=== PATIENT | male | born 1975 | race Caucasian/White ===

== ENCOUNTER → 2017-03-31 | Outpatient (CLI) | payer MEDICAID ==
[~2017-03-31] MED LIST: /WARF5TA PO; ACET-654 PO; ACET325S2 PO; BISAC5TA PO; COLA50CA3 PO; COUM6TAB PO; DOCU10ELUD PO; DRIS1CAP PO; LIPI10TA PO; LOVE1INJ SC; MOM30SS PO; TYLE325T5 PO; [UNRECOGNIZED DRUG - CODE] PO; senokot PO
--- NOTE | 2017-03-31 14:29 | REP ---
Chest x-ray: Two views. History: Shortness of breath. Comparison study: December 28, 2012. Findings: The patient is status post placement of intracardiac closure device. This projects to the right of midline over the heart. It is unchanged. There is some right apical pleuroparenchymal fibrosis. The lungs are otherwise well inflated and clear. The pleural angles are sharp. Heart is not enlarged. There is a mild levoconvex curvature in the lower thoracic spine. Pulmonary vasculature is not increased. No significant bony abnormality. Impression: No active disease. Signed by Baron Fernandez MD 03/31/2017 02:56 P
== END ==
LOC: M SMT 11:45
PROVIDERS: ATTEND Nurse Practitioner Adult Health
DX: R06.02 Shortness of breath (principal)

== ENCOUNTER → 2017-12-28 | Outpatient (CLI) | payer MEDICARE, MEDICAID | LOC: M SLEEP 19:24 | DX: G47.30 Sleep apnea, unspecified (principal) | CPT/HCPCS: 95810 ==

== ENCOUNTER → 2018-01-12 | Outpatient (CLI) | payer MEDICARE, MEDICAID | LOC: M SLEEP 19:56 | DX: G47.33 Obstructive sleep apnea (adult) (pediatric) (principal) | CPT/HCPCS: 95811 ==

== ENCOUNTER → 2020-04-05 | Outpatient (CLI) | payer MEDICARE, MEDICAID ==
[~2020-04-05] MED LIST changes: -/WARF5TA PO; +COUM1TAB17 PO; -DOCU10ELUD PO; +DOCU5LIQ PO
--- NOTE | 2020-04-07 13:18 | SLEEPCENT ---
DATE: 04/05/2020 ORDERED BY: Mira Girard NP Nocturnal polysomnography was performed for the titration of pressure therapy in this patient with obstructive sleep apnea syndrome with apnea-hypopnea index of 10.2, who is intolerant of pressure therapy at home. For testing a ResMed AirFit F20 full face mask of medium size was applied, 8 cm of water pressure were applied to the circuit, and the lights were extinguished. Seven hours and 58 minutes of data were reviewed. There were only 36 minutes of sleep identified. Sleep latency was prolonged at 29.5 minutes. The patient did not achieve REM sleep. Sleep architecture is unable to be assessed. The overall sleep efficiency is 8.7%. The patients electrocardiogram showed a sinus rhythm with an average heart rate of 64 beats per minute, rate range 50 to 100. EEG showed fairly normal waveforms for wake and sleep stages. There were no focal events identified. During the brief interval when the patient did sleep, there were no respiratory events on a CPAP pressure of +8. There was some minor limb activity with a limb movement arousal index of 3.3. IMPRESSION: Equivocal nocturnal polysomnography. RECOMMENDATION: Testing may need to be repeated. The patient had difficulty sleeping in the sleep lab environment. Perhaps now as he is accustomed to the environment, testing may be more productive. TIAGO
== END ==
LOC: M SLEEP 20:00
PROVIDERS: ATTEND Nurse Practitioner Adult Health
DX: G47.33 Obstructive sleep apnea (adult) (pediatric) (principal)

== ENCOUNTER 2020-07-01 14:10 | Inpatient (IN) | payer MEDICARE, MEDICAID ==
[~2020-07-01] VITALS: Ht 160 cm; Wt 50.0 kg
--- NOTE | 2020-07-01 14:57 | ECGEPIP ---
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
--- OUTSIDE RECORDS SUMMARY | 2020-07-01 15:31 | CCD | Continuity of Care Document ---
Author Author [facility] Address [address] [place] [address] Phone Support Name [place] [address] Allergies, Adverse Reactions, Alerts No known allergies. Medications Medication Status Dose Units Route Directions Qty Days Start Date End Date Instructions pneumococcal 23-toyin ps vaccine 25 mcg/0. 5 mL injection syringe Discontinued 0.5 ML IM once in the evening 0.5 December 24, 2019 11:56am December 23, 2 020 5:13pm diphth,pertus(acell),tetanus 2.5 Lf unit -8 mcg-5 Lf/0.5mL IM syringe Discontinued 0.5 ML IM 1 Time/Once 0.5 December 24, 2019 11:56am December 23, 2 020 5:13pm Afluria Qd 2019-(3yr up)(PF) (flu vac [id number] 36mos up(PF)) Discontinued 0.5 ML IM 1 Time/Once 0.5 April 22, 2020 1:00pm April 22, 2020 1:36pm Aspirin Active 81 MG PO Once Per Day January 29, 2014 3:01pm Baclofen Active 20 MG PO Four Times a Day September 11, 2015 9:58am Flu Vacc [id number](4yr,Up)(Pf) (Fluvirin [id number] Syringe) 45 MCG/0.5 ML syringe Discontinued 0.5 ML IM ONE TIME 1 September 11, 2015 10:20am September 11, 2015 10:22am Cetirizine Discontinued 10 MG PO Once Per Day September 11, 2015 11:27am February 02, 2016 10:42am Omeprazole Discontinued 40 MG PO Once Per Day September 11, 2015 11:27am February 02, 2016 10:42am Fluticasone Propionate Discontinued 1 SPRAYS EN 2 Times Per Da y 1 September 11, 2015 11:2 7am February 02, 2016 10:42am Cetirizine Discontinued 10 MG PO Once Per Day February 02, 2016 10:42am December 28, 2016 8:08am Omeprazole Discontinued 40 MG PO Once Per Day February 02, 2016 10:42am August 29, 2017 10:58am Dr. Stef tran Fluticasone Propionate Discontinued 1 SPRAYS EN 2 Times Per Da y 1 February 02, 2016 10 :42am September 15, 2016 7:43am Flu Vaccine [id number](5yrup)Pf (Afluria Syringe) 45 MCG/0.5 ML syringe Discontinued 45 MCG IM ONE TIME August 10, 2016 11:24am August 10, 017 11:26am Escitalopram Oxalate (Lexapro) 10 MG tablet Discontinued 10 MG PO O nce Per Day August 10, 2016 1:02pm September 15, 2016 7:43am Fluticasone Propionate Discontinued 1 SPRAYS EN 2 Times Per Da y September 15, 2016 7:4 3am October 03, 2018 5:43am takes twice a d ay as needed Fluticasone Propionate Active 1 SPRAYS EN 2 Times Per Da y September 15, 2016 7:4 3am takes twice a day as needed Escitalopram Oxalate (Lexapro) 10 MG tablet Discontinued 10 MG PO O nce Per Day September 15, 2016 7:43am December 28, 2016 7:39am Escitalopram Oxalate (Lexapro) 10 MG tablet Discontinued 10 MG PO O nce Per Day December 28, 2016 7:39am October 03, 2018 5:53am Escitalopram Oxalate (Lexapro) 10 MG tablet Discontinued 10 MG PO O nce Per Day December 28, 2016 7:39am December 18, 2018 2:11pm Cetirizine Discontinued 10 MG PO Once Per Day December 28, 2016 8:08am October 03, 2018 5:53am Cetirizine Active 10 MG PO Once Per Day December 28, 2016 8:08am Epinastine Discontinued 1 DROPS OP 2 Times Per Day December 28, 2016 8:08am October 03, 2018 5:53am Epinastine Active 1 DROPS OP 2 Times Per Day December 28, 2016 8:08am Fluticasone Propion-Salmeterol (Advair 2 50-50 Diskus) 1 EACH blister with device Active 1 PUFFS IH 2 Times Per Day 60 May 12, 2017 12:43pm Albuterol Sulfate (Proair Hfa) 8.5 GM HFA aerosol inha ler Active 1 - 2 PUFFS IH Four Times a day PRN 1 May 12, 2017 12:43pm maximum: 8 inhalations daily Omeprazole Discontinued 40 MG PO Once Per Day August 29, 2017 10:58am October 03, 2018 6:33am Omeprazole Active 40 MG PO Once Per Day August 29, 2017 10:58am Problems Active Problems Medical Problem Onset Date Status Obstructive sleep apnea January 09, 2018 Active Moderate persistent asthma without complication August 11, 2017 Active Mixed hyperlipidemia A ctive GERD without esophagitis September 11, 2015 Active Allergic rhinitis Acti ve Tinnitus Active Inactive/Resolved Problems Medical Problem Onset Date Status neck masses Resolved throat masses Resolved History of heart surgery Resolved History of sinus surgery Resolved History of appendectomy Resolved History of cystoscopy Resolved History of pneumothorax Resolved History of CVA (cerebrovascular accident) Resolved Procedures No procedure information available. Relevant Diagnostic Tests and/or Laboratory Data No known relevant diagnostic tests and/or laboratory data. Health Concerns Health Concerns may be documented in an alternate section. Advance Directives Advance Directive Response Recorded Date/Time Advanced Directive No Au josue 2013 11:47am Advance Directives on File or in chart? No December 24, 2019 3:26pm Does Patient have a DNR? No December 24, 2019 3:26pm Healthcare Proxy No December 24, 2019 3:26pm Living Will No December 3:26pm Chief Complaint and Reason for Visit Chief Complaint Annual Physical Hyperlipidemia Reason for Visit Mixed hyperlipidemi a Tinnitus Obstructive sleep apnea Allergic rhinitis GERD without esophagitis Mixed hyperlipidemia Encounters Encounter Location(s) Ar rival/Admit Date Discharge/Depart Date Provider(s) Departed Physician/Provider Office Visit [facility] December 24, 2019 11:56am December 24, 2019 1:03pm Shanika Jenkins Physician/Provider Office Visit [facility] April 22, 2020 1:00pm April 22, 2020 2:15pm Shanika abbott Recent Diagnosis Onset Date Mixed hyperlipidemia Tinnitus Obstructive sleep apnea January 09, 2018 Allergic rhinitis GERD without esophagitis September 11, 2015 Mixed hyperlipidemia Assessments Diagnosis Onset Date Res olution Status Mixed hyperlipidemia chronic Tinnitus chronic Obstructive sleep apnea January 09, 2018 acute Allergic rhinitis chronic GERD without esophagitis September 11, 2015 chronic Mixed hyperlipidemia chronic Functional Status No Functional Status information available Goals Goals may be documented in an alternate section. 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 Home Phone: HOME Payer Policy Id Coverage Id Subscriber's Name Subscriber Id Effective Date Expiration Date MEDICARE [place] [id number] ULIZ S TRIPP [id number] [place] [id number] LUIZ S RYAN [id number] MEDICAID [id number] LUIZ S RYAN [id number] Jun MEDICAID [id number] LUIZ S RYAN [id number] MEDICARE [id number] LUIZ S RYAN [id number] Self Pay Self N/A Plan of Treatment Recently had retitration study but only slept 39min - has a f/u with pulmonology to discuss results next month. Continue using cpap. Stable on omeprazole 40mg daily. Stable - takes cetirizine, uses fluticasone and epinastine eye drops prn. Encouraged regular physical exercise and increased fruit/veg intake. Referral for eye exam. Plans to set up dental exam. Tdap and pneumovax 23 today. Additional labs ordered d/t fatigue. PHQ 9 score 7 - Luiz denies feeling depressed, attributes to fatigue. Discussed labs and framingham risk score. Encouraged to work on cutting down on saturated fats/increasing fruit/veg intake and regular physical exercise. Discussed statin use d/t hx CVA. Advised to also check with neurology to see if statin recommended. Hga1c ordered. Encouraged to cut down on sweets/breads/pastas/potatoes/rice. Audiology evaluation ordered. Future Tests Future scheduled test information is unavailable Pending Tests Pending diagnostic test information is unavailable Future Visits Future appointment information is unavailable Referrals to Other Providers Reason for Referral Referral Start Date Provider Provider Maxim ct Information Provider Address H93.19 - Tinnitus, unspecified ear December 24, 2019 Afshan IQBAL-Amor boswellki Z13.5 - Encounter for screening for eye and ear disorders [facility] [address] [address] Future Procedures Future procedure information is unavailable Future Medications Future medication information is unavailable Patient Instructions Patient instructions are unavailable Social History Smoking Status Status Date of Observation Never smoker December 24, 2019 4:26pm Observation Status Observation Response Librado e of Response Smoking Status Never smoker December 24, 2019 3:26pm Alcohol Use No February 022013 10:39am Substance Use No February 02, 2014 10:39am Assigned Sex Male Vital Signs Vital Reading Result Ref erence Range Collection Date/Time Height 63 [in_i] December 24, 2019 12:58pm Weight 120.00 [lb_av] December 24, 2019 12:58pm Body Temperature 98.0 [degF] 97.6-99.5 December 24, 2019 12:58pm Heart Rate 78 /min 60-100 December 24, 2019 12:58pm Respiratory rate 18 /min 05-28December 24, 2019 12:58pm Oxygen saturation by Pulse oximetry 98 % 95- 100 December 24, 2019 12:58pm BP Systolic 96 mm[Hg] December 24, 2019 12:58pm BP Diastolic 60 mm[Hg] December 24, 2019 12:58pm BMI (Body Mass Index) 21.2 kg/m2 December 24, 2019 12:58pm Height 63 [in_i] April 22, 2020 1:05pm Weight 119.00 [lb_av] April 22, 2020 1:05pm Body Temperature 98.8 [degF] 97.6-99.5 April 22, 2020 1:05pm Heart Rate 84 /min 60-100 April 22, 2020 1:05pm Respiratory rate 18 /min 12-24 April 22, 2020 1:05pm Oxygen saturation by Pulse oximetry 98 % 95- 100 April 22, 2020 1:05pm BP Systolic 102 mm[Hg] April 22, 2020 1:05pm BP Diastolic 64 mm[Hg] April 22, 2020 1:05pm BMI (Body Mass Index) 21.0 kg/m2 April 22, 2020 1:05pm Hospital Discharge Instructions
--- OUTSIDE RECORDS SUMMARY | 2020-07-01 15:31 | CCD ---
Author Author [facility] Organization [facility] Address Unknown Phone Unavailable Care Team Providers Care Allied Health Instructor Name Role Phone Marcel, A Shanika PA Unavailable Unavailable Marcel, A Shanika PA Unavailable Unavailable Marcel, A Shanika PA Unavailable Unavailable Marcel, A Shanika PA Unavailable Unavailable Marcel, A Shanika PA Unavailable Unavailable Marcel, A Shanika PA Unavailable Unavailable Marcel, A Shanika PA Unavailable Unavailable Marcel, A Shanika PA Unavailable Unavailable Marcel, A Shanika PA Unavailable Unavailable Marcel, A Shanika PA Unavailable Unavailable Marcel, A Shanika PA Unavailable Unavailable Marcel, A Shanika PA Unavailable Unavailable Marcel, A Shanika PA Unavailable Unavailable Marcel, A Shanika PA Unavailable Unavailable Marcel, A Shanika PA Unavailable Unavailable Marcel, A Shanika PA Unavailable Unavailable Marcel, A Shanika PA Unavailable Unavailable Marcel, A Shanika PA Unavailable Unavailable Marcel, A Shanika PA Unavailable Unavailable Marcel, A Shanika PA Unavailable Unavailable Marcel, A Shanika PA Unavailable Unavailable Marcel, A Shanika PA Unavailable Unavailable Marcel, A Shanika PA Unavailable Unavailable Marcel, A Shanika PA Unavailable Unavailable Marcel, A Shanika PA Unavailable Unavailable Marcel, A Shanika PA Unavailable Unavailable Marcel, A Shanika PA Unavailable Unavailable Marcel, A Shanika PA Unavailable Unavailable Marcel, A Shanika PA Unavailable Unavailable Marcel, A Shanika PA Unavailable Unavailable Marcel, A Shanika PA Unavailable Unavailable Marcel, A Shanika PA Unavailable Unavailable Marcel, A Shanika PA Unavailable Unavailable Marcel, A Shanika PA Unavailable Unavailable Marcel, A Shanika PA Unavailable Unavailable Marcel, A Shanika PA Unavailable Unavailable Marcel, A Shanika PA Unavailable Unavailable Marcel, A Shanika PA Unavailable Unavailable Marcel, A Shanika PA Unavailable Unavailable Marcel, A Shanika PA Unavailable Unavailable Marcel, A Shanika PA Unavailable Unavailable Marcel, A Shanika PA Unavailable Unavailable Marcel, A Shanika PA Unavailable Unavailable Marcel, A Shanika PA Unavailable Unavailable Marcel, A Shanika PA Unavailable Unavailable Marcel, A Shanika PA Unavailable Unavailable Marcel, A Shanika PA Unavailable Unavailable Marcel, A Shanika PA Unavailable Unavailable Marcel, A Shanika PA Unavailable Unavailable Marcel, A Shanika PA Unavailable Unavailable Marcel, A Shanika PA Unavailable Unavailable Marcel, A Shanika PA Unavailable Unavailable Marcel, A Shanika PA Unavailable Unavailable Marcel, A Shanika PA Unavailable Unavailable Marcel, A Shanika PA Unavailable Unavailable Marcel, A Shanika PA Unavailable Unavailable Marcel, A Shanika PA Unavailable Unavailable Marcel, A Shanika PA Unavailable Unavailable Marcel, A Shanika PA Unavailable Unavailable Marcel, A Shanika PA Unavailable Unavailable Marcel, A Shanika PA Unavailable Unavailable Marcel, A Shanika PA Unavailable Unavailable Marcel, A Shanika PA Unavailable Unavailable Marcel, A Shanika PA Unavailable Unavailable Marcel, A Shanika PA Unavailable Unavailable Marcel, A Shanika PA Unavailable Unavailable Marcel, A Shanika PA Unavailable Unavailable Marcel, A Shanika PA Unavailable Unavailable Marcel, A Shanika PA Unavailable Unavailable Marcel, A Shanika PA Unavailable Unavailable Marcel, A Shanika PA Unavailable Unavailable Marcel, A Shanika PA Unavailable Unavailable Marcel, A Shanika PA Unavailable Unavailable Marcel, A Shanika PA Unavailable Unavailable Marcel, A Shanika PA Unavailable Unavailable Marcle, A Shanika PA Unavailable Unavailable Marcel, A Shanika PA Unavailable Unavailable Marcel, A Shanika PA Unavailable Unavailable Marcel, A Shanika PA Unavailable Unavailable Marcel, A Shanika PA Unavailable Unavailable Marcel, A Shanika PA Unavailable Unavailable Marcel, A Shanika PA Unavailable Unavailable Marcel, A Shanika PA Unavailable Unavailable Marcel, A Shanika PA Unavailable Unavailable Marcel, A Shanika PA Unavailable Unavailable Marcel, A Shanika PA Unavailable Unavailable Marcel, A Shanika PA Unavailable Unavailable Marcel, A Shanika PA Unavailable Unavailable Marcel, A Shanika PA Unavailable Unavailable Marcel, A Shanika PA Unavailable Unavailable Marcel, A Shanika PA Unavailable Unavailable Marcel, A Shanika PA Unavailable Unavailable Marcel, A Shanika PA Unavailable Unavailable Marcel, A Shanika PA Unavailable Unavailable Marcel, A Shanika PA Unavailable Unavailable Marcel, A Shanika PA Unavailable Unavailable Marcel, A Shanika PA Unavailable Unavailable Marcel, A Shanika PA Unavailable Unavailable Marcel, A Shanika PA Unavailable Unavailable Marcel, A Shanika PA Unavailable Unavailable Marcel, A Shanika PA Unavailable Unavailable Marcel, A Shanika PA Unavailable Unavailable Marcel, A Shanika PA Unavailable Unavailable Marcel, A Shanika PA Unavailable Unavailable Marcel, A Shanika PA Unavailable Unavailable Marcel, A Shanika PA Unavailable Unavailable Marcel, A Shanika PA Unavailable Unavailable Marcel, A Shanika PA Unavailable Unavailable Marcel, A Shanika PA Unavailable Unavailable Marcel, A Shanika PA Unavailable Unavailable Shaji, L Mira FILM LABORATORY TECHNICIAN Unavailable Unavailable Shaji, L Mira FILM LABORATORY TECHNICIAN Unavailable Unavailable Shaji, L Mira FILM LABORATORY TECHNICIAN Unavailable Unavailable Shaji, L Mira FILM LABORATORY TECHNICIAN Unavailable Unavailable Shaji, L Mira FILM LABORATORY TECHNICIAN Unavailable Unavailable Shaji, L Mira FILM LABORATORY TECHNICIAN Unavailable Unavailable Shaji, L Mira FILM LABORATORY TECHNICIAN Unavailable Unavailable Shaji, L Mira FILM LABORATORY TECHNICIAN Unavailable Unavailable Shaji, L Mira FILM LABORATORY TECHNICIAN Unavailable Unavailable Shaji, L Mira FILM LABORATORY TECHNICIAN Unavailable Unavailable Shaji, L Mira FILM LABORATORY TECHNICIAN Unavailable Unavailable Shaji, L Mira FILM LABORATORY TECHNICIAN Unavailable Unavailable Shaji, L Mira FILM LABORATORY TECHNICIAN Unavailable Unavailable Shaji, L Mira FILM LABORATORY TECHNICIAN Unavailable Unavailable Shaji, L Mira FILM LABORATORY TECHNICIAN Unavailable Unavailable Shaji, L Mira FILM LABORATORY TECHNICIAN Unavailable Unavailable Shaji, L Mira FILM LABORATORY TECHNICIAN Unavailable Unavailable Shaji, L Mira FILM LABORATORY TECHNICIAN Unavailable Unavailable Shaji, L Mira FILM LABORATORY TECHNICIAN Unavailable Unavailable Shaji, L Mira FILM LABORATORY TECHNICIAN Unavailable Unavailable Shaji, L Mira FILM LABORATORY TECHNICIAN Unavailable Unavailable Shaji, L Mira FILM LABORATORY TECHNICIAN Unavailable Unavailable Re-disclosure Warning The records that you are about to access may contain information from federally-assisted alcohol or drug abuse programs. If such information is present, then the following federally mandated warning applies: This information has been disclosed to you from records protected by federal confidentiality rules (42 CFR part 2). The federal rules prohibit you from making any further disclosure of this information unless further disclosure is expressly permitted by the written consent of the person to whom it pertains or as otherwise permitted by 42 CFR part 2. A general authorization for the release of medical or other information is NOT sufficient for this purpose. The Federal rules restrict any use of the information to criminally investigate or prosecute any alcohol or drug abuse patient.The records that you are about to access may contain highly sensitive health information, the redisclosure of which is protected by Article 27-F of the [facility] Public Health law. If you continue you may have access to information: Regarding HIV / AIDS; Provided by facilities licensed or operated by the [facility] Office of Mental Health; or Provided by the [facility] Office for People With Developmental Disabilities. If such information is present, then the following [facility] mandated warning applies: This information has been disclosed to you from confidential records which are protected by state law. State law prohibits you from making any further disclosure of this information without the specific written consent of the person to whom it pertains, or as otherwise permitted by law. Any unauthorized further disclosure in violation of state law may result in a fine or skilled nursing sentence or both. A general authorization for the release of medical or other information is NOT sufficient authorization for further disc losure. Allergies and Adverse Reactions Type Description Substance Reaction Status Data Source(s ) Miscellaneous allergy No Known Drug Allergies No Known Drug Allergies [facility] Family History Family Member Name Family Member Gender Family Member Status Date o f Status Description Data Source(s) Unknown Male Problem [facility] ([facility] Pt was adopted Encounters Encounter Providers Location Date Indications Data Source(s ) Emergency Attender: Shanika VARELA dmitter: Shanika Rod PAConsultant: Shanika DENSON [phone] 07/01/2020 09:05:00 AM EST - 07/01/2020 01:11:00 PM EST SICK [facility] SICK Patient discharged. Outpatient Attender: Shanika GARZAeferrer: Shanika DENSON 04/22/2020 01:00:00 PM EST - 04/22/2020 02:15:00 PM EST [facility] Outpatient Attender: Shanika VARELA dmitter: Shanika Rod PAConsultant: Shanika DENSON 008 04/21/2020 01:06:00 PM EST - 04/21/2020 01:06:00 PM EST Lab test [facility] Lab test Outpatient Attender: hSanika GARZAeferrer: Shanika DENSON 12/24/2019 12:56:00 PM EDT - 12/24/2019 02:03:00 PM EDT [facility] Outpatient Attender: Shanika VARELA dmitter: Shanika Stanleyerrer: Shanika Rod PAConsultant: Shanika DENSON [phone] 10:17:00 AM EDT - 12/23/2019 10:18:00 AM EDT Lab test [facility] Lab test Patient discharged. Outpatient Attender: Mira Girard FILM LABORATORY TECHNICIAN Main Office 08/21/2019 11:30:00 AM EDT [facility] ([facility] Insurance Providers Payer name Policy type / Coverage type Policy ID Covered alliance party ID Covered alliance party's relationship to barr Policy Barr Plan Information MEDICARE-OP [id number] undefined [id number] MEDICARE [id number] SP [id number] [place] [id number] SP [id number] MEDICARE [id number] SP [id number] A MEDICAID [facility]-OP [id number] undefined [id number] MEDICARE-OP [id number] undefined [id number] [id number] Self [id number] Medicare - [place] Medicare Primary [id number] Self [id number] [place] [id number] Self [id number] Medicare - [place] Medicare Primary [id number] Self [id number] MEDICAID -RECURRING [id number] u ndefined [id number] MEDICARE -RECURRING [id number] undefined [id number] [place] [id number] Self [id number] Medicare - [place] Medicare Primary [id number] Self [id number] MEDICARE [id number] SP [id number] A MEDICAID [id number] SP [id number] [place] [id number] Self [id number] Medicare - [place] Medicare Primary [id number] Self [id number] MEDICARE C [id number] S [id number] A MEDICAID M [id number] S [id number] [place] [id number] Self [id number] Medicare - [place] Medicare Primary [id number] Self [id number] MEDICAID [id number] SP [id number] [place] [id number] Self [id number] [place] [id number] Self [id number] MEDICAID - O/P EMERGENCY ROOM [id number] [place] 3 [id number] 1 [id number] [place] 3 [id number] SELF PAY 2 UNAVAILABLE 1 UNAVAILA BLE Problems, Conditions, and Diagnoses Code Display Name Description Problem Type Effective Dates Data Source(s) R7301 Impaired fasting glucose Impaired fasting glucose Diag nosis 04/21/2020 01:06:00 PM [facility] E559 Vitamin D deficiency, unspecified Vitamin D defi ciency, unspecified Diagnosis 04/21/2020 01:06:00 PM [facility] R5383 Other fatigue Other fatigue Diagnosis 04/21/2020 01:06:00 PM [facility] E785 Hyperlipidemia, unspecified Hyperlipidemia, unspecifie d Diagnosis 12/23/2019 10:17:00 AM EDT [facility] G4733 Obstructive sleep apnea (adult) (pediatr ic) Obstructive sleep apnea (adult) (pediatric) Diagnosis 12/23/2019 10:17:00 AM EDT [facility] J4540 Moderate persistent asthma, uncomplicate d Moderate persistent asthma, uncomplicated Diagnosis 12/23/2019 10:17:00 AM EDT [facility] K219 Gastro-esophageal reflux disease without esophagitis Gastro-esophageal reflux disease without esophagitis Diagnosis 12/23/2019 10:17:00 AM ED T [facility] Surgeries/Procedures Procedure Description Date Indications Data Source(s) RESPIRATORY FLOW VOLUME LOOP 08/21/2019 12:00:00 AM ED T [facility] ([facility] Results ID Date Data Source [id number] 07/01/2020 10:50:00 AM EST [facility] Name Value Range Interpretation Code Description Data Kassandra rce(s) Supporting Document(s) URINALYSIS ROUTINE wMICRO RFLX TO CX [facility] URINALYSIS W/REFLEX CULTURE REFERENCE RANGES SOURCE Random [facility] COLOR Yellow Colorless-Cris [facility] ospital CLARITY Clear Normal: Clear [facility] pital [place]UK EST Negative Negative - Trace [facility] NITRITE Negative Normal: Negative [facility] UROBILINOGEN Negative Negative - Trace [facility] PROTEIN Negative Negative - Trace [facility] pH 7.0 5.0 - 8.0 [facility] l BLOOD Negative Negative - Trace [facility] SPEC GRAVITY 1.010 1.000 - 1.030 [facility] KETONE Negative Negative - Trace [facility] BILIRUBIN Negative Normal: Negative [facility] GLUCOSE Negative Normal: Negative [facility] MICROSCOPIC See Below [facility] richard WBC NONE SEEN None Seen - 5/hpf [facility] RBC NONE SEEN None Seen - 5/hpf [facility] EPITHELIAL None Seen NORMAL: None Seen [facility] BACTERIA NONE SEEN NORMAL: None Seen [facility] MUCOUS 1+ NORMAL: None Seen [facility] CASTS Not Indicated [facility] pital CRYSTALS Not Indicated [facility] pital CULTURE INDICATED? NO Normal: No [facility] ID Date Data Source [id number] 07/01/2020 10:30:00 AM EST [facility] Name Value Range Interpretation Code Description Data Kassandra rce(s) Supporting Document(s) RESP PROFILE RP2.1 NASAL PCR C [facility] \\BLDo\\RESPIRATORY PROFILE NASAL PHARYNGEAL BY PCR\\BLDx\\ \\BLDo\\DETECTED _NONE \\BLDx\\ 07/01/20.1243.KJV. \\BLDo\\EQUIVOCAL _NONE \\BLDx\\ 07/01/20.1243.KJV. VIRUSES ADENOVIRUS NOT DETECTED NORMAL: NOT DETECTED [facility] CORONAVIRUS 229E NOT DETECTED NORMAL: NOT DETECTED [facility] CORONAVIRUS HKU1 NOT DETECTED NORMAL: NOT DETECTED [facility] CORONAVIRUS NL63 NOT DETECTED NORMAL: NOT DETECTED [facility] CORONAVIRUS OC43 NOT DETECTED NORMAL: NOT DETECTED [facility] [id number] NOT DETECTED NORMAL: NOT DETECTED [facility] REPORT TO DEPARTMENT OF HEAL TH HUMAN METAPNEUMO NOT DETECTED NORMAL: NOT DETECTED [facility] HUMAN RHINO/ENTERO NOT DETECTED NORMAL: NOT DETECTED [facility] NOT DETECTEDNOT DETECTEDNOT DETECTEDNOT DETECTED PARAINFLUENZA V3 NOT DETECTED NORMAL: NOT DETECTED [facility] NOT DETECTED RSV NOT DETECTED NORMAL: NOT DETECTED [facility] BACTERIANOT DET ECTEDNOT DETECTEDNOT DETECTEDNOT DETECTED TESTING PERFORMED USING THE [employer] RP2.1 MULTIPLEXED NUCLEIC ACID TEST. THIS TEST HAS NOT BEEN FDA CLEARED OR APPROVED; THIS TEST HAS BEEN AUTHORIZED BY FDA UNDER AN EUA FOR USE BY AUTHORIZED LABORATORIES; THIS TEST HAS BEEN AUTHORIZED ONLY FOR THE DETECTION AND DIFFERENTATION OF NUCLEI ACID OF SARS-CoV-2 FROM MULTIPLE RESPIRATORY VIRAL AND BACTERIAL ORGANIMS; AND THIS TEST IS ONLY AUTHORIZED FOR THE DURATION OF THE DECLARATION THAT CIRCUMSTANCES EXIST JUSTIFYING THE AUTHORIZATION OF EMERGENCY USE OF IN VITRO DIAGNOSTIC TESTS FOR THE DETECTION AND/OR DIAGNOSIS OF COVID-19 UNDER SECTION 564(b)(1) OF THE ACT, 21 U.S.C. 360bbb-3(b) (1), UNLESS THE AUTHORIZATION IS TERMINATED OR REVOKED SOONER. ID Date Data Source [id number] 07/01/2020 09:35:00 AM EST [facility] Name Value Range Interpretation Code Description Data Kassandra rce(s) Supporting Document(s) Acetaminophen [Mass/volume] in Serum or Plasma 0 ug/mL 0 - 30 [facility] ACETAMINOPHEN CONCENTRATIONS >150.0 MCG/ML AT FOUR HOURS AFTER INGESTION, AND >50.0 MCG/ML AT TWELVE HOURS AFTER INGESTION ARE OFTEN ASSOCIATED WITH TOXIC REACTIONS. Salicylates [Mass/volume] in Serum or Plasma <2.8 mg/dL 5.0 - 30.0 Below low normal [facility] MAY BE TOXIC IF SALICYLATE LEV EL IS GREATER THAN 30.0 mg/dL ID Date Data Source [id number] 07/01/2020 09:35:00 AM EST [facility] Name Value Range Interpretation Code Description Data Kassandra rce(s) Supporting Document(s) LIPID PROFILE [facility] pital LIPID PROFILE Cholesterol [Mass/volume] in Serum or Plasma 286 mg/dL [facility] Triglyceride [Mass/volume] in Serum or Plasma 143 mg/dL [facility] Cholesterol in HDL [Mass/volume] in Serum or Plasma 41 mg/dL [facility] Cholesterol in LDL [Mass/volume] in Serum or Plasma by calculati on 216 mg/dL [facility] CHOL/HDL 6.98 [facility] l \\BLDo\\INTERPRE TATION\\BLDx\\ REFERENCE RANGES (NATIONAL CHOLESTEROL EDUCATION PROGRAM) CHOLESTEROL < 200 mg/dL DESIREABLE 200 - 239 mg/dL BORDERLINE HIGH > 240 mg/dL HIGH TRIGLYCERIDES < 150 mg/dL DESIREABLE 150 - 199 mg/dL BORDERLINE HIGH 200 - 499 mg/dL HIGH > or = 500 mg/dL VERY HIGH HDL > or = 60 mg/dL HIGH < 40 mg/dL LOW LDL < 100 mg/dL DESIREABLE 100 - 129 mg/dL LOW RISK 130 - 159 mg/dL BORDERLINE HIGH 160 - 189 mg/dL HIGH > or = 190 mg/dL VERY HIGH ID Date Data Source [id number] 07/01/2020 09:35:00 AM EST [facility] Name Value Range Interpretation Code Description Data Kassandra rce(s) Supporting Document(s) Creatine kinase.MB [Mass/volume] in Serum or Plasma <0.5 ng/mL 0.5 - 5.0 [facility] ID Date Data Source [id number] 07/01/2020 09:35:00 AM EST [facility] Name Value Range Interpretation Code Description Data Kassandra rce(s) Supporting Document(s) COMPREHENSIVE CHEM PROFILE [facility] COMPREHENSIVE METABOLIC PANEL Sodium [Moles/volume] in Serum or Plasma 140 mEq/L 136 - 145 [facility] Potassium [Moles/volume] in Serum or Plasma 3.8 mEq/L 3.5 - 5.1 [facility] Chloride [Moles/volume] in Serum or Plasma 100 mEq/L 98 - 107 [facility] Carbon dioxide, total [Moles/volume] in Serum or Plasma 28.0 mEq /L 21.0 - 32.0 [facility] Glucose [Mass/volume] in Serum or Plasma 127 mg/dL 70 - 100 Above high normal [facility] Urea nitrogen [Mass/volume] in Serum or Plasma 16 mg/dL 7 - 18 [facility] CREATININE SERUM 0.97 mg/dL 0.70 - 1.30 [facility] AGE 45 yrs [facility] HEIGHT 63.00 INCHES [facility] ital eGFR NON-AFR AMR >60 [facility] eGFR AFR AMR >60 [facility] ital BUN/CREAT 16 6 - 25 [facility] Protein [Mass/volume] in Serum or Plasma 8.5 g/dL 6.0 - 8.3 Above high normal [facility] Albumin [Mass/volume] in Serum or Plasma 4.3 g/dL 3.8 - 5.4 [facility] GLOBULIN 4.2 g/dL 2.0 - 4.0 Above high normal [facility] A/G RATIO 1.0 0.8 - 2.0 [facility] Calcium [Mass/volume] in Serum or Plasma 9.8 mg/dL 8.8 - 10.2 [facility] Bilirubin.total [Mass/volume] in Serum or Plasma 0.6 mg/dL 0.2 - 1.0 [facility] Bilirubin.direct [Mass/volume] in Serum or Plasma 0.1 mg/dL 0.0 - 0. 2 [facility] INDIRECT BILI 0.5 mg/dL 0.0 - 1.1 [facility] pital ALK PHOSPHATASE 65 U/L 40 - 129 [facility] ospital Aspartate aminotransferase [Enzymatic ac tivity/volume] in Serum or Plasma by With P-5'-P 13 IU/L 7 - 37 [facility] Alanine aminotransferase [Enzymatic acti vity/volume] in Serum or Plasma by With P-5'-P 22 IU/L 12 - 78 [facility] ANION GAP 12 7 - 15 [facility] l Estimated GFR referenc e range: >60ml/min/1.73m >18 years: Calculated using IDKS traceable Study Equation <18 years: Calculated using IDKS tracable Bedside Schartz Equation ID Date Data Source [id number] 07/01/2020 09:35:00 AM [facility] Name Value Range Interpretation Code Description Data Kassandra rce(s) Supporting Document(s) Troponin I.cardiac [Mass/volume] in Serum or Plasma <0.017 ng/mL 0.017 - 0.060 [facility] \\BLDo\\TROPONIN I I NTERPRETATION:\\BLDx\\ < 0.06 ng/mL NOT SUSPICIOUS FOR AN AMI 0.06 - 0.59 ng/mL IRENE ZONE FOR AN AMI, SERIAL MONITORING RECOMMENDED 0.6 - 1.5 ng/mL SUSPICIOUS FOR AN AMI Reference range updated for new chemiluminescent immunoassay method based on 1DayLater technology. Effective 01/15/18. ID Date Data Source [id number] 07/01/2020 09:35:00 AM [facility] Name Value Range Interpretation Code Description Data Kassandra rce(s) Supporting Document(s) Fibrin D-dimer DDU [Mass/volume] in Platelet poor plas ma by Immunoassay 138 ng/mL 0 - 400 [facility] METHODOLOGY: FLUORESCENCE IMM UNOASSAY \\BLDo\\D- DIMER INTERPRETATION\\BLDx\\ Elevated D-dimer levels occur in a number of clinical situations and are not diagnostic of any specific condition. While increased levels are not specific for DVT or PE, low D-dimer levels may be used to rule out these conditions. Limitations: Specimens from patients who have routinely exposed to animals or to animal serum products may have contain heterophile antibodies, which may cause erroneous D-dimer results. ID Date Data Source [id number] 07/01/2020 09:35:00 AM [facility] PROTHROMBIN TIME Name Value Range Interpretation Code Description Data Kassandra rce(s) Supporting Document(s) WARFARIN? NO [facility] l 12.9 INR in Platelet poor plasma by Coagulation assay 1.0 1.0 - 4.5 [facility] Reference ranges Warf loco (Coumadin) Therapy: 21.6 - 40.7 secs Normal (Non-warfarin Therapy): 10.7 - 15.2 secs New Protime Reference Range as of April 24, 2020 ID Date Data Source [id number] 07/01/2020 09:35:00 AM EST [facility] Name Value Range Interpretation Code Description Data Kassandra rce(s) Supporting Document(s) CBC [facility] l COMPLETE BLOOD COUNT Leukocytes [#/volume] in Blood by Automated count 11.0 K/uL 4.0 - 10.0 Above high normal [facility] Erythrocytes [#/volume] in Blood by Automated count 5.12 M/uL 4.30 - 6.10 [facility] Hemoglobin [Mass/volume] in Blood 14.9 g/dL 13.5 - 17.5 [facility] Hematocrit [Volume Fraction] of Blood by Automated count 45.6 % 3 9.0 - 50.0 [facility] Erythrocyte mean corpuscular volume [Entitic volume] by Auto mated count 89.1 fL 80.0 - 96.0 [facility] Erythrocyte mean corpuscular hemoglobin [Entitic mass] by Automated count 29.1 pg 26.0 - 34.0 [facility] Erythrocyte mean corpuscular hemoglobin concentration [Mass/volume] by Automated count 32.7 g/dL 32.0 - 36.0 [facility] Erythrocyte distribution width [Ratio] by Automated count 12.5 % 11.6 - 14.8 [facility] Platelets [#/volume] in Blood by Automated count 318 K/uL 150 - 450 [facility] Platelet mean volume [Entitic volume] in Blood by Automated count 8.2 fL 7.1 - 10.4 [facility] Neutrophils [#/volume] in Blood by Automated count 9.22 K/uL 1.70 - 7.70 Above high normal [facility] Lymphocytes [#/volume] in Blood by Automated count 1.26 K/uL 1.50 - 6.00 Below low normal [facility] Monocytes [#/volume] in Blood by Automated count 0.39 K/uL 0.00 - 1. 00 [facility] Eosinophils [#/volume] in Blood by Automated count 0.01 K/uL 0.00 - 0.30 [facility] Basophils [#/volume] in Blood by Automated count 0.07 K/uL 0.00 - 0. 10 [facility] 0.02 Urinalysis macro (dipstick) panel - Urine 0.000 10^3/uL 0.000 - 0.012 [facility] Neutrophils/100 leukocytes in Blood by Automated count 84.0 % 42.2 - 75.2 Above high normal [facility] Lymphocytes/100 leukocytes in Blood by Automated count 11.5 % 15.0 - 41.0 Below low normal [facility] Monocytes/100 leukocytes in Blood by Automated count 3.6 % 0.0 - 12.0 [facility] Eosinophils/100 leukocytes in Blood by Automated count 0.1 % 0.0 - 7.0 [facility] 0.60.20 NRBC 0.0 % [facility] MANUAL DIFF NOT INDICATED [facility] RBC MORPH NOT INDICATED [facility] ID Date Data Source [id number] 07/01/2020 09:13:00 AM [facility] Name Value Range Interpretation Code Description Data Kassandra rce(s) Supporting Document(s) Glucose [Moles/volume] in Capillary blood by Glucometer 112 mg/d L 70 - 100 Above high normal [facility] RESULTS < 40 mg/dL OR > 500 mg /dL WILL REQUIRE CONFIRMATION BY LAB ID Date Data Source [id number] 04/22/2020 01:05:00 PM [facility] Patient Name: LUIZ RYAN : 0 1975 Sex: M Pt Unit #: [id number] Location:[facility] Provider: Visit Date/Time: 04/22/20 Primary Insurance: MEDICARE [employer] Secondary Insurance: MEDICAID [place] Intake Vital Signs 04/22/20 13:05 Current Height 5 ft 3 in Current Weight 119 lb Weight Measurement Method Standing Scale BMI 21.0 BP 102/64 Blood Pressure Location Lt brachial Position Sitting Respiration 18 Pulse 84 Pulse Strength Normal Pulse Source Pulse Oximeter Temp 98.8 F Temp Source Oral Pulse Oximetry (%) 98 Oxygen Delivery Method room air Intake Visit Reasons: Hyperlipidemia Nurse Note: Pt is here for a follow up on his hyperlipidemia. He had his labs done. And he would like his flu shot today. 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 Accompanied by: Self / Same as Patient Is patient in pain?: No Allergies No Known Drug Allergies Allergy (Verified 04/22/20 13:25) Medications albuterol sulfate 90 mcg/actuation (ProAir HFA) 1 - 2 puffs inhalation QIDPRN aspirin 81 mg PO DAILY atorvastatin 10 mg PO QDAY baclofen 20 mg PO QID cetirizine 10 mg PO DAILY cholecalciferol (vitamin D3) 2,000 units PO QDAY epinastine 0.05% 1 drop OP BID fluticasone propion-salmeterol 250-50 mcg/dose (Advair Diskus) 1 puff inhalation BID fluticasone propionate 50 mcg/actuation 1 spry EN BID omeprazole 40 mg PO DAILY HIV Testing Offer - ages 13-64 Requirement for HIV testing offer been met?: Declines today. Pretest education received and acknowledged SBIRT Annual Questionnaire Are you currently in recovery for alcohol or substance use?: No How many times in the past year have you had 5 or more drinks in a day?: None How many times in the past year have you used a recreational drug or used a prescription medication for nonmedical reasons?: None Do you need a note to return Do you need a note to return to daycare/school/sports/work: No Coronavirus Screening Screening Have you traveled outside of [facility] or [facility] in the last 14 days.: No Has patient experienced coronavirus symptoms: No [facility] Medical History (Updated 12/24/19 @ 16:37 by MATY Damon) Allergic rhinitis Anxiety Depression GERD without esophagitis (09/11/15) History of CVA (cerebrovascular accident) History of leukemia History of pneumothorax Mixed hyperlipidemia Moderate persistent asthma, uncomplicated (02/23/18) ELVIS (obstructive sleep apnea) (12/28/17) Right spastic hemiparesis Tinnitus Vitamin D deficiency Afluria Qd 2019-(3yr up)(PF) Performing Provider: MATY Damon Administered by: Mago Tom on 04/22/20 13:34 Surgical History (Updated 12/24/19 @ 16:32 by MATY Damon) History of appendectomy History of cystoscopy History of heart surgery History of sinus surgery Family History Mother No problems noted. Father No problems noted. Social History (Updated 12/24/19 @ 16:26 by MATY Damon) Does the Patient have a Healthcare Proxy: No Does Patient have a DNR?: No Does Patient have a Living Will?: No Advance Directives on File or in chart?: No adopted: Yes household members: none housing: house marital status: Single lives independently: Yes number of children: 0 highest education level completed: high school graduate service: No current occupational status: disabled pets and animals: Yes (2 cats) pets and animals: cat(s) leisure activities: hunting and other Hx Recent Travel (where): No sexually active: No do you think of yourself as: straight/heterosexual current gender identity: male well- balanced diet: daily caffeine: Yes Type: carbonated beverages daily servings fruits/ve-4 daily servings of milk/calcium: 2-4 eating out: rarely or never reads food labels: sometimes during the past year weight has: remained stable Smoking Status: Never smoker alcohol intake: current alcohol intake frequency: holidays/special occasions only substance use type: does not use special maco needs: No seatbelt use: always helmet use: Yes drive intox or ride w/ intox compactor driver: No water heater temp set < 120 deg: Yes working smoke detector in home: Yes fire extinguisher in home: No carbon monox detector in home: Yes firearms in home: No do you feel safe at home: Yes victim of physical abuse: No victim of emotional abuse: No victim of sexual abuse: No would you like helpful sources: No HPI Hyperlipidemia 45yo male with PMH hyperlipidemia, ELVIS, asthma, allergies and GERD here for f/u. Luiz states he is doing well. Recently saw pulmonology and recommended a retitration for cpap - had done 04/05/20 - only slept for 39min, may need another study. Has an appt next month to further discuss. Has been using cpap nightly. No change in advair. No coughing/wheezing/sob. Will have f/u in 6mo for repeat PFT. Saw neurology in january - no changes in medication. F/u 1yr. Had labs done but I have not yet received. Has been eating fruit. Admits he still likes his sweets. 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 hga1c 5.7%, TSH 3.30, 25 oh vit d 40, WBC 7.5, hgb/hct 14.6/45.2, PLT 293, glu 100, bun/cr 15/1.09, HDL 38, LDL 155, TG 153 Was not able to have audiology evaluation done at [place] - not covered, believes he has to go to [place] to have it done. Has not had a chance yet to get his eyes checked. Allergies - has not had any problems, usually bother him in the summer - taking cetirizine and usingfluticasone nasal spray as needed. GERD - currently on omeprazole and has not had any problems Type of Visit: follow-up denies headache(s), pedal edema, excessive sweating, chest pain or dyspnea Most Recent Cardiac Tests: No Data to Display Review of Systems Const Denies chills, Denies excessive sweating, Denies fatigue, Denies fever(s), Denies headache(s) and Denies poor appetite Eyes Denies eye discharge and Denies irritation ENT Denies headache(s), Denies nasal congestion, Denies nasal discharge, Denies post nasal drip, Denies sinus pressure and Denies sore throat Card Denies chest pain, Denies pedal edema and Denies dyspnea Resp Denies chest congestion, Denies cough, Denies hemoptysis, Denies dyspnea and Denies wheezing GI Denies abdominal pain, Denies heartburn, Denies nausea and Denies vomiting Neuro Denies headache(s) Endo Denies excessive sweating Aller/Immun Denies wheezing Exam Const General: cooperative, healthy appearing, comfortable, no acute distress, well developed and well groomed Nutritional Appearance: average body habitus [facility] Ears: TM's normal bilaterally and EAC abnormal (cerumen noted, non obstructive) General nose exam: no nasal discharge Mouth: oral mucosae normal and moist mucous membranes Throat: posterior oropharynx normal Eyes Conjunctivae: conjunctivae normal EOM: EOM intact bilaterally Neck Neck: no lymphadenopathy Resp Effort Inspection: normal respiratory effort Auscultation: clear to auscultation bilaterally, no crackles, no rhonchi and no wheezes Cardio Rhythm: regular rhythm Heart Sounds: S1 normal and S2 normal GI Palpation: soft, not firm, no guarding, no masses, not rigid and nontender Auscultation: normal bowel sounds Neuro Cranial Nerves: CN's II-XII intact bilaterally Psych Appearance: grossly normal Mental Status: mental status grossly normal Speech and Movement: speech and movement normal Mood: congruent mood Affect: normal affect Attitude: cooperative Thought Process: normal Immunizations Afluria Qd 2019-(3yr up)(PF) Performing Provider: MATY Damon Administered by: Mago Tom on 04/22/20 13:34 Dose Route Admin Location Lot Number Expiration Date NDC Manufactu rer 0.5 mL IM Left arm [id number] 12/02/20 37418-497-00 [employer] VIS Given Date VIS Provided VIS Publication Date 04/22/20 Single Vaccine 19 Eligibility Eligibility Date Funding Source Not [facility] Eligible 04/22/20 Private Assessment Plan Assessment Plan (1) Mixed hyperlipidemia: Status: Chronic Code(s): E78.2 - Mixed hyperlipidemia Category: Medical Plan - MATY Damon: Discussed lab results. Goal <100 and hx CVA. Agreeable to trial of atorvastatin 10mg daily. Discussed possible side effects. Recheck cmp and lipids 3months. Orders: Orders: CMP 3 Months LIPID PANEL 3 Months Medications: New: atorvastatin 10 mg PO QDAY 30 tabs 5RF (2) GERD without esophagitis: Status: Chronic Onset Date: 09/11/15 Code(s): K21.9 - Gastro-esophageal reflux disease without esophagitis Category: Medical Plan - MATY Damon: Stable on omeprazole 40mg daily. (3) Allergic rhinitis: Status: Chronic Code(s): J30.9 - Allergic rhinitis, unspecified Category: Medical Plan - MATY Damon: Stable - takes cetirizine, uses fluticasone and epinastine eye drops prn. (4) Obstructive sleep apnea: Status: Acute Onset Date: 01/09/18 Comment: [facility] Code(s): G47.33 - Obstructive sleep apnea (adult) (pediatric) Category: Medical Plan - MATY Damon: Recently had retitration study but only slept 39min - has a f/u with pulmonology to discuss results next month. Continue using cpap. Additional Comments Additional Comments: Asthma stable on advair, uses alb inh <2x/wk. Flu vaccine today. F/u after 12/23/20 for PE or sooner if needed. Advised to contact office if questions/concerns arise or s/s develop. Orders Other Medications: New: cholecalciferol (vitamin D3) 2,000 units PO QDAY Other Orders: Orders: INJ - Influenza Vaccine Today Z23 Follow Up: 8 Months (PE after 12/23/20) <Electronically signed by Shanika Juares> 04/22/20 1522 Name Value Range Interpretation Code Description Data [facility] rce(s) Supporting Document(s) ID Date Data Source [id number] 04/21/2020 01:05:00 PM EST [facility] Name Value Range Interpretation Code Description Data [facility] rce(s) Supporting Document(s) COMPREHENSIVE CHEM PROFILE [facility] COMPREHENSIVE METABOLIC PANEL Sodium [Moles/volume] in Serum or Plasma 139 mEq/L 136 - 145 [facility] Potassium [Moles/volume] in Serum or Plasma 3.8 mEq/L 3.5 - 5.1 [facility] Chloride [Moles/volume] in Serum or Plasma 99 mEq/L 98 - 107 [facility] Carbon dioxide, total [Moles/volume] in Serum or Plasma 30.0 mEq /L 21.0 - 32.0 [facility] Glucose [Mass/volume] in Serum or Plasma 100 mg/dL 70 - 100 [facility] Urea nitrogen [Mass/volume] in Serum or Plasma 15 mg/dL 7 - 18 [facility] CREATININE SERUM 1.09 mg/dL 0.70 - 1.30 [facility] AGE 45 yrs [facility] l HEIGHT NA [facility] l eGFR NON-AFR AMR >60 [facility] eGFR AFR AMR >60 [facility] ital BUN/CREAT 14 6 - 25 [facility] l Protein [Mass/volume] in Serum or Plasma 8.3 g/dL 6.0 - 8.3 [facility] Albumin [Mass/volume] in Serum or Plasma 4.0 g/dL 3.8 - 5.4 [facility] GLOBULIN 4.3 g/dL 2.0 - 4.0 Above high normal [facility] A/G RATIO 0.9 0.8 - 2.0 [facility] Calcium [Mass/volume] in Serum or Plasma 9.4 mg/dL 8.8 - 10.2 [facility] Bilirubin.total [Mass/volume] in Serum or Plasma 0.5 mg/dL 0.2 - 1.0 [facility] Bilirubin.direct [Mass/volume] in Serum or Plasma 0.1 mg/dL 0.0 - 0. 2 [facility] INDIRECT BILI 0.4 mg/dL 0.0 - 1.1 [facility] pital ALK PHOSPHATASE 71 U/L 40 - 129 [facility] ospital Aspartate aminotransferase [Enzymatic ac tivity/volume] in Serum or Plasma by With P-5'-P 14 IU/L 7 - 37 [facility] Alanine aminotransferase [Enzymatic acti vity/volume] in Serum or Plasma by With P-5'-P 25 IU/L 12 - 78 [facility] ANION GAP 10 7 - 15 [facility] l Estimated GFR referenc e range: >60ml/min/1.73m >18 years: Calculated using IDMS traceable Study Equation <18 years: Calculated using IDMS tracable Bedside Schartz Equation ID Date Data Source [id number] 04/21/2020 01:05:00 PM EST [facility] Name Value Range Interpretation Code Description Data Kassandra rce(s) Supporting Document(s) Cholesterol [Mass/volume] in Serum or Plasma 224 mg/dL [facility] Triglyceride [Mass/volume] in Serum or Plasma 153 mg/dL [facility] Cholesterol in HDL [Mass/volume] in Serum or Plasma 38 mg/dL [facility] Cholesterol in LDL [Mass/volume] in Serum or Plasma by calculati on 155 mg/dL [facility] CHOL/HDL 5.89 [facility] l \\BLDo\\INTERPRE TATION\\BLDx\\ REFERENCE RANGES (NATIONAL CHOLESTEROL EDUCATION PROGRAM) CHOLESTEROL < 200 mg/dL DESIREABLE 200 - 239 mg/dL BORDERLINE HIGH > 240 mg/dL HIGH TRIGLYCERIDES < 150 mg/dL DESIREABLE 150 - 199 mg/dL BORDERLINE HIGH 200 - 499 mg/dL HIGH > or = 500 mg/dL VERY HIGH HDL > or = 60 mg/dL HIGH < 40 mg/dL LOW LDL < 100 mg/dL DESIREABLE 100 - 129 mg/dL LOW RISK 130 - 159 mg/dL BORDERLINE HIGH 160 - 189 mg/dL HIGH > or = 190 mg/dL VERY HIGH ID Date Data Source [id number] 04/21/2020 01:05:00 PM EST [facility] Name Value Range Interpretation Code Description Data Kassandra rce(s) Supporting Document(s) CBC [facility] l COMPLETE BLOOD COUNT Leukocytes [#/volume] in Blood by Automated count 7.5 K/uL 4.0 - 10 .0 [facility] Erythrocytes [#/volume] in Blood by Automated count 4.98 M/uL 4.30 - 6.10 [facility] Hemoglobin [Mass/volume] in Blood 14.6 g/dL 13.5 - 17.5 [facility] Hematocrit [Volume Fraction] of Blood by Automated count 45.2 % 3 9.0 - 50.0 [facility] Erythrocyte mean corpuscular volume [Entitic volume] by Auto mated count 90.8 fL 80.0 - 96.0 [facility] Erythrocyte mean corpuscular hemoglobin [Entitic mass] by Automated count 29.3 pg 26.0 - 34.0 [facility] Erythrocyte mean corpuscular hemoglobin concentration [Mass/volume] by Automated count 32.3 g/dL 32.0 - 36.0 [facility] Erythrocyte distribution width [Ratio] by Automated count 12.4 % 11.6 - 14.8 [facility] Platelets [#/volume] in Blood by Automated count 293 K/uL 150 - 450 [facility] Platelet mean volume [Entitic volume] in Blood by Automated count 8.3 fL 7.1 - 10.4 [facility] Neutrophils [#/volume] in Blood by Automated count 3.95 K/uL 1.70 - 7.70 [facility] Lymphocytes [#/volume] in Blood by Automated count 2.63 K/uL 1.50 - 6.00 [facility] Monocytes [#/volume] in Blood by Automated count 0.50 K/uL 0.00 - 1. 00 [facility] Eosinophils [#/volume] in Blood by Automated count 0.27 K/uL 0.00 - 0.30 [facility] Basophils [#/volume] in Blood by Automated count 0.10 K/uL 0.00 - 0. 10 [facility] 0.01 Urinalysis macro (dipstick) panel - Urine 0.000 10^3/uL 0.000 - 0.012 [facility] Neutrophils/100 leukocytes in Blood by Automated count 53.0 % 42. 2 - 75.2 [facility] Lymphocytes/100 leukocytes in Blood by Automated count 35.3 % 15. 0 - 41.0 [facility] Monocytes/100 leukocytes in Blood by Automated count 6.7 % 0.0 - 12.0 [facility] Eosinophils/100 leukocytes in Blood by Automated count 3.6 % 0.0 - 7.0 [facility] 1.30.10 NRBC 0.0 % [facility] l MANUAL DIFF NOT INDICATED [facility] RBC MORPH NOT INDICATED [facility] pital ID Date Data Source [id number] 04/21/2020 01:05:00 PM EST [facility] Name Value Range Interpretation Code Description Data Kassandra rce(s) Supporting Document(s) 25-OH VITAMIN D 40.0 ng/mL 30.0 - 100 [facility] Deficient < 20 ng/mL Insufficient 20 - < 30 ng/mL Sufficient 30 - 100 ng/mL 25-OH vitamin D reference values based on the Clinical Guidelines Subcommittee of the Endocrine Society Task Force. Biotin can interfere with 25-OH Vitamin D results if taken 48 hours prior to specimen collection. ID Date Data Source [id number] 04/21/2020 01:05:00 PM EST [facility] Name Value Range Interpretation Code Description Data Kassandra rce(s) Supporting Document(s) TSH 3.30 uIU/mL 0.36 - 3.74 [facility] pital Reference range updated for new 1DayLater technology based chemiluminescent immunoassay method, and age specific ranges. Effective 02/13/18. ID Date Data Source [id number] 04/21/2020 01:05:00 PM EST [facility] Name Value Range Interpretation Code Description Data Kassandra rce(s) Supporting Document(s) Hemoglobin A1c/Hemoglobin.total in Blood 5.7 % 4.0 - 5.6 Above high normal [facility] Glucose mean value [Mass/volume] in Blood Estimated fr om glycated hemoglobin 117 mg/dL [facility] \\BLDo\\HEMOGLO BIN A1C\\BLDx\\ 4.0 - 5.6%: Normal 5.7 - 6.4%: Suggests Impaired Glucose Metabolism > or = 6.5%: Abnormal Estimated average glucose calculated using ADAG Study formula as recommended by the [place] [employer]. ID Date Data Source [id number] 12/24/2019 12:57:00 PM EDT [facility] Patient Name: LUIZ RYAN : 1975 Sex: M Pt Unit #: [id number] Location:[facility] Provider: Visit Date/Time: 12/24/19 Primary Insurance: MEDICARE [employer] Secondary Insurance: MEDICAID [place] Intake Vital Signs 12/24/19 12:58 Current Height 5 ft 3 in Current Weight 120 lb Weight Measurement Method Standing Scale BMI 21.2 BP 96/60 Blood Pressure Location Lt brachial Position Sitting Respiration 18 Pulse 78 Pulse Strength Normal Pulse Source Pulse Oximeter Temp 98.0 F Temp Source Oral Pulse Oximetry (%) 98 Oxygen Delivery Method room air Intake Visit Reasons: Annual Physical Nurse Note: PT is here for his annual exam. He has nothing new to report. 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 Accompanied by: Self / Same as Patient I s patient in pain?: No Allergies No Known Drug Allergies Allergy (Verified 12/24/19 13:16) Medications albuterol sulfate 90 mcg/actuation (ProAir HFA) 1 - 2 puffs inhalation QIDPRN aspirin 81 mg PO DAILY baclofen 20 mg PO QID cetirizine 10 mg PO DAILY diphth,pertus(acell),tetanus 0.5 mL IM ONCE epinastine 0.05% 1 drop OP BID fluticasone propion-salmeterol 250-50 mcg/dose (Advair Diskus) 1 puff inhalation BID fluticasone propionate 50 mcg/actuation 1 spry EN BID omeprazole 40 mg PO DAILY pneumococcal 23-toyin ps vaccine 0.5 mL IM ONCE PM Fall Risk History of falls: No Ambulatory Aid:: None Gait/Transferring:: Normal Medications:: No High Risk Medications PHQ-2/9 Over the last 2 weeks, how often have you been bothered by any of the following problems? 1. Little interest or pleasure in doing things: more than half the days 2. Feeling down, depressed, or hopeless: several days Total score: 3 3. Trouble falling or st aying asleep, or sleeping too much: nearly every day 4. Feeling tired or having little energy: several days 5. Poor appetite or overeating: not at all 6. Feeling bad about yourself - or that you are a failure or have let yourself and your family down:not at all 7. Trouble concentrating on things, such as reading the newspaper or watching television: not at all 8. Moving or speaking so slowly that other people could have noticed? - Or the opposite - being so fidgety or restless that you have been moving around a lot more than usual: not at all 9. Thoughts that you would be better off or of hurting yourself in some way: not at all Total score: 7 If you checked off any problems, how difficult have these problems made it for you to do your work, take care of things at home, or get along with other people?: not difficult at all Source: Developed by Drs. David Olsen, Alejandra Ngo, Grant Krueger and colleagues, with an educational vannessa from [employer]. HIV Testing Offer - a ges 13 Requirement for HIV testing offer been met?: Declines today. Pretest education received and acknowledged SBIRT Annual Questionnaire Are you currently in recovery for alcohol or substance use?: No How many times in the past year have you had 5 or more drinks in a day?: None How many times in the past year have you used a recreational drug or used a prescription medication for nonmedical reasons?: None Do you need a note to return Do you need a note to return to daycare/school/sports/work: No Coronavirus Screening Screening Have you traveled outside of [facility] or [facility] in the last 14 days.: No Has patient experienced coronavirus symptoms: No [facility] Medical History (Updated 12/24/19 @ 16:37 by MATY Damon) Allergic rhinitis Anxiety Depression GERD without esophagitis (09/11/15) History of CVA (cerebrovascular accident) History of leukemia History of pneumothorax Mixed hyperlipidemia Moderate persistent asthma, uncomplicated (02/23/18) ELVIS (obstructive sleep apnea) (12/28/17) Right spastic hemiparesis Tinnitus Vitamin D deficiency pneumococcal 23-toyin ps vaccine Performing Provider: MATY Damon Administered by: Mago Tom on 12/24/19 18:11 diphth,pertus(acell),tetanus Performing Provider: MATY Damon Administered by: Mago Tom on 12/24/19 18:11 Surgical History (Updated 12/24/19 @ 16:32 by MATY Damon) History of appendectomy History of cystoscopy History of heart surgery History of sinus surgery Family History Mother No problems noted. Father No problems noted. Social History (Updated 12/24/19 @ 16:26 by MATY Damon) Does the Patient have a Healthcare Proxy: No Does Patient have a DNR?: No Does Patient have a Living Will?: No Advance Directives on File or in chart?: No adopted: Yes household members: none housing: house marital status: Single lives independently: Yes number of children: 0 highest education level completed: high school graduate service: No current occupational status: disabled previous occupational history: [employer] pets and animals: Yes (2 cats) pets and animals: cat(s) leisure activities: hunting and other Hx Recent Travel (where): No sexually active: No do you think of yourself as: straight/heterosexual current gender identity: male well-balanced diet: daily caffeine: Yes Type: carbonated beverages daily servings fruits/ve-4 daily servings of milk/calcium: 2-4 eating out: rarely or never reads food labels: sometimes during the past year weight has: remained stable what type of physical activity do you participate in?: walking physical activity counseling: advised >150 min/week exercise (moderate intensity) Smoking Status: Never smoker alcohol intake: current alcohol intake frequency: holidays/special occasions only substance use type: does not use special maco needs: No seatbelt use: always helmet use: Yes drive intox or ride w/ intox compactor driver: No water heater temp set < 120 deg: Yes working smoke detector in home: Yes fire extinguisher in home: No carbon monox detector in home: Yes firearms in home: No do you feel safe at home: Yes victim of physical abuse: No victim of emotional abuse: No victim of sexual abuse: No would you like helpful sources: No HPI Adult Health Maintenance History of present illness 44yo male with PMH ELVIS, asthma, hx CVA, GERD and allergies here for annual PE. Luiz states he is doing well. Hx CVA - has next appt with neurology either january or february 2020. ELVIS/asthma - sees pulmonology [id number], last seen 08/2019 - using cpap nightly. Has not had a recent eye exam. Usually sees dentist regularly but appt was cancelled d/t covid. Active outside - mows lawn, weed eats. Tries to eat healthy diet. Labs done showing HDL 32, LDL 144, TG 222, bun/cr 13/1.09, glu 114 Dietary habits Has a well balanced diet: daily Eats fruits and vegetables: 2-4 Estimated daily calcium intake: 2-4 Number of meals per day: 3 Caffeine: Yes Number of caffeinated beverages per day: occasional soda/tea when he goes out to eat Exercise Exercise frequency: does not exercise (active outside with lawn work) Skin cancer risk assessment Protective factors: 1. Do you wear broad-spectrum sunscreen of SPF 15 or greater?: no Dental care Dental care: receives dental care, flosses Flosses: never and brushes Brushes: twice daily Sexual preference and activity Sexual preference: prefers women Sexual activity: has been sexually active, but not for at least 12 months Tobacco smoking status: Never smoker Alcohol Alcohol: frequency Frequency: on holidays and special occasions only Drugs/substances Substances: denies use Safety Car safety: wears a seatbelt Frequency: always, drives intoxicated Frequency: never and rides with intoxicated compactor driver Frequency: never Home safety: has working smoke detectors in home, has a fire extinguisher in the home and has a working carbon monoxide detector in the home Review of Systems Const Denies chills, Denies excessive sweating, Reports fatigue (RECENTLY, A LITTLE BETTER THE LAST FEW DAYS), Denies fever(s), Denies headache(s), Denies increased appetite, Denies lethargy, Denies malaise, Denies night sweats, Denies poor appetite, Denies snoring, Denies weakness, Denies weight gain and Reports weight loss (8LBS SINCE LAST O.V.) Eyes Denies blurry vision, Denies change in vision, Denies diplopia, Denies eye discharge, Denies irritation, Denies loss of vision and Denies eye pain ENT Denies abnormal hearing, Denies bleeding gums, Denies dysphagia, Denies vertigo, Denies dizziness, Denies ear discharge, Denies otalgia, Denies headache(s), Denies hearing loss, Denies epistaxis, Denies mouth lesions, Denies nasal congestion, Denies nasal discharge, Denies neck pain, Reports tinnitus (MAINLY LT EAR, WORSE WITH LYING DOWN), Denies sinus pressure and Denies sore throat Card Denies chest pain, Denies chest pain at rest, Denies chest pain with activity, Denies syncope, Denies rapid heart rate, Denies edema, Denies lightheadedness, Denies palpitations, Denies dyspnea, Denies dyspnea on exertion, Denies orthopnea and Denies paroxysmal nocturnal dyspnea Resp Denies chest congestion, Denies cough, Denies hemoptysis, Denies dyspnea, Denies dyspnea on exertion, Denies snoring and Denies wheezing GI Denies abdominal pain, Denies melena, Denies hematochezia, Denies change in bowel habits, Denies constipation, Denies dysphagia, Denies dyspepsia, Denies heartburn, Denies diarrhea, Denies nausea and Denies vomiting Denies change in libido, Denies hematuria, Denies difficulty urinating, Denies erectile dysfunction,Denies genital lesions, Denies dysuria, Denies flank pain, Denies nocturia, Denies penile discharge,Denies testicular mass, Denies testicular pain, Denies urinary frequency, Denies urinary hesitancy and Denies urinary incontinence Musc Denies abnormal gait, Denies back pain, Denies myalgias, Denies arthralgias, Denies joint swelling, Denies limited range of motion, Denies muscle weakness, Denies neck pain, Denies numbness, Denies radiating pain into limb, Denies stiffness and Denies tingling Skin/Breast Denies bleeding lesions, Denies dry skin, Denies pruritus, Denies lesions, Denies nail changes, Denies new lesions and Denies rash Neuro Denies abnormal hearing, Denies abnormal gait, Denies behavioral changes, Denies confusion, Denies vertigo, Denies dizziness, Denies syncope, Denies headache(s), Denies lack of coordination, Denies localized weakness, Denies loss of vision, Denies memory loss, Denies numbness, Denies convulsions, Denies seizure-like activity, Denies tingling, Denies paresthesias, Denies tremor(s) and Denies weakness Psych Denies anxiety, Denies behavioral changes, Denies change in appetite, Denies change in libido, Denies confusion, Denies depression, Denies difficulty concentrating, Denies irritability, Denies anhedonia, Denies memory loss, Denies mood swings, Denies panic attacks, Denies hallucinations, Denies homicidal ideation and Denies suicidal ideation Endo Denies change in libido, Denies cold intolerance, Denies excessive sweating, Reports fatigue (RECENTLY, A LITTLE BETTER THE LAST FEW DAYS), Denies heat intolerance, Denies polyphagia, Denies polydipsia, Denies polyuria and Denies palpitations Elvin/Lymph Denies easy bleeding, Denies easy bruising and Denies lymphadenopathy Aller/Immun Denies wheezing Exam Const General: cooperative, healthy appearing, comfortable, no acute distress, well developed and well groomed Nutritional Appearance: average body habitus [facility] Head: normocephalic and atraumatic Ears: external ears normal, TM's normal bilaterally and EAC abnormal (MINIMAL CERUMEN RT, NL EAC LT) General nose exam: no nasal discharge Mouth: oral mucosae normal, lip normal, oropharynx normal and moist mucous membranes Teeth and gingiva: fair dentition Throat: posterior oropharynx normal, uvula midline, no peritonsillar masses and no postnasal drainage Eyes Eyelids: no eyelid abnormalities Conjunctivae: normal conjunctivae Sclera: normal sclerae Pupils: PERRL EOM: EOM intact bilaterally Neck Neck: no lymphadenopathy, trachea midline, supple and nontender Thyroid: thyroid normal and not diffusely enlarged Resp Effort Inspection: normal respiratory effort Auscultation: clear to auscultation bilaterally, no crackles, no rhonchi and no wheezes Cardio Rhythm: regular rhythm Heart Sounds: S1 normal and S2 normal Pulses: dorsalis pedis present bilaterally not diminished GI Palpation: soft, no hepatosplenomegaly, not firm, no guarding, no hernias, no masses, not rigid and nontender Auscultation: normal bowel sounds Penis: uncircumcised, no condylomata, no ecchymosis, no masses, no nodules, no papules, no ulcerations and no vesicles Meatus: meatus normal (NO D/C NOTED) Scrotum: not edematous, not erythematous, no hydroceles, no masses, no scrotal swelling and no varicoceles Testes: no epidiymal masses, no epidiymal tenderness and no testicular mass Musc Other: NECK FORWARD, ROUNDED SHOULDERS Skin Lesions: no lesions Rashes: no rashes Hair: normal Nails: normal Neuro General: patient alert, patient awake, patient oriented x3 and gait normal Cranial Nerves: CN's II-XII intact bilaterally Cognition: normal cognition Speech: speech normal Gait: normal gait DTR's: Rt Patellar: 3+ and Lt Patellar: 2+ Other: RT UE SPASTICITY, Extrem General: no edema Psych Appearance: grossly normal Mental Status: mental status grossly normal Speech and Movement: speech and movement normal Mood: congruent mood Affect: normal affect Attitude: cooperative Thought Process: normal Thought Content: normal Insight: insight good Judgment: judgment good Immunizations pneumococcal 23-toyin ps vaccine Performing Provider: MATY Damon Administered by: Mago Tom on 12/24/19 18:11 Dose Route Admin Location Lot Number Expiration Date [facility] Manufactu rer 0.5 mL IM Left deltoid [id number] 09/02/20 4520-7280-31 [employer] D VIS Given Date VIS Provided VIS Publication Date 12/24/19 Single Vaccine 19 Eligibility Eligibility Date Funding Source Not [facility] Eligible 12/24/19 Private diphth,pertus(acell),tetanus Performing Provider: MATY Damon Administered by: Mago Tom on 12/24/19 18:11 Dose Route Admin Location Lot Number Expiration Date [facility] Manufactu rer 0.5 mL IM Right arm [id number] 01/29/22 [id number] VIS Given Date VIS Provided VIS Publication Date 12/24/19 Single Vaccine 19 Eligibility Eligibility Date Funding Source Not [facility] Eligible 12/24/19 Private Quality Reporting Depression/Bipolar (159/160/161/169/177) Total score: 7 Assessment Plan Assessment Plan (1) Encounter for annual health examination: Code(s): Z00.00 - Encounter for general adult medical examination without abnormal findings Plan - Shanika Rod RPA-C: Encouraged regular physical exercise and increased fruit/veg intake. Referral for eye exam. Plans to set up dental exam. Tdap and pneumovax 23 today. Ad ditional labs ordered d/t fatigue. PHQ 9 score 7 - Luiz denies feeling depressed, attributes to fatigue. (2) Tinnitus: Status: Chronic Code(s): H93.19 - Tinnitus, unspecified ear Category: Medical Plan - Shanika Rod RPA-C: Audiology evaluation ordered. Orders: Referrals: Audiology Referral (3) Impaired fasting glucose: Code(s): R73.01 - Impaired fasting glucose Plan - Shanika Rod RPA- C: Hga1c ordered. Encouraged to cut down on sweets/breads/pastas/potatoes/rice. Orders: Orders: HGBA1C + EAG 1 Month (4) Mixed hyperlipidemia: Status: Chronic Code(s): E78.2 - Mixed hyperlipidemia Category: Medical Plan - Shanika Rod RPA-C: Discussed labs and framingham risk score. Encouraged to work on cutting down on saturated fats/increasing fruit/veg intake and regular physical exercise. Discussed statin use d/t hx CVA. Advised to also check with neurology to see if statin recommended. Additional Comments Additional Comments: Hx CVA - continue with neurology - upcoming appt in feb 2020. ELVIS/asthma - compliant with cpap, asthma controlled on advair. Has not had to use alb inh. F/u 4months. Advised to contact office if questions/concerns arise or s/s worsen. Orders Other Orders: Orders: INJ - Pneumovax Vaccine Today Z23 INJ - Tdap (> age 7) Today Z23 TSH 1 Month R53.83 CBC W AUTO DIFF 1 Month R53.83 Vitamin D 25-OH 1 Month E55.9 Electronically Signed By: <Electronically signed by Shanika Juares> Date/Time Signed: 12/24/19 1832 Name Value Range Interpretation Code Description Data Kassandra rce(s) Supporting Document(s) ID Date Data Source [id number] 12/23/2019 10:25:00 AM EDT [facility] Name Value Range Interpretation Code Description Data Kassandra rce(s) Supporting Document(s) Cholesterol [Mass/volume] in Serum or Plasma 220 mg/dL [facility] Triglyceride [Mass/volume] in Serum or Plasma 222 mg/dL [facility] Cholesterol in HDL [Mass/volume] in Serum or Plasma 32 mg/dL [facility] Cholesterol in LDL [Mass/volume] in Serum or Plasma by calculati on 144 mg/dL [facility] CHOL/HDL 6.88 [facility] l \\BLDo\\INTERPRE TATION\\BLDx\\ REFERENCE RANGES (NATIONAL CHOLESTEROL EDUCATION PROGRAM) CHOLESTEROL < 200 mg/dL DESIREABLE 200 - 239 mg/dL BORDERLINE HIGH > 240 mg/dL HIGH TRIGLYCERIDES < 150 mg/dL DESIREABLE 150 - 199 mg/dL BORDERLINE HIGH 200 - 499 mg/dL HIGH > or = 500 mg/dL VERY HIGH HDL > or = 60 mg/dL HIGH < 40 mg/dL LOW LDL < 100 mg/dL DESIREABLE 100 - 129 mg/dL LOW RISK 130 - 159 mg/dL BORDERLINE HIGH 160 - 189 mg/dL HIGH > or = 190 mg/dL VERY HIGH ID Date Data Source [id number] 12/23/2019 10:25:00 AM EDT [facility] Name Value Range Interpretation Code Description Data Kassandra rce(s) Supporting Document(s) COMPREHENSIVE CHEM PROFILE i [facility] COMPREHENSIVE METABOLIC PANEL Sodium [Moles/volume] in Serum or Plasma 137 mEq/L 136 - 145 [facility] Potassium [Moles/volume] in Serum or Plasma 4.2 mEq/L 3.5 - 5.1 [facility] Chloride [Moles/volume] in Serum or Plasma 102 mEq/L 98 - 107 [facility] Carbon dioxide, total [Moles/volume] in Serum or Plasma 27.2 mEq /L 21.0 - 32.0 [facility] Glucose [Mass/volume] in Serum or Plasma 114 mg/dL 70 - 100 Above high normal [facility] Urea nitrogen [Mass/volume] in Serum or Plasma 14 mg/dL 7 - 18 [facility] CREATININE SERUM 1.09 mg/dL 0.70 - 1.30 [facility] AGE 44 yrs [facility] HEIGHT NA [facility] eGFR NON-AFR AMR >60 [facility] eGFR AFR AMR >60 [facility] ital BUN/CREAT 13 6 - 25 [facility] Protein [Mass/volume] in Serum or Plasma 7.9 g/dL 6.0 - 8.3 [facility] Albumin [Mass/volume] in Serum or Plasma 4.1 g/dL 3.8 - 5.4 [facility] GLOBULIN 3.8 g/dL 2.0 - 4.0 [facility] A/G RATIO 1.1 0.8 - 2.0 [facility] Calcium [Mass/volume] in Serum or Plasma 9.3 mg/dL 8.8 - 10.2 [facility] Bilirubin.total [Mass/volume] in Serum or Plasma 0.3 mg/dL 0.2 - 1.0 [facility] Bilirubin.direct [Mass/volume] in Serum or Plasma 0.1 mg/dL 0.0 - 0. 2 [facility] INDIRECT BILI 0.2 mg/dL 0.0 - 1.1 [facility] pital ALK PHOSPHATASE 76 U/L 40 - 129 [facility] ospital Aspartate aminotransferase [Enzymatic ac tivity/volume] in Serum or Plasma by With P-5'-P <5 IU/L 7 - 37 Below low normal [facility] richard Alanine aminotransferase [Enzymatic acti vity/volume] in Serum or Plasma by With P-5'-P 23 IU/L 12 - 78 [facility] ANION GAP 8 7 - 15 [facility] l Estimated GFR referenc e range: >60ml/min/1.73m >18 years: Calculated using IDMS traceable Study Equation <18 years: Calculated using IDMS tracable Bedside Schartz Equation Procedure Social History Code Duration Value Status Description Data Source(s ) 12/24/2019 01:28:04 PM EDT Never smoker completed Never s [facility] Smoking 12/24/2019 01:28:00 PM EDT Never smoker completed Never s [facility] Vital Signs ID Date Data Source UNK Name Value Range Interpretation Code Description Data Source(s) Body mass index (BMI) [Ratio] 21.6 kg/m2 21.6 k g/m2 [facility] ([facility] Body weight 122.00 [lb_av] 122.00 [lb_av] [facility] T ([facility] Body height 63 [in_i] 63 [in_i] [facility] 5'3" Oxygen saturation in Arterial blood by Pulse oximetry 97 % 97 % [facility] ([facility] Heart rate 86 /min 86 /min [facility] ([facility] Diastolic blood pressure 78 mm[Hg] 78 mm[Hg] [facility] ([facility] Systolic blood pressure 118 mm[Hg] 118 mm[Hg] M EDKEV[facility] ([facility]
--- OUTSIDE RECORDS SUMMARY | 2020-07-01 18:01 | CCD ---
Author Author [facility] Organization [facility] Address Unknown Phone Unavailable Care Team Providers Care Supervisor Of Operations Name Role Phone Marcel, A Shanika PA [...] Shanika PA Unavailable Unavailable Shaji, L Mira HUMAN RESOURCES INTERN Unavailable Unavailable Shaji, L Mira HUMAN RESOURCES INTERN Unavailable Unavailable Shaji, L Mira HUMAN RESOURCES INTERN Unavailable Unavailable Shaji, L Mira HUMAN RESOURCES INTERN Unavailable Unavailable Shaji, L Mira HUMAN RESOURCES INTERN Unavailable Unavailable Shaji, L Mira HUMAN RESOURCES INTERN Unavailable Unavailable Shaji, L Mira HUMAN RESOURCES INTERN Unavailable Unavailable Shaji, L Mira HUMAN RESOURCES INTERN Unavailable Unavailable Shaji, L Mira HUMAN RESOURCES INTERN Unavailable Unavailable Shaji, L Mira HUMAN RESOURCES INTERN Unavailable Unavailable Shaji, L Mira HUMAN RESOURCES INTERN Unavailable Unavailable Shaji, L Mira HUMAN RESOURCES INTERN Unavailable Unavailable Shaji, L Mira HUMAN RESOURCES INTERN Unavailable Unavailable Shaji, L Mira HUMAN RESOURCES INTERN Unavailable Unavailable Shaji, L Mira HUMAN RESOURCES INTERN Unavailable Unavailable Shaji, L Mira HUMAN RESOURCES INTERN Unavailable Unavailable Shaji, L Mira HUMAN RESOURCES INTERN Unavailable Unavailable Shaji, L Mira HUMAN RESOURCES INTERN Unavailable Unavailable Shaji, L Mira HUMAN RESOURCES INTERN Unavailable Unavailable Shaji, L Mira HUMAN RESOURCES INTERN Unavailable Unavailable Shaji, L Mira HUMAN RESOURCES INTERN Unavailable Unavailable Shaji, L Mira HUMAN RESOURCES INTERN Unavailable Unavailable Re-disclosure Warning The records that [...] is protected by Article 27-F of the [facility] Public Health law. If you continue you may have access to information: Regarding HIV / AIDS; Provided by facilities licensed or operated by the [facility] Office of Mental Health; or Provided by the [facility] Office for People With Developmental Disabilities. If such information is present, then the following [facility] mandated warning applies: This information has [...] law may result in a fine or usp sentence or both. A general authorization for the release of medical or other information is NOT sufficient authorization for further disc losure. Allergies and Adverse Reactions Type Description Substance Reaction Status Data Source(s ) Miscellaneous allergy No Known Drug Allergies No Known Drug Allergies [facility] Family History Family Member Name Family Member Gender Family Member Status Date o f Status Description Data Source(s) Unknown Male Problem [facility] ([facility] Pt was adopted Encounters Encounter Providers Location Date Indications Data Source(s ) Emergency Attender: Shanika VARELA dmitter: Shanika Rod PAConsultant: Shanika DENSON [id number] 07/01/2020 09:05:00 AM EST - 07/01/2020 01:11:00 PM EST SICK [facility] SICK Patient discharged. Outpatient Attender: Shanika GARZAeferrer: Shanika DENSON 04/22/2020 01:00:00 PM EST - 04/22/2020 02:15:00 PM EST [facility] Outpatient Attender: Shanika VARELA dmitter: Shanika Rod PAConsultant: Shanika DENSON 008 04/21/2020 01:06:00 PM EST - 04/21/2020 01:06:00 PM EST Lab test [facility] Lab test Outpatient Attender: Shanika GARZAeferrer: Shanika DENSON 12/24/2019 12:56:00 PM EDT - 12/24/2019 02:03:00 PM EDT [facility] Outpatient Attender: Shanika VARELA dmitter: Shanika Laoer: Shanika Rod PAConsultant: Shanika DENSON [phone] 10:17:00 AM EDT - 12/23/2019 10:18:00 AM EDT Lab test [facility] Lab test Patient discharged. Outpatient Attender: Mira Girard HUMAN RESOURCES INTERN Main Office 08/21/2019 11:30:00 AM EDT [facility] ([facility] Insurance Providers Payer name Policy type / Coverage type Policy ID Covered green party ID Covered green party's relationship to barr Policy Barr Plan Information MEDICARE [id number] SP [id number] EMEDNY [id number] SP [id number] MEDICARE-OP [id number] undefined [id number] MEDICARE [id number] SP [id number] A MEDICAID [facility]-OP [id number] undefined [id number] MEDICARE-OP [id number] undefined [id number] [id number] Self [id number] Medicare - [place] Medicare Primary [id number] Self [id number] [place] [id number] Self [id number] Medicare - [place] Medicare Primary [id number] Self [id number] MEDICAID -RECURRING [id number] u ndefined [id number] MEDICARE -RECURRING [id number] undefined [id number] [place] [id number] Self [id number] Medicare - [place] Medicare Primary [id number] Self [id number] MEDICARE [id number] SP [id number] A MEDICAID [id number] SP [id number] [place] [id number] Self [id number] Medicare - [place] Medicare Primary [id number] Self [id number] MEDICARE C [id number] S [id number] A MEDICAID M [id number] S [id number] [place] [id number] Self [id number] Medicare - [place] Medicare Primary [id number] Self [id number] MEDICAID [id number] SP [id number] [place] [id number] Self [id number] [place] [id number] Self [id number] MEDICAID - O/P EMERGENCY ROOM [id number] [place] 3 [id number] [place] 3 [id number] Y SELF PAY 2 UNAVAILABLE 1 UNAVAILA BLE Problems, Conditions, and Diagnoses Code Display Name Description Problem Type Effective Dates Data Source(s) R7301 Impaired fasting glucose Impaired fasting glucose Diag nosis 04/21/2020 01:06:00 PM [facility] E559 Vitamin D deficiency, unspecified Vitamin D defi ciency, unspecified Diagnosis 04/21/2020 01:06:00 PM [facility] R5383 Other fatigue Other fatigue Diagnosis 04/21/2020 01:06:00 PM [facility] E785 Hyperlipidemia, unspecified Hyperlipidemia, unspecifie d Diagnosis 12/23/2019 10:17:00 AM EDT [facility] G4733 Obstructive sleep apnea (adult) (pediatr ic) Obstructive sleep apnea (adult) (pediatric) Diagnosis 12/23/2019 10:17:00 AM EDT [facility] J4540 Moderate persistent asthma, uncomplicate d Moderate persistent asthma, uncomplicated Diagnosis 12/23/2019 10:17:00 AM EDT [facility] K219 Gastro-esophageal reflux disease without esophagitis Gastro-esophageal reflux disease without esophagitis Diagnosis 12/23/2019 10:17:00 AM ED T [facility] Surgeries/Procedures Procedure Description Date Indications Data Source(s) RESPIRATORY FLOW VOLUME LOOP 08/21/2019 12:00:00 AM ED T [facility] ([facility] Results ID Date Data Source [id number] 07/01/2020 10:50:00 AM EST [facility] Name Value Range Interpretation Code Description Data Kassandra rce(s) Supporting Document(s) URINALYSIS ROUTINE wMICRO RFLX TO CX [facility] URINALYSIS W/REFLEX CULTURE REFERENCE RANGES SOURCE Random [facility] COLOR Yellow Colorless-Cris [facility] ospital CLARITY Clear Normal: Clear [facility] pital LEUK EST Negative Negative - Trace [facility] NITRITE Negative Normal: Negative [facility] UROBILINOGEN Negative Negative - Trace [facility] PROTEIN Negative Negative - Trace [facility] pH 7.0 5.0 - 8.0 [facility] l BLOOD Negative Negative - Trace [facility] SPEC GRAVITY 1.010 1.000 - 1.030 [facility] KETONE Negative Negative - Trace [facility] BILIRUBIN Negative Normal: Negative [facility] GLUCOSE Negative Normal: Negative [facility]COP[facility] NONE SEEN None Seen - 5/hpf [facility] RBC NONE SEEN None Seen - 5/hpf [facility] EPITHELIAL None Seen NORMAL: None Seen [facility] BACTERIA NONE SEEN NORMAL: None Seen [facility] MUCOUS 1+ NORMAL: None Seen [facility] CASTS Not Indicated [facility] pital CRYSTALS Not Indicated [facility] pital CULTURE INDICATED? NO Normal: No [facility] ID Date Data Source [id number] 07/01/2020 10:30:00 AM EST [facility] Name Value Range Interpretation Code Description Data Kassandra rce(s) Supporting Document(s) RESP PROFILE RP2.1 NASAL PCR C [facility] \\BLDo\\RESPIRATORY PROFILE NASAL PHARYNGEAL BY PCR\\BLDx\\ \\BLDo\\DETECTED _NONE \\BLDx\\ 07/01/20.1243.KJV. \\BLDo\\EQUIVOCAL _NONE \\BLDx\\ 07/01/20.1243.KJV. VIRUSES ADENOVIRUS NOT DETECTED NORMAL: NOT DETECTED [facility] CORONAVIRUS 229E NOT DETECTED NORMAL: NOT DETECTED [facility] CORONAVIRUS HKU1 NOT DETECTED NORMAL: NOT DETECTED [facility] CORONAVIRUS NL63 NOT DETECTED NORMAL: NOT DETECTED [facility] CORONAVIRUS OC43 NOT DETECTED NORMAL: NOT DETECTED [facility] [id number] NOT DETECTED NORMAL: NOT DETECTED [facility] REPORT TO DEPARTMENT OF HEAL TH HUMAN METAPNEUMO NOT DETECTED NORMAL: NOT DETECTED [facility] HUMAN RHINO/ENTERO NOT DETECTED NORMAL: NOT DETECTED [facility] NOT DETECTEDNOT DETECTEDNOT DETECTEDNOT DETECTED PARAINFLUENZA V3 NOT DETECTED NORMAL: NOT DETECTED [facility] NOT DETECTED RSV NOT DETECTED NORMAL: NOT DETECTED [facility] BACTERIANOT DET ECTEDNOT DETECTEDNOT DETECTEDNOT DETECTED TESTING PERFORMED USING THE Now TechnologiesARRAY RP2.1 MULTIPLEXED NUCLEIC ACID TEST. THIS TEST [...] OR REVOKED SOONER. ID Date Data Source [id number] 07/01/2020 09:35:00 AM EST [facility] Name Value Range Interpretation Code Description Data Kassandra rce(s) Supporting Document(s) Acetaminophen [Mass/volume] in Serum or Plasma 0 ug/mL 0 - 30 [facility] ACETAMINOPHEN CONCENTRATIONS >150.0 MCG/ML AT FOUR HOURS AFTER INGESTION, AND >50.0 MCG/ML AT TWELVE HOURS AFTER INGESTION ARE OFTEN ASSOCIATED WITH TOXIC REACTIONS. Salicylates [Mass/volume] in Serum or Plasma <2.8 mg/dL 5.0 - 30.0 Below low normal [facility] MAY BE TOXIC IF SALICYLATE LEV EL IS GREATER THAN 30.0 mg/dL ID Date Data Source [id number] 07/01/2020 09:35:00 AM EST [facility] Name Value Range Interpretation Code Description Data Kassandra rce(s) Supporting Document(s) LIPID PROFILE [facility] pital LIPID PROFILE Cholesterol [Mass/volume] in Serum or Plasma 286 mg/dL [facility] Triglyceride [Mass/volume] in Serum or Plasma 143 mg/dL [facility] Cholesterol in HDL [Mass/volume] in Serum or Plasma 41 mg/dL [facility] Cholesterol in LDL [Mass/volume] in Serum or Plasma by calculati on 216 mg/dL [facility] CHOL/HDL 6.98 [facility] l \\BLDo\\INTERPRE TATION\\BLDx\\ REFERENCE RANGES (NATIONAL CHOLESTEROL [...] mg/dL VERY HIGH ID Date Data Source [id number] 07/01/2020 09:35:00 AM EST [facility] Name Value Range Interpretation Code Description Data Kassandra rce(s) Supporting Document(s) Creatine kinase.MB [Mass/volume] in Serum or Plasma <0.5 ng/mL 0.5 - 5.0 [facility] ID Date Data Source [id number] 07/01/2020 09:35:00 AM EST [facility] Name Value Range Interpretation Code Description Data Kassandra rce(s) Supporting Document(s) COMPREHENSIVE CHEM PROFILE [facility] COMPREHENSIVE METABOLIC PANEL Sodium [Moles/volume] in Serum or Plasma 140 mEq/L 136 - 145 [facility] Potassium [Moles/volume] in Serum or Plasma 3.8 mEq/L 3.5 - 5.1 [facility] Chloride [Moles/volume] in Serum or Plasma 100 mEq/L 98 - 107 [facility] Carbon dioxide, total [Moles/volume] in Serum or Plasma 28.0 mEq /L 21.0 - 32.0 [facility] Glucose [Mass/volume] in Serum or Plasma 127 mg/dL 70 - 100 Above high normal [facility] Urea nitrogen [Mass/volume] in Serum or Plasma 16 mg/dL 7 - 18 [facility] CREATININE SERUM 0.97 mg/dL 0.70 - 1.30 [facility] AGE 45 yrs [facility] l HEIGHT 63.00 INCHES [facility] ital eGFR NON-AFR AMR >60 [facility] eGFR AFR AMR >60 [facility] ital BUN/CREAT 16 6 - 25 [facility] Protein [Mass/volume] in Serum or Plasma 8.5 g/dL 6.0 - 8.3 Above high normal [facility] Albumin [Mass/volume] in Serum or Plasma 4.3 g/dL 3.8 - 5.4 [facility] GLOBULIN 4.2 g/dL 2.0 - 4.0 Above high normal [facility] A/G RATIO 1.0 0.8 - 2.0 [facility] Calcium [Mass/volume] in Serum or Plasma 9.8 mg/dL 8.8 - 10.2 [facility] Bilirubin.total [Mass/volume] in Serum or Plasma 0.6 mg/dL 0.2 - 1.0 [facility] Bilirubin.direct [Mass/volume] in Serum or Plasma 0.1 mg/dL 0.0 - 0. 2 [facility] INDIRECT BILI 0.5 mg/dL 0.0 - 1.1 [facility] pital ALK PHOSPHATASE 65 U/L 40 - 129 [facility] ospital Aspartate aminotransferase [Enzymatic ac tivity/volume] in Serum or Plasma by With P-5'-P 13 IU/L 7 - 37 [facility] Alanine aminotransferase [Enzymatic acti vity/volume] in Serum or Plasma by With P-5'-P 22 IU/L 12 - 78 [facility] ANION GAP 12 7 - 15 [facility] Estimated GFR referenc e range: >60ml/min/1.73m >18 years: Calculated using IDIA traceable Study Equation <18 years: Calculated using IDIA tracable Bedside Schartz Equation ID Date Data Source [id number] 07/01/2020 09:35:00 AM EST [facility] Name Value Range Interpretation Code Description Data Kassandra rce(s) Supporting Document(s) Troponin I.cardiac [Mass/volume] in Serum or Plasma <0.017 ng/mL 0.017 - 0.060 [facility] \\BLDo\\TROPONIN I I NTERPRETATION:\\BLDx\\ < 0.06 ng/mL NOT SUSPICIOUS FOR AN AMI 0.06 - 0.59 ng/mL IRENE ZONE FOR AN AMI, SERIAL MONITORING RECOMMENDED 0.6 - 1.5 ng/mL SUSPICIOUS FOR AN AMI Reference range updated for new chemiluminescent immunoassay method based on [employer] technology. Effective 01/15/18. ID Date Data Source [id number] 07/01/2020 09:35:00 AM [facility] Name Value Range Interpretation Code Description Data Kassandra rce(s) Supporting Document(s) Fibrin D-dimer DDU [Mass/volume] in Platelet poor plas ma by Immunoassay 138 ng/mL 0 - 400 [facility] METHODOLOGY: FLUORESCENCE IMM UNOASSAY \\BLDo\\D- DIMER INTERPRETATION\\BLDx\\ [...] erroneous D-dimer results. ID Date Data Source [id number] 07/01/2020 09:35:00 AM EST [facility] PROTHROMBIN TIME Name Value Range Interpretation Code Description Data Kassandra rce(s) Supporting Document(s) WARFARIN? NO [facility] l 12.9 INR in Platelet poor plasma by Coagulation assay 1.0 1.0 - 4.5 [facility] Reference ranges Warf loco (Coumadin) Therapy: 21.6 - 40.7 secs Normal (Non-warfarin Therapy): 10.7 - 15.2 secs New Protime Reference Range as of April 24, 2020 ID Date Data Source [id number] 07/01/2020 09:35:00 AM EST [facility] Name Value Range Interpretation Code Description Data Kassandra rce(s) Supporting Document(s) CBC [facility] l COMPLETE BLOOD COUNT Leukocytes [#/volume] in Blood by Automated count 11.0 K/uL 4.0 - 10.0 Above high normal [facility] Erythrocytes [#/volume] in Blood by Automated count 5.12 M/uL 4.30 - 6.10 [facility] Hemoglobin [Mass/volume] in Blood 14.9 g/dL 13.5 - 17.5 [facility] Hematocrit [Volume Fraction] of Blood by Automated count 45.6 % 3 9.0 - 50.0 [facility] Erythrocyte mean corpuscular volume [Entitic volume] by Auto mated count 89.1 fL 80.0 - 96.0 [facility] Erythrocyte mean corpuscular hemoglobin [Entitic mass] by Automated count 29.1 pg 26.0 - 34.0 [facility] Erythrocyte mean corpuscular hemoglobin concentration [Mass/volume] by Automated count 32.7 g/dL 32.0 - 36.0 [facility] Erythrocyte distribution width [Ratio] by Automated count 12.5 % 11.6 - 14.8 [facility] Platelets [#/volume] in Blood by Automated count 318 K/uL 150 - 450 [facility] Platelet mean volume [Entitic volume] in Blood by Automated count 8.2 fL 7.1 - 10.4 [facility] Neutrophils [#/volume] in Blood by Automated count 9.22 K/uL 1.70 - 7.70 Above high normal [facility] Lymphocytes [#/volume] in Blood by Automated count 1.26 K/uL 1.50 - 6.00 Below low normal [facility] Monocytes [#/volume] in Blood by Automated count 0.39 K/uL 0.00 - 1. 00 [facility] Eosinophils [#/volume] in Blood by Automated count 0.01 K/uL 0.00 - 0.30 [facility] Basophils [#/volume] in Blood by Automated count 0.07 K/uL 0.00 - 0. 10 [facility] 0.02 Urinalysis macro (dipstick) panel - Urine 0.000 10^3/uL 0.000 - 0.012 [facility] Neutrophils/100 leukocytes in Blood by Automated count 84.0 % 42.2 - 75.2 Above high normal [facility] Lymphocytes/100 leukocytes in Blood by Automated count 11.5 % 15.0 - 41.0 Below low normal [facility] Monocytes/100 leukocytes in Blood by Automated count 3.6 % 0.0 - 12.0 [facility] Eosinophils/100 leukocytes in Blood by Automated count 0.1 % 0.0 - 7.0 [facility] 0.60.20 NRBC 0.0 % [facility] MANUAL DIFF NOT INDICATED [facility] RBC MORPH NOT INDICATED [facility] ID Date Data Source [id number] 07/01/2020 09:13:00 AM [facility] Name Value Range Interpretation Code Description Data Kassandra rce(s) Supporting Document(s) Glucose [Moles/volume] in Capillary blood by Glucometer 112 mg/d L 70 - 100 Above high normal [facility] RESULTS < 40 mg/dL OR > 500 mg /dL WILL REQUIRE CONFIRMATION BY LAB ID Date Data Source [id number] 04/22/2020 01:05:[address] [facility] Patient Name: LUIZ RYAN : 0 1975 Sex: M Pt Unit #: [id number] Location:[facility] Provider: Visit Date/Time: 04/22/20 Primary Insurance: MEDICARE [facility] Secondary Insurance: MEDICAID [place] Intake Vital Signs [...] he would like his flu shot today. Swatch Cutter Required: No Accompanied by: Self / Same [...] Screening Screening Have you traveled outside of [facility] or 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 Admits he still likes his sweets. Social Work Program Coordinator called to get results. hga1c 5.7%, TSH 3.30, 25 oh vit d 40, WBC 7.5, hgb/hct 14.6/45.2, PLT 293, glu 100, bun/cr 15/1.09, HDL 38, LDL 155, TG 153 Was not able to have audiology evaluation done at [facility] - not covered, believes he has to go to [place] to have it done. Has not had [...] well groomed Nutritional Appearance: average body habitus HENMT Ears: TM's normal bilaterally and EAC abnormal [...] Manufactu rer 0.5 mL IM Left arm [id number] 12/02/20 [id number] [employer] VIS Given Date VIS Provided VIS Publication Date 04/22/20 Single Vaccine 19 Eligibility Eligibility Date Funding Source Not [facility] Eligible 04/22/20 Private Assessment Plan Assessment Plan [...] Name Value Range Interpretation Code Description Data [facility] rce(s) Supporting Document(s) ID Date Data Source [id number] 04/21/2020 01:05:00 PM EST [facility] Name Value Range Interpretation Code Description Data [facility] rce(s) Supporting Document(s) COMPREHENSIVE CHEM PROFILE [facility] COMPREHENSIVE METABOLIC PANEL Sodium [Moles/volume] in Serum or Plasma 139 mEq/L 136 - 145 [facility] Potassium [Moles/volume] in Serum or Plasma 3.8 mEq/L 3.5 - 5.1 [facility] Chloride [Moles/volume] in Serum or Plasma 99 mEq/L 98 - 107 [facility] Carbon dioxide, total [Moles/volume] in Serum or Plasma 30.0 mEq /L 21.0 - 32.0 [facility] Glucose [Mass/volume] in Serum or Plasma 100 mg/dL 70 - 100 [facility] Urea nitrogen [Mass/volume] in Serum or Plasma 15 mg/dL 7 - 18 [facility] CREATININE SERUM 1.09 mg/dL 0.70 - 1.30 [facility] AGE [address] [facility] HEIGHT NA [facility] eGFR NON-AFR AMR >60 [facility] eGFR AFR AMR >60 [facility] ital BUN/CREAT 14 6 - 25 [facility] Protein [Mass/volume] in Serum or Plasma 8.3 g/dL 6.0 - 8.3 [facility] Albumin [Mass/volume] in Serum or Plasma 4.0 g/dL 3.8 - 5.4 [facility] GLOBULIN 4.3 g/dL 2.0 - 4.0 Above high normal [facility] A/G RATIO 0.9 0.8 - 2.0 [facility] Calcium [Mass/volume] in Serum or Plasma 9.4 mg/dL 8.8 - 10.2 [facility] Bilirubin.total [Mass/volume] in Serum or Plasma 0.5 mg/dL 0.2 - 1.0 [facility] Bilirubin.direct [Mass/volume] in Serum or Plasma 0.1 mg/dL 0.0 - 0. 2 [facility] INDIRECT BILI 0.4 mg/dL 0.0 - 1.1 [facility] pital ALK PHOSPHATASE 71 U/L 40 - 129 [facility] ospital Aspartate aminotransferase [Enzymatic ac tivity/volume] in Serum or Plasma by With P-5'-P 14 IU/L 7 - 37 [facility] Alanine aminotransferase [Enzymatic acti vity/volume] in Serum or Plasma by With P-5'-P 25 IU/L 12 - 78 [facility] ANION GAP 10 7 - 15 [facility] l Estimated GFR referenc e range: >60ml/min/1.73m >18 years: Calculated using IDIA traceable Study Equation <18 years: Calculated using IDIA tracable Bedside Schartz Equation ID Date Data Source [id number] 04/21/2020 01:05:00 PM EST [facility] Name Value Range Interpretation Code Description Data Kassandra rce(s) Supporting Document(s) Cholesterol [Mass/volume] in Serum or Plasma 224 mg/dL [facility] Triglyceride [Mass/volume] in Serum or Plasma 153 mg/dL [facility] Cholesterol in HDL [Mass/volume] in Serum or Plasma 38 mg/dL [facility] Cholesterol in LDL [Mass/volume] in Serum or Plasma by calculati on 155 mg/dL [facility] CHOL/HDL 5.89 [facility] l \\BLDo\\INTERPRE TATION\\BLDx\\ REFERENCE RANGES (NATIONAL CHOLESTEROL [...] mg/dL VERY HIGH ID Date Data Source [id number] 04/21/2020 01:05:00 PM EST [facility] Name Value Range Interpretation Code Description Data Kassandra rce(s) Supporting Document(s) CBC [facility] l COMPLETE BLOOD COUNT Leukocytes [#/volume] in Blood by Automated count 7.5 K/uL 4.0 - 10 .0 [facility] Erythrocytes [#/volume] in Blood by Automated count 4.98 M/uL 4.30 - 6.10 [facility] Hemoglobin [Mass/volume] in Blood 14.6 g/dL 13.5 - 17.5 [facility] Hematocrit [Volume Fraction] of Blood by Automated count 45.2 % 3 9.0 - 50.0 [facility] Erythrocyte mean corpuscular volume [Entitic volume] by Auto mated count 90.8 fL 80.0 - 96.0 [facility] Erythrocyte mean corpuscular hemoglobin [Entitic mass] by Automated count 29.3 pg 26.0 - 34.0 [facility] Erythrocyte mean corpuscular hemoglobin concentration [Mass/volume] by Automated count 32.3 g/dL 32.0 - 36.0 [facility] Erythrocyte distribution width [Ratio] by Automated count 12.4 % 11.6 - 14.8 [facility] Platelets [#/volume] in Blood by Automated count 293 K/uL 150 - 450 [facility] Platelet mean volume [Entitic volume] in Blood by Automated count 8.3 fL 7.1 - 10.4 [facility] Neutrophils [#/volume] in Blood by Automated count 3.95 K/uL 1.70 - 7.70 [facility] Lymphocytes [#/volume] in Blood by Automated count 2.63 K/uL 1.50 - 6.00 [facility] Monocytes [#/volume] in Blood by Automated count 0.50 K/uL 0.00 - 1. 00 [facility] Eosinophils [#/volume] in Blood by Automated count 0.27 K/uL 0.00 - 0.30 [facility] Basophils [#/volume] in Blood by Automated count 0.10 K/uL 0.00 - 0. 10 [facility] 0.01 Urinalysis macro (dipstick) panel - Urine 0.000 10^3/uL 0.000 - 0.012 [facility] Neutrophils/100 leukocytes in Blood by Automated count 53.0 % 42. 2 - 75.2 [facility] Lymphocytes/100 leukocytes in Blood by Automated count 35.3 % 15. 0 - 41.0 [facility] Monocytes/100 leukocytes in Blood by Automated count 6.7 % 0.0 - 12.0 [facility] Eosinophils/100 leukocytes in Blood by Automated count 3.6 % 0.0 - 7.0 [facility] 1.30.10 NRBC 0.0 % [facility] l MANUAL DIFF NOT INDICATED [facility] ospital RBC MORPH NOT INDICATED [facility] pital ID Date Data Source [id number] 04/21/2020 01:05:00 PM EST [facility] Name Value Range Interpretation Code Description Data Kassandra rce(s) Supporting Document(s) 25-OH VITAMIN D 40.0 ng/mL 30.0 - 100 [facility] Deficient < 20 ng/mL Insufficient 20 - < 30 ng/mL Sufficient 30 - 100 ng/mL 25-OH vitamin D reference values based on the Clinical Guidelines Subcommittee of the Endocrine Society Task Force. Biotin can interfere with 25-OH Vitamin D results if taken 48 hours prior to specimen collection. ID Date Data Source [id number] 04/21/2020 01:05:00 PM EST [facility] Name Value Range Interpretation Code Description Data Kassandra rce(s) Supporting Document(s) TSH 3.30 uIU/mL 0.36 - 3.74 [facility] pital Reference range updated for new [employer] technology based chemiluminescent immunoassay method, and age specific ranges. Effective 02/13/18. ID Date Data Source [id number] 04/21/2020 01:05:00 PM EST [facility] Name Value Range Interpretation Code Description Data Kassandra rce(s) Supporting Document(s) Hemoglobin A1c/Hemoglobin.total in Blood 5.7 % 4.0 - 5.6 Above high normal [facility] Glucose mean value [Mass/volume] in Blood Estimated fr om glycated hemoglobin 117 mg/dL [facility] \\BLDo\\HEMOGLO BIN A1C\\BLDx\\ 4.0 - 5.6%: Normal 5.7 - 6.4%: Suggests Impaired Glucose Metabolism > or = 6.5%: Abnormal Estimated average glucose calculated using ADAG Study formula as recommended by the [place] [employer]. ID Date Data Source [id number] 12/24/2019 12:57:[address] [facility] Patient Name: LUIZ RYAN : 1975 Sex: M Pt Unit #: [id number] Location:[facility] Provider: Visit Date/Time: 12/24/19 Primary Insurance: MEDICARE [employer] Secondary Insurance: MEDICAID [place] Intake Vital Signs 12/24/19 12:58 Current Height [...] exam. He has nothing new to report. Swatch Cutter Required: No Accompanied by: Self / Same [...] and colleagues, with an educational vannessa from [employer]. HIV Testing Offer - a [facility] Requirement for HIV testing offer been met?: [...] Screening Screening Have you traveled outside of [facility] or 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 ELVIS/asthma - sees pulmonology [id number], last seen 08/2019 - using cpap nightly. [...] intoxicated Frequency: never and rides with intoxicated driver education road instructor Frequency: never Home safety: has working smoke [...] well groomed Nutritional Appearance: average body habitus [facility] Head: normocephalic and atraumatic Ears: external [...] Route Admin Location Lot Number Expiration Date [facility] Manufactu rer 0.5 mL IM Left deltoid [id number] 09/02/20 8144-8558-57 [employer] D VIS Given Date VIS Provided VIS Publication Date 12/24/19 Single Vaccine 19 Eligibility Eligibility Date Funding Source Not [facility] Eligible 12/24/19 Private diphth,pertus(acell),tetanus Performing Provider: MATY Damon Administered by: Mago Tom on 12/24/19 18:11 Dose Route Admin Location Lot Number Expiration Date [facility] Manufactu rer 0.5 mL IM Right arm [id number] 01/29/22 03108-635-29 [employer] VIS Given Date VIS Provided VIS Publication Date 12/24/19 Single Vaccine 19 Eligibility Eligibility Date Funding Source Not VF Eligible 12/24/19 Private Quality Reporting Depression/Bipolar (159/160/161/169/177) [...] rce(s) Supporting Document(s) ID Date Data Source [id number] 12/23/2019 10:25:00 AM EDT [facility] Name Value Range Interpretation Code Description Data Kassandra rce(s) Supporting Document(s) Cholesterol [Mass/volume] in Serum or Plasma 220 mg/dL [facility] Triglyceride [Mass/volume] in Serum or Plasma 222 mg/dL [facility] Cholesterol in HDL [Mass/volume] in Serum or Plasma 32 mg/dL [facility] Cholesterol in LDL [Mass/volume] in Serum or Plasma by calculati on 144 mg/dL [facility] CHOL/HDL 6.88 [facility] l \\BLDo\\INTERPRE TATION\\BLDx\\ REFERENCE RANGES (NATIONAL CHOLESTEROL [...] mg/dL VERY HIGH ID Date Data Source [id number] 12/23/2019 10:25:00 AM EDT [facility] Name Value Range Interpretation Code Description Data Kassandra rce(s) Supporting Document(s) COMPREHENSIVE CHEM PROFILE [facility] COMPREHENSIVE METABOLIC PANEL Sodium [Moles/volume] in Serum or Plasma 137 mEq/L 136 - 145 [facility] Potassium [Moles/volume] in Serum or Plasma 4.2 mEq/L 3.5 - 5.1 [facility] Chloride [Moles/volume] in Serum or Plasma 102 mEq/L 98 - 107 [facility] Carbon dioxide, total [Moles/volume] in Serum or Plasma 27.2 mEq /L 21.0 - 32.0 [facility] Glucose [Mass/volume] in Serum or Plasma 114 mg/dL 70 - 100 Above high normal [facility] Urea nitrogen [Mass/volume] in Serum or Plasma 14 mg/dL 7 - 18 [facility] CREATININE SERUM 1.09 mg/dL 0.70 - 1.30 [facility] AGE [address] [facility] HEIGHT NA [facility] eGFR NON-AFR AMR >60 [facility] eGFR AFR AMR >60 [facility] ital BUN/CREAT 13 6 - 25 [facility] Protein [Mass/volume] in Serum or Plasma 7.9 g/dL 6.0 - 8.3 [facility] Albumin [Mass/volume] in Serum or Plasma 4.1 g/dL 3.8 - 5.4 [facility] GLOBULIN 3.8 g/dL 2.0 - 4.0 [facility] A/G RATIO 1.1 0.8 - 2.0 [facility] Calcium [Mass/volume] in Serum or Plasma 9.3 mg/dL 8.8 - 10.2 [facility] Bilirubin.total [Mass/volume] in Serum or Plasma 0.3 mg/dL 0.2 - 1.0 [facility] Bilirubin.direct [Mass/volume] in Serum or Plasma 0.1 mg/dL 0.0 - 0. 2 [facility] INDIRECT BILI 0.2 mg/dL 0.0 - 1.1 [facility] pital ALK PHOSPHATASE 76 U/L 40 - 129 [facility] ospital Aspartate aminotransferase [Enzymatic ac tivity/volume] in Serum or Plasma by With P-5'-P <5 IU/L 7 - 37 Below low normal [facility] richard Alanine aminotransferase [Enzymatic acti vity/volume] in Serum or Plasma by With P-5'-P 23 IU/L 12 - 78 [facility] ANION GAP 8 7 - 15 [facility] Estimated GFR referenc e range: >60ml/min/1.73m >18 years: Calculated using IDMS traceable Study Equation <18 years: Calculated using IDMS tracable Bedside Schartz Equation Procedure Social History Code Duration Value Status Description Data Source(s ) 12/24/2019 01:28:04 PM EDT Never smoker completed Never s [facility] Smoking 12/24/2019 01:28:00 PM EDT Never smoker completed Never s [facility] Vital Signs ID Date Data Source [...]
--- NOTE | 2020-07-01 18:29 | HPEPDOC ---
[facility] Medical History & Physical Date of Admission Jul 01, 2020 Date of Service: Jul 01, 2020 Attending Physician: Judy Ordonez MD History and Physical CHIEF COMPLAINT: numbness/weakness on right side HISTORY OF PRESENT ILLNESS: Patient is a 45 y/o M with PMH of left-sided CVA s/p PFO closure (2011), GERD who was transferred to [facility] from [facility] for continued workup of right side weakness/numbness, high suspicious for CVA. Patient complains of feeling weak for several days and having a nonproductive cough. Denies sick contacts, fevers, chills but did admit to one episode of n/v over the evening. At 1 AM on 07/01/20 he felt unable to walk due to increased numbness/tingling/weakness on the right leg, incr weakness right arm. He had difficulty raising his right arm. He also complained of difficulty speaking, change in speech. Patient stated his symptoms did not improve but instead "waxed and waned" throughout the morning. He had a prior stroke in 2011 his right side was effected then as well. Due to persistent symptoms, the patient called family and was brought to [facility] in [place]. In [facility] he denied any numbness, paresthesias, tingling. In that hospital, they did CT head: cerebellar atrophy noted, 2 small lacunar infarcts in the left parietal white matter- no acute events noted. CT without contrast chest: biapical pleural-parenchymal scarring with bilateral upper lobe bronchiectasis more severe on the right than left. VS were stable. He appeared lethargic and pale. Labs: UA neg, Resp panel neg,mild WBC 11K, coags wnl, D Dimer normal, elevated cholesterol and LDL, unremarkable CMP, trop neg, ECG abnormal but his baseline. Patient's neurologist (Dr. Finch) was consulted and suggested that due to patient's history he be transferred to [facility] for an MRI and further assessment. Given total of 325 mg ASA prior to transfer. Upon arrival to ER at [facility], VS were stable. ECG showed to be abnormal again but similar to what was on file. Initially upon arrival, patient was able to lift his right arm against gravity but was unable to lift right leg above the bed- this is all new for him. Normally he ambulates independently and does not have these deficits. He had no facial droop, speech deficits- although the patient feels he is "talking differently". Later upon exam by myself, patient states his weakness had worsened and could not move his bilateral lower ext off the bed 1/5 stregth, 5/5 LUE and 3/5 RUE. Patient will be admitted for further workup of CVA, possibly multiple insults, r/o embolic cause. PAST MEDICAL HISTORY: GERD left-side CVA Hx of childhood leukemia PAST SURGICAL HISTORY: PFO closure 2011 Appendectomy Chest tube / to pneumothorax SOCIAL HISTORY: Denies smoking, alcohol or drug history. Normally ambulates independently. Neurologist- Dr. Finch. FAMILY HISTORY: Pt is adopted and does not know much about his family history ALLERGIES: Please see below. CURRENT MEDICATIONS: Please see below. PHYSICAL EXAMINATION: VITAL SIGNS: Please see below GENERAL APPEARANCE: NAD, resting in bed. AAOX3 HEENT: AT/NC, NECK: symmetrical,no JVD CARDIOVASCULAR: S1S2+, no M/R/G LUNGS: CTAB, No W/R/R ABDOMEN: soft, nontender, BS + in 4 quad, nondistended MUSCULOSKELETAL: ROM not tested, no atrophy EXTREMITIES: No edema, cyanosis or clubbing, NEUROLOGICAL: CN 2-12 intact, 1/5 b/l lower ext, 5/5 LUE, 3/5 RUE- worsened from ER evaluation No sensory deficits. No nystagmus, no tremor. All reflexes in upper and lower ext intact PSYCHIATRIC: Mood and affect appropriate LABORATORY DATA: See below. IMAGING: MRI/MRA brain pending Echocardiogram ordered US carotid arteries pending CT head 07/01/20 done at [facility]: cerebellar atrophy noted, 2 small lacunar infarcts in the left parietal white matter- no acute events noted. CT without contrast chest 07/01/20 done at [facility]: biapical pleural-parenchymal scarring with bilateral upper lobe bronchiectasis more sev ere on the right than left. MICROBIOLOGY: UA neg from [facility] BCx pending x 2 sets ASSESSMENT: 45 y/o M with PMH of left-sided CVA s/p PFO closure (2011), GERD who was transferred to [facility] from [facility] for continued workup of right side weakness/numbness, high suspicious for CVA. PLAN: B/l lower ext weakness, r/o CVA (concern is for multiple -Initially presented with right-side hemiparesis then later patient states weakness worked way over to left side -Concern is for embolic cause -Hx of left-side CVA with closure of PFO -CT head above -lipid panel: high cholesterol, LDL -F/u MRA/MRI brain, echocardiogram with bubble study, carotid doppler -If multiple strokes seen on MRI brain, will need JESUS -Started on ASA 325 daily, statin high dose -PT/OT ordered -Case discussed at length with Dr. Tapia, neurology transportation specialist who agreed with plan above. Unlikely something like ascending paralysis due to initial presentation of right side hemiparesis and working way to left per neurology. -Neuro checks Q4hrs. Bronchiectasis on CT chest -Denies chest pain, shortness of breath, doing well on RA. -Monitor for changes Weakness -R/o infectious source as well as patient has been n/v along with neuro issues above -IVFs, optimize nutrition -PT/OT N/V -zofran GERD -PPI DVT px -Lovenox DISPOSITION: Admitted to PCU for close monitoring. If stable overnight, can transfer to med/surg in AM. PT/OT, speech therapy in the AM. Vital Signs Vital Signs Date Time Temp Pulse Resp B/P (MAP) Pulse Ox O2 Delivery O2 Flow Rate FiO2 07/01/20 14:32 97.4 93 16 138/89 (105) 97 Room Air Laboratory Data Microbiology Microbiology 07/01/20 Blood Culture, Received Pending 07/01/20 Blood Culture, Received Pending Home Medications Scheduled Acetaminophen (Acetaminophen 325 Mg) 325 Mg Tab, 325 MG PO Q4HP Atorvastatin Calcium (Lipitor) 10 Mg Tab, 10 MG PO DAILY Bisacodyl (Dulcolax) 5 Mg Tab, 5 MG PO DAILYPRN Docusate Sodium (Colace Liquid) 100 Mg/10 Ml Liqd, 100 MG PO BID Ergocalciferol (Vitamin D2) (Drisdol) 50,000 Unt Cap, 50,000 UNT PO 1XWK Milk Of Magnesia (Milk of Magnesia) 30 Ml Conc, 30 ML PO DAILYPRN Senna (Senna) Pow, 1 PO DAILY Warfarin Sodium (Coumadin) 6 Mg Tab, 6 MG PO DAILYCOU Allergies Coded Allergies: No Known Allergies (Unverified , 1/27/21) A-FIB/CHADSVASC A-FIB History Current/History of A-Fib/PAF?: No Current PO Anticoag Therapy: No Age/Risk Factor Scoring CHADSVASC: CHADSVASC Response (Comments) Value Age Risk Factor Age < 65 years old 0 Gender Risk Factor Male 0 Hx of CHF No 0 Hx of HTN No 0 Hx of Stroke/TIA/or VTE Yes 2 Hx of Diabetes No 0 Hx of Vascular Disease No 0 Total 2 Treatment Treatment ordered: Other Other anticoagulant ordered: Judy Otero MD Jul 01, 2020 18:29
[2020-07-01 18:35] LABS: CHOLESTEROL RISK RATIO 7.621 (<5)
--- NOTE | 2020-07-01 18:41 | REPVR ---
PROCEDURE INFORMATION: Exam: US Duplex Bilateral Extracranial Arteries Exam date and time: 07/01/2020 6:19 PM Age: 45 years old Clinical indication: Other: CVA, right side weakness TECHNIQUE: Imaging protocol: Real-time Duplex ultrasound scan of the bilateral carotid and vertebral arteries combining carlton scale, color Doppler and spectral waveform analysis. Bilateral exam. COMPARISON: MRI-Brain without Contrast 07/01/2020 5:15 PM FINDINGS: Right side: ICA/CCA ratio 1.1 with a peak velocity of the right internal carotid artery 85 cm/s. The amount of narrowing of the right internal carotid artery would be less than 50%. The right vertebral artery is antegrade. Left side: The left ICA/ CCA ratio is 1.6 with a peak velocity left ICA 106 cm/s. The amount of narrowing of the left internal carotid artery would be less than 50%. The left vertebral artery is antegrade. IMPRESSION: No evidence of significant stenosis right or left internal carotid artery. REFERENCES: SRU CRITERIA. The degree of internal carotid artery stenosis is based on criteria defined by the Society of Radiologists in Ultrasound (SRU). Normal is no stenosis. Mild is less than 50% stenosis. Moderate is 50-69% stenosis. Severe is greater than 69% stenosis to near occlusion. Near occlusion is a markedly narrowed lumen. Total occlusion is no detectable patent lumen. Electronically signed by: Kei Up On 07/01/2020 18:41:32 PM
[2020-07-01 18:45] LABS: HEMOGLOBIN A1c 5.4 %
[2020-07-01] MEDS ORDERED: ONDANSETRON 4MG/2ML VIAL IV PRN (19:00)
[2020-07-01] MEDS ORDERED: BACL1TAB9 PO (19:32)
[2020-07-01] MEDS ORDERED: ASPI1TAB8 PO (19:32)
[2020-07-01] MEDS: NS 1,000 ML IV SCH (19:33)
[2020-07-01] MEDS: ENOXAPARIN 40MG/0.4ML SYRINGE (J1650 PER 10MG) SC SCH (20:45)
--- NOTE | 2020-07-01 20:48 | REPVR ---
PROCEDURE INFORMATION: Exam: MR Head Without Contrast Exam date and time: 07/01/2020 6:05 PM Age: 45 years old Clinical indication: Weakness, extremity; Bilateral; Patient HX: Inability to walk due to extreme ue and le weakness, TECHNIQUE: Imaging protocol: MR of the head without contrast. 3D rendering (Not supervised by radiologist): MIP and/or 3D reconstructed images were created by the technologist. COMPARISON: No relevant prior studies available. FINDINGS: Brain: There is no restricted diffusion to suggest acute infarction. On the T2 weighted sequence there is an hyperintense lesion in the ventral medulla to the left of midline. Series 501, image 1 frame 6 and 7. There is also signal abnormality within the midbrain just to the right of midline. There are several dilated perivascular spaces the largest is seen along the lateral margin of the atria of the left lateral ventricle. Series 501 image 1 frames 15-18. Unfortunately on the FLAIR sequence is very degraded by patient motion which limits assessment of white matter lesions. There may be 1 prior microhemorrhage subcortical white frontal lobe series 701, image 1 frame 19. Cerebral ventricles: No ventriculomegaly. Bones/joints: There appears to be a right frontal calvarial lesion series 401, image 1 frame 18. Paranasal sinuses: Normal as visualized. No acute sinusitis. Mastoid air cells: Normal as visualized. No mastoid effusion. Orbital cavity: Unremarkable. Soft tissues: Unremarkable. IMPRESSION: There is no acute cerebral infarction or intracranial hemorrhage. Unfortunately the FLAIR sequence is limited due to patient motion but there appears to be possible periependymal hyperintensity surrounding the 3rd ventricle and frontal horns of the lateral ventricles and possibly within the medial frontal cortex bilaterally as well as the hypothalamus. This can be seen with neuromyelitis optica spectrum disorders. Suggest repeat FLAIR sequence and MRI imaging of the spinal cord. Electronically signed by: Sonja Glez On 07/01/2020 20:48:25 PM
--- NOTE | 2020-07-01 20:51 | REPVR ---
PROCEDURE INFORMATION: Exam: MR Angiogram Head Without Contrast, Arteries Exam date and time: 07/01/2020 6:05 PM Age: 45 years old Clinical indication: Patient HX: Inability to walk due to extreme ue and le weakness, ; additional info: CVA TECHNIQUE: Imaging protocol: MR angiogram head without contrast. Exam focused on the arteries. 3D rendering (Not supervised by radiologist): MIP and/or 3D reconstructed images were created by the technologist. COMPARISON: No relevant prior studies available. FINDINGS: Limitations: Patient motion. ANTERIOR CIRCULATION: Right internal carotid artery: Intracranial segment is patent with no significant stenosis. No aneurysm. Right middle cerebral artery: No occlusion or significant stenosis. No aneurysm. Right anterior cerebral artery: No occlusion or significant stenosis. No aneurysm. Left internal carotid artery: Intracranial segment is patent with no significant stenosis. No aneurysm. Left middle cerebral artery: No occlusion or significant stenosis. No aneurysm. Left anterior cerebral artery: No occlusion or significant stenosis. No aneurysm. POSTERIOR CIRCULATION: Right vertebral artery: No occlusion or significant stenosis. No aneurysm. Left vertebral artery: No occlusion or significant stenosis. No aneurysm. Basilar artery: No occlusion or significant stenosis. No aneurysm. Right posterior cerebral artery: No occlusion or significant stenosis. No aneurysm. Left posterior cerebral artery: No occlusion or significant stenosis. No aneurysm. IMPRESSION: No stenosis or occlusion. Electronically signed by: Sonja Glez On 07/01/2020 20:51:32 PM
[2020-07-01] MEDS ORDERED: LORazepam 2 MG/ML VIAL IV STA (21:02)
[2020-07-01 23:25] VITALS: BP 133/81
[2020-07-02 04:00] VITALS: BP 119/65
[2020-07-02 05:04] LABS: HEMATOCRIT 40.2 % (42.0-52.0); HEMOGLOBIN 12.9 g/dl (13.5-17.5); MEAN CORPUSCULAR HEMOGLOBIN 28.9 pg (27.0-33.0); MEAN CORPUSCULAR HGB CONC 32.1 g/dl (32.0-36.5); MEAN CORPUSCULAR VOLUME 90.1 fl (80.0-96.0); PLATELET COUNT, AUTOMATED 290 10^3/uL (150-450); RED BLOOD COUNT 4.46 10^6/uL (4.30-6.10); WHITE BLOOD COUNT 9.5 10^3/uL (4.0-10.0)
[2020-07-02 05:37] LABS: ALBUMIN 3.4 GM/DL (3.2-5.2); ALT/SGPT 21 U/L (12-78); BILIRUBIN,TOTAL 0.6 MG/DL (0.2-1.0); BLOOD UREA NITROGEN 11 MG/DL (7-18); CALCIUM LEVEL 8.4 MG/DL (8.5-10.1); CARBON DIOXIDE LEVEL 27 MEQ/L (21-32); CHLORIDE LEVEL 107 MEQ/L (98-107); CREATININE FOR GFR 0.82 MG/DL (0.70-1.30); GLOMERULAR FILTRATION RATE > 60.0 (>60); GLUCOSE, FASTING 95 MG/DL (70-100); POTASSIUM SERUM 3.7 MEQ/L (3.5-5.1); SODIUM LEVEL 141 MEQ/L (136-145); TOTAL PROTEIN 7.2 GM/DL (6.4-8.2)
[2020-07-02 07:30] VITALS: BP 123/73
[2020-07-02] MEDS ORDERED: ASPIRIN 81 MG CHEW TABLET PO SCH (09:00)
[2020-07-02] MEDS ORDERED: ENOXAPARIN 40MG/0.4ML SYRINGE (J1650 PER 10MG) SC SCH (09:00)
[2020-07-02] MEDS: ENOXAPARIN 40MG/0.4ML SYRINGE (J1650 PER 10MG) SC SCH (09:58)
[2020-07-02] MEDS: OMEPRAZOLE 20 MG CAP PO SCH ×2 (09:59→10:00)
[2020-07-02] MEDS: ASPIRIN 325 MG TAB PO SCH ×2 (09:59→10:00)
[2020-07-02] MEDS: ATORVASTATIN 20 MG TAB PO SCH ×2 (09:59→10:00)
[2020-07-02] MEDS ORDERED: PROHANCE 279.3MG/ML 5ML VIAL As Ordered ONE (10:25)
[2020-07-02] MEDS: NS 1,000 ML IV SCH (11:19)
--- NOTE | 2020-07-02 11:57 | REPVR ---
PROCEDURE INFORMATION: Exam: MR Lumbar Spine Without and With Contrast. Exam date and time: 07/02/2020 11:17 AM Age: 45 years old Clinical indication: Condition or disease; Other: R/O mri, possible nmo TECHNIQUE: Imaging protocol: Multiplanar magnetic resonance images of the lumbar spine without and with intravenous contrast. Contrast material: PROHANCE; Contrast volume: 10 ml; Contrast route: INTRAVENOUS (IV); COMPARISON: 1. MRI-Spine,Cervical without con 07/01/2020 9:47:53 PM 2. MRI-Spine,Thoracic without con 07/01/2020 9:47:53 PM FINDINGS: Vertebrae: There is transitional anatomy of the lumbosacral junction. The S1 vertebral segment is considered to be lumbarized, a small S1-S2 disc present. L5-S1 is considered to be the last full sized disc space, image 4 of series 701 the axial T2 weighted sequence. Anatomic alignment. No acute fracture seen. Spinal cord: The conus medullaris ends normally at the T12-L1 level. No abnormal cauda equina enhancement. Disc desiccation at L5-S1. No significant disc height loss. L1-L2: No significant disc disease. No significant spinal canal stenosis. No neural foraminal stenosis. L2-L3: No significant disc disease. No significant spinal canal stenosis. No neural foraminal stenosis. L3-L4: No significant disc disease. No significant spinal canal stenosis. No neural foraminal stenosis. L4-L5: No significant disc disease. No significant spinal canal stenosis. No neural foraminal stenosis. L5-S1: No significant disc disease. No significant spinal canal stenosis. No neural foraminal stenosis. Soft tissues: Unremarkable. IMPRESSION: Essentially unremarkable MRI lumbar spine without and with contrast. Electronically signed by: Summer Moran On 07/02/2020 11:56:49 AM
[2020-07-02 12:00] VITALS: BP 141/63
--- NOTE | 2020-07-02 12:07 | REPVR ---
PROCEDURE INFORMATION: Exam: MR Thoracic Spine Without Contrast Exam date and time: 07/02/2020 11:19 AM Age: 45 years old Clinical indication: Condition or disease; Other: R/O mri, possible nmo; Patient HX: PT exam started 07/01, PT refused further scanning and ordering physician wanted contrast images, PT returned to the department for post contrast imaging and still refused to complete the exam. TECHNIQUE: Imaging protocol: Multiplanar magnetic resonance images of the thoracic spine without contrast. COMPARISON: No relevant prior studies available. FINDINGS: Vertebrae: Anatomic alignment. No acute fracture seen. Spinal cord: Poor evaluation the thoracic spinal cord due to motion artifacts, in particular from the T8 through T10 levels. Elsewhere, no obvious cord myelopathy correlating between the sagittal STIR, sagittal T2 and axial T2 sequences. Discs/Spinal canal/Neural foramina: The intervertebral disc heights are preserved. No focal disc protrusion or extrusion identified. The central spinal canal appears patent at all levels. Soft tissues: Unremarkable. IMPRESSION: 1. The patient declined postcontrast imaging. 2. Images are quite motion degraded which significantly limits assessment of the thoracic cord. Electronically signed by: Summer Moran On 07/02/2020 12:07:14 PM
--- NOTE | 2020-07-02 12:17 | REPVR ---
PROCEDURE INFORMATION: Exam: MR Cervical Spine Without Contrast Exam date and time: 07/02/2020 11:19 AM Age: 45 years old Clinical indication: Condition or disease; Other: RO nmo; Patient HX: PT exam started 07/01, PT refused further scanning and ordering physician wanted contrast images, PT returned to the department for post contrast imaging and still refused to complete the exam. ; Additional info: Possible nmo TECHNIQUE: Imaging protocol: Multiplanar magnetic resonance images of the cervical spine without contrast. COMPARISON: No relevant prior studies available. FINDINGS: Vertebrae: Anatomic alignment. No acute fracture seen. Spinal cord: No correlative high signal cord lesions confidently identified comparing the sagittal and axial T2 weighted sequences as well as sagittal STIR sequence; some apparent high signal areas in the lower cervical and upper thoracic cord on the T2 weighted imaging are not discretely confirmed on the sagittal STIR sequence. Disc desiccation throughout. Mild disc height loss and spondylosis at C5-C6. C2-C3: No significant disc disease. No significant spinal stenosis. C3-C4: The central spinal canal is patent. Limitations assessing the neural foramina on the axial images due to motion artifacts. Uncovertebral and facet arthropathy causing at least left neural foraminal stenosis. C4-C5: Small central disc protrusion does not contribute to central spinal canal stenosis. Uncovertebral and facet arthropathy causing left neural foraminal stenosis. C5-C6: Mild disc osteophyte complex and ligamentum flavum buckling without contribution to central spinal canal stenosis. Uncovertebral and facet arthropathy causing left greater than right neural foraminal stenoses. C6-C7: Small right lateral canal/foraminal disc protrusion causing mild right neural foraminal stenosis but no fausto nerve root impingement. Central spinal canal and left foramen are patent. C7-T1: Mild facet arthropathy. No stenoses. Marrow: There is a 6 mm T1 isointense, STIR hyperintense lesion in C7 which is nonspecific, possibly an atypical hemangioma. A small conventional hemangioma in T1. Vertebral arteries: Expected flow voids in the vertebral arteries. Soft tissues: Unremarkable. IMPRESSION: 1. The patient declined postcontrast imaging. 2. Images are motion degraded which limits assessment of the cervical spinal cord as well as neural foramina on the axial imaging. 3. No obvious cord myelopathy. 4. Neural foraminal stenoses due to uncovertebral and facet arthropathy. Electronically signed by: Summer Moran On 07/02/2020 12:17:17 PM
--- NOTE | 2020-07-02 12:24 | REPVR ---
PROCEDURE INFORMATION: Exam: MR Head Without Contrast Exam date and time: 07/02/2020 11:19 AM Age: 45 years old Clinical indication: Condition or disease; Other: RO nmo; Patient HX: PT exam started 07/01, PT refused further scanning and ordering physician wanted contrast images, PT returned to the department for post contrast imaging and still refused to complete the exam. Requesting an addendum for the repeat flair imaging. ; Additional info: R/O mri TECHNIQUE: Imaging protocol: MR of the head without contrast. The exam consists of an axial FLAIR sequence only. COMPARISON: MRI-Brain without Contrast 07/01/2020 5:15 PM FINDINGS: Brain: Single axial FLAIR sequence demonstrates mild patchy periventricular increased signal intensity which is nonspecific but may reflect chronic small vessel ischemic change. Likely perivascular spaces in the anterior right ayala radiata and left periatrial deep white matter. Focus of gliosis is again demonstrated in the anterior medulla. Small areas of gliosis in the right remy and left cerebellum are better visualized on a prior T2 weighted sequence. Mild cerebral and cerebellar volume loss, advanced/atypical for age. Cerebral ventricles: Stable. Mildly enlarged in keeping with volume loss. IMPRESSION: 1. The axial FLAIR sequence remains motion degraded. The patient declined postcontrast imaging. 2. Stable T2 hyperintensity of the periventricular white matter, nonspecific, could reflect chronic small vessel ischemic change. 3. Small areas of gliosis in the left medulla, right remy and left cerebellum probably representing old infarcts. Electronically signed by: Summer Moran On 07/02/2020 12:24:11 PM
--- NOTE | 2020-07-02 14:37 | IPNPDOC ---
Date Seen The patient was seen on 07/02/20. Progress Note SUBJECTIVE: Improved strength in all extremities this AM. MRI of spine neg. Discussed with neuro, cannot explain the current illness and how quickly it has improved without a known infection. PT/OT today. Patient denies chest pain,n/v/d, fevers, chills. OBJECTIVE: PHYSICAL EXAMINATION: VITAL SIGNS: Please see below GENERAL APPEARANCE: NAD, resting in bed. Appears more alert today, oX3 HEENT: AT/NC NECK: symmetrical,no JVD CARDIOVASCULAR: S1S2+, no M/R/G LUNGS: CTAB, No W/R/R ABDOMEN: soft, nontender, BS + in 4 quad, nondistended MUSCULOSKELETAL: ROM not tested, no atrophy EXTREMITIES: No edema, cyanosis or clubbing, NEUROLOGICAL: CN 2-12 intact, 2/5 b/l lower ext, 5/5 LUE, 3/5 RUE. No sensory deficits. No nystagmus, no tremor. All reflexes in upper and lower ext intact , sustained clonus in the RLE PSYCHIATRIC: Mood and affect appropriate LABORATORY DATA: See below. IMAGING: MRI Cervical spine: 1. The patient declined postcontrast imaging. 2. Images are motion degraded which limits assessment of the cervical spinal cord as well as neural foramina on the axial imaging. 3. No obvious cord myelopathy. 4. Neural foraminal stenoses due to uncovertebral and facet arthropathy MRI Thoracic spine: 1. The patient declined postcontrast imaging. 2. Images are quite motion degraded which significantly limits assessment of the thoracic cord. MRI Lumbar spine w/wout contrast: Essentially unremarkable MRI lumbar spine without and with contrast. MRI brain: 1. The axial FLAIR sequence remains motion degraded. The patient declined postcontrast imaging. 2. Stable T2 hyperintensity of the periventricular white matter, nonspecific, could reflect chronic small vessel ischemic change. 3. Small areas of gliosis in the left medulla, right remy and left cerebellum probably representing old infarcts. MRA brain: No stenosis or occlusion. Echocardiogram ordered US carotid arteries: No evidence of significant stenosis right or left internal carotid artery. CT head 07/01/20 done at [facility]: cerebellar atrophy noted, 2 small lacunar infarcts in the left parietal white matter- no acute events noted. CT without contrast chest 07/01/20 done at [facility]: biapical pleural-parenchymal scarring with bilateral upper lobe bronchiectasis more severe on the right than left. MICROBIOLOGY: UA neg from [facility] BCx pending x 2 sets pending results ASSESSMENT: 45 y/o M with PMH of left-sided CVA s/p PFO closure (2011), GERD who was transferred to [facility] from [facility] for continued workup of right side weakness/numbness. PLAN: B/l lower ext weakness 2/2 to unknown etiology -Initially presented with right-side hemiparesis then later patient states weakness worked way over to LLE and LUE -Improved this AM -CT and MRI's above- neg for acute insult or concerns -Per neuro (Dr. Tapia), not likely neuromyelitis optica, Guillan-[place], CVA, cord compression or cauda equina. Perhaps this is psych related? -No known infection that predisposed this weakness either -BCx still pending- f/u closely. Not on abx -For now, will stop Q4H NIFs but will keep neuro checks Q4H -C/w hydration, PT/OT, encourage PO intake of fluids/food Hx of left-side CVA with right side weakness chronic, s/p closure of PFO -now not suspecting new insult -Imaging above -lipid panel: high cholesterol, LDL -Echocardiogram with bubble study pending -ASA, statin -PT/OT ordered -Neuro checks Q4hrs. Bronchiectasis on CT chest -Denies chest pain, shortness of breath, doing well on RA. -Monitor for changes N/V -zofran GERD -PPI DVT px -Lovenox DISPOSITION: PT/OT to assess what discharge plan will be. VS, I&O, 24H, Fishbone Vital Signs/I&O Vital Signs Date Time Temp Pulse Resp B/P (MAP) Pulse Ox O2 Delivery O2 Flow Rate FiO2 07/02/20 12:00 97.8 75 18 141/63 (89) 95 Room Air I&O- Last 24 Hours up to 6 AM 07/02/20 05:59 Intake Total 0 ml Output Total 0 ml Balance 0 ml Laboratory Data 24H LABS Laboratory Tests 2 07/01/20 15:25: Estimated Mean Plasma Glucose 108, Hemoglobin A1c 5.4, Triglycerides Level 154H, Total Cholesterol 282H, LDL Cholesterol 214H, Non-HDL Cholesterol (LDL + VLDL) 245, Total HDL Cholesterol 37L, Cholesterol/HDL Ratio 7.621H 07/02/20 04:54: Nucleated Red Blood Cells % (auto) 0.0, Anion Gap 7L, Glomerular Filtration Rate > 60.0, Calcium Level 8.4L, Total Bilirubin 0.6, Aspartate Amino Transf (AST/SGOT) 11, Alanine Aminotransferase (ALT/SGPT) 21, Alkaline Phosphatase 56, Total Protein 7.2, Albumin 3.4, Albumin/Globulin Ratio 0.9 CBC/BMP Laboratory Tests 07/02/20 04:54 Microbiology Microbiology 07/01/20 Blood Culture, Received Pending 07/01/20 Blood Culture, Received Pending Current Medications Current Medications Medications (Trade) Dose Ordered Sig/Juan Luis Route PRN Reason Start Time Stop Time Status Last Admin Dose Admin Aspirin (Aspirin Chewable) 81 mg DAILY PO 07/02/20 09:00 07/01/20 18:11 DC Aspirin (Aspirin) 325 mg DAILY PO 07/02/20 09:00 07/02/20 10:00 Atorvastatin Calcium (Lipitor) 40 mg DAILY PO 07/02/20 09:00 07/02/20 10:00 Enoxaparin Sodium (Lovenox) 40 mg DAILY SC 07/01/20 18:30 07/02/20 09:58 Enoxaparin Sodium (Lovenox) 40 mg DAILY SC 07/02/20 09:00 07/01/20 18:27 DC Home Med (Med Rec Complete!) ASDIRECTED XX 07/01/20 19:45 07/01/20 19:40 DC Lorazepam (Ativan) 1 mg STAT STAT IV 07/01/20 21:02 07/01/20 21:05 DC 07/01/20 21:19 Omeprazole (PriLOSEC) 40 mg DAILY PO 07/02/20 09:00 07/02/20 10:00 Ondansetron HCl (ZOFRAN INJection) 4 mg Q6HP PRN IV NAUSEA OR VOMITING 07/01/20 19:00 Sodium Chloride 1,000 ml @ 100 mls/hr Q10H IV 07/01/20 18:45 07/02/20 11:19 Allergies Coded Allergies: No Known Allergies (Unverified , 07/01/20) Judy Ordonez MD Jul 02, 2020 14:37
[2020-07-02 15:31] VITALS: BP 112/59
[2020-07-02 20:00] VITALS: BP 129/67
[2020-07-03] VITALS: BP 144/91
[2020-07-03 04:00] VITALS: BP 129/71
[2020-07-03 04:58] LABS: HEMATOCRIT 40.8 % (42.0-52.0); HEMOGLOBIN 13.2 g/dl (13.5-17.5); MEAN CORPUSCULAR HEMOGLOBIN 29.1 pg (27.0-33.0); MEAN CORPUSCULAR HGB CONC 32.4 g/dl (32.0-36.5); MEAN CORPUSCULAR VOLUME 89.9 fl (80.0-96.0); PLATELET COUNT, AUTOMATED 285 10^3/uL (150-450); RED BLOOD COUNT 4.54 10^6/uL (4.30-6.10); WHITE BLOOD COUNT 8.1 10^3/uL (4.0-10.0)
[2020-07-03 05:24] LABS: ALBUMIN 3.5 GM/DL (3.2-5.2); ALT/SGPT 20 U/L (12-78); BILIRUBIN,TOTAL 0.6 MG/DL (0.2-1.0); BLOOD UREA NITROGEN 10 MG/DL (7-18); CALCIUM LEVEL 8.3 MG/DL (8.5-10.1); CARBON DIOXIDE LEVEL 28 MEQ/L (21-32); CHLORIDE LEVEL 105 MEQ/L (98-107); CREATININE FOR GFR 0.79 MG/DL (0.70-1.30); GLOMERULAR FILTRATION RATE > 60.0 (>60); GLUCOSE, FASTING 81 MG/DL (70-100); POTASSIUM SERUM 3.5 MEQ/L (3.5-5.1); SODIUM LEVEL 140 MEQ/L (136-145)
[2020-07-03 07:37] VITALS: BP 117/70
[2020-07-03] MEDS: ASPIRIN 325 MG TAB PO SCH (08:42)
[2020-07-03] MEDS: ENOXAPARIN 40MG/0.4ML SYRINGE (J1650 PER 10MG) SC SCH (08:42)
[2020-07-03] MEDS: NS 1,000 ML IV SCH ×3 (08:42→17:34)
[2020-07-03] MEDS: OMEPRAZOLE 20 MG CAP PO SCH (08:42)
[2020-07-03] MEDS: ATORVASTATIN 20 MG TAB PO SCH (08:43)
[2020-07-03] MEDS ORDERED: ASPIRIN 81 MG CHEW TABLET PO SCH (09:00)
--- NOTE | 2020-07-03 09:41 | ECHO ---
DATE OF PROCEDURE: 07/02/2020 Age: 45 Gender: Male Height: 63 inches Weight: 220 pounds Body surface area: 2.01 m2 PATIENT LOCATION: Inpatient. REFERRING PHYSICIAN: Judy Ordonez M.D. INDICATION: Cerebrovascular accident (CVA). History of prior atrial septal defect closure in 2011. MEASUREMENTS: 2D Measurements: RV 3.0 cm LV 3.8 cm Septum 0.8 cm Posterior wall 0.8 cm Aortic Root 2.8 cm LA 2.6 cm LVEF 65% Doppler Measurements: AV 1.2 m/s LVOT 1.0 m/s MV-E 90, A 69, E/A ratio 1.3 Early mitral deceleration time 158 msec E prime medial 11, A prime medial 13, E prime lateral 15 PV 1.0 m/s Pulmonary artery acceleration time 119 msec PASP 28 mmHg COMMENTS: Sinus tachycardia without intraventricular conduction disturbance. Somewhat challenging study in light of the patients body habitus, but diagnostically useful information was still obtained. M-mode and two-dimensional echocardiography was performed with pulse, continuous wave, color flow, and tissue Doppler studies. Normal left ventricular size, wall thickness, and wall motion. Normal left atrial size and Doppler assessment of LV diastolic function and estimated mean left atrial pressure. Normal right heart chamber sizes and motion and estimated pulmonary arterial pressure. Normal right atrial size with visible atrial septal closure device. His inferior vena cava could not be visualized to further estimate central venous pressure. Normal aortic dimensions. Normal appearing and functioning valvular structures. No pericardial effusion or apparent intracardiac mass. Saline contrast study was performed from the apical four chamber projection using agitated saline injected bolus through a large forearm vein. This showed good opacification of the right heart chambers without any evidence of [id number] shunting. MTDD
--- NOTE | 2020-07-03 13:45 | IPNPDOC ---
Date Seen The patient was seen on 07/03/20. Progress Note SUBJECTIVE: Improved strength in all extremities further this AM.Per neuro, cannot r/o TIA possibly. Patient denies chest pain,n/v/d, fevers, chills. OBJECTIVE: PHYSICAL EXAMINATION: VITAL SIGNS: Please see below GENERAL APPEARANCE: NAD, resting in bed. Appears more alert today, oX3 HEENT: AT/NC NECK: symmetrical,no JVD CARDIOVASCULAR: S1S2+, no M/R/G LUNGS: CTAB, No W/R/R ABDOMEN: soft, nontender, BS + in 4 quad, nondistended MUSCULOSKELETAL: ROM not tested, no atrophy EXTREMITIES: No edema, cyanosis or clubbing, NEUROLOGICAL: CN 2-12 intact, 4/5 in all ext. No sensory deficits. No nystagmus, no tremor. All reflexes in upper and lower ext intact , sustained clonus in the RLE PSYCHIATRIC: Mood and affect appropriate LABORATORY DATA: See below. IMAGING: MRI Cervical spine: 1. The patient declined postcontrast imaging. 2. Images are motion degraded which limits assessment of the cervical spinal cord as well as neural foramina on the axial imaging. 3. No obvious cord myelopathy. 4. Neural foraminal stenoses due to uncovertebral and facet arthropathy MRI Thoracic spine: 1. The patient declined postcontrast imaging. 2. Images are quite motion degraded which significantly limits assessment of the thoracic cord. MRI Lumbar spine w/wout contrast: Essentially unremarkable MRI lumbar spine without and with contrast. MRI brain: 1. The axial FLAIR sequence remains motion degraded. The patient declined postcontrast imaging. 2. Stable T2 hyperintensity of the periventricular white matter, nonspecific, could reflect chronic small vessel ischemic change. 3. Small areas of gliosis in the left medulla, right remy and left cerebellum probably representing old infarcts. MRA brain: No stenosis or occlusion. Echocardiogram ordered US carotid arteries: No evidence of significant stenosis right or left internal carotid artery. CT head 07/01/20 done at [facility]: cerebellar atrophy noted, 2 small lacunar infarcts in the left parietal white matter- no acute events noted. CT without contrast chest 07/01/20 done at [facility]: biapical pleural-parenchymal scarring with bilateral upper lobe bronchiectasis more severe on the right than left. MICROBIOLOGY: UA neg from [facility] BCx pending x 2 sets NG ASSESSMENT: 45 y/o M with PMH of left-sided CVA s/p PFO closure (2011), GERD who was transferred to [facility] from [facility] for continued workup of right side weakness/numbness. PLAN: B/l lower ext weakness 2/2 to unknown etiology, possibly TIA -Initially presented with right-side hemiparesis then later patient states weakness worked way over to LLE and LUE -Improved significantly over the past 48 hours -CT and MRI's above- neg for acute insult or concerns -Per neuro (Dr. Tapia), not likely neuromyelitis optica, Guillan-[place], CVA, cord compression or cauda equina. Perhaps this is TIA vs. psych related? -No known infection that predisposed this weakness either -BCx NG -C/w hydration, PT/OT, encourage PO intake of fluids/food -May be good candidate for ARU Hx of left-side CVA with right side weakness chronic, s/p closure of PFO poss new TIA -Imaging above -lipid panel: high cholesterol, LDL -Echocardiogram with bubble study pending -ASA, statin -PT/OT ordered Bronchiectasis on CT chest -Denies chest pain, shortness of breath, doing well on RA. -Monitor for changes N/V -zofran GERD -PPI DVT px -Lovenox DISPOSITION: PT/OT : suggesting rehab, possible ARU candidate prior to discharge home. VS, I&O, 24H, Fishbone Vital Signs/I&O Vital Signs Date Time Temp Pulse Resp B/P (MAP) Pulse Ox O2 Delivery O2 Flow Rate FiO2 07/03/20 12:24 18 07/03/20 07:37 98.3 70 117/70 (86) 96 Room Air I&O- Last 24 Hours up to 6 AM 07/03/20 05:59 Intake Total 960 ml Output Total 2180 ml Balance -1220 ml Laboratory Data 24H LABS Laboratory Tests 2 07/03/20 03:45: Nucleated Red Blood Cells % (auto) 0.0, Anion Gap 7L, Glomerular Filtration Rate > 60.0, Calcium Level 8.3L, Total Bilirubin 0.6, Aspartate Amino Transf (AST/SGOT) 9, Alanine Aminotransferase (ALT/SGPT) 20, Alkaline Phosphatase 58, Total Protein 7.0, Albumin 3.5, Albumin/Globulin Ratio 1.0 CBC/BMP Laboratory Tests 07/03/20 03:45 Microbiology Microbiology 07/01/20 Blood Culture - Preliminary, Resulted No growth after 24 hours . All specim... 07/01/20 Blood Culture - Preliminary, Resulted No growth after 24 hours . All specim... Current Medications Current Medications Medications (Trade) Dose Ordered Sig/Juan Luis Route PRN Reason Start Time Stop Time Status Last Admin Dose Admin Aspirin (Aspirin Chewable) 81 mg DAILY PO 07/02/20 09:00 07/01/20 18:11 DC Aspirin (Aspirin Chewable) 81 mg DAILY PO 07/03/20 09:00 07/02/20 20:21 DC Aspirin (Aspirin) 325 mg DAILY PO 07/02/20 09:00 07/02/20 14:37 DC 07/02/20 10:00 Aspirin (Aspirin) 325 mg DAILY PO 07/03/20 09:00 07/03/20 08:42 Atorvastatin Calcium (Lipitor) 40 mg DAILY PO 07/02/20 09:00 07/03/20 08:43 Enoxaparin Sodium (Lovenox) 40 mg DAILY SC 07/01/20 18:30 07/03/20 08:42 Enoxaparin Sodium (Lovenox) 40 mg DAILY SC 07/02/20 09:00 07/01/20 18:27 DC Home Med (Med Rec Complete!) ASDIRECTED XX 07/01/20 19:45 07/01/20 19:40 DC Lorazepam (Ativan) 1 mg STAT STAT IV 07/01/20 21:02 07/01/20 21:05 DC 07/01/20 21:19 Omeprazole (PriLOSEC) 40 mg DAILY PO 07/02/20 09:00 07/03/20 08:42 Ondansetron HCl (ZOFRAN INJection) 4 mg Q6HP PRN IV NAUSEA OR VOMITING 07/01/20 19:00 Sodium Chloride 1,000 ml @ 100 mls/hr Q10H IV 07/01/20 18:45 07/03/20 08:42 Allergies Coded Allergies: No Known Allergies (Unverified , 07/01/20) Judy Ordonez MD Jul 03, 2020 13:45
[2020-07-03 16:00] VITALS: BP 116/69
[2020-07-03] MEDS: ACETAMINOPHEN TAB 650MG DOSE (2X325MG) PO PRN ×2 (16:46→23:57)
[2020-07-03 20:00] VITALS: BP 125/71
[2020-07-04] VITALS: BP 129/88
[2020-07-04 04:00] VITALS: BP 137/85
[2020-07-04] MEDS: NS 1,000 ML IV SCH ×2 (04:06→09:49)
[2020-07-04 05:48] LABS: HEMATOCRIT 40.9 % (42.0-52.0); HEMOGLOBIN 13.3 g/dl (13.5-17.5); MEAN CORPUSCULAR HEMOGLOBIN 28.9 pg (27.0-33.0); MEAN CORPUSCULAR HGB CONC 32.5 g/dl (32.0-36.5); MEAN CORPUSCULAR VOLUME 88.9 fl (80.0-96.0); PLATELET COUNT, AUTOMATED 286 10^3/uL (150-450)
[2020-07-04 06:15] LABS: ALBUMIN 3.4 GM/DL (3.2-5.2); ALT/SGPT 19 U/L (12-78); BILIRUBIN,TOTAL 0.5 MG/DL (0.2-1.0); BLOOD UREA NITROGEN 10 MG/DL (7-18); CALCIUM LEVEL 8.4 MG/DL (8.5-10.1); CARBON DIOXIDE LEVEL 28 MEQ/L (21-32); CHLORIDE LEVEL 107 MEQ/L (98-107); CREATININE FOR GFR 0.83 MG/DL (0.70-1.30); GLOMERULAR FILTRATION RATE > 60.0 (>60); GLUCOSE, FASTING 88 MG/DL (70-100); POTASSIUM SERUM 3.4 MEQ/L (3.5-5.1); SODIUM LEVEL 140 MEQ/L (136-145); TOTAL PROTEIN 7.2 GM/DL (6.4-8.2)
[2020-07-04 06:45] VITALS: BP 146/82
[2020-07-04] MEDS ORDERED: POTASSIUM CHLORIDE 10 MEQ SR TABLET PO ONE (09:00)
[2020-07-04] MEDS: OMEPRAZOLE 20 MG CAP PO SCH (09:50)
[2020-07-04] MEDS: ENOXAPARIN 40MG/0.4ML SYRINGE (J1650 PER 10MG) SC SCH (09:50)
[2020-07-04] MEDS: ATORVASTATIN 20 MG TAB PO SCH (09:52)
[2020-07-04] MEDS: ASPIRIN 325 MG TAB PO SCH (09:52)
--- NOTE | 2020-07-04 12:50 | IPNPDOC ---
Date Seen The patient was seen on 07/04/20. Progress Note SUBJECTIVE: Patient states today he cannot move either lower ext. States it is because he is "dehydrated", which he is not. Discussed with Dr. Tapia, neurology water resource consultant, who is familiar with patient's case. MRI brain without contrast repeated to r/o new CVA, we already know there is not a spinal cord issue from all MRI's done on admission. Patient states to be eating well and has no s/s of infection. He denies chest pain,n/v/d, fevers, chills. OBJECTIVE: PHYSICAL EXAMINATION: VITAL SIGNS: Please see below GENERAL APPEARANCE: NAD, resting in bed. AAOx3 HEENT: AT/NC NECK: symmetrical,no JVD CARDIOVASCULAR: S1S2+, no M/R/G LUNGS: CTAB, No W/R/R ABDOMEN: soft, nontender, BS + in 4 quad, nondistended MUSCULOSKELETAL: ROM not tested, no atrophy EXTREMITIES: No edema, cyanosis or clubbing, NEUROLOGICAL: CN 2-12 intact, 1/5 strength in b/l lower ext. 5/5 strength in the upper ext b/l. No sensory deficits. No nystagmus, no tremor. All reflexes in upper and lower ext intact , sustained clonus in the RLE- chronic PSYCHIATRIC: Mood and affect appropriate LABORATORY DATA: See below. IMAGING: Echocardiogram: EF 65% Sinus tachycardia without intraventricular conduction disturbance. Somewhat challenging study in light of the patients body habitus, but diagnostically useful information was still obtained. M-mode and two-dimensional echocardiography was performed with pulse, continuouswave, color flow, and tissue Doppler studies. Normal left ventricular size, wall thickness, and wall motion. Normal left atrial size and Doppler assessment of LV diastolic function and estimated mean left atrial pressure. Normal right heart chamber sizes and motion and estimated pulmonary arterial pressure. Normal right atrial size with visible atrial septal closure device. His inferiorvena cava could not be visualized to further estimate central venous pressure. Normal aortic dimensions. Normal appearing and functioning valvular structures. No pericardial effusion or apparent intracardiac mass. Saline contrast study was performed from the apical four chamber projection using agitated saline injected bolus through a large forearm vein. This showed good opacification of the right heart chambers without any evidence of [id number] shunting. MRI Cervical spine: 1. The patient declined postcontrast imaging. 2. Images are motion degraded which limits assessment of the cervical spinal cord as well as neural foramina on the axial imaging. 3. No obvious cord myelopathy. 4. Neural foraminal stenoses due to uncovertebral and facet arthropathy MRI Thoracic spine: 1. The patient declined postcontrast imaging. 2. Images are quite motion degraded which significantly limits assessment of the thoracic cord. MRI Lumbar spine w/wout contrast: Essentially unremarkable MRI lumbar spine without and with contrast. MRI brain: 1. The axial FLAIR sequence remains motion degraded. The patient declined postcontrast imaging. 2. Stable T2 hyperintensity of the periventricular white matter, nonspecific, could reflect chronic small vessel ischemic change. 3. Small areas of gliosis in the left medulla, right remy and left cerebellum probably representing old infarcts. MRA brain: No stenosis or occlusion. US carotid arteries: No evidence of significant stenosis right or left internal carotid artery. CT head 07/01/20 done at [facility]: cerebellar atrophy noted, 2 small lacunar infarcts in the left parietal white matter- no acute events noted. CT without contrast chest 07/01/20 done at [facility]: biapical pleural-parenchymal scarring with bilateral upper lobe bronchiectasis more severe on the right than left. MICROBIOLOGY: UA neg from [facility] BCx pending x 2 sets NG ASSESSMENT: 45 y/o M with PMH of left-sided CVA s/p PFO closure (2011), GERD who was transferred to [facility] ER from [facility] for continued workup of right side weakness/numbness. PLAN: B/l lower ext weakness 2/2 to unknown etiology, possibly TIA? vs. psych etiology -B/l lower ext weakness 1/5 reappeared since this AM per patient -On admission presented with right-side hemiparesis then later patient states weakness worked way over to LLE and LUE, then gradually improved -CT and MRI's above- neg for acute insult or concerns -F/u repeat MRI brain without contrast -Per neuro (Dr. Tapia), not likely neuromyelitis optica, Guillan-[place], CVA, cord compression or cauda equina. -If MRI of brain neg, will be ordering psych. Patient states he is "dehydrated" and feels that this is the cause. Although he is not. -No known infection that predisposed this weakness either -BCx NG -C/w PT/OT, encourage PO intake of fluids/food -May be good candidate for ARU Hx of left-side CVA with right side weakness chronic, s/p closure of PFO poss new TIA -Imaging above, f/u repeat MRI today -lipid panel: high cholesterol, LDL -Echocardiogram with bubble study above: wnl -ASA, statin -PT/OT ordered Bronchiectasis on CT chest -Denies chest pain, shortness of breath, doing well on RA. -Monitor for changes N/V -zofran GERD -PPI DVT px -Lovenox DISPOSITION: PT/OT, f/u repeat imaging. PT previously recommending rehab VS, I&O, 24H, Fishbone Vital Signs/I&O Vital Signs Date Time Temp Pulse Resp B/P (MAP) Pulse Ox O2 Delivery O2 Flow Rate FiO2 07/04/20 06:45 97.9 71 18 146/82 (103) 97 Room Air I&O- Last 24 Hours up to 6 AM 07/04/20 06:00 Intake Total 1120 ml Output Total 3600 ml Balance -2480 ml Laboratory Data 24H LABS Laboratory Tests 2 07/04/20 05:16: Nucleated Red Blood Cells % (auto) 0.0, Anion Gap 5L, Glomerular Filtration Rate > 60.0, Calcium Level 8.4L, Total Bilirubin 0.5, Aspartate Amino Transf (AST/SGOT) 14, Alanine Aminotransferase (ALT/SGPT) 19, Alkaline Phosphatase 62, Total Protein 7.2, Albumin 3.4, Albumin/Globulin Ratio 0.9 CBC/BMP Laboratory Tests 07/04/20 05:16 Microbiology Microbiology 07/01/20 Blood Culture - Preliminary, Resulted No Growth after 48 hours. All Specime... 07/01/20 Blood Culture - Preliminary, Resulted No Growth after 48 hours. All Specime... Current Medications Current Medications Medications (Trade) Dose Ordered Sig/Juan Luis Route PRN Reason Start Time Stop Time Status Last Admin Dose Admin Acetaminophen (Tylenol Tab) 650 mg Q4HP PRN PO PAIN OR FEVER 07/03/20 15:30 07/03/20 23:57 Aspirin (Aspirin Chewable) 81 mg DAILY PO 07/02/20 09:00 07/01/20 18:11 DC Aspirin (Aspirin Chewable) 81 mg DAILY PO 07/03/20 09:00 07/02/20 20:21 DC Aspirin (Aspirin) 325 mg DAILY PO 07/02/20 09:00 07/02/20 14:37 DC 07/02/20 10:00 Aspirin (Aspirin) 325 mg DAILY PO 07/03/20 09:00 07/04/20 09:52 Atorvastatin Calcium (Lipitor) 40 mg DAILY PO 07/02/20 09:00 07/04/20 09:52 Enoxaparin Sodium (Lovenox) 40 mg DAILY SC 07/01/20 18:30 07/04/20 09:50 Enoxaparin Sodium (Lovenox) 40 mg DAILY SC 07/02/20 09:00 07/01/20 18:27 DC Home Med (Med Rec Complete!) ASDIRECTED XX 07/01/20 19:45 07/01/20 19:40 DC Lorazepam (Ativan) 1 mg STAT STAT IV 07/01/20 21:02 07/01/20 21:05 DC 07/01/20 21:19 Omeprazole (PriLOSEC) 40 mg DAILY PO 07/02/20 09:00 07/04/20 09:50 Ondansetron HCl (ZOFRAN INJection) 4 mg Q6HP PRN IV NAUSEA OR VOMITING 07/01/20 19:00 Sodium Chloride 1,000 ml @ 100 mls/hr Q10H IV 07/01/20 18:45 07/04/20 09:49 Allergies Coded Allergies: No Known Allergies (Unverified , 07/01/20) Judy Ordonez MD Jul 04, 2020 12:50
[2020-07-04 14:00] VITALS: BP 133/82
--- NOTE | 2020-07-04 14:21 | CR ---
CONSULTATION DATE: / / REQUESTING PROVIDER: Dr. Judy Ordonez HISTORY OF PRESENT ILLNESS: Luiz Jerez is a 45-year-old right-handed male with past medical history significant for past left-sided cerebrovascular stroke, status post PFO closure in 2011 with residual right-sided hemiparesis and spasticity. The patient was transferred to [facility] emergency department from [facility] for continued workup of worsening right-sided weakness, numbness. The patient upon arriving to [facility] reported new symptoms of left leg weakness. Given that the patient had retained reflexes and unilateral weakness on presentation, Guillain-[place] syndrome was less likely. The patient himself stated he had some dry mouth and some slurred speech. He felt generally weak and felt that he would improve with hydration. He states for at least a couple days, he was having waxing and waning of these syndromes. Head CT only revealed cerebellar atrophy and two old lacunar infarctions of the left parietal white matter. MRI of the brain was recommended which ended up being negative for any acute stroke. There was a question of whether there were any other abnormalities of this white matter. This was overcalled and the repeat MRI with contrast was negative. Cervical and thoracic MRIs were ordered due to concern for possible demyelination. However, no such findings were identified. Motion artifact degraded the image quality. Lumbosacral imaging was normal on MRI of the LS spine. During this hospitalization, the patient states that he feels quite fatigued and feels he cannot move the left side well but was able to demonstrate 5/5 strength for me exam. He explained to me that he feels that he has not been able to get up and move about much during the last four days during the hospitalization and that is why he is weak. The patient was told that he has only been in the hospital since yesterday and the patient then recalled that is correct and clarified that he feels weak because he has not been able to get up and move about in the last day. His story seems to be a little bit inconsistent though we cannot entirely explain the sudden onset of bilateral upper and lower extremity weakness happening at two different times. We cannot entirely exclude TIA though less likely. At this point in time, the patient's exam demonstrates improvement in his overall strength. The stroke workup has included MR angiography of the brain and the angiography of the brain showed no stenosis or occlusion. Ultrasound of the carotids completed did not demonstrate any evidence of significant stenosis of the right or left internal carotid arteries. The patient did have his PFO already closed. He has remained on aspirin. Aspirin was increased from 81 mg to 325 mg which he will remain on for now. His statin therapy was also increased from 10 mg to 40 mg a day. He is currently on Lipitor. He is on DVT prophylaxis, 40 mg of Lovenox. Echocardiogram was completed which showed no evidence of right to left shunting. PAST MEDICAL HISTORY: 1. History of stroke with right-sided spasticity and hemiparesis. 2. History of PFO, status post closure in 2011. 3. Gastroesophageal reflux disease. 4. Disability. 5. History of brainstem/stroke. 6. History of childhood leukemia. PAST SURGICAL HISTORY: 1. PFO closure in 2011. 2. Appendectomy. 3. Chest tube secondary to pneumothorax. SOCIAL HISTORY: The patient denies use of any tobacco, alcohol or illicit drugs. FAMILY HISTORY: Unknown. ALLERGIES: No known drug allergies. HOME MEDICATIONS: 1. Acetaminophen 325 mg. 2. Atorvastatin 10 mg. 3. Dulcolax 5 mg. 4. Aspirin 81 mg. PHYSICAL EXAMINATION: VITAL SIGNS: Blood pressure is 129/67, pulse rate 77, respiratory rate 18. Temperature is 97.9 degrees Fahrenheit. Oxygenation 95% on room air. NEUROLOGICAL: The patient is oriented to person, place and time. Speech, language, comprehension, repetition are intact. Pupils appear 3 mm and round. Extraocular movements are intact. There is no facial weakness. Tongue is midline. Hearing is equal to finger rub. There is no ataxia or dysmetria. The patient has weakness of the right upper extremity. There is increased tone and spasticity of the right upper and lower extremity. Deep tendon reflexes reveal sustained clonus at the right ankle. The patient demonstrates normal 5/5 strength in the left upper extremity and lower extremity. The patient has normal sensation in both sides of the body. There is no gross ataxia noted. The patient has weakness in the right triceps, grade 4/5, right iliopsoas, 4/5. Tibialis anterior 4+/5 on the right. Gait deferred. ASSESSMENT: 1. Sudden onset, worsening right upper and lower extremity weakness, waxing, waning symptoms for a few days followed by sudden onset, left lower extremity weakness with some involvement of the arm as well. Cannot entire exclude TIA though less likely. Improvement of all symptoms with hydration, cannot entirely exclude dehydration as patient came in and stated that he has been dehydrated and felt he needed more fluids. No further evidence of acute stroke. No evidence of demyelination. PLAN: 1. The patient will remain on aspirin 325 mg daily, Lipitor 40 mg daily. 2. He will follow up at the [facility] Neurology office as scheduled. 3. Continue PT/OT evaluations. 4. Continue medical management as per primary care team.
[2020-07-04] MEDS ORDERED: LORazepam 2 MG/ML VIAL IV STA (16:50)
[2020-07-04 22:00] VITALS: BP 136/86
[2020-07-04 23:01] LABS: APPEARANCE, CSF CLEAR (CLEAR); COLOR, CSF COLORLESS (COLORLESS); CSF TUBE# CELL CNT TUBE 1
[2020-07-04 23:44] LABS: CSF TUBE# GLU TUBE 2; CSF TUBE# TP TUBE 2; GLUCOSE CSF 54 MG/DL (40-75); TOTAL PROTEIN,CSF 67 MG/DL (15-45)
[2020-07-05 06:16] VITALS: BP_SYST 142; BP_SYST 143; BP_DIAS 92; BP_DIAS 93
[2020-07-05] MEDS ORDERED: LORazepam 2 MG/ML VIAL IV STA (07:52)
[2020-07-05] MEDS: ENOXAPARIN 40MG/0.4ML SYRINGE (J1650 PER 10MG) SC SCH (08:37)
[2020-07-05] MEDS: OMEPRAZOLE 20 MG CAP PO SCH (08:37)
[2020-07-05] MEDS: ATORVASTATIN 20 MG TAB PO SCH (08:37)
[2020-07-05] MEDS: ASPIRIN 325 MG TAB PO SCH (08:37)
[2020-07-05 08:39] LABS: HEMATOCRIT 46.5 % (42.0-52.0); HEMOGLOBIN 15.1 g/dl (13.5-17.5); MEAN CORPUSCULAR HEMOGLOBIN 28.8 pg (27.0-33.0); MEAN CORPUSCULAR HGB CONC 32.5 g/dl (32.0-36.5); MEAN CORPUSCULAR VOLUME 88.6 fl (80.0-96.0); PLATELET COUNT, AUTOMATED 318 10^3/uL (150-450); RED BLOOD COUNT 5.25 10^6/uL (4.30-6.10); WHITE BLOOD COUNT 12.7 10^3/uL (4.0-10.0)
[2020-07-05 09:07] LABS: ALBUMIN 3.9 GM/DL (3.2-5.2); ALT/SGPT 27 U/L (12-78); BILIRUBIN,TOTAL 0.9 MG/DL (0.2-1.0); BLOOD UREA NITROGEN 15 MG/DL (7-18); CALCIUM LEVEL 9.5 MG/DL (8.5-10.1); CARBON DIOXIDE LEVEL 25 MEQ/L (21-32); CHLORIDE LEVEL 99 MEQ/L (98-107); CREATININE FOR GFR 0.83 MG/DL (0.70-1.30); GLOMERULAR FILTRATION RATE > 60.0 (>60); GLUCOSE, FASTING 72 MG/DL (70-100); POTASSIUM SERUM 3.7 MEQ/L (3.5-5.1); SODIUM LEVEL 136 MEQ/L (136-145); TOTAL PROTEIN 8.1 GM/DL (6.4-8.2)
--- NOTE | 2020-07-05 13:03 | REP ---
INDICATION: r/o CVA, increased lower ext weakness. COMPARISON: Comparison is made with this patient's prior MRI studies of the brain including prior exams dated 01 July 2020, March 24, 2012, and March 24, 2012. The 2011 prior studies demonstrated an acute infarction in the left side of the medulla.. TECHNIQUE: Axial and sagittal imaging planes are utilized for T1 and T2-weighted scans. Sequences include spin-echo, fast spin echo, FLAIR, and diffusion weighted sequences. FINDINGS: There is a focus of stables low T1 low T2 thickening of the outer table of the skull in the right temporal bone region consistent with an osteoma. This is unchanged from the 24/05 prior studies. The bony calvarium is otherwise intact. Craniocervical junction and upper cervical cord are normal in appearance. No intraorbital abnormality is seen. No significant paranasal sinus disease is appreciated. There are 2 well-circumscribed foci of low T1 high T2 signal intensity in the periventricular white matter, 1 in the right frontal lobe and the other in the left parietal lobe. Both of these are unchanged from the prior studies including the 2011 prior exam. They are compatible with old lacunar infarcts. There are periventricular white matter T2 hyperintensity changes consistent with minimal small vessel changes. These are also unchanged. There is no evidence of intracranial hemorrhage or extra-axial fluid collection. The 4th ventricle is slightly prominent but this is unchanged. Today's diffusion-weighted scans demonstrate a small focus of restricted diffusion in the right side of the medulla consistent with acute ischemia here. This is a new finding compared with 2012 prior exams. No other focus of restricted diffusion is seen. There is a tiny amount of and linear low T1 and high T2 signal intensity in the left medulla corresponding to the old infarction seen to the left of midline in 2012. No restricted diffusion is seen on the left. IMPRESSION: There is a new focus of restricted diffusion in the right medulla consistent with a small acute right medullary infarct. Old small left medullary infarct seen. Old cystic changes consistent with dilated perivascular space versus old lacunar infarcts noted in the right frontal and the left parietal lobe. Minimal periventricular white matter small vessel changes. No other acute abnormality.. <Electronically signed by Star Fernandez > 07/05/20 0623
[2020-07-05 14:00] VITALS: BP 139/95
--- NOTE | 2020-07-05 15:43 | IPNPDOC ---
Date Seen The patient was seen on 07/05/20. Progress Note SUBJECTIVE: Persistent left side weakness today, new right medullary infarct on repeat MRI brain. Protein elevated in CSF. Case discussed with Dr. Tapia, getting MRA brain with contrast. He denies chest pain,n/v/d, fevers, chills. OBJECTIVE: PHYSICAL EXAMINATION: VITAL SIGNS: Please see below GENERAL APPEARANCE: NAD, resting in bed. AAOx3 HEENT: AT/NC NECK: symmetrical,no JVD CARDIOVASCULAR: S1S2+, no M/R/G LUNGS: CTAB, No W/R/R ABDOMEN: soft, nontender, BS + in 4 quad, nondistended MUSCULOSKELETAL: ROM not tested, no atrophy EXTREMITIES: No edema, cyanosis or clubbing, NEUROLOGICAL: CN 2-12 intact, 1/5 strength in b/l lower ext. 4/5 strength in the upper ext b/l. No sensory deficits. No nystagmus, no tremor. All reflexes in upper and lower ext intact , sustained clonus in the RLE- chronic PSYCHIATRIC: Mood and affect appropriate LABORATORY DATA: See below. IMAGING: F/u MRA carotids with contrast- to be done on 07/06/20 Repeat MRI brain 07/05/20: There is a new focus of restricted diffusion in the right medulla consistent with a small acute right medullary infarct. Old small left medullary infarct seen. Old cystic changes consistent with dilated perivascular space versus old lacunar infarcts noted in the right frontal and the left parietal lobe. Minimal periventricular white matter small vessel changes. No other acute abnormality. Echocardiogram: EF 65% Sinus tachycardia without intraventricular conduction disturbance. Somewhat challenging study in light of the patients body habitus, but diagnostically useful information was still obtained. M-mode and two-dimensional echocardiography was performed with pulse, continuouswave, color flow, and tissue Doppler studies. Normal left ventricular size, wall thickness, and wall motion. Normal left atrial size and Doppler assessment of LV diastolic function and estimated mean left atrial pressure. Normal right heart chamber sizes and motion and estimated pulmonary arterial pressure. Normal right atrial size with visible atrial septal closure device. His inferiorvena cava could not be visualized to further estimate central venous pressure. Normal aortic dimensions. Normal appearing and functioning valvular structures. No pericardial effusion or apparent intracardiac mass. Saline contrast study was performed from the apical four chamber projection using agitated saline injected bolus through a large forearm vein. This showed good opacification of the right heart chambers without any evidence of [id number] shunting. MRI Cervical spine: 1. The patient declined postcontrast imaging. 2. Images are motion degraded which limits assessment of the cervical spinal cord as well as neural foramina on the axial imaging. 3. No obvious cord myelopathy. 4. Neural foraminal stenoses due to uncovertebral and facet arthropathy MRI Thoracic spine: 1. The patient declined postcontrast imaging. 2. Images are quite motion degraded which significantly limits assessment of the thoracic cord. MRI Lumbar spine w/wout contrast: Essentially unremarkable MRI lumbar spine without and with contrast. MRI brain: 1. The axial FLAIR sequence remains motion degraded. The patient declined postcontrast imaging. 2. Stable T2 hyperintensity of the periventricular white matter, nonspecific, could reflect chronic small vessel ischemic change. 3. Small areas of gliosis in the left medulla, right remy and left cerebellum probably representing old infarcts. MRA brain: No stenosis or occlusion. US carotid arteries: No evidence of significant stenosis right or left internal carotid artery. CT head 07/01/20 done at [facility]: cerebellar atrophy noted, 2 small lacunar infarcts in the left parietal white matter- no acute events noted. CT without contrast chest 07/01/20 done at [facility]: biapical pleural-parenchymal scarring with bilateral upper lobe bronchiectasis more severe on the right than left. MICROBIOLOGY: UA neg from [facility] BCx pending x 2 sets NG ASSESSMENT: 45 y/o M with PMH of left-sided CVA s/p PFO closure (2011), GERD who was transferred to [facility] from [facility] for continued workup of new right medullary CVA. PLAN: Right medullary CVA, acute. Had existing RLE and RUE weakness from left medullary infarct, old. -On admission presented with right-side hemiparesis then later patient states weakness worked way over to LLE and LUE, then gradually improved. On 07/04/20 weakness returned to left upper and lower ext- likely had TIA on admission and later had CVA while here. -F/u MRA carotid with contrast -CT and MRI's above -LP: protein elevated, cx pending. -Dr. Tapia to further evaluate protein in CSF and call family today per their request. -D/diego ASA, started plavix, keep high dose statin. If MRA + for intracranial stenosis, add back ASA -C/w PT/OT, encourage PO intake of fluids/food Hx of left-side CVA with right side weakness chronic, s/p closure of PFO -Imaging above -lipid panel: high cholesterol, LDL -Echocardiogram with bubble study above: wnl -plavix, statin -PT/OT Bronchiectasis on CT chest -Denies chest pain, shortness of breath, doing well on RA. -Monitor for changes N/V -zofran GERD -PPI DVT px -Lovenox DISPOSITION: PT/OT, f/u repeat imaging. Updated patient's sister and mother today. PT previously recommending rehab. VS, I&O, 24H, Fishbone Vital Signs/I&O Vital Signs Date Time Temp Pulse Resp B/P (MAP) Pulse Ox O2 Delivery O2 Flow Rate FiO2 07/05/20 14:00 97.9 120 20 139/95 (110) 94 Room Air I&O- Last 24 Hours up to 6 AM 07/05/20 05:59 Intake Total 1560 ml Output Total 1425 ml Balance 135 ml Laboratory Data 24H LABS Laboratory Tests 2 07/05/20 08:12: Nucleated Red Blood Cells % (auto) 0.0, Anion Gap 12, Glomerular Filtration Rate > 60.0, Calcium Level 9.5, Total Bilirubin 0.9#, Aspartate Amino Transf (AST/SGOT) 16, Alanine Aminotransferase (ALT/SGPT) 27, Alkaline Phosphatase 74, Total Protein 8.1, Albumin 3.9, Albumin/Globulin Ratio 0.9 CBC/BMP Laboratory Tests 07/05/20 08:12 Microbiology Microbiology 07/04/20 Gram Stain - Final, Resulted 07/04/20 CSF Culture, Resulted Pending 07/04/20 - Final, Complete 07/01/20 Blood Culture - Preliminary, Resulted No Growth after 72 hours. All specime... 07/01/20 Blood Culture - Preliminary, Resulted No Growth after 72 hours. All specime... Current Medications Current Medications Medications (Trade) Dose Ordered Sig/Juan Luis Route PRN Reason Start Time Stop Time Status Last Admin Dose Admin Acetaminophen (Tylenol Tab) 650 mg Q4HP PRN PO PAIN OR FEVER 07/03/20 15:30 07/03/20 23:57 Aspirin (Aspirin Chewable) 81 mg DAILY PO 07/02/20 09:00 07/01/20 18:11 DC Aspirin (Aspirin Chewable) 81 mg DAILY PO 07/03/20 09:00 07/02/20 20:21 DC Aspirin (Aspirin) 325 mg DAILY PO 07/02/20 09:00 07/02/20 14:37 DC 07/02/20 10:00 Aspirin (Aspirin) 325 mg DAILY PO 07/03/20 09:00 07/05/20 14:38 DC 07/05/20 08:37 Atorvastatin Calcium (Lipitor) 40 mg DAILY PO 07/02/20 09:00 07/05/20 08:37 Clopidogrel Bisulfate (PLAVix) 75 mg DAILY PO 07/06/20 09:00 Enoxaparin Sodium (Lovenox) 40 mg DAILY SC 07/01/20 18:30 07/05/20 08:37 Enoxaparin Sodium (Lovenox) 40 mg DAILY SC 07/02/20 09:00 07/01/20 18:27 DC Home Med (Med Rec Complete!) ASDIRECTED XX 07/01/20 19:45 07/01/20 19:40 DC Lorazepam (Ativan) 1 mg DAILYPRN STAT IV 07/05/20 07:52 07/05/20 07:54 DC 07/05/20 11:23 Lorazepam (Ativan) 1 mg STAT STAT IV 07/01/20 21:02 07/01/20 21:05 DC 07/01/20 21:19 Lorazepam (Ativan) 1 mg STAT STAT IV 07/04/20 16:50 07/04/20 16:51 DC 07/04/20 17:07 Omeprazole (PriLOSEC) 40 mg DAILY PO 07/02/20 09:00 07/05/20 14:38 DC 07/05/20 08:37 Ondansetron HCl (ZOFRAN INJection) 4 mg Q6HP PRN IV NAUSEA OR VOMITING 07/01/20 19:00 Pantoprazole Sodium (Protonix) 40 mg DAILY PO 07/06/20 09:00 Sodium Chloride 1,000 ml @ 100 mls/hr Q10H IV 07/01/20 18:45 07/04/20 12:45 DC 07/04/20 09:49 Allergies Coded Allergies: No Known Allergies (Unverified , 07/01/20) Judy Ordonez MD Jul 05, 2020 15:43
[2020-07-05 18:53] LABS: COMPLEMENT C3 137 MG/DL (90-180); COMPLEMENT C4 42 MG/DL (10-40)
[2020-07-05 22:00] VITALS: BP 130/83
[2020-07-06] MEDS ORDERED: BACLOFEN 10 MG TAB PO ONE (05:15)
[2020-07-06 06:00] VITALS: BP 133/87
[2020-07-06 06:38] LABS: HEMATOCRIT 47.5 % (42.0-52.0); HEMOGLOBIN 15.9 g/dl (13.5-17.5); MEAN CORPUSCULAR HEMOGLOBIN 29.4 pg (27.0-33.0); MEAN CORPUSCULAR HGB CONC 33.5 g/dl (32.0-36.5); MEAN CORPUSCULAR VOLUME 87.8 fl (80.0-96.0); PLATELET COUNT, AUTOMATED 337 10^3/uL (150-450); RED BLOOD COUNT 5.41 10^6/uL (4.30-6.10); WHITE BLOOD COUNT 10.5 10^3/uL (4.0-10.0)
[2020-07-06 07:08] LABS: ALBUMIN 3.9 GM/DL (3.2-5.2); ALT/SGPT 27 U/L (12-78); BILIRUBIN,TOTAL 0.9 MG/DL (0.2-1.0); BLOOD UREA NITROGEN 21 MG/DL (7-18); CALCIUM LEVEL 9.7 MG/DL (8.5-10.1); CARBON DIOXIDE LEVEL 26 MEQ/L (21-32); CHLORIDE LEVEL 100 MEQ/L (98-107); GLOMERULAR FILTRATION RATE > 60.0 (>60); GLUCOSE, FASTING 76 MG/DL (70-100); POTASSIUM SERUM 3.9 MEQ/L (3.5-5.1); SODIUM LEVEL 135 MEQ/L (136-145); TOTAL PROTEIN 7.9 GM/DL (6.4-8.2)
[2020-07-06] MEDS: ATORVASTATIN 20 MG TAB PO SCH (09:21)
[2020-07-06] MEDS: CLOPIDOGREL 75 MG TAB PO SCH (09:21)
[2020-07-06] MEDS: PANTOPRAZOLE 40MG TAB (PROTONIX) PO SCH (09:22)
[2020-07-06] MEDS: ENOXAPARIN 40MG/0.4ML SYRINGE (J1650 PER 10MG) SC SCH (09:22)
[2020-07-06 12:28] VITALS: BP 115/81
[2020-07-06] MEDS: ACETAMINOPHEN TAB 650MG DOSE (2X325MG) PO PRN ×2 (13:21→22:04)
[2020-07-06] MEDS ORDERED: PROHANCE 279.3MG/ML 15ML VIAL As Ordered ONE (13:49)
[2020-07-06 14:00] VITALS: BP 127/86
--- NOTE | 2020-07-06 15:11 | REPVR ---
PROCEDURE INFORMATION: Exam: MR Angiography Neck Without and With Contrast Exam date and time: 07/06/2020 2:35 PM Age: 45 years old Clinical indication: Weakness; Additional info: New right medullary infarct TECHNIQUE: Imaging protocol: Magnetic resonance angiography of the neck without and with intravenous contrast. 3D rendering (Not supervised by radiologist): MIP and/or 3D reconstructed images were created by the technologist. Contrast material: PROHANCE; Contrast volume: 25 ml; Contrast route: INTRAVENOUS (IV); COMPARISON: MRI-Brain without Contrast 07/01/2020 5:15:15 PM FINDINGS: Right common carotid artery: No significant stenosis. No dissection or occlusion. Right internal carotid artery: No stenosis, thrombosis, occlusion, or evidence of dissection. Right external carotid artery: No stenosis or occlusion. Right vertebral artery: Right vertebral artery shows no stool occlusion, or at dissection. Please note that a patent right posteroinferior cerebellar artery is well visualized on this examination, given patient's findings of right medullary infarct. Left common carotid artery: No stenosis, thrombosis, occlusion, or evidence of dissection.. Left internal carotid artery: No stenosis, thrombosis, occlusion, or evidence of dissection. Left external carotid artery: No stenosis or occlusion. Left vertebral artery: Origin of left vertebral artery is not well visualized and narrowing cannot be excluded. Remainder of vertebral artery normal caliber stenosis, thrombosis, dissection. Subclavian arteries: Bilateral subclavian arteries are widely patent. Aorta: Visualized aortic arch is normal caliber. IMPRESSION: Left vertebral artery origin not well visualized and not well evaluated for stenosis. Otherwise cervical vascularity is normal in caliber without stenosis, thrombosis, or occlusion. REFERENCES: NASCET CRITERIA. The degree of internal carotid artery stenosis is based on NASCET criteria. Normal is no stenosis. Mild is less than 50% stenosis. Moderate is 50-69% stenosis. Severe is 70% to 99% stenosis. Total occlusion is no detectable patent lumen. Electronically signed by: Afshan Parisi On 07/06/2020 15:10:51 PM
--- NOTE | 2020-07-06 18:25 | IPNPDOC ---
Date Seen The patient was seen on 07/06/20. Progress Note SUBJECTIVE: Persistent left and right side weakness. Protein elevated in CSF likely 2/2 to stroke per neurology. MRA brain neg. Poor PO intake, inr HR , started IVFs again. He denies chest pain,n/v/d, fevers, chills. OBJECTIVE: PHYSICAL EXAMINATION: VITAL SIGNS: Please see below GENERAL APPEARANCE: NAD, weak, resting in bed. AAOx3 HEENT: AT/NC NECK: symmetrical,no JVD CARDIOVASCULAR: S1S2+, no M/R/G LUNGS: CTAB, No W/R/R ABDOMEN: soft, nontender, BS + in 4 quad, nondistended MUSCULOSKELETAL: ROM not tested, no atrophy EXTREMITIES: No edema, cyanosis or clubbing, NEUROLOGICAL: CN 2-12 intact, 1/5 strength in b/l lower ext. 4/5 strength in the upper ext b/l. No sensory deficits. No nystagmus, no tremor. All reflexes in upper and lower ext intact , sustained clonus in the RLE- chronic PSYCHIATRIC: Mood and affect appropriate LABORATORY DATA: See below. IMAGING: MRA carotids with contrast 07/06/20: Left vertebral artery origin not well visualized and not well evaluated for stenosis. Otherwise cervical vascularity is normal in caliber without stenosis, thrombosis, or occlusion. Repeat MRI brain 07/05/20: There is a new focus of restricted diffusion in the right medulla consistent with a small acute right medullary infarct. Old small left medullary infarct seen. Old cystic changes consistent with dilated perivascular space versus old lacunar infarcts noted in the right frontal and the left parietal lobe. Minimal periventricular white matter small vessel changes. No other acute abnormality. Echocardiogram: EF 65% Sinus tachycardia without intraventricular conduction disturbance. Somewhat challenging study in light of the patients body habitus, but diagnostically useful information was still obtained. M-mode and two-dimensional echocardiography was performed with pulse, continuouswave, color flow, and tissue Doppler studies. Normal left ventricular size, wall thickness, and wall motion. Normal left atrial size and Doppler assessment of LV diastolic function and estimated mean left atrial pressure. Normal right heart chamber sizes and motion and estimated pulmonary arterial pressure. Normal right atrial size with visible atrial septal closure device. His inferiorvena cava could not be visualized to further estimate central venous pressure. Normal aortic dimensions. Normal appearing and functioning valvular structures. No pericardial effusion or apparent intracardiac mass. Saline contrast study was performed from the apical four chamber projection using agitated saline injected bolus through a large forearm vein. This showed good opacification of the right heart chambers without any evidence of [id number] shunting. MRI Cervical spine: 1. The patient declined postcontrast imaging. 2. Images are motion degraded which limits assessment of the cervical spinal cord as well as neural foramina on the axial imaging. 3. No obvious cord myelopathy. 4. Neural foraminal stenoses due to uncovertebral and facet arthropathy MRI Thoracic spine: 1. The patient declined postcontrast imaging. 2. Images are quite motion degraded which significantly limits assessment of the thoracic cord. MRI Lumbar spine w/wout contrast: Essentially unremarkable MRI lumbar spine without and with contrast. MRI brain: 1. The axial FLAIR sequence remains motion degraded. The patient declined postcontrast imaging. 2. Stable T2 hyperintensity of the periventricular white matter, nonspecific, could reflect chronic small vessel ischemic change. 3. Small areas of gliosis in the left medulla, right remy and left cerebellum probably representing old infarcts. MRA brain: No stenosis or occlusion. US carotid arteries: No evidence of significant stenosis right or left internal carotid artery. CT head 07/01/20 done at [facility]: cerebellar atrophy noted, 2 small lacunar infarcts in the left parietal white matter- no acute events noted. CT without contrast chest 07/01/20 done at [facility]: biapical pleural-parenchymal scarring with bilateral upper lobe bronchiectasis more severe on the right than left. MICROBIOLOGY: UA neg from [facility] BCx pending x 2 sets NG ASSESSMENT: 45 y/o M with PMH of left-sided CVA s/p PFO closure (2011), GERD who was transferred to [facility] from [facility] for continued workup of new right medullary CVA. PLAN: Right medullary CVA, acute. Had existing RLE and RUE weakness from left medullary infarct, old. -On admission presented with right-side hemiparesis then later patient states weakness worked way over to LLE and LUE, then gradually improved. On 07/04/20 weakness returned to left upper and lower ext. -Neurology reveiwed scans and says that he did have some very mild s/s of new stroke on first MRI but was only more pronounced on 2nd MRI. -CTs, MRIs, MRA above -LP: protein elevated, cx pending -Dr. Tapia to further evaluate protein in CSF -Ordered vasculitis/hypercoaguable w/u as requested by neurology. Will need f/u over time. -C/W plavix, high dose statin. -C/w PT/OT -Poor PO intake, restarted IVFs, encourage PO intake of fluids/food Hx of left-side CVA with right side weakness chronic but also worsened since CVA, s/p closure of PFO -Imaging above -Lipid panel: high cholesterol, LDL -Echocardiogram with bubble study above: wnl -Plavix, statin -PT/OT Tachycardia possibly 2/2 to decreased PO intake, dehydration? -Afebrile, WBC 10.5 improving -UA neg, no respiratory symptoms to indicate PNA/viral infection -LP: protein elevated, Cx pending -BCx NG -If HR does not improve with IVFs, consider XR or CTA chest to r/o PE? (hypercoaguable w/u pending) -IVFs at 100 cc/hr. Bronchiectasis on CT chest -Denies chest pain, shortness of breath, doing well on RA. -Monitor for changes N/V -zofran GERD -PPI DVT px -Lovenox DISPOSITION: PT/OT. Updated patient's sister and mother today. Will need rehab at the least. VS, I&O, 24H, Fishbone Vital Signs/I&O Vital Signs Date Time Temp Pulse Resp B/P (MAP) Pulse Ox O2 Delivery O2 Flow Rate FiO2 07/06/20 14:00 97.9 119 20 127/86 (100) 96 Room Air I&O- Last 24 Hours up to 6 AM 07/06/20 05:59 Intake Total 850 ml Output Total 0 ml Balance 850 ml Laboratory Data 24H LABS Laboratory Tests 2 07/05/20 18:21: Complement C3 137, Complement C4 42H 07/06/20 06:16: Nucleated Red Blood Cells % (auto) 0.0, Anion Gap 9, Glomerular Filtration Rate > 60.0, Calcium Level 9.7, Total Bilirubin 0.9, Aspartate Amino Transf (AST/SGOT) 21, Alanine Aminotransferase (ALT/SGPT) 27, Alkaline Phosphatase 80, Total Protein 7.9, Albumin 3.9, Albumin/Globulin Ratio 1.0 07/06/20 09:12: Urine Color YELLOW, Urine Appearance CLEAR, Urine pH 6.0, Urine Specific [place] 1.024, Urine Protein NEGATIVE, Urine Glucose (UA) NEGATIVE, Urine Ketones 2+H, Urine Blood 1+H, Urine Nitrite NEGATIVE, Urine Bilirubin NEGATIVE, Urine Urobilinogen 0.2, Urine Leukocyte Esterase NEGATIVE, Urine WBC (Auto) 1, Urine RBC (Auto) 4H, Urine Hyaline Casts (Auto) 0, Urine Bacteria (Auto) NEGATIVE, Urine Squamous Epithelial Cells 0, Urine Mucus (Auto) SMALL, Urine Sperm (Auto) CBC/BMP Laboratory Tests 07/06/20 06:16 Microbiology Microbiology 07/04/20 Gram Stain - Final, Resulted 07/04/20 CSF Culture, Resulted Pending 07/04/20 - Final, Complete 07/01/20 Blood Culture - Final, Complete NO GROWTH AFTER 5 DAYS 07/01/20 Blood Culture - Final, Complete NO GROWTH AFTER 5 DAYS Current Medications Current Medications Medications (Trade) Dose Ordered Sig/Juan Luis Route PRN Reason Start Time Stop Time Status Last Admin Dose Admin Acetaminophen (Tylenol Tab) 650 mg Q4HP PRN PO PAIN OR FEVER 07/03/20 15:30 07/06/20 13:21 Aspirin (Aspirin Chewable) 81 mg DAILY PO 07/02/20 09:00 07/01/20 18:11 DC Aspirin (Aspirin Chewable) 81 mg DAILY PO 07/03/20 09:00 07/02/20 20:21 DC Aspirin (Aspirin) 325 mg DAILY PO 07/02/20 09:00 07/02/20 14:37 DC 07/02/20 10:00 Aspirin (Aspirin) 325 mg DAILY PO 07/03/20 09:00 07/05/20 14:38 DC 07/05/20 08:37 Atorvastatin Calcium (Lipitor) 40 mg DAILY PO 07/02/20 09:00 07/06/20 09:21 Clopidogrel Bisulfate (PLAVix) 75 mg DAILY PO 07/06/20 09:00 07/06/20 09:21 Enoxaparin Sodium (Lovenox) 40 mg DAILY SC 07/01/20 18:30 07/06/20 09:22 Enoxaparin Sodium (Lovenox) 40 mg DAILY SC 07/02/20 09:00 1/27/21 18:27 DC Home Med (Med Rec Complete!) ASDIRECTED XX 07/01/20 19:45 07/01/20 19:40 DC Lorazepam (Ativan) 1 mg DAILYPRN STAT IV 07/05/20 07:52 07/05/20 07:54 DC 07/05/20 11:23 Lorazepam (Ativan) 1 mg STAT STAT IV 07/01/20 21:02 07/01/20 21:05 DC 07/01/20 21:19 Lorazepam (Ativan) 1 mg STAT STAT IV 07/04/20 16:50 07/04/20 16:51 DC 07/04/20 17:07 Omeprazole (PriLOSEC) 40 mg DAILY PO 07/02/20 09:00 07/05/20 14:38 DC 07/05/20 08:37 Ondansetron HCl (ZOFRAN INJection) 4 mg Q6HP PRN IV NAUSEA OR VOMITING 07/01/20 19:00 Pantoprazole Sodium (Protonix) 40 mg DAILY PO 07/06/20 09:00 07/06/20 09:22 Sodium Chloride 1,000 ml @ 100 mls/hr Q10H IV 07/01/20 18:45 07/04/20 12:45 DC 07/04/20 09:49 Allergies Coded Allergies: No Known Allergies (Unverified , 07/01/20) Judy Ordonez MD Jul 06, 2020 18:25
[2020-07-06] MEDS: NS 1,000 ML IV SCH (18:43)
[2020-07-06 22:00] VITALS: BP 113/84
[2020-07-07] MEDS: ACETAMINOPHEN TAB 650MG DOSE (2X325MG) PO PRN (04:03)
[2020-07-07] MEDS: NS 1,000 ML IV SCH ×2 (04:05→13:53)
[2020-07-07 06:00] VITALS: BP 112/82
[2020-07-07 06:57] LABS: HEMATOCRIT 45.3 % (42.0-52.0); HEMOGLOBIN 14.9 g/dl (13.5-17.5); MEAN CORPUSCULAR HEMOGLOBIN 29.4 pg (27.0-33.0); MEAN CORPUSCULAR HGB CONC 32.9 g/dl (32.0-36.5); MEAN CORPUSCULAR VOLUME 89.3 fl (80.0-96.0); PLATELET COUNT, AUTOMATED 301 10^3/uL (150-450); RED BLOOD COUNT 5.07 10^6/uL (4.30-6.10)
[2020-07-07 07:23] LABS: ALBUMIN 3.4 GM/DL (3.2-5.2); ALT/SGPT 30 U/L (12-78); BILIRUBIN,TOTAL 0.7 MG/DL (0.2-1.0); BLOOD UREA NITROGEN 22 MG/DL (7-18); CALCIUM LEVEL 8.8 MG/DL (8.5-10.1); CARBON DIOXIDE LEVEL 23 MEQ/L (21-32); CHLORIDE LEVEL 105 MEQ/L (98-107); CREATININE FOR GFR 0.81 MG/DL (0.70-1.30); GLOMERULAR FILTRATION RATE > 60.0 (>60); GLUCOSE, FASTING 74 MG/DL (70-100); POTASSIUM SERUM 4.2 MEQ/L (3.5-5.1); SODIUM LEVEL 138 MEQ/L (136-145); TOTAL PROTEIN 6.8 GM/DL (6.4-8.2)
[2020-07-07] MEDS: PANTOPRAZOLE 40MG TAB (PROTONIX) PO SCH (08:51)
[2020-07-07] MEDS: ATORVASTATIN 20 MG TAB PO SCH (08:51)
[2020-07-07] MEDS: CLOPIDOGREL 75 MG TAB PO SCH (08:51)
[2020-07-07] MEDS: ENOXAPARIN 40MG/0.4ML SYRINGE (J1650 PER 10MG) SC SCH (08:52)
[2020-07-07] MEDS ORDERED: ATOR1TAB21 PO (10:39)
[2020-07-07] MEDS ORDERED: CLOP75TA2 PO (10:39)
[2020-07-07] MEDS ORDERED: PANT40TA29 PO (11:10)
[2020-07-07 14:00] VITALS: BP 124/81
--- NOTE | 2020-07-07 14:28 | DS.PDOC ---
Discharge Summary General Date of Admission Jul 01, 2020 at 17:28 Date of Discharge 07/07/20 Discharge Summary PROCEDURES PERFORMED DURING STAY: [None]. ADMITTING DIAGNOSES: #right medullary CVA SECONDARY DIAGNOSES: GERD left-side CVA Hx of childhood leukemia COMPLICATIONS/CHIEF COMPLAINT: CVA. HISTORY OF PRESENT ILLNESS: Patient is a 45 y/o M with PMH of left-sided CVA s/p PFO closure (2011), GERD who was transferred to [facility] ER from [facility] for continued workup of right side weakness/numbness, high suspicious for CVA. Patient complains of feeling weak for several days and having a nonproductive cough. Denies sick contacts, fevers, chills but did admit to one episode of n/v over the evening. At 1 AM on 07/01/20 he felt unable to walk due to increased numbness/tingling/weakness on the right leg, incr weakness right arm. He had difficulty raising his right arm. He also complained of difficulty speaking, change in speech. Patient stated his symptoms did not improve but instead "waxed and waned" throughout the morning. He had a prior stroke in 2011 his right side was effected then as well. Due to persistent symptoms, the patient called family and was brought to [facility] in [place]. In [facility] he denied any numbness, paresthesias, tingling. In that hospital, they did CT head: cerebellar atrophy noted, 2 small lacunar infarcts in the left parietal white matter- no acute events noted. CT without contrast chest: biapical pleural- parenchymal scarring with bilateral upper lobe bronchiectasis more severe on the right than left. VS were stable. He appeared lethargic and pale. Labs: UA neg, Resp panel neg,mild WBC 11K, coags wnl, D Dimer normal, elevated cholesterol and LDL, unremarkable CMP, trop neg, ECG abnormal but his baseline. Patient's neurologist (Dr. Finch) was consulted and suggested that due to patient's history he be transferred to [facility] for an MRI and further assessment. Given total of 325 mg ASA prior to transfer. Upon arrival to ER at [facility], VS were stable. ECG showed to be abnormal again but similar to what was on file. Initially upon arrival, patient was able to lift his right arm against gravity but was unable to lift right leg above the bed- this is all new for him. Normally he ambulates independently and does not have these deficits. He had no facial droop, speech deficits- although the patient feels he is "talking differently". Later upon exam by myself, patient states his weakness had worsened and could not move his bilateral lower ext off the bed 1/5 stregth, 5/5 LUE and 3/5 RUE. Patient will be admitted for further workup of CVA, possibly multiple insults, r/o embolic cause. Workup including echocardiogram with bubble study and MRA with no significant findings. Discussed with neurology, with recommendations for plavix and statin therapy. DISCHARGE MEDICATIONS: Please see below. ALLERGIES: Please see below. PHYSICAL EXAMINATION ON DISCHARGE: VITAL SIGNS: Please see below GENERAL APPEARANCE: NAD, resting comfortablyh in bed HEENT: NC/AT, EOMI CARDIOVASCULAR: S1S2+, no M/R/G LUNGS: CTAB, No W/R/R ABDOMEN: soft, nontender, BS + in 4 quad, nondistended EXTREMITIES: No edema, cyanosis or clubbing, NEUROLOGICAL: CN 2-12 intact, 1/5 b/l lower ext, 5/5 LUE, 3/5 RUE- worsened from ER evaluation No sensory deficits. No nystagmus, no tremor. All reflexes in upper and lower ext intact PSYCHIATRIC: Mood and affect appropriate LABORATORY DATA: Please see below. ACTIVITY: [As tolerated]. DISPOSITION: Discharge to ARU DISCHARGE CONDITION: [Stable]. TIME SPENT ON DISCHARGE: 35 minutes. Vital Signs/I&Os Vital Signs Date Time Temp Pulse Resp B/P (MAP) Pulse Ox O2 Delivery O2 Flow Rate FiO2 07/07/20 14:00 97.6 83 14 124/81 (95) 96 Room Air I&O- Last 24 Hours up to 6 AM 07/07/20 06:00 Intake Total 570 ml Output Total 175 ml Balance 395 ml Laboratory Data Labs 24H Laboratory Tests 2 07/07/20 06:26: Nucleated Red Blood Cells % (auto) 0.0, Anion Gap 10, Glomerular Filtration Rate > 60.0, Calcium Level 8.8, Total Bilirubin 0.7, Aspartate Amino Transf ( AST/SGOT) 21, Alanine Aminotransferase (ALT/SGPT) 30, Alkaline Phosphatase 68, Total Protein 6.8, Albumin 3.4, Albumin/Globulin Ratio 1.0 CBC/BMP Laboratory Tests 07/07/20 06:26 Microbiology Microbiology 07/04/20 Gram Stain - Final, Complete 07/04/20 CSF Culture - Final, Complete 07/04/20 - Final, Complete 07/01/20 Blood Culture - Final, Complete NO GROWTH AFTER 5 DAYS 07/01/20 Blood Culture - Final, Complete NO GROWTH AFTER 5 DAYS Discharge Medications Scheduled Atorvastatin Calcium (Atorvastatin Calcium) 20 Mg Tablet, 40 MG PO DAILY Clopidogrel Bisulfate (Clopidogrel) 75 Mg Tablet, 75 MG PO DAILY Pantoprazole Sodium (Pantoprazole Sodium) 40 Mg Tablet.dr, 40 MG PO DAILY Scheduled PRN Baclofen (Baclofen) 20 Mg Tablet, 20 MG PO QID PRN for MUSCLE SPASMS, (Reported) Allergies Coded Allergies: No Known Allergies (Unverified , 07/01/20) VIC WINN MD Jul 07, 2020 14:27
== END 2020-07-07 15:46 | DRG 65 ==
LOC: M ED 14:10 → EDBD 14:10 → M ED INP 17:28 → M PCU 23:25 → M MS5PR 07-04 06:34 → M MSPAV 07-06 12:10
PROVIDERS: ADMIT Internal Medicine; ATTEND Internal Medicine
PROC: 009U3ZX Drainage of Spinal Canal, Percutaneous Approach, Diagnostic (ICD-10-PCS; principal; 2020-07-04)
DX: I63.9 Cerebral infarction, unspecified (principal); I69.354 Hemiplegia and hemiparesis following cerebral infarction affecting left non-dominant side; K21.9 Gastro-esophageal reflux disease without esophagitis; J47.9 Bronchiectasis, uncomplicated; Z79.899 Other long term (current) drug therapy

== ENCOUNTER 2020-07-07 10:50 | Inpatient (IN) | payer MEDICARE, MEDICAID ==
[~2020-07-07] VITALS: Ht 160 cm; Wt 49.6 kg
[~2020-07-07 10:50] MED LIST changes: +ASPI1TAB8 PO; +ATOR1TAB21 PO; +BACL1TAB9 PO; +CLOP75TA2 PO
[2020-07-07] MEDS ORDERED: PANT40TA29 PO (11:10)
[2020-07-07] MEDS ORDERED: ONDANSETRON 4 MG TAB PO PRN (12:15)
[2020-07-07] MEDS ORDERED: BISACODYL 10 MG SUPP PR PRN (12:15)
[2020-07-07 16:00] VITALS: BP 133/85
--- OUTSIDE RECORDS SUMMARY | 2020-07-07 16:23 | CCD ---
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 Name Role Phone Marcel, A Shanika PA Unavailable Unavailable Marcel, A Shanika PA Unavailable Unavailable Marcel, A Shanika PA Unavailable Unavailable Marcel, A Shanika PA Unavailable Unavailable Marcel, A Shanika PA Unavailable Unavailable Marcel, A Shanika PA Unavailable Unavailable Marcel, A Shanika PA Unavailable Unavailable Marcel, A Shanika PA Unavailable Unavailable Marcel, A Shanika PA Unavailable Unavailable Macrel, A Shanika PA Unavailable Unavailable Marcel, A [...] A Shanika PA Unavailable Unavailable Marcel, A Shaniak PA Unavailable Unavailable Marcel, A Shanika PA [...] A Shanika PA Unavailable Unavailable Marcel, A Shainka PA Unavailable Unavailable Marcel, A Shanika PA [...] Unavailable Marcel, A Shanika PA Unavailable Unavailable KADI, NICHOLE PA Unavailable Unavailable KADI, NICHOLE PA Unavailable Unavailable KADI, NICHOLE PA Unavailable Unavailable KADI, NICHOLE PA Unavailable Unavailable KADI, NICHOLE PA Unavailable Unavailable KADI, NICHOLE PA Unavailable Unavailable KADI, NICHOLE PA Unavailable Unavailable KADI, NICHOLE PA Unavailable Unavailable KADI, NICHOLE PA Unavailable Unavailable KADI, NICHOLE PA Unavailable Unavailable KADI, NICHOLE PA Unavailable Unavailable KADI, NICHOLE PA Unavailable Unavailable KADI, NICHOLE PA Unavailable Unavailable Shaji, L Mira FIBERGLASS CONTAINER WINDING OPERATOR Unavailable Unavailable Shaji, L Mira FIBERGLASS CONTAINER WINDING OPERATOR Unavailable Unavailable Shaji, L Mira FIBERGLASS CONTAINER WINDING OPERATOR Unavailable Unavailable Shaji, L Mira FIBERGLASS CONTAINER WINDING OPERATOR Unavailable Unavailable Shaji, L Mira FIBERGLASS CONTAINER WINDING OPERATOR Unavailable Unavailable Shaji, L Mira FIBERGLASS CONTAINER WINDING OPERATOR Unavailable Unavailable Shaji, L Mira FIBERGLASS CONTAINER WINDING OPERATOR Unavailable Unavailable Shaji, L Mira FIBERGLASS CONTAINER WINDING OPERATOR Unavailable Unavailable Shaji, L Mira FIBERGLASS CONTAINER WINDING OPERATOR Unavailable Unavailable Shaji, L Mira FIBERGLASS CONTAINER WINDING OPERATOR Unavailable Unavailable Shaji, L Mira FIBERGLASS CONTAINER WINDING OPERATOR Unavailable Unavailable Shaji, L Mira FIBERGLASS CONTAINER WINDING OPERATOR Unavailable Unavailable Shaji, L Mira FIBERGLASS CONTAINER WINDING OPERATOR Unavailable Unavailable Shaji, L Mira FIBERGLASS CONTAINER WINDING OPERATOR Unavailable Unavailable Shaji, L Mira FIBERGLASS CONTAINER WINDING OPERATOR Unavailable Unavailable Shaji, L Mira FIBERGLASS CONTAINER WINDING OPERATOR Unavailable Unavailable Shaji, L Mira FIBERGLASS CONTAINER WINDING OPERATOR Unavailable Unavailable Shaji, L Mira FIBERGLASS CONTAINER WINDING OPERATOR Unavailable Unavailable Shaji, L Mira FIBERGLASS CONTAINER WINDING OPERATOR Unavailable Unavailable Shaji, L Mira FIBERGLASS CONTAINER WINDING OPERATOR Unavailable Unavailable Shaji, L Mira FIBERGLASS CONTAINER WINDING OPERATOR Unavailable Unavailable Shaji, L Mira FIBERGLASS CONTAINER WINDING OPERATOR Unavailable Unavailable Re-disclosure Warning The records that [...] is protected by Article 27-F of the [facility] Public Health law. If you continue you may have access to information: Regarding HIV / AIDS; Provided by facilities licensed or operated by the [facility] Office of Mental Health; or Provided by the [facility] Office for People With Developmental Disabilities. If such information is present, then the following [facility] mandated warning applies: This information has [...] law may result in a fine or senior care sentence or both. A general authorization for the release of medical or other information is NOT sufficient authorization for further disc losure. Allergies and Adverse Reactions Type Description Substance Reaction Status Data Source(s ) Miscellaneous allergy No Known Drug Allergies No Known Drug Allergies [facility] Family History Family Member Name Family Member Gender Family Member Status Date o f Status Description Data Source(s) Unknown Male Problem [facility] ([facility] Pt was adopted Encounters Encounter Providers Location Date Indications Data Source(s ) Emergency Attender: NICHOLE VARELA ttender: Shanika VARELAdmitter: NICHOLE WALILS PAConsultant: Shanika DENSON [phone] 07/01/2020 09: 05:00 AM EST - 07/01/2020 01:11:00 PM EST SICK [facility] SICK Patient discharged. Outpatient Attender: Shanika GARZAeferrer: Shanika DENSON 04/22/2020 01:00:00 PM EST - 04/22/2020 02:15:00 PM EST [facility] Outpatient Attender: Shanika VARELA dmitter: Shanika Rod PAConsultant: Shanika DENSON 008 04/21/2020 01:06:00 PM EST - 04/21/2020 01:06:00 PM EST Lab test [facility] Lab test Outpatient Attender: Shanika GARZAeferrer: Shanika DENSON 12/24/2019 12:56:00 PM EDT - 12/24/2019 02:03:00 PM EDT [facility] Outpatient Attender: Shanika VARELA dmitter: Shanika Rod PAReferrer: Shanika Rod PAConsultant: Shanika DENSON [phone] 10:17:00 AM EDT - 12/23/2019 10:18:00 AM EDT Lab test [facility] Lab test Patient discharged. Outpatient Attender: Mira Girard NP Main Office 08/21/2019 11:30:00 AM EDT [facility] ([facility] Insurance Providers Payer name Policy type / Coverage type Policy ID Covered alliance party ID Covered alliance party's relationship to barr Policy Barr Plan Information MEDICARE [id number] SP [id number] EMEDNY [id number] SP [id number] MEDICARE-OP [id number] undefined [id number] MEDICAID [facility] [id number] undefined [id number] MEDICARE [id number] SP [id number] A MEDICARE-OP [id number] undefined [id number] [id number] Self [id number] Medicare - [place] Medicare Primary [id number] Self [id number] [place] [id number] Self [id number] Medicare - [place] Medicare Primary [id number] Self [id number] MEDICAID -RECURRING [id number] u ndefined [id number] MEDICARE -RECURRING [id number] undefined [id number] [place] [id number] Self [id number] Medicare - [place] Medicare Primary [id number] Self [id number] MEDICARE [id number] SP [id number] A MEDICAID [id number] SP [id number] [place] [id number] Self [id number] Medicare - [place] Medicare Primary [id number] Self [id number] MEDICARE C [id number] S [id number] A MEDICAID M [id number] S [id number] [place] [id number] Self [id number] Medicare - [place] Medicare Primary [id number] Self [id number] MEDICAID [id number] SP [id number] [place] [id number] Self [id number] [place] [id number] Self [id number] MEDICAID - O/P EMERGENCY ROOM [id number] 18 [id number] [place] 3 [id number] [place] 3 [id number] 1 [id number] Y SELF PAY 2 UNAVAILABLE 1 UNAVAILA BLE Problems, Conditions, and Diagnoses Code Display Name Description Problem Type Effective Dates Data Source(s) [id number] Hemiplegia and hemiparesis f ollowing cerebral infarction affecting unspecified side Hemiplegia and hemiparesis following cer ebral infarction affecting unspecified side Diagnosis 07/01/2020 09:05:00 AM [facility] R1110 Vomiting, unspecified Vomiting, unspecified Diagnosis 07/01/2020 09:05:00 AM [facility] R531 Weakness Weakness Diagnosis 07/01/2020 09:05:[address] [facility] R262 Difficulty in walking, not elsewhere cla ssified Difficulty in walking, not elsewhere classified Diagnosis 07/01/2020 09:05:00 AM [facility] R7301 Impaired fasting glucose Impaired fasting glucose Diag nosis 04/21/2020 01:06:00 PM [facility] E559 Vitamin D deficiency, unspecified Vitamin D defi ciency, unspecified Diagnosis 04/21/2020 01:06:00 PM [facility] R5383 Other fatigue Other fatigue Diagnosis 04/21/2020 01:06:00 PM [facility] E785 Hyperlipidemia, unspecified Hyperlipidemia, unspecifie d Diagnosis 12/23/2019 10:17:00 AM [facility] G4733 Obstructive sleep apnea (adult) (pediatr ic) Obstructive sleep apnea (adult) (pediatric) Diagnosis 12/23/2019 10:17:00 AM [facility] J4540 Moderate persistent asthma, uncomplicate d Moderate persistent asthma, uncomplicated Diagnosis 12/23/2019 10:17:00 AM [facility] K219 Gastro-esophageal reflux disease without esophagitis Gastro-esophageal reflux disease without esophagitis Diagnosis 12/23/2019 10:17:00 AM ED [facility] Surgeries/Procedures Procedure Description Date Indications Data Source(s) RESPIRATORY FLOW VOLUME LOOP 08/21/2019 12:00:00 AM ED T [facility] ([facility] Results ID Date Data Source [id number] 07/06/2020 02:36:[address] [address] TELEPHONE RADIOLOGY DEPARTMENT Name: [facility] #: [id number] : 1975 Ordering Physician: KADI OROSCO Sex: M Date: 07/01/20 Admission Type: E/R X-ray Number: [id number] Unsigned Transcriptions are preliminary reports and do not represent a Medical or Legal Document CT CHEST-THORAX W/O CONTRAST [id number] COMPLETE:07/01/20 11:04 LEI 55181 (REASON FOR CHEST: DYSPNEA Patient weight: 101 lbs. FINDINGS: Noncontrast CT examination of the chest acquired. Axial, coronal and sagittal images evaluated. Thoracic inlet is within normal limits. Some biapical pleural-parenchymal scarring noted with some distal bronchiole ectasia and distal bronchiectasis noted. The lung parker are otherwise clear. No pleural or pericardial effusions noted. The upper abdomen is within normal limits. No other significant findings otherwise noted. IMPRESSION: Biapical pleural-parenchymal scarring with bilateral upper lobe bronchiectasis more severe on the right then the left. While performing the above CT exam, Radiation dose reduction was accomplished utilizing automated exposure control, adjusting of the mA and kV based on the patient's body size and/or the use of imperative reconstructive techniques. CT dose in mGy*CM: 187.9 [place] [address] TELEPHONE RADIOLOGY DEPARTMENT Name: [facility] #: [id number] : 1975 Ordering Physician: KADI OROSCO Sex: M Date: 07/01/20 Admission Type: E/R X-ray Number: [id number] Unsigned Transcriptions are preliminary reports and do not represent a Medical or Legal Document Electronically Reviewed and Signed By Shira WHITFIELD MD, MD 07/06/20 14:35 Dictating Initials: GMM Transcribed Date: 07/01/20 14:06 Transcribe Initials: LI Name Value Range Interpretation Code Description Data Kassandra rce(s) Supporting Document(s) ID Date Data Source [id number] 07/06/2020 02:35:53 PM EST [id number] [place] [address] TELEPHONE RADIOLOGY DEPARTMENT Name: [facility] #: [id number] : 1975 Ordering Physician: KADI OROSCO Sex: M Date: 07/01/20 Admission Type: E/R X-ray Number: [id number] Unsigned Transcriptions are preliminary reports and do not represent a Medical or Legal Document CT HEAD W/O CONTRAST [id number] COMPLETE:07/01/20 11:04 LEI 16359 (REASON FOR TEST: Stroke protocol Patient weight: 101 lbs. FINDINGS: Noncontrast CT examination of the head acquired. Axial, coronal and sagittal images evaluated. There is an old left periventricular white matter infarct adjacent to the left occipital horn measuring 5.0 millimeters. There is a second left posterior parietal white matter infarct identified measuring 5.5 millimeters. No signs of any acute infarcts noted. Base of the skull appears normal. Some cerebellar atrophic changes noted which can be related to chronic anticonvulsant or alcohol use. No other significant findings otherwise noted. IMPRESSION: Cerebellar atrophy noted. Two small lacunar infarcts in the left parietal white matter. No acute events noted. While performing the above CT exam, Radiation dose reduction was accomplished utilizing automated exposure control, adjusting of the mA and kV b ased on the patient's body size and/or the use of imperative [place] [address] TELEPHONE RADIOLOGY DEPARTMENT Name: [facility] #: [id number] : 1975 Ordering Physician: KADI OROSCO Sex: M Date: 07/01/20 Admission Type: E/R X-ray Number: [id number] ___ Unsigned Transcriptions are preliminary reports and do not represent a Medical or Legal Document CT dose in mGy*CM: 841.9 Electronically Reviewed and Signed By Shira WHITFIELD MD, MD 07/06/20 14:35 Dictating Initials: GMM Transcribed Date: 07/01/20 14:16 Transcr kraig Initials: LI Name Value Range Interpretation Code Description Data Kassandra rce(s) Supporting Document(s) ID Date Data Source [id number] 07/01/2020 10:50:00 AM EST [facility] Name Value Range Interpretation Code Description Data Kassandra rce(s) Supporting Document(s) URINALYSIS ROUTINE wMICRO RFLX TO CX [facility] URINALYSIS W/REFLEX CULTURE REFERENCE RANGES SOURCE Random [facility] l COLOR Yellow Colorless-Cris [facility] CLARITY Clear Normal: Clear [facility] LEUK EST Negative Negative - Trace [facility] NITRITE Negative Normal: Negative [facility] UROBILINOGEN Negative Negative - Trace [facility] PROTEIN Negative Negative - Trace [facility] pH 7.0 5.0 - 8.0 [facility] l BLOOD Negative Negative - Trace [facility] SPEC GRAVITY 1.010 1.000 - 1.030 [facility] KETONE Negative Negative - Trace [facility] BILIRUBIN Negative Normal: Negative [facility] GLUCOSE Negative Normal: Negative [facility]OSCOPIC [facility] NONE SEEN None Seen - 5/hpf [facility] RBC NONE SEEN None Seen - 5/hpf [facility] EPITHELIAL None Seen NORMAL: None Seen [facility] BACTERIA NONE SEEN NORMAL: None Seen [facility] MUCOUS 1+ NORMAL: None Seen [facility] CASTS Not Indicated [facility] p[facility] CRYSTALS Not Indicated [facility] CULTURE INDICATED? NO Normal: No [facility] Hospital ID Date Data Source [id number] 07/01/2020 10:30:00 AM EST [facility] Name Value Range Interpretation Code Description Data Kassandra rce(s) Supporting Document(s) RESP PROFILE RP2.1 NASAL PCR [facility] \\BLDo\\RESPIRATORY PROFILE NASAL PHARYNGEAL BY PCR\\BLDx\\ \\BLDo\\DETECTED _NONE \\BLDx\\ 07/01/20.1243.KJV. \\BLDo\\EQUIVOCAL _NONE \\BLDx\\ 07/01/20.1243.KJV. VIRUSES ADENOVIRUS NOT DETECTED NORMAL: NOT DETECTED [facility] CORONAVIRUS 229E NOT DETECTED NORMAL: NOT DETECTED [facility] CORONAVIRUS HKU1 NOT DETECTED NORMAL: NOT DETECTED [facility] CORONAVIRUS NL63 NOT DETECTED NORMAL: NOT DETECTED [facility] CORONAVIRUS OC43 NOT DETECTED NORMAL: NOT DETECTED [facility] 01126-7 NOT DETECTED NORMAL: NOT DETECTED [facility] REPORT TO DEPARTMENT OF HEAL TH HUMAN METAPNEUMO NOT DETECTED NORMAL: NOT DETECTED [facility] HUMAN RHINO/ENTERO NOT DETECTED NORMAL: NOT DETECTED [facility] NOT DETECTEDNOT DETECTEDNOT DETECTEDNOT DETECTED PARAINFLUENZA V3 NOT DETECTED NORMAL: NOT DETECTED [facility] NOT DETECTED RSV NOT DETECTED NORMAL: NOT DETECTED [facility] BACTERIANOT DET ECTEDNOT DETECTEDNOT DETECTEDNOT DETECTED TESTING PERFORMED USING THE IMVU RP2.1 MULTIPLEXED NUCLEIC ACID TEST. THIS TEST [...] OR REVOKED SOONER. ID Date Data Source [id number] 07/01/2020 09:35:00 AM EST [facility] Name Value Range Interpretation Code Description Data Kassandra rce(s) Supporting Document(s) Acetaminophen [Mass/volume] in Serum or Plasma 0 ug/mL 0 - 30 [facility] ACETAMINOPHEN CONCENTRATIONS >150.0 MCG/ML AT FOUR HOURS AFTER INGESTION, AND >50.0 MCG/ML AT TWELVE HOURS AFTER INGESTION ARE OFTEN ASSOCIATED WITH TOXIC REACTIONS. Salicylates [Mass/volume] in Serum or Plasma <2.8 mg/dL 5.0 - 30.0 Below low normal [facility] MAY BE TOXIC IF SALICYLATE LEV EL IS GREATER THAN 30.0 mg/dL ID Date Data Source [id number] 07/01/2020 09:35:00 AM EST [facility] Name Value Range Interpretation Code Description Data Kassandra rce(s) Supporting Document(s) LIPID PROFILE [facility] pital LIPID PROFILE Cholesterol [Mass/volume] in Serum or Plasma 286 mg/dL [facility] Triglyceride [Mass/volume] in Serum or Plasma 143 mg/dL [facility] Cholesterol in HDL [Mass/volume] in Serum or Plasma 41 mg/dL [facility] Cholesterol in LDL [Mass/volume] in Serum or Plasma by calculati on 216 mg/dL [facility] CHOL/HDL 6.98 [facility] l \\BLDo\\INTERPRE TATION\\BLDx\\ REFERENCE RANGES (NATIONAL [...] mg/dL VERY HIGH ID Date Data Source [id number] 07/01/2020 09:35:00 AM EST [facility] Name Value Range Interpretation Code Description Data Kassandra rce(s) Supporting Document(s) Creatine kinase.MB [Mass/volume] in Serum or Plasma <0.5 ng/mL 0.5 - 5.0 [facility] ID Date Data Source [id number] 07/01/2020 09:35:00 AM EST [facility] Name Value Range Interpretation Code Description Data Kassandra rce(s) Supporting Document(s) COMPREHENSIVE CHEM PROFILE [facility] COMPREHENSIVE METABOLIC PANEL Sodium [Moles/volume] in Serum or Plasma 140 mEq/L 136 - 145 [facility] Potassium [Moles/volume] in Serum or Plasma 3.8 mEq/L 3.5 - 5.1 [facility] Chloride [Moles/volume] in Serum or Plasma 100 mEq/L 98 - 107 [facility] Carbon dioxide, total [Moles/volume] in Serum or Plasma 28.0 mEq /L 21.0 - 32.0 [facility] Glucose [Mass/volume] in Serum or Plasma 127 mg/dL 70 - 100 Above high normal [facility] Urea nitrogen [Mass/volume] in Serum or Plasma 16 mg/dL 7 - 18 [facility] CREATININE SERUM 0.97 mg/dL 0.70 - 1.30 [facility] AGE 45 yrs [facility] HEIGHT 63.00 INCHES [facility] eGFR NON-AFR AMR >60 [facility] eGFR AFR AMR >60 [facility] BUN/CREAT 16 6 - 25 [facility] Protein [Mass/volume] in Serum or Plasma 8.5 g/dL 6.0 - 8.3 Above high normal [facility] Albumin [Mass/volume] in Serum or Plasma 4.3 g/dL 3.8 - 5.4 [facility] GLOBULIN 4.2 g/dL 2.0 - 4.0 Above high normal [facility] A/G RATIO 1.0 0.8 - 2.0 [facility] l Calcium [Mass/volume] in Serum or Plasma 9.8 mg/dL 8.8 - 10.2 [facility] Bilirubin.total [Mass/volume] in Serum or Plasma 0.6 mg/dL 0.2 - 1.0 [facility] Bilirubin.direct [Mass/volume] in Serum or Plasma 0.1 mg/dL 0.0 - 0. 2 [facility] INDIRECT BILI 0.5 mg/dL 0.0 - 1.1 [facility] pital ALK PHOSPHATASE 65 U/L 40 - 129 [facility] ospital Aspartate aminotransferase [Enzymatic ac tivity/volume] in Serum or Plasma by With P-5'-P 13 IU/L 7 - 37 [facility] Alanine aminotransferase [Enzymatic acti vity/volume] in Serum or Plasma by With P-5'-P 22 IU/L 12 - 78 [facility] ANION GAP 12 7 - 15 [facility] l Estimated GFR referenc e range: >60ml/min/1.73m >18 years: Calculated using [employer] traceable Study Equation <18 years: Calculated using [facility] tracable Bedside Schartz Equation ID Date Data Source [id number] 07/01/2020 09:35:00 AM EST [facility] Name Value Range Interpretation Code Description Data Kassandra rce(s) Supporting Document(s) Troponin I.cardiac [Mass/volume] in Serum or Plasma <0.017 ng/mL 0.017 - 0.060 [facility] \\BLDo\\TROPONIN I I NTERPRETATION:\\BLDx\\ < 0.06 ng/mL NOT SUSPICIOUS FOR AN AMI 0.06 - 0.59 ng/mL IRENE ZONE FOR AN AMI, SERIAL MONITORING RECOMMENDED 0.6 - 1.5 ng/mL SUSPICIOUS FOR AN AMI Reference range updated for new chemiluminescent immunoassay method based on [employer] technology. Effective 01/15/18. ID Date Data Source [id number] 07/01/2020 09:35:00 AM EST [facility] Name Value Range Interpretation Code Description [facility] Supporting Document(s) Fibrin D-dimer DDU [Mass/volume] in Platelet poor plas ma by Immunoassay 138 ng/mL 0 - 400 [facility] METHODOLOGY: FLUORESCENCE IMM UNOASSAY \\BLDo\\D- [...] erroneous D-dimer results. ID Date Data Source [id number] 07/01/2020 09:35:00 AM EST [facility] PROTHROMBIN TIME Name Value Range Interpretation Code Description Data [facility] Supporting Document(s) WARFARIN? NO [facility] 12.9 INR in Platelet poor plasma by Coagulation assay 1.0 1.0 - 4.5 [facility] Reference ranges Warf loco (Coumadin) Therapy: 21.6 - 40.7 secs Normal (Non-warfarin Therapy): 10.7 - 15.2 secs New Protime Reference Range as of April 24, 2020 ID Date Data Source [id number] 07/01/2020 09:35:00 AM EST [facility] Name Value Range Interpretation Code Description Data [facility](s) Supporting Document(s) CBC [facility] l COMPLETE BLOOD COUNT Leukocytes [#/volume] in Blood by Automated count 11.0 K/uL 4.0 - 10.0 Above high normal [facility] Erythrocytes [#/volume] in Blood by Automated count 5.12 M/uL 4.30 - 6.10 [facility] Hemoglobin [Mass/volume] in Blood 14.9 g/dL 13.5 - 17.5 [facility] Hematocrit [Volume Fraction] of Blood by Automated count 45.6 % 3 9.0 - 50.0 [facility] Erythrocyte mean corpuscular volume [Entitic volume] by Auto mated count 89.1 fL 80.0 - 96.0 [facility] Erythrocyte mean corpuscular hemoglobin [Entitic mass] by Automated count 29.1 pg 26.0 - 34.0 [facility] Erythrocyte mean corpuscular hemoglobin concentration [Mass/volume] by Automated count 32.7 g/dL 32.0 - 36.0 [facility] Erythrocyte distribution width [Ratio] by Automated count 12.5 % 11.6 - 14.8 [facility] Platelets [#/volume] in Blood by Automated count 318 K/uL 150 - 450 [facility] Platelet mean volume [Entitic volume] in Blood by Automated count 8.2 fL 7.1 - 10.4 [facility] Neutrophils [#/volume] in Blood by Automated count 9.22 K/uL 1.70 - 7.70 Above high normal [facility] Lymphocytes [#/volume] in Blood by Automated count 1.26 K/uL 1.50 - 6.00 Below low normal [facility] Monocytes [#/volume] in Blood by Automated count 0.39 K/uL 0.00 - 1. 00 [facility] Eosinophils [#/volume] in Blood by Automated count 0.01 K/uL 0.00 - 0.30 [facility] Basophils [#/volume] in Blood by Automated count 0.07 K/uL 0.00 - 0. 10 [facility] 0.02 Urinalysis macro (dipstick) panel - Urine 0.000 10^3/uL 0.000 - 0.012 [facility] Neutrophils/100 leukocytes in Blood by Automated count 84.0 % 42.2 - 75.2 Above high normal [facility] Lymphocytes/100 leukocytes in Blood by Automated count 11.5 % 15.0 - 41.0 Below low normal [facility] Monocytes/100 leukocytes in Blood by Automated count 3.6 % 0.0 - 12.0 [facility] Eosinophils/100 leukocytes in Blood by Automated count 0.1 % 0.0 - 7.0 [facility] 0.60.20 NRBC 0.0 % [facility] DIFF NOT INDICATED [facility] RBC MORPH NOT INDICATED [facility] pital ID Date Data Source [id number] 07/01/2020 09:13:00 AM EST [facility] Name Value Range Interpretation Code Description Data Kassandra rce(s) Supporting Document(s) Glucose [Moles/volume] in Capillary blood by Glucometer 112 mg/d L 70 - 100 Above high normal [facility] RESULTS < 40 mg/dL OR > 500 mg /dL WILL REQUIRE CONFIRMATION BY LAB ID Date Data Source [id number] 04/22/2020 01:05:00 PM [facility] Patient Name: LUIZ RYAN : 0 1975 Sex: M Pt Unit #: [id number] Location:[facility] Provider: Visit Date/Time: 04/22/20 Primary Insurance: MEDICARE [employer] Secondary Insurance: [place] Intake Vital Signs 04/22/20 13:05 Current Height [...] he would like his flu shot today. Quartz Orientator Required: No Accompanied by: Self / Same [...] Screening Screening Have you traveled outside of [facility] or [facility] in the last 14 days.: No Has patient experienced coronavirus symptoms: No [facility] Medical History (Updated 12/24/19 @ 16:37 by MATY Damon) Allergic rhinitis Anxiety Depression GERD without esophagitis (09/11/15) History of CVA (cerebrovascular accident) History of leukemia History of pneumothorax Mixed hyperlipidemia Moderate persistent asthma, uncomplicated (02/23/18) ELVIS (obstructive sleep apnea) (12/28/17) Right spastic hemiparesis Tinnitus Vitamin D deficiency Afluria Qd (3yr up)(PF) Performing Provider: MATY Damon Administered by: [...] drive intox or ride w/ intox driver operator: No water heater temp set < 120 [...] fruit. Admits he still likes his sweets. Disaster Director called to get results. hga1c 5.7%, TSH 3.30, 25 oh vit d 40, WBC 7.5, hgb/hct 14.6/45.2, PLT 293, glu 100, bun/cr 15/1.09, HDL 38, LDL 155, TG 153 Was not able to have audiology evaluation done at [place] - not covered, believes he has to go to [place] to have it done. Has not had [...] Route Admin Location Lot Number Expiration Date [facility] Manufactu rer 0.5 mL IM Left arm [id number] 12/02/20 47563-243-62 [employer] VIS Given Date VIS Provided VIS Publication Date 04/22/20 Single Vaccine 19 Eligibility Eligibility Date Funding Source Not [facility] Eligible 04/22/20 Private Assessment Plan Assessment Plan [...] Name Value Range Interpretation Code Description Data [facility] rce(s) Supporting Document(s) ID Date Data Source [id number] 04/21/2020 01:05:00 PM EST [facility] Name Value Range Interpretation Code Description Data [facility] rce(s) Supporting Document(s) COMPREHENSIVE CHEM PROFILE [facility] COMPREHENSIVE METABOLIC PANEL Sodium [Moles/volume] in Serum or Plasma 139 mEq/L 136 - 145 [facility] Potassium [Moles/volume] in Serum or Plasma 3.8 mEq/L 3.5 - 5.1 [facility] Chloride [Moles/volume] in Serum or Plasma 99 mEq/L 98 - 107 [facility] Carbon dioxide, total [Moles/volume] in Serum or Plasma 30.0 mEq /L 21.0 - 32.0 [facility] Glucose [Mass/volume] in Serum or Plasma 100 mg/dL 70 - 100 [facility] Urea nitrogen [Mass/volume] in Serum or Plasma 15 mg/dL 7 - 18 [facility] CREATININE SERUM 1.09 mg/dL 0.70 - 1.30 [facility] AGE 45 yrs [facility] HEIGHT NA [facility] eGFR NON-AFR AMR >60 [facility] eGFR AFR AMR >60 [facility] ital BUN/CREAT 14 6 - 25 [facility] Protein [Mass/volume] in Serum or Plasma 8.3 g/dL 6.0 - 8.3 [facility] Albumin [Mass/volume] in Serum or Plasma 4.0 g/dL 3.8 - 5.4 [facility] GLOBULIN 4.3 g/dL 2.0 - 4.0 Above high normal [facility] A/G RATIO 0.9 0.8 - 2.0 [facility] Calcium [Mass/volume] in Serum or Plasma 9.4 mg/dL 8.8 - 10.2 [facility] Bilirubin.total [Mass/volume] in Serum or Plasma 0.5 mg/dL 0.2 - 1.0 [facility] Bilirubin.direct [Mass/volume] in Serum or Plasma 0.1 mg/dL 0.0 - 0. 2 [facility] INDIRECT BILI 0.4 mg/dL 0.0 - 1.1 [facility] pital ALK PHOSPHATASE 71 U/L 40 - 129 [facility] ospital Aspartate aminotransferase [Enzymatic ac tivity/volume] in Serum or Plasma by With P-5'-P 14 IU/L 7 - 37 [facility] Alanine aminotransferase [Enzymatic acti vity/volume] in Serum or Plasma by With P-5'-P 25 IU/L 12 - 78 [facility] ANION GAP 10 7 - 15 [facility] l Estimated GFR referenc e range: >60ml/min/1.73m >18 years: Calculated using IDMS traceable Study Equation <18 years: Calculated using IDMS tracable Bedside Schartz Equation ID Date Data Source [id number] 04/21/2020 01:05:00 PM EST [facility] Name Value Range Interpretation Code Description Data Kassandra rce(s) Supporting Document(s) Cholesterol [Mass/volume] in Serum or Plasma 224 mg/dL [facility] Triglyceride [Mass/volume] in Serum or Plasma 153 mg/dL [facility] Cholesterol in HDL [Mass/volume] in Serum or Plasma 38 mg/dL [facility] Cholesterol in LDL [Mass/volume] in Serum or Plasma by calculati on 155 mg/dL [facility] CHOL/HDL 5.89 [facility] l \\BLDo\\INTERPRE TATION\\BLDx\\ REFERENCE RANGES (NATIONAL [...] mg/dL VERY HIGH ID Date Data Source [id number] 04/21/2020 01:05:00 PM EST [facility] Name Value Range Interpretation Code Description Data Kassandra rce(s) Supporting Document(s) CBC [facility] l COMPLETE BLOOD COUNT Leukocytes [#/volume] in Blood by Automated count 7.5 K/uL 4.0 - 10 .0 [facility] Erythrocytes [#/volume] in Blood by Automated count 4.98 M/uL 4.30 - 6.10 [facility] Hemoglobin [Mass/volume] in Blood 14.6 g/dL 13.5 - 17.5 [facility] Hematocrit [Volume Fraction] of Blood by Automated count 45.2 % 3 9.0 - 50.0 [facility] Erythrocyte mean corpuscular volume [Entitic volume] by Auto mated count 90.8 fL 80.0 - 96.0 [facility] Erythrocyte mean corpuscular hemoglobin [Entitic mass] by Automated count 29.3 pg 26.0 - 34.0 [facility] Erythrocyte mean corpuscular hemoglobin concentration [Mass/volume] by Automated count 32.3 g/dL 32.0 - 36.0 [facility] Erythrocyte distribution width [Ratio] by Automated count 12.4 % 11.6 - 14.8 [facility] Platelets [#/volume] in Blood by Automated count 293 K/uL 150 - 450 [facility] Platelet mean volume [Entitic volume] in Blood by Automated count 8.3 fL 7.1 - 10.4 [facility] Neutrophils [#/volume] in Blood by Automated count 3.95 K/uL 1.70 - 7.70 [facility] Lymphocytes [#/volume] in Blood by Automated count 2.63 K/uL 1.50 - 6.00 [facility] Monocytes [#/volume] in Blood by Automated count 0.50 K/uL 0.00 - 1. 00 [facility] Eosinophils [#/volume] in Blood by Automated count 0.27 K/uL 0.00 - 0.30 [facility] Basophils [#/volume] in Blood by Automated count 0.10 K/uL 0.00 - 0. 10 [facility] 0.01 Urinalysis macro (dipstick) panel - Urine 0.000 10^3/uL 0.000 - 0.012 [facility] Neutrophils/100 leukocytes in Blood by Automated count 53.0 % 42. 2 - 75.2 [facility] Lymphocytes/100 leukocytes in Blood by Automated count 35.3 % 15. 0 - 41.0 [facility] Monocytes/100 leukocytes in Blood by Automated count 6.7 % 0.0 - 12.0 [facility] Eosinophils/100 leukocytes in Blood by Automated count 3.6 % 0.0 - 7.0 [facility] 1.30.10 NRBC 0.0 % [facility] DIFF NOT INDICATED [facility] RBC MORPH NOT INDICATED [facility] pital ID Date Data Source [id number] 04/21/2020 01:05:00 PM EST [facility] Name Value Range Interpretation Code Description Data Kassandra rce(s) Supporting Document(s) 25-OH VITAMIN D 40.0 ng/mL 30.0 - 100 [facility] Deficient < 20 ng/mL Insufficient 20 - < 30 ng/mL Sufficient 30 - 100 ng/mL 25-OH vitamin D reference values based on the Clinical Guidelines Subcommittee of the Endocrine Society Task Force. Biotin can interfere with 25-OH Vitamin D results if taken 48 hours prior to specimen collection. ID Date Data Source [id number] 04/21/2020 01:05:00 PM EST [facility] Name Value Range Interpretation Code Description Data Kassandra rce(s) Supporting Document(s) TSH 3.30 uIU/mL 0.36 - 3.74 [facility] Reference range updated for new LOCI technology based chemiluminescent immunoassay method, and age specific ranges. Effective 02/13/18. ID Date Data Source [id number] 04/21/2020 01:05:00 PM EST [facility] Name Value Range Interpretation Code Description Data Kassandra rce(s) Supporting Document(s) Hemoglobin A1c/Hemoglobin.total in Blood 5.7 % 4.0 - 5.6 Above high normal [facility] Glucose mean value [Mass/volume] in Blood Estimated fr om glycated hemoglobin 117 mg/dL [facility] \\BLDo\\HEMOGLO BIN A1C\\BLDx\\ 4.0 - 5.6%: Normal 5.7 - 6.4%: Suggests Impaired Glucose Metabolism > or = 6.5%: Abnormal Estimated average glucose calculated using ADAG Study formula as recommended by the [place] [employer]. ID Date Data Source [id number] 12/24/2019 12:57:00 PM EDT [facility] Patient Name: LUIZ RYAN : 1975 Sex: M Pt Unit #: [id number] Location:[facility] Provider: Visit Date/Time: 12/24/19 Primary Insurance: MEDICARE [employer] Secondary Insurance: [place]ICAID [place] Intake Vital Signs 12/24/19 12:58 Current Height [...] exam. He has nothing new to report. Quartz Orientator Required: No Accompanied by: Self / Same [...] Source: Developed by Drs. David Olsen, Alejandra B.W. Grant Ngo and colleagues, with an educational vannessa from [employer]. HIV Testing Offer - a ges Requirement for HIV testing offer been met?: [...] Screening Screening Have you traveled outside of [facility] or [facility] in the last 14 days.: No Has patient experienced coronavirus symptoms: No [facility] Medical History (Updated 12/24/19 @ 16:37 by [...] drive intox or ride w/ intox driver operator: No water heater temp set < 120 [...] or february 2020. ELVIS/asthma - sees pulmonology [id number], last seen 08/2019 - using cpap nightly. Has not had a recent eye exam. Usually sees dentist regularly but appt was cancelled d/t covid. Active outside - mows lawn, weed eats. Tries to eat healthy diet. Labs done showing HDL 32, LDL 144, TG 222, bun/cr 13/.09, glu 114 Dietary habits Has a well [...] Frequency: never and rides with intoxicated driver operator Frequency: never Home safety: has working smoke [...] well groomed Nutritional Appearance: average body habitus [facility] Head: normocephalic and atraumatic Ears: external ears [...] NDC Manufactu rer 0.5 mL IM Left deltoid [id number] 09/02/20 5772-7428-43 [employer] D VIS Given Date VIS Provided VIS Publication Date 12/24/19 Single Vaccine 19 Eligibility Eligibility Date Funding Source Not VFC Eligible 12/24/19 Private diphth,pertus(acell),tetanus Performing Provider: MATY Damon Administered by: Mago Tom on 12/24/19 18:11 [address]ose [address] Admin Location Lot Number Expiration Date NDC Manufactu rer 0.5 mL IM Right arm [id number] 01/29/22 58035-946-35 [employer] VIS Given Date VIS Provided VIS Publication Date 12/24/19 Single Vaccine 19 Eligibility Eligibility Date Funding Source Not VFC Eligible 12/24/19 Private Quality Reporting Depression/Bipolar (159/160/161/169/177) Total score: 7 Assessment Plan Assessment Plan (1) Encounter for annual health examination: Code(s): Z00.00 - Encounter for general adult medical examination without abnormal findings Plan - MATY Damon: Encouraged regular physical exercise and increased fruit/veg intake. Referral for eye exam. Plans to set up dental exam. Tdap and pneumovax 23 today. Ad ditional labs ordered d/t fatigue. PHQ 9 score 7 - Luiz denies feeling depressed, attributes to fatigue. (2) Tinnitus: Status: Chronic Code(s): H93.19 - Tinnitus, unspecified ear Category: Medical Plan - DYLON DamonC: Audiology evaluation ordered. Orders: Referrals: Audiology Referral (3) Impaired fasting glucose: Code(s): R73.01 - Impaired fasting glucose Plan - DYLON Damon: Hga1c ordered. Encouraged to cut down on sweets/breads/pastas/potatoes/rice. Orders: Orders: HGBA1C + EAG 1 Month (4) Mixed hyperlipidemia: Status: Chronic Code(s): E78.2 - Mixed hyperlipidemia Category: Medical Plan - Shanika Marcel, RPA-C: Discussed labs and framingham risk score. [...] Electronically Signed By: <Electronically signed by Shanika Rod RPA C> Date/Time Signed: 12/24/19 1832 Name Value Range Interpretation Code Description Data Kassandra rce(s) Supporting Document(s) ID Date Data Source [id number] 12/23/2019 10:25:00 AM EDT [facility] Name Value Range Interpretation Code Description Data Kassandra rce(s) Supporting Document(s) Cholesterol [Mass/volume] in Serum or Plasma 220 mg/dL [facility] Triglyceride [Mass/volume] in Serum or Plasma 222 mg/dL [facility] Cholesterol in HDL [Mass/volume] in Serum or Plasma 32 mg/dL [facility] Cholesterol in LDL [Mass/volume] in Serum or Plasma by calculati on 144 mg/dL [facility] CHOL/HDL 6.88 [facility]osp[facility] l \\BLDo\\INTERPRE TATION\\BLDx\\ REFERENCE RANGES (NATIONAL CHOLESTEROL [...] mg/dL VERY HIGH ID Date Data Source [id number] 12/23/2019 10:25:00 AM EDT [facility] Name Value Range Interpretation Code Description Data Kassanrda rce(s) Supporting Document(s) COMPREHENSIVE CHEM PROFILE [facility] COMPREHENSIVE METABOLIC PANEL Sodium [Moles/volume] in Serum or Plasma 137 mEq/L 136 - 145 [facility] Potassium [Moles/volume] in Serum or Plasma 4.2 mEq/L 3.5 - 5.1 [facility] Chloride [Moles/volume] in Serum or Plasma 102 mEq/L 98 - 107 [facility] Carbon dioxide, total [Moles/volume] in Serum or Plasma 27.2 mEq /L 21.0 - 32.0 [facility] Glucose [Mass/volume] in Serum or Plasma 114 mg/dL 70 - 100 Above high normal [facility] Urea nitrogen [Mass/volume] in Serum or Plasma 14 mg/dL 7 - 18 [facility] CREATININE SERUM 1.09 mg/dL 0.70 - 1.30 [facility] AGE 44 yrs [facility] HEIGHT NA [facility] eGFR NON-AFR AMR >60 [facility] eGFR AFR AMR >60 [facility] BUN/CREAT 13 6 - 25 [facility] Protein [Mass/volume] in Serum or Plasma 7.9 g/dL 6.0 - 8.3 [facility] Albumin [Mass/volume] in Serum or Plasma 4.1 g/dL 3.8 - 5.4 [facility] GLOBULIN 3.8 g/dL 2.0 - 4.0 [facility] A/G RATIO 1.1 0.8 - 2.0 [facility] Calcium [Mass/volume] in Serum or Plasma 9.3 mg/dL 8.8 - 10.2 [facility] Bilirubin.total [Mass/volume] in Serum or Plasma 0.3 mg/dL 0.2 - 1.0 [facility] Bilirubin.direct [Mass/volume] in Serum or Plasma 0.1 mg/dL 0.0 - 0. 2 [facility] INDIRECT BILI 0.2 mg/dL 0.0 - 1.1 [facility] pital ALK PHOSPHATASE 76 U/L 40 - 129 [facility] ospital Aspartate aminotransferase [Enzymatic ac tivity/volume] in Serum or Plasma by With P-5'-P <5 IU/L 7 - 37 Below low normal [facility] richard Alanine aminotransferase [Enzymatic acti vity/volume] in Serum or Plasma by With P-5'-P 23 IU/L 12 - 78 [facility] ANION GAP 8 7 - 15 [facility] l Estimated GFR referenc e range: >60ml/min/1.73m >18 years: Calculated using IDMS traceable Study Equation <18 years: Calculated using IDMS tracable Bedside Schartz Equation Procedure Social History Code Duration Value Status Description Data Source(s ) 12/24/2019 01:28:04 PM EDT Never smoker completed Never [facility] Smoking 12/24/2019 01:28:00 PM EDT Never smoker completed Never [facility] Vital Signs ID Date Data [...] by Pulse oximetry 97 % 97 % [facility] ([facility] Heart rate 86 /min 86 /min [facility] ([facility] Diastolic blood pressure 78 mm[Hg] 78 mm[Hg] [facility] ([facility] Systolic blood pressure 118 mm[Hg] 118 mm[Hg] M [facility] ([facility]
[2020-07-07] MEDS: REMEDY PHYTOPLEX Z-GUARD PASTE 113GM TUBE (FROM STOREROOM PRODUCT) TOP SCH ×2 (16:30→20:32)
[2020-07-07] MEDS: DOCUSATE SODIUM 100MG CAPSULE PO SCH (20:30)
[2020-07-07] MEDS: SENNA 8.6 MG TAB (SENOKOT) PO SCH (20:30)
[2020-07-07 21:00] VITALS: BP 118/82
[2020-07-08] MEDS: ACETAMINOPHEN TAB 650MG DOSE (2X325MG) PO PRN ×2 (02:54→21:53)
[2020-07-08 06:36] VITALS: BP 129/78
[2020-07-08 07:23] LABS: BASO # 0.1 10^3/uL (0.0-0.2); BASO % 1.1 % (0.0-1.0); EOS # 0.3 10^3/uL (0.0-0.5); EOS % 3.1 % (0.0-3.0); HEMATOCRIT 44.5 % (42.0-52.0); HEMOGLOBIN 14.7 g/dl (13.5-17.5); LYMPH # 1.8 10^3/uL (1.5-5.0); LYMPH % 19.1 % (24.0-44.0); MEAN CORPUSCULAR HEMOGLOBIN 28.9 pg (27.0-33.0); MEAN CORPUSCULAR VOLUME 87.4 fl (80.0-96.0); MONO # 0.7 10^3/uL (0.0-0.8); MONO % 7.3 % (0.0-5.0); NEUTROPHILS # 6.3 10^3/uL (1.5-8.5); PLATELET COUNT, AUTOMATED 297 10^3/uL (150-450); RED BLOOD COUNT 5.09 10^6/uL (4.30-6.10); WHITE BLOOD COUNT 9.2 10^3/uL (4.0-10.0)
[2020-07-08 07:52] LABS: ALBUMIN 3.8 GM/DL (3.2-5.2); ALT/SGPT 32 U/L (12-78); BILIRUBIN,TOTAL 0.5 MG/DL (0.2-1.0); BLOOD UREA NITROGEN 13 MG/DL (7-18); CALCIUM LEVEL 9.6 MG/DL (8.5-10.1); CARBON DIOXIDE LEVEL 28 MEQ/L (21-32); CHLORIDE LEVEL 102 MEQ/L (98-107); CREATININE FOR GFR 0.73 MG/DL (0.70-1.30); GLOMERULAR FILTRATION RATE > 60.0 (>60); GLUCOSE, FASTING 100 MG/DL (70-100); POTASSIUM SERUM 3.6 MEQ/L (3.5-5.1); SODIUM LEVEL 139 MEQ/L (136-145); TOTAL PROTEIN 7.4 GM/DL (6.4-8.2)
[2020-07-08] MEDS: DOCUSATE SODIUM 100MG CAPSULE PO SCH ×2 (09:00→21:00)
[2020-07-08] MEDS: PANTOPRAZOLE 40MG TAB (PROTONIX) PO SCH (09:23)
[2020-07-08] MEDS: ATORVASTATIN 20 MG TAB PO SCH (09:23)
[2020-07-08] MEDS: CLOPIDOGREL 75 MG TAB PO SCH (09:23)
[2020-07-08] MEDS: ASPIRIN 81 MG ENTERIC TAB PO SCH (09:23)
[2020-07-08] MEDS: REMEDY PHYTOPLEX Z-GUARD PASTE 113GM TUBE (FROM STOREROOM PRODUCT) TOP SCH ×3 (09:24→21:54)
[2020-07-08] MEDS: ENOXAPARIN 40MG/0.4ML SYRINGE (J1650 PER 10MG) SC SCH (09:24)
--- NOTE | 2020-07-08 09:42 | HPEPDOC ---
Special Needs Bus Driver Note DATE OF ADMISSION: 07-07-20 DATE OF SERVICE: 07-08-20 TIME OF ADMISSION: Please refer to physician's admission order. SOURCE OF ADMISSION INFORMATION: [facility] record and patient CHIEF COMPLAINT: stroke HISTORY OF PRESENT ILLNESS: 45M pmh stroke with residual right sides weakness, s/p PFO closure in 2011, GERD, childhood leukemia was transferred to [facility] ED on 07-01-20 from [facility] for stroke work-up with worsening left sided weakness. Brain MRI on 07-01-20 showed, no acute cerebral infarction or intracranial hemorrhagepossible periependymal hyperintensity surrounding the 3rd ventricle and frontal horns of the lateral ventricles and possibly within the medial frontal cortex bilaterally as well as the hypothalamus. This can be seen with neuromyelitis optica spectrum disorders. Cervical, thoracic, and lumbar MRIs were ordered, however patient refused contrast for the cervical and thoracic images due to claustrophobia, and no significant cord abnormalities were found in the lumbar region. Repeat MRI on 07-05-20 showed, small focus of restricted diffusion in the right side of the medulla consistent with acute ischemia here. He underwent an LP with CSF showing elevated proteins and had a vasculitis/hypercoagulable work-up ordered per neurology recommendations. He was found to have mobility and ADL impairments, and deemed medically appropriate for discharge to ARU on 07-07-20. On evaluation patient reports his voice seems much softer since his admission, denies any new sensory loss or bowel/bladder dysfunction, but that he has had muscle cramping on the right side since his previously diagnosed stroke. REVIEW OF SYSTEMS: The following is a completed review of systems and has been reviewed. Review of systems otherwise unremarkable. PAIN: Patient self reports no pain EYES: No recent vision changes EARS, NOSE, & THROAT: No throat pain, or dysphagia, or rhinorrhea, +hypophonia CARDIOVASCULAR: Denies chest pain or palpitations PULMONARY: Denies shortness of breath GASTROINTESTINAL: Denies constipation/diarrhea GENITOURINARY: denies dysuria MUSCULOSKELETAL: +paresis in all 4 limbs NEUROLOGICAL: +paresis in all 4 limbs HEMATOLOGICAL: denies easy bruising SKIN: denies rash PSYCHIATRIC: Unremarkable All other review of systems found to be negative. PAST MEDICAL HISTORY: as per HPI PAST SURGICAL HISTORY: As per HPI, appendectomy, chest tube due to pneumothorax ALLERGIES: Please see below. MEDICATIONS: Please see below. FAMILY HISTORY: adopted, unknown SOCIAL HISTORY: No etoh/illicit drugs/smokng DIET: low cholesterol PHYSICAL EXAMINATION: VITAL SIGNS: Please see below. GENERAL: Pleasant and cooperative. No acute distress. thin HEENT: PERRL. Extraocular movements intact. Clear conjunctiva, +hypophonia CARDIOVASCULAR: Regular rate and rhythm. No murmurs, rubs, or gallops LUNGS: Clear to auscultation bilaterally. No wheezes. No rhonchi, decreased chest wall expansion ABDOMEN: Soft, nontender, nondistended. Positive bowel sounds. Normal active bowel sounds NEUROLOGICAL: Alert and oriented times three. Cranial nerves II through XII grossly intact. Sensation grossly intact +clonus bilat +Babinksi bilat +spasticity RUE and RLE EXTREMITIES: 2/5 LUE, 2/5 left hip flexion, knee extension, 0/5 left ankle DF/EHL/PF 3+/5 RUE, 3+/5 right hip flexion, knee extension, DF/EHL/PF SKIN: sacral erythema, blanchable LABORATORY DATA: Please see below. IMAGING:Imaging documentation personally reviewed by record FUNCTIONAL STATUS: Premorbid: Independent with all activities of daily life as well as mobility On Admission:Min-Mod assist for bed mobility, functional transfers, dressing, toileting. GOALS: MOd- I with a RW for household distances, functional transfers, bed mobi lity, toileting, dressing, bathing ASSESSMENT:45-year-old M with past medical history of CVA who presents status post new right medullary infarct PLAN: 1. Rehab- PT/OT advance mobility and ADLs, strengthen/stretch/maintain ROM all 4 limbs -RISK ANALYST for cog and repeat swallow eval given waxing and waning nature of his deficits 2. Neuro- functional quadriplegic, hx of CVA with right sided paresis, now with acute right medullary CVA with significant left sided paresis etiology unclear, vasculitis/hypercoagulable/NMO work-up negative, previous MRi cervical/thoracic spine not done with contrast, will re-order cervical/thoracic spine with contrast and pretreat with atarax for claustrophobia, given patient's clinical symptoms such as new onset hypophonia and bilateral upper motor neuron signs, with preserved sensation concerning for ALS vs SBMA, will defer to neurology for official diagnosis and c/u rehabilitative treatment -c/u pativix/ASA and statin for secondary stroke prevention 3. CArdiac- HLD c/u statin -medicine consulted to assist in overall management 4. Resp- monitor for infection, hx of pneumothorax 5. GI ppx- protonix 6. DVT ppx- lovenox 7. Pain- Tylenol prn 8. - monitor PVrs 9. Dispo- TBD POST ADMISSION PHYSICIAN EVALUATION: Medical and functional status: Description of medical status, medical assessment: As above. Rehabilitation diagnosis and current and prior cold morbid medical conditions as above. Risk of complications and plans to mitigate them as above. Description of functional status current status is as above. Prior status as above. Status compared to preadmission: There are no clinically significant differences between the patient's current status and the information described on the preadmission screening document. Treatment plan anticipated: Treatment plan is as described above. Required disciplines including physical therapy, occupational therapy, others as noted above. Intensity of services: 3 hours a day, 6 days a week. Special considerations: There are no specific special or safety considerations that would likely preclude immediate implementation of an intensive rehabilitation program or subsequently influence the plan of care. ATTESTATION: Considering all the information above, it is my best judgment that this patient requires intensive rehabilitation therapy as described above and an inpatient hospital environment due to the complexity of nursing, medical, and rehabilitation needs required by the patient. Furthermore, this patient can reasonably be expected to participate in an benefit from an inpatient rehabilitation stay with an interdisciplinary team approach to the delivery of rehabilitation care under the direction and supervision of rehabilitation physician. PROGNOSIS: good ESTIMATED LENGTH OF STAY:21-24 days. PROJECTED DISCHARGE DESTINATION: Home with family support and any durable med ica equipment required to increase functional safety and mobility. TIME SPENT COUNSELING AND COORDINATING INITIAL CARE: Greater than 70 minutes. Vital Signs Vital Sign - Last 24 Hours 07/07/20 07/07/20 07/08/20 16:00 21:00 06:36 Temp 98.0 98.0 98.3 Pulse 86 91 86 Resp 20 18 18 B/P (MAP) 133/85 (101) 118/82 (94) 129/78 (95) Pulse Ox 96 97 96 O2 Delivery Room Air Room Air Room Air Laboratory Data CBC/BMP Laboratory Tests 07/08/20 06:58 Labs 24H Laboratory Tests 2 07/08/20 06:58: Immature Granulocyte % (Auto) 0.4, Neutrophils (%) (Auto) 69.0H, Lymphocytes (%) (Auto) 19.1L, Monocytes (%) (Auto) 7.3H, Eosinophils (%) (Auto) 3.1H, Basophils (%) (Auto) 1.1H, Neutrophils # (Auto) 6.3, Lymphocytes # (Auto) 1.8, Monocytes # (Auto) 0.7, Eosinophils # (Auto) 0.3, Basophils # (Auto) 0.1, Nucleated Red Blood Cells % (auto) 0.0, Anion Gap 9, Glomerular Filtration Rate > 60.0, Calcium Level 9.6, Total Bilirubin 0.5, Aspartate Amino Transf (AST/SGOT) 22, Alanine Aminotransferase (ALT/SGPT) 32, Alkaline Phosphatase 76, Total Protein 7.4, Albumin 3.8, Albumin/Globulin Ratio 1.1 Home Medications Scheduled Atorvastatin Calcium (Atorvastatin Calcium) 20 Mg Tablet, 40 MG PO DAILY Clopidogrel Bisulfate (Clopidogrel) 75 Mg Tablet, 75 MG PO DAILY Pantoprazole Sodium (Pantoprazole Sodium) 40 Mg Tablet.dr, 40 MG PO DAILY Scheduled PRN Baclofen (Baclofen) 20 Mg Tablet, 20 MG PO QID PRN for MUSCLE SPASMS, (Reported) Allergies Coded Allergies: No Known Allergies (Unverified , 07/01/20) A-FIB/CHADSVASC A-FIB History Current/History of A-Fib/PAF?: No Current PO Anticoag Therapy: No HETAL CHRISTENSEN MD Jul 08, 2020 09:42
[2020-07-08] MEDS ORDERED: hydrOXYzine 25 MG TAB PO ONE (12:30)
[2020-07-08 14:00] VITALS: BP 137/92
[2020-07-08] MEDS ORDERED: PROHANCE 279.3MG/ML 15ML VIAL As Ordered ONE (17:35)
--- NOTE | 2020-07-08 18:36 | REPVR ---
PROCEDURE INFORMATION: Exam: MR Cervical Spine With Contrast Exam date and time: 07/08/2020 5:51 PM Age: 45 years old Clinical indication: Weakness; Patient HX: With contrast only, non contrast done 07/02; Additional info: Bilat ue and le weakness with upper motor neuron signs TECHNIQUE: Imaging protocol: Multiplanar magnetic resonance images of the cervical spine with contrast. Contrast material: PROHANCE; Contrast volume: 10 ml; Contrast route: INTRAVENOUS (IV); COMPARISON: MRI-Spine,Cervical without con 07/01/2020 9:47 PM FINDINGS: There is enhancement at the medulla corresponding to infarction identified on prior noncontrast MRI brain. No pathologic enhancement involving the cervical cord. No discrete mass. IMPRESSION: 1. Enhancement at the medulla corresponding to infarction identified on prior noncontrast MRI brain dated 07/05/2020. 2. No pathologic enhancement involving the cervical spine. Electronically signed by: David Su On 07/08/2020 18:36:35 PM
--- NOTE | 2020-07-08 18:39 | REPVR ---
PROCEDURE INFORMATION: Exam: MR Thoracic Spine With Contrast Exam date and time: 07/08/2020 5:51 PM Age: 45 years old Clinical indication: Weakness; Patient HX: With contrast only, pre contrast done prior; Additional info: Bilat ue and le weakness with upper motor neuron signs TECHNIQUE: Imaging protocol: Multiplanar magnetic resonance images of the thoracic spine with intravenous contrast. Contrast material: PROHANCE; Contrast volume: 10 ml; Contrast route: INTRAVENOUS (IV); COMPARISON: MRI-Spine,Thoracic without con 07/01/2020 9:47 PM FINDINGS: No pathologic enhancement involving the thoracic cord. No discrete enhancing mass. IMPRESSION: No pathologic enhancement involving the thoracic spine. Electronically signed by: David Su On 07/08/2020 18:38:50 PM
[2020-07-08 20:00] VITALS: BP 134/89
[2020-07-08] MEDS: SENNA 8.6 MG TAB (SENOKOT) PO SCH (21:00)
[2020-07-09 05:22] VITALS: BP 117/81
[2020-07-09] MEDS: ACETAMINOPHEN TAB 650MG DOSE (2X325MG) PO PRN ×2 (06:33→20:57)
[2020-07-09] MEDS: DOCUSATE SODIUM 100MG CAPSULE PO SCH ×2 (09:00→20:57)
[2020-07-09] MEDS: ENOXAPARIN 40MG/0.4ML SYRINGE (J1650 PER 10MG) SC SCH (09:20)
[2020-07-09] MEDS: CLOPIDOGREL 75 MG TAB PO SCH (09:20)
[2020-07-09] MEDS: ATORVASTATIN 20 MG TAB PO SCH (09:20)
[2020-07-09] MEDS: ASPIRIN 81 MG ENTERIC TAB PO SCH (09:20)
[2020-07-09] MEDS: PANTOPRAZOLE 40MG TAB (PROTONIX) PO SCH (09:20)
[2020-07-09] MEDS: REMEDY PHYTOPLEX Z-GUARD PASTE 113GM TUBE (FROM STOREROOM PRODUCT) TOP SCH ×3 (09:21→20:58)
--- NOTE | 2020-07-09 10:43 | IPNPDOC ---
PM&R Progress Note DATE OF SERVICE: Jul 09, 2020 Mainframe Analyst Progress Note Subjective- Patient reporting he needs to sit all the way up to drink liquid and that he feels like it is getting stuck in his throat. He reports worsening ability to cough and is unable to clear his throat well. He denies any new weakness in his arms or legs. REVIEW OF SYSTEMS: The following is a completed review of systems and has been reviewed. Review of systems otherwise unremarkable. PAIN: Patient self reports no pain EYES: No recent vision changes EARS, NOSE, & THROAT: +dysphagia, +hypophonia CARDIOVASCULAR: Denies chest pain or palpitations PULMONARY: Denies shortness of breath GASTROINTESTINAL: Denies constipation/diarrhea GENITOURINARY: denies dysuria MUSCULOSKELETAL: +paresis in all 4 limbs NEUROLOGICAL: +paresis in all 4 limbs HEMATOLOGICAL: denies easy bruising SKIN: denies rash PSYCHIATRIC: Unremarkable All other review of systems found to be negative. PHYSICAL EXAMINATION: VITAL SIGNS: Please see below. GENERAL: Pleasant and cooperative. No acute distress. thin HEENT: PERRL. Extraocular movements intact. Clear conjunctiva, +hypophonia, tongue midline, no facial droop, left sided ptosis CARDIOVASCULAR: Regular rate and rhythm. No murmurs, rubs, or gallops LUNGS: decreased breath sounds, weak inspiratory effort ABDOMEN: Soft, nontender, nondistended. Positive bowel sounds. Normal active bowel sounds NEUROLOGICAL: Alert and oriented times three. CN IX-X impairment, Sensation intact to light touch bilat face, left arm, bilat legs, slightly decreased right arm/hand +clonus bilat +Babinksi bilat +spasticity RUE and RLE EXTREMITIES: 2/5 LUE, 2/5 left hip flexion, knee extension, 0/5 left ankle DF/EHL/PF 3+/5 RUE, 3+/5 right hip flexion, knee extension, DF/EHL/PF SKIN: sacral erythema, blanchable ASSESSMENT:45-year-old M with past medical history of CVA who presents status post new right medullary infarct PLAN: 1. 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 Neuro- functional quadriplegic, hx of CVA with right sided paresis, now with acute right medullary CVA with significant left sided paresis etiology unclear, vasculitis/hypercoagulable/NMO work-up negative, previous MRi cervical/thoracic spine not done with contrast, repeat MRI cervical/thoracic with contrast performed 07-08-20 with no cord abnormalities, patient presenting today with worsening dysphagia, weak cough, and persistent hypophonia, discussed concern with Dr. Finch who has agreed to inhouse consult, believes patient's previous and current strokes explain his symptoms and that acute onset bulbar symptoms are not typical in ALS, will order repeat MRI to see if right medullary stroke is evolving, recs appreciated -c/u plavix/ASA and statin for secondary stroke prevention 3. CArdiac- HLD c/u statin -medicine consulted to assist in overall management 4. Resp- monitor for infection, hx of pneumothorax 5. GI ppx- protonix 6. DVT ppx- lovenox 7. Pain- Tylenol prn 8. - monitor PVrs 9. Dispo- TBD Allergies Coded Allergies: No Known Allergies (Unverified , 07/01/20) Vital Signs Vital Signs Date Time Temp Pulse Resp B/P (MAP) Pulse Ox O2 Delivery O2 Flow Rate FiO2 07/09/20 05:22 97.9 87 19 117/81 (93) 97 Room Air Current Medications Current Medications Current Medications Medications (Trade) Dose Ordered Sig/Juan Luis Route PRN Reason Start Time Stop Time Status Last Admin Dose Admin Acetaminophen (Tylenol Tab) 650 mg Q4HP PRN PO fever/MILD PAIN (PS 1-4) 07/07/20 12:15 07/09/20 06:33 Aspirin (Ecotrin) 81 mg DAILY PO 07/08/20 09:00 07/09/20 09:20 Atorvastatin Calcium (Lipitor) 40 mg DAILY PO 07/08/20 09:00 07/09/20 09:20 Bisacodyl (Dulcolax Suppository) 10 mg DAILYPRN PRN AL CONSTIPATION 07/07/20 12:15 Clopidogrel Bisulfate (PLAVix) 75 mg DAILY PO 07/08/20 09:00 07/09/20 09:20 Docusate Sodium (Colace) 100 mg BID PO 07/07/20 21:00 07/07/20 20:30 Enoxaparin Sodium (Lovenox) 40 mg DAILY SC 07/08/20 09:00 07/09/20 09:20 Ondansetron HCl (Zofran) 4 mg Q6HP PRN PO NAUSEA 07/07/20 12:15 Pantoprazole Sodium (Protonix) 40 mg DAILY PO 07/08/20 09:00 07/09/20 09:20 Senna (Senokot) 1 tab QHS PO 07/07/20 21:00 07/07/20 20:30 HETAL CHRISTENSEN MD Jul 09, 2020 10:43
--- NOTE | 2020-07-09 12:36 | IPNPDOC ---
Text Note Date of Service The patient was seen on 07/08/20. NOTE Subjective: Patient seen and examined at bedside. No acute overnight events reported. No new medical complaints. Objective: PHYSICAL EXAMINATION ON DISCHARGE: VITAL SIGNS: Please see below GENERAL APPEARANCE: NAD, resting comfortablyh in bed HEENT: NC/AT, EOMI CARDIOVASCULAR: S1S2+, no M/R/G LUNGS: CTAB, No W/R/R ABDOMEN: soft, nontender, BS + in 4 quad, nondistended EXTREMITIES: No edema, cyanosis or clubbing, NEUROLOGICAL: CN 2-12 intact, 1/5 b/l lower ext, 5/5 LUE, 3/5 RUE- worsened from ER evaluation No sensory deficits. No nystagmus, no tremor. All reflexes in upper and lower ext intact PSYCHIATRIC: Mood and affect appropriate A/P: 45 yo male admitted to ARU for continued rehab s/p right medullary CVA #Right medullary CVA, acute - had existing RLE and RUE weakness from left medullary infarct, old. -C/W plavix, high dose statin. -C/w PT/OT #Hx of left-side CVA with right side weakness chronic but also worsened since CVA, s/p closure of PFO -Plavix, statin -PT/OT #Bronchiectasis on CT chest -stable VS,Fishbone, I+O VS, Fishbone, I+O Laboratory Tests 07/08/20 06:58 Vital Signs Date Time Temp Pulse Resp B/P (MAP) Pulse Ox O2 Delivery O2 Flow Rate FiO2 07/08/20 14:00 97.7 101 18 137/92 (107) 95 Room Air I&O- Last 24 Hours up to 6 AM 07/08/20 05:59 Intake Total 240 ml Balance 240 ml VIC WINN MD Jul 08, 2020 16:03
--- NOTE | 2020-07-09 13:09 | REP ---
INDICATION: decreased air sounds. COMPARISON: Comparison chest x-ray March 31, 2017. TECHNIQUE: Two views.. FINDINGS: The lungs are well inflated and free of infiltrate. The pleural angles are sharp. The heart size is normal. Pulmonary vasculature is not increased. No significant bony abnormality is seen. A intracardiac closure device is again seen projecting along the right heart border unchanged. IMPRESSION: No active cardiopulmonary disease seen. Previously placed intracardiac closure device again seen.. <Electronically signed by Star Fernandez > 07/09/20 [id number]
[2020-07-09 14:00] VITALS: BP 132/88
[2020-07-09] MEDS ORDERED: hydrOXYzine 25 MG TAB PO ONE (19:00)
[2020-07-09 20:00] VITALS: BP 133/79
--- NOTE | 2020-07-09 20:29 | REPVR ---
PROCEDURE INFORMATION: Exam: MR Head Without Contrast Exam date and time: 07/09/2020 8:09 PM Age: 45 years old Clinical indication: Other: Worsenig dysphagia TECHNIQUE: Imaging protocol: MR of the head without contrast. COMPARISON: MRI-Brain without Contrast 07/05/2020 11:58 AM FINDINGS: Brain: There is hyperintense signal in the white matter consistent with chronic microvascular disease. There are prominent perivascular spaces. As seen on DWI images 4-6 there is a 6 mm focus of restricted diffusion in the right ventral medulla. This was present on the prior scan. No new foci of restricted diffusion are identified. There is a slight increase in cytotoxic edema. The infarct is now visible on FLAIR and T2 weighted images. Acute infarct. Gradient echo images demonstrate small old right frontal and parietal punctate hemorrhages unchanged from prior scan. There is a small old right cerebellar hemorrhage. No acute hemorrhage. No extra-axial collection. No mass. No abnormal flow voids. Cerebral ventricles: There is no hydrocephalus. Bones/joints: Unremarkable. Paranasal sinuses: There is mucosal thickening in the sinuses. No air-fluid levels. Mastoid air cells: Normal as visualized. No mastoid effusion. Orbital cavity: Unremarkable. Soft tissues: Unremarkable. IMPRESSION: 1. Subacute right ventral medullary infarct with slight increase in cytotoxic edema since prior scan consistent with expected evolution of infarct. 2. Chronic microvascular disease. No new infarct. Electronically signed by: Adam Chacon On 07/09/2020 20:30:04 PM
[2020-07-09] MEDS: SENNA 8.6 MG TAB (SENOKOT) PO SCH (20:57)
[2020-07-10 05:22] VITALS: BP 117/81
[2020-07-10 07:41] LABS: BASO # 0.1 10^3/uL (0.0-0.2); BASO % 1.5 % (0.0-1.0); EOS # 0.3 10^3/uL (0.0-0.5); EOS % 3.6 % (0.0-3.0); HEMATOCRIT 46.1 % (42.0-52.0); LYMPH # 2.3 10^3/uL (1.5-5.0); LYMPH % 28.2 % (24.0-44.0); MEAN CORPUSCULAR HEMOGLOBIN 28.6 pg (27.0-33.0); MEAN CORPUSCULAR HGB CONC 32.5 g/dl (32.0-36.5); MONO # 0.6 10^3/uL (0.0-0.8); MONO % 7.4 % (0.0-5.0); NEUTROPHILS # 4.7 10^3/uL (1.5-8.5); NEUTROPHILS % 59.1 % (36.0-66.0); PLATELET COUNT, AUTOMATED 300 10^3/uL (150-450); RED BLOOD COUNT 5.24 10^6/uL (4.30-6.10)
[2020-07-10 08:11] LABS: BLOOD UREA NITROGEN 15 MG/DL (7-18); CALCIUM LEVEL 9.9 MG/DL (8.5-10.1); CARBON DIOXIDE LEVEL 32 MEQ/L (21-32); CHLORIDE LEVEL 103 MEQ/L (98-107); CREATININE FOR GFR 0.87 MG/DL (0.70-1.30); GLOMERULAR FILTRATION RATE > 60.0 (>60); GLUCOSE, FASTING 93 MG/DL (70-100); POTASSIUM SERUM 3.8 MEQ/L (3.5-5.1); SODIUM LEVEL 141 MEQ/L (136-145)
[2020-07-10] MEDS: ATORVASTATIN 20 MG TAB PO SCH (10:01)
[2020-07-10] MEDS: PANTOPRAZOLE 40MG TAB (PROTONIX) PO SCH (10:01)
[2020-07-10] MEDS: ENOXAPARIN 40MG/0.4ML SYRINGE (J1650 PER 10MG) SC SCH (10:01)
[2020-07-10] MEDS: DOCUSATE SODIUM 100MG CAPSULE PO SCH ×2 (10:01→21:37)
[2020-07-10] MEDS: FLUoxetine 20 MG CAP PO SCH (10:02)
[2020-07-10] MEDS: ASPIRIN 81 MG ENTERIC TAB PO SCH (10:02)
[2020-07-10] MEDS: CLOPIDOGREL 75 MG TAB PO SCH (10:02)
[2020-07-10] MEDS: REMEDY PHYTOPLEX Z-GUARD PASTE 113GM TUBE (FROM STOREROOM PRODUCT) TOP SCH ×3 (10:02→21:38)
[2020-07-10 14:00] VITALS: BP 129/81
[2020-07-10 20:30] VITALS: BP 132/82
[2020-07-10] MEDS: SENNA 8.6 MG TAB (SENOKOT) PO SCH (21:37)
[2020-07-11 06:05] VITALS: BP 119/78
[2020-07-11] MEDS: ASPIRIN 81 MG ENTERIC TAB PO SCH (08:46)
[2020-07-11] MEDS: PANTOPRAZOLE 40MG TAB (PROTONIX) PO SCH (08:46)
[2020-07-11] MEDS: CLOPIDOGREL 75 MG TAB PO SCH (08:46)
[2020-07-11] MEDS: FLUoxetine 20 MG CAP PO SCH (08:46)
[2020-07-11] MEDS: ENOXAPARIN 40MG/0.4ML SYRINGE (J1650 PER 10MG) SC SCH (08:46)
[2020-07-11] MEDS: DOCUSATE SODIUM 100MG CAPSULE PO SCH ×2 (08:46→20:47)
[2020-07-11] MEDS: ATORVASTATIN 20 MG TAB PO SCH (08:46)
[2020-07-11] MEDS: REMEDY PHYTOPLEX Z-GUARD PASTE 113GM TUBE (FROM STOREROOM PRODUCT) TOP SCH ×3 (08:47→20:48)
[2020-07-11] MEDS: ACETAMINOPHEN TAB 650MG DOSE (2X325MG) PO PRN ×2 (13:51→21:59)
[2020-07-11 14:00] VITALS: BP 139/87
--- NOTE | 2020-07-11 16:46 | CR ---
CONSULTATION DATE: 07/11/2020 REFERRING PHYSICIAN: Dr. Jody Brian REASON FOR CONSULTATION: Worsening speech and swallowing. HISTORY OF PRESENT ILLNESS: Luiz Jerez is a 45-year-old man with history of right hemiparesis caused by brainstem ischemic stroke in 2011 with PFO closure. His symptoms slowly improved over last 9-10 years but he was able to walk. He went to [facility] on July 01, 2020 with worsening walking, gait difficulty and new left-sided weakness. He was transferred to [facility] for MRI of brain for ischemic stroke. Initial MRI scan of brain on July 01, 2020 on my review showed right medullary ischemic stroke but it was reported as no acute cerebral infarction or hemorrhage with possible periependymal T2 hyperintensity surrounding third ventricle and frontal horns with concern for neuromyelitis optica spectrum disorders. The patient had MRI, cervical, thoracic and lumbar spine which showed only cervical spondylosis without any spinal cord lesions. It was affected by motion artifact. The patient had a repeat MRI scant of brain on July 02, 2020 and July 05, 2020 and last MRI scan of the brain reportedly showed a right medullary acute stroke. The patient had undergone lumbar puncture which showed slightly elevated CS of protein. His blood tests for coagulopathy and vasculopathy were unremarkable. These tests were done in 2012 with his initial stroke. These tests were repeated during this admission and are pending. The patient was admitted for acute rehabilitation. During rehabilitation, he was noted to have slight worsening of his speech and swallowing. His voice became softer. Dr. Fang repeated MRI scan, cervical-thoracic spine with contrast which were unremarkable. I was consulted for these complaints and recommended MRI scan of brain due to concern for extension of his new stroke. Dr. Fang was also concerned if patient had motor neuron disease such as ALS due to upper motor neuron signs in both lower extremities which I advised were explained by bilateral brainstem ischemic strokes. ALS does not present with acute symptoms and MRI scans do not show ischemic strokes in ALS. The patient himself states that he is slowly getting better. He is getting physical therapy and getting stronger. The patient himself did not voice worsening of his speech and swallowing. He is getting speech and swallow evaluation and therapy. DIAGNOSTIC STUDIES: Multiple MRI scans of brain and spine were reviewed and are summarized above. CBC, metabolic profile were unremarkable. I also ordered acetylcholine receptor antibody, MUSK antibody, ANCA, TSH in addition to his repeat coagulopathy and vasculopathy tests. PAST MEDICAL HISTORY: Old left-sided brain stem ischemic stroke causing right-sided paresis with new right medullary ischemic stroke, PFO closure in 2011, dyslipidemia. HOME MEDICATIONS: 1. Aspirin 81 mg p.o. daily. 2. He was started on Plavix 75 mg p.o. daily. 3. Lipitor 40 mg p.o. daily. 4. Protonix 40 mg p.o. daily. 5. Baclofen 20 mg p.o. daily p.r.n. ALLERGIES: None. SOCIAL HISTORY: He denies smoking, alcohol or illicit drugs. FAMILY HISTORY: The patient is adopted. REVIEW OF SYSTEMS: All systems were reviewed and found to be noncontributory except as mentioned in history of present illness. PHYSICAL EXAMINATION: VITAL SIGNS: Temperature 98.1, pulse 97, respiratory rate 18, blood pressure 132/88, 97% saturation on room air. HEART: Regular rate and rhythm. LUNGS: Clear to auscultation. ABDOMEN: Soft, nontender, nondistended. EXTREMITIES: No pedal edema. MUSCULOSKELETAL: No abnormalities. SKIN: No rash. NEUROLOGICAL: No signs of meningeal irritation. The patient is awake, alert, oriented to place, person and time. His speech is slightly dysphonic. No facial weakness. Tongue and uvula are midline. Extraocular muscles are intact. Tongue and uvula midline. 4/5 strength on right side. Left leg strength is 2/5 throughout and left arm strength is 2-3/5 in left deltoid, biceps, triceps, finger, hand extension and flexion. Deep tendon reflexes are 3+ throughout. Gait is not tested. He has slight dysmetria on the left side. ASSESSMENT: 1. New right medullary ischemic stroke. 2. Old left brainstem ischemic stroke causing right hemiparesis. 3. History of PFO which was closed in 2011. PLAN: 1. MRI of brain to rule out extension of his new right medullary ischemic stroke. 2. Continue physical, occupational, speech therapy. 3. Plavix 75 mg p.o. daily. Aspirin 81 mg qd. 4. Lipitor 40 mg p.o. daily. 5. ALS or neuromyelitis optica are unlikely. 6. Await results of his extensive blood tests and most of these were done in 2012 as well. We will also rule out myasthenia gravis which is also highly unlikely as it does not present with ischemic strokes. 7. Follow with our office in 1-2 weeks after hospital discharge. TIAGO
[2020-07-11 20:00] VITALS: BP 116/72
[2020-07-11] MEDS: SENNA 8.6 MG TAB (SENOKOT) PO SCH (20:47)
[2020-07-12 06:08] VITALS: BP 116/75
[2020-07-12] MEDS: REMEDY PHYTOPLEX Z-GUARD PASTE 113GM TUBE (FROM STOREROOM PRODUCT) TOP SCH ×3 (09:00→20:34)
[2020-07-12] MEDS: DOCUSATE SODIUM 100MG CAPSULE PO SCH ×2 (09:15→20:34)
[2020-07-12] MEDS: PANTOPRAZOLE 40MG TAB (PROTONIX) PO SCH (09:15)
[2020-07-12] MEDS: ATORVASTATIN 20 MG TAB PO SCH (09:15)
[2020-07-12] MEDS: FLUoxetine 20 MG CAP PO SCH (09:15)
[2020-07-12] MEDS: ACETAMINOPHEN TAB 650MG DOSE (2X325MG) PO PRN ×2 (09:15→20:34)
[2020-07-12] MEDS: CLOPIDOGREL 75 MG TAB PO SCH (09:16)
[2020-07-12] MEDS: ENOXAPARIN 40MG/0.4ML SYRINGE (J1650 PER 10MG) SC SCH (09:16)
[2020-07-12] MEDS: ASPIRIN 81 MG ENTERIC TAB PO SCH (09:16)
[2020-07-12 14:00] VITALS: BP 122/79
[2020-07-12 20:00] VITALS: BP 129/87
[2020-07-12] MEDS: SENNA 8.6 MG TAB (SENOKOT) PO SCH (20:34)
[2020-07-13 05:52] VITALS: BP 125/83
[2020-07-13 07:59] LABS: BASO # 0.1 10^3/uL (0.0-0.2); EOS # 0.3 10^3/uL (0.0-0.5); EOS % 2.3 % (0.0-3.0); HEMATOCRIT 45.5 % (42.0-52.0); HEMOGLOBIN 14.7 g/dl (13.5-17.5); LYMPH # 2.4 10^3/uL (1.5-5.0); LYMPH % 21.8 % (24.0-44.0); MEAN CORPUSCULAR HEMOGLOBIN 28.9 pg (27.0-33.0); MEAN CORPUSCULAR HGB CONC 32.3 g/dl (32.0-36.5); MEAN CORPUSCULAR VOLUME 89.4 fl (80.0-96.0); MONO # 0.7 10^3/uL (0.0-0.8); MONO % 6.1 % (0.0-5.0); NEUTROPHILS # 7.5 10^3/uL (1.5-8.5); NEUTROPHILS % 68.5 % (36.0-66.0); PLATELET COUNT, AUTOMATED 337 10^3/uL (150-450); RED BLOOD COUNT 5.09 10^6/uL (4.30-6.10); WHITE BLOOD COUNT 10.9 10^3/uL (4.0-10.0)
[2020-07-13] MEDS: ASPIRIN 81 MG ENTERIC TAB PO SCH (08:11)
[2020-07-13] MEDS: ATORVASTATIN 20 MG TAB PO SCH (08:11)
[2020-07-13] MEDS: CLOPIDOGREL 75 MG TAB PO SCH (08:11)
[2020-07-13] MEDS: ENOXAPARIN 40MG/0.4ML SYRINGE (J1650 PER 10MG) SC SCH (08:11)
[2020-07-13] MEDS: FLUoxetine 20 MG CAP PO SCH (08:11)
[2020-07-13] MEDS: DOCUSATE SODIUM 100MG CAPSULE PO SCH ×2 (08:12→21:12)
[2020-07-13 08:13] LABS: BLOOD UREA NITROGEN 18 MG/DL (7-18); CALCIUM LEVEL 9.6 MG/DL (8.5-10.1); CARBON DIOXIDE LEVEL 29 MEQ/L (21-32); CHLORIDE LEVEL 101 MEQ/L (98-107); CREATININE FOR GFR 0.89 MG/DL (0.70-1.30); GLOMERULAR FILTRATION RATE > 60.0 (>60); GLUCOSE, FASTING 90 MG/DL (70-100); POTASSIUM SERUM 4.3 MEQ/L (3.5-5.1); SODIUM LEVEL 138 MEQ/L (136-145)
[2020-07-13] MEDS: PANTOPRAZOLE 40MG TAB (PROTONIX) PO SCH (08:13)
[2020-07-13] MEDS: REMEDY PHYTOPLEX Z-GUARD PASTE 113GM TUBE (FROM STOREROOM PRODUCT) TOP SCH ×3 (08:18→21:13)
[2020-07-13 14:00] VITALS: BP 141/83
[2020-07-13 20:00] VITALS: BP 128/90
[2020-07-13] MEDS: BACLOFEN 10 MG TAB PO SCH (21:12)
[2020-07-13] MEDS: SENNA 8.6 MG TAB (SENOKOT) PO SCH (21:12)
[2020-07-13] MEDS: ACETAMINOPHEN TAB 650MG DOSE (2X325MG) PO PRN (21:13)
[2020-07-14 05:11] VITALS: BP 138/75
[2020-07-14 06:59] LABS: BASO # 0.1 10^3/uL (0.0-0.2); BASO % 1.1 % (0.0-1.0); EOS # 0.2 10^3/uL (0.0-0.5); HEMATOCRIT 46.3 % (42.0-52.0); LYMPH # 2.4 10^3/uL (1.5-5.0); LYMPH % 21.4 % (24.0-44.0); MEAN CORPUSCULAR HEMOGLOBIN 29.2 pg (27.0-33.0); MEAN CORPUSCULAR HGB CONC 32.4 g/dl (32.0-36.5); MEAN CORPUSCULAR VOLUME 90.3 fl (80.0-96.0); MONO # 0.7 10^3/uL (0.0-0.8); NEUTROPHILS # 7.7 10^3/uL (1.5-8.5); NEUTROPHILS % 69.1 % (36.0-66.0); PLATELET COUNT, AUTOMATED 334 10^3/uL (150-450); RED BLOOD COUNT 5.13 10^6/uL (4.30-6.10); WHITE BLOOD COUNT 11.2 10^3/uL (4.0-10.0)
[2020-07-14] MEDS: FLUoxetine 20 MG CAP PO SCH (08:23)
[2020-07-14] MEDS: DOCUSATE SODIUM 100MG CAPSULE PO SCH ×2 (08:23→20:38)
[2020-07-14] MEDS: CLOPIDOGREL 75 MG TAB PO SCH (08:23)
[2020-07-14] MEDS: ATORVASTATIN 20 MG TAB PO SCH (08:23)
[2020-07-14] MEDS: PANTOPRAZOLE 40MG TAB (PROTONIX) PO SCH (08:23)
[2020-07-14] MEDS: ASPIRIN 81 MG ENTERIC TAB PO SCH (08:23)
[2020-07-14] MEDS: ENOXAPARIN 40MG/0.4ML SYRINGE (J1650 PER 10MG) SC SCH (08:24)
[2020-07-14] MEDS: REMEDY PHYTOPLEX Z-GUARD PASTE 113GM TUBE (FROM STOREROOM PRODUCT) TOP SCH ×3 (08:24→20:38)
--- NOTE | 2020-07-14 09:40 | IPNPDOC ---
PM&R Progress Note DATE OF SERVICE: Jul 13, 2020 Designer Writer Progress Note Subjective- Patient reporting he he feels his voice is getting louder, that he is having spasms at night and would like to try taking baclofen. REVIEW OF SYSTEMS: The following is a completed review of systems and has been reviewed. Review of systems otherwise unremarkable. PAIN: Patient self reports no pain EYES: No recent vision changes EARS, NOSE, & THROAT: +dysphagia, +hypophonia CARDIOVASCULAR: Denies chest pain or palpitations PULMONARY: Denies shortness of breath GASTROINTESTINAL: Denies constipation/diarrhea GENITOURINARY: denies dysuria MUSCULOSKELETAL: +paresis in all 4 limbs NEUROLOGICAL: +paresis in all 4 limbs HEMATOLOGICAL: denies easy bruising SKIN: denies rash PSYCHIATRIC: Unremarkable All other review of systems found to be negative. PHYSICAL EXAMINATION: VITAL SIGNS: Please see below. GENERAL: Pleasant and cooperative. No acute distress. thin HEENT: PERRL. Extraocular movements intact. Clear conjunctiva, +hypophonia, tongue midline, no facial droop, left sided ptosis CARDIOVASCULAR: Regular rate and rhythm. No murmurs, rubs, or gallops LUNGS: decreased breath sounds, weak inspiratory effort ABDOMEN: Soft, nontender, nondistended. Positive bowel sounds. Normal active bowel sounds NEUROLOGICAL: Alert and oriented times three. CN IX-X impairment, Sensation intact to light touch bilat face, left arm, bilat legs, slightly decreased right arm/hand +clonus bilat +Babinksi bilat +spasticity RUE and RLE EXTREMITIES: 3/5 LUE, 2/5 left hip flexion, knee extension, 0/5 left ankle DF/EHL/PF 3+/5 RUE, 3+/5 right hip flexion, knee extension, DF/EHL/PF SKIN: sacral erythema, blanchable ASSESSMENT:45-year-old M with past medical history of CVA who presents status post new right medullary infarct PLAN: 1. 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 CArdiac- HLD c/u statin -medicine consulted to assist in overall management 4. Resp- monitor for infection, hx of pneumothorax, will consuider CXR if leukocytosis does not improve, patient denies fevers/chills, still with poor cough, will order acapella 5. GI ppx- protonix 6. DVT ppx- lovenox 7. Pain- Tylenol prn, will add baclofen 10mg qHS for spasms, patient was on 20mg prn dose at home 8. - monitor PVrs 9. Dispo- TBD Allergies Coded Allergies: No Known Allergies (Unverified , 07/01/20) Vital Signs Vital Signs Date Time Temp Pulse Resp B/P (MAP) Pulse Ox O2 Delivery O2 Flow Rate FiO2 07/14/20 05:11 98.1 105 17 138/75 (96) 97 Room Air Laboratory Data CBC/BMP Laboratory Tests 07/14/20 06:42 Labs 24H Laboratory Tests 2 07/14/20 06:42: Immature Granulocyte % (Auto) 0.4, Neutrophils (%) (Auto) 69.1H, Lymphocytes (%) (Auto) 21.4L, Monocytes (%) (Auto) 6.0H, Eosinophils (%) (Auto) 2.0, Basophils (%) (Auto) 1.1H, Neutrophils # (Auto) 7.7, Lymphocytes # (Auto) 2.4, Monocytes # (Auto) 0.7, Eosinophils # (Auto) 0.2, Basophils # (Auto) 0.1, Nucleated Red Blood Cells % (auto) 0.0 Current Medications Current Medications Current Medications Medications (Trade) Dose Ordered Sig/Juan Luis Route PRN Reason Start Time Stop Time Status Last Admin Dose Admin Acetaminophen (Tylenol Tab) 650 mg Q4HP PRN PO fever/MILD PAIN (PS 1-4) 07/07/20 12:15 07/13/20 21:13 Aspirin (Ecotrin) 81 mg DAILY PO 07/08/20 09:00 07/14/20 08:23 Atorvastatin Calcium (Lipitor) 40 mg DAILY PO 07/08/20 09:00 07/14/20 08:23 Baclofen (Lioresal) 10 mg QHS PO 07/13/20 21:00 07/13/20 21:12 Bisacodyl (Dulcolax Suppository) 10 mg DAILYPRN PRN [place] CONSTIPATION 07/07/20 12:15 Clopidogrel Bisulfate (PLAVix) 75 mg DAILY PO 07/08/20 09:00 07/14/20 08:23 Docusate Sodium (Colace) 100 mg BID PO 07/07/20 21:00 07/14/20 08:23 Enoxaparin Sodium (Lovenox) 40 mg DAILY SC 07/08/20 09:00 07/14/20 08:24 Fluoxetine HCl (PROzac) 20 mg DAILY PO 07/10/20 09:00 07/14/20 08:23 Ondansetron HCl (Zofran) 4 mg Q6HP PRN PO NAUSEA 07/07/20 12:15 Pantoprazole Sodium (Protonix) 40 mg DAILY PO 07/08/20 09:00 07/14/20 08:23 Senna (Senokot) 1 tab QHS PO 07/07/20 21:00 07/13/20 21:12 HETAL CHRISTENSEN MD Jul 14, 2020 09:40
--- NOTE | 2020-07-14 09:40 | IPNPDOC ---
PM&R Progress Note DATE OF SERVICE: Jul 14, 2020 Head Of Marketing Analytics Progress Note Subjective- Patient reporting the baclofen dose is helping him to sleep and that his left arm continues to feel stronger. REVIEW OF SYSTEMS: The following is a completed review of systems and has been reviewed. Review of systems otherwise unremarkable. PAIN: Patient self reports no pain EYES: No recent vision changes EARS, NOSE, & THROAT: +dysphagia, +hypophonia (improving) CARDIOVASCULAR: Denies chest pain or palpitations PULMONARY: Denies shortness of breath GASTROINTESTINAL: Denies constipation/diarrhea GENITOURINARY: denies dysuria MUSCULOSKELETAL: +paresis in all 4 limbs NEUROLOGICAL: +paresis in all 4 limbs HEMATOLOGICAL: denies easy bruising SKIN: denies rash PSYCHIATRIC: Unremarkable All other review of systems found to be negative. PHYSICAL EXAMINATION: VITAL SIGNS: Please see below. GENERAL: Pleasant and cooperative. No acute distress. thin HEENT: PERRL. Extraocular movements intact. Clear conjunctiva, +hypophonia, tongue midline, no facial droop, left sided ptosis CARDIOVASCULAR: Regular rate and rhythm. No murmurs, rubs, or gallops LUNGS: decreased breath sounds, weak inspiratory effort ABDOMEN: Soft, nontender, nondistended. Positive bowel sounds. Normal active bowel sounds NEUROLOGICAL: Alert and oriented times three. CN IX-X impairment, Sensation intact to light touch bilat face, left arm, bilat legs, slightly decreased right arm/hand +clonus bilat +Babinksi bilat +spasticity RUE and RLE EXTREMITIES: 3/5 LUE, 2/5 left hip flexion, knee extension, 0/5 left ankle DF/EHL/PF 3+/5 RUE, 3+/5 right hip flexion, knee extension, DF/EHL/PF SKIN: sacral erythema, blanchable ASSESSMENT:45-year-old M with past medical history of CVA who presents status post new right medullary infarct PLAN: 1. Rehab- PT/OT advance mobility and ADLs, strengthen/stretch/maintain ROM all 4 limbs -TUBE OPERATOR for cog and repeat swallow eval given waxing and waning nature of his deficits- have downgraded to puree and nectar thins until evaluated by speech again as concern for worsening dysphagia 2. 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 CArdiac- HLD c/u statin -medicine consulted to assist in overall management 4. Resp- monitor for infection, hx of pneumothorax, mild leukocytosis, CXR negative for infiltrate, c/u to monitor, patient denies fevers or chills 5. GI ppx- protonix 6. DVT ppx- lovenox 7. Pain- Tylenol prn, c/u baclofen 10mg qHS for spasms 8. - monitor PVrs-patient incontinent 9. Dispo- 07-30-20, progressing slowly towards goals, will likely need power wheelchair Allergies Coded Allergies: No Known Allergies (Unverified , 07/01/20) Vital Signs Vital Signs Date Time Temp Pulse Resp B/P (MAP) Pulse Ox O2 Delivery O2 Flow Rate FiO2 07/14/20 05:11 98.1 105 17 138/75 (96) 97 Room Air Laboratory Data CBC/BMP Laboratory Tests 07/14/20 06:42 Labs 24H Laboratory Tests 2 07/14/20 06:42: Immature Granulocyte % (Auto) 0.4, Neutrophils (%) (Auto) 69.1H, Lymphocytes (%) (Auto) 21.4L, Monocytes (%) (Auto) 6.0H, Eosinophils (%) (Auto) 2.0, Basophils (%) (Auto) 1.1H, Neutrophils # (Auto) 7.7, Lymphocytes # (Auto) 2.4, Monocytes # (Auto) 0.7, Eosinophils # (Auto) 0.2, Basophils # (Auto) 0.1, Nucleated Red Blood Cells % (auto) 0.0 Current Medications Current Medications Current Medications Medications (Trade) Dose Ordered Sig/Juan Luis Route PRN Reason Start Time Stop Time Status Last Admin Dose Admin Acetaminophen (Tylenol Tab) 650 mg Q4HP PRN PO fever/MILD PAIN (PS 1-4) 07/07/20 12:15 07/13/20 21:13 Aspirin (Ecotrin) 81 mg DAILY PO 07/08/20 09:00 07/14/20 08:23 Atorvastatin Calcium (Lipitor) 40 mg DAILY PO 07/08/20 09:00 07/14/20 08:23 Baclofen (Lioresal) 10 mg QHS PO 07/13/20 21:00 07/13/20 21:12 Bisacodyl (Dulcolax Suppository) 10 mg DAILYPRN PRN [place] CONSTIPATION 07/07/20 12:15 Clopidogrel Bisulfate (PLAVix) 75 mg DAILY PO 07/08/20 09:00 07/14/20 08:23 Docusate Sodium (Colace) 100 mg BID PO 07/07/20 21:00 07/14/20 08:23 Enoxaparin Sodium (Lovenox) 40 mg DAILY SC 07/08/20 09:00 07/14/20 08:24 Fluoxetine HCl (PROzac) 20 mg DAILY PO 07/10/20 09:00 07/14/20 08:23 Ondansetron HCl (Zofran) 4 mg Q6HP PRN PO NAUSEA 07/07/20 12:15 Pantoprazole Sodium (Protonix) 40 mg DAILY PO 07/08/20 09:00 07/14/20 08:23 Senna (Senokot) 1 tab QHS PO 07/07/20 21:00 07/13/20 21:12 HETAL CHRISTENSEN MD Jul 14, 2020 09:40
--- NOTE | 2020-07-14 13:06 | REP ---
INDICATION: r/o infiltrate COMPARISON: 07/09/2020. TECHNIQUE: PA/Lateral FINDINGS: Lungs: Clear, no infiltrate. There is mild biapical pleural thickening unchanged. Heart: Normal in size. Mediastinum: Mediastinal silhouette unremarkable. Pleural angles: Unremarkable.. Bones and soft tissues: Unremarkable. Previously noted intracardiac closure device again seen. IMPRESSION: No acute pulmonary disease. <Electronically signed by Taj Land > 07/14/20 1302
[2020-07-14 14:00] VITALS: BP 130/80
[2020-07-14 20:00] VITALS: BP 128/86
[2020-07-14] MEDS: BACLOFEN 10 MG TAB PO SCH (20:38)
[2020-07-14] MEDS: SENNA 8.6 MG TAB (SENOKOT) PO SCH (20:38)
[2020-07-14] MEDS: ACETAMINOPHEN TAB 650MG DOSE (2X325MG) PO PRN (20:38)
[2020-07-15 05:00] VITALS: BP 128/86
[2020-07-15 07:32] LABS: BASO # 0.1 10^3/uL (0.0-0.2); BASO % 0.3 % (0.0-1.0); EOS # 0.1 10^3/uL (0.0-0.5); EOS % 0.4 % (0.0-3.0); HEMOGLOBIN 15.7 g/dl (13.5-17.5); LYMPH % 12.3 % (24.0-44.0); MEAN CORPUSCULAR HEMOGLOBIN 28.4 pg (27.0-33.0); MEAN CORPUSCULAR VOLUME 88.8 fl (80.0-96.0); MONO # 0.7 10^3/uL (0.0-0.8); MONO % 4.1 % (0.0-5.0); NEUTROPHILS # 13.3 10^3/uL (1.5-8.5); NEUTROPHILS % 82.5 % (36.0-66.0); PLATELET COUNT, AUTOMATED 408 10^3/uL (150-450); RED BLOOD COUNT 5.52 10^6/uL (4.30-6.10); WHITE BLOOD COUNT 16.1 10^3/uL (4.0-10.0)
[2020-07-15 07:44] LABS: BLOOD UREA NITROGEN 19 MG/DL (7-18); CARBON DIOXIDE LEVEL 29 MEQ/L (21-32); CHLORIDE LEVEL 99 MEQ/L (98-107); CREATININE FOR GFR 0.84 MG/DL (0.70-1.30); GLOMERULAR FILTRATION RATE > 60.0 (>60); GLUCOSE, FASTING 88 MG/DL (70-100); POTASSIUM SERUM 4.3 MEQ/L (3.5-5.1); SODIUM LEVEL 137 MEQ/L (136-145)
[2020-07-15] MEDS: ATORVASTATIN 20 MG TAB PO SCH (08:29)
[2020-07-15] MEDS: ASPIRIN 81 MG ENTERIC TAB PO SCH (08:29)
[2020-07-15] MEDS: DOCUSATE SODIUM 100MG CAPSULE PO SCH (08:29)
[2020-07-15] MEDS: FLUoxetine 20 MG CAP PO SCH (08:29)
[2020-07-15] MEDS: PANTOPRAZOLE 40MG TAB (PROTONIX) PO SCH (08:29)
[2020-07-15] MEDS: CLOPIDOGREL 75 MG TAB PO SCH (08:29)
[2020-07-15] MEDS: ENOXAPARIN 40MG/0.4ML SYRINGE (J1650 PER 10MG) SC SCH (08:30)
[2020-07-15] MEDS: REMEDY PHYTOPLEX Z-GUARD PASTE 113GM TUBE (FROM STOREROOM PRODUCT) TOP SCH ×3 (08:30→20:17)
[2020-07-15] MEDS ORDERED: diphenhydrAMINE 25MG CAP PO ONE (10:00)
[2020-07-15] MEDS ORDERED: ONDANSETRON 4 MG ORAL DISINTEGRATING TAB SL PRN (11:15)
--- NOTE | 2020-07-15 12:24 | IPNPDOC ---
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 he received Benadryl this morning with improvement in itchiness and swelling, followed by dry heaving. He reports he is having loose stools, denies dysuria, however continues to be incontinent. He denies fevers, cough, or chills. REVIEW OF SYSTEMS: The following is a completed review of systems and has been reviewed. Review of systems otherwise unremarkable. PAIN: Patient self reports no pain EYES: No recent vision changes EARS, NOSE, & THROAT: +dysphagia, +hypophonia (improving) CARDIOVASCULAR: Denies chest pain or palpitations PULMONARY: Denies shortness of breath GASTROINTESTINAL: +loose stools GENITOURINARY: denies dysuria MUSCULOSKELETAL: +paresis in all 4 limbs NEUROLOGICAL: +paresis in all 4 limbs HEMATOLOGICAL: denies easy bruising SKIN: rash bilat UE and LE PSYCHIATRIC: Unremarkable All other review of systems found to be negative. PHYSICAL EXAMINATION: VITAL SIGNS: Please see below. GENERAL: Pleasant and cooperative. No acute distress. thin HEENT: PERRL. Extraocular movements intact. Clear conjunctiva, +hypophonia, tongue midline, no facial droop, left sided ptosis CARDIOVASCULAR: Regular rate and rhythm. No murmurs, rubs, or gallops LUNGS: decreased breath sounds, weak inspiratory effort ABDOMEN: +mild TTP RLQ, no distension, normal bowel sounds NEUROLOGICAL: Alert and oriented times three. CN IX-X impairment, Sensation intact to light touch bilat face, left arm, bilat legs, slightly decreased right arm/hand +clonus bilat +Babinksi bilat +spasticity RUE and RLE EXTREMITIES: 3/5 LUE, 2/5 left hip flexion, knee extension, 0/5 left ankle DF/EHL/PF 3+/5 RUE, 3+/5 right hip flexion, knee extension, DF/EHL/PF SKIN: RUE and bilat LE with macular papular lesions ASSESSMENT:45-year-old M with past medical history of CVA who presents status post new right medullary infarct PLAN: 1. 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 CArdiac- HLD c/u statin -medicine consulted to assist in overall management 4. Resp- monitor for infection, hx of pneumothorax, CXR 07-14-20 negative for infiltrate, c/u to monitor, patient denies fevers or chills 5. GI ppx- protonix 6. DVT ppx- lovenox 7. Pain- Tylenol prn, c/u baclofen 10mg qHS for spasms 8. - monitor PVrs-patient incontinent 9. Leukocytosis- wbc today 16, possibly inflammatory response from rash, however ordered UA with blood cultures, will hold off on C diff after 24hr off bowel meds, Resp panel also ordered to r/o possible Covid mediated rash, will avoid body lotion and CHG baths and see if rash/itching resolves -will order CT chest if urine work-up negative, recent CXR negative for inf iltrate -KUB ordered to check for fecal retention/obstruction 10. Dispo- 07-30-20, progressing slowly towards goals, will likely need power wheelchair Allergies Coded Allergies: No Known Allergies (Unverified , 07/01/20) Vital Signs Vital Signs Date Time Temp Pulse Resp B/P (MAP) Pulse Ox O2 Delivery O2 Flow Rate FiO2 07/15/20 06:00 118 Room Air 07/15/20 05:00 98.5 19 128/86 (100) 92 Laboratory Data CBC/BMP Laboratory Tests 07/15/20 06:35 Labs 24H Laboratory Tests 2 07/15/20 06:35: Immature Granulocyte % (Auto) 0.4, Neutrophils (%) (Auto) 82.5H, Lymphocytes (%) (Auto) 12.3L, Monocytes (%) (Auto) 4.1, Eosinophils (%) (Auto) 0.4, Basophils (%) (Auto) 0.3, Neutrophils # (Auto) 13.3H, Lymphocytes # (Auto) 2.0, Monocytes # (Auto) 0.7, Eosinophils # (Auto) 0.1, Basophils # (Auto) 0.1, Nucleated Red Blood Cells % (auto) 0.0, Anion Gap 9, Glomerular Filtration Rate > 60.0, Calcium Level 10.0 Microbiology Microbiology 07/15/20 Blood Culture, Received Pending 07/15/20 Blood Culture, Received Pending 07/15/20 Respiratory Virus Panel (PCR) ([facility]), Received Pending Current Medications Current Medications Current Medications Medications (Trade) Dose Ordered Sig/Juan Luis Route PRN Reason Start Time Stop Time Status Last Admin Dose Admin Acetaminophen (Tylenol Tab) 650 mg Q4HP PRN PO fever/MILD PAIN (PS 1-4) 07/07/20 12:15 07/14/20 20:38 Aspirin (Ecotrin) 81 mg DAILY PO 07/08/20 09:00 07/15/20 08:29 Atorvastatin Calcium (Lipitor) 40 mg DAILY PO 07/08/20 09:00 07/15/20 08:29 Baclofen (Lioresal) 10 mg QHS PO 07/13/20 21:00 07/15/20 11:10 DC 07/14/20 20:38 Bisacodyl (Dulcolax Suppository) 10 mg DAILYPRN PRN [place] CONSTIPATION 07/07/20 12:15 Clopidogrel Bisulfate (PLAVix) 75 mg DAILY PO 07/08/20 09:00 07/15/20 08:29 Docusate Sodium (Colace) 100 mg BID PO 07/07/20 21:00 07/15/20 11:28 DC 07/15/20 08:29 Enoxaparin Sodium (Lovenox) 40 mg DAILY SC 07/08/20 09:00 07/15/20 08:30 Fluoxetine HCl (PROzac) 20 mg DAILY PO 07/10/20 09:00 07/15/20 08:29 Ondansetron HCl (Zofran Odt) 4 mg Q4HP PRN SL NAUSEA OR VOMITING 07/15/20 11:15 07/15/20 11:15 Ondansetron HCl (Zofran) 4 mg Q6HP PRN PO NAUSEA 07/07/20 12:15 Pantoprazole Sodium (Protonix) 40 mg DAILY PO 07/08/20 09:00 07/15/20 08:29 Senna (Senokot) 1 tab QHS PO 07/07/20 21:00 07/15/20 11:28 DC 07/14/20 20:38 HETAL CHRISTENSEN MD Jul 15, 2020 12:24
--- NOTE | 2020-07-15 12:56 | REP ---
INDICATION: nausea/ r/o obstruction. COMPARISON: None. TECHNIQUE: Two AP views abdomen and pelvis. FINDINGS: No evidence of bowel obstruction. There is no significant bowel dilatation. Metallic clips are seen in the right lower quadrant. Visualized osseous structures are unremarkable. IMPRESSION: No evidence of bowel obstruction. <Electronically signed by Taj Land > 07/15/20 [id number]
[2020-07-15 14:00] VITALS: BP 132/84
[2020-07-15] MEDS: hydrOXYzine 25 MG TAB PO PRN (18:20)
--- NOTE | 2020-07-15 18:29 | REP ---
INDICATION: r/o infiltrate COMPARISON: None TECHNIQUE: Axial noncontrast images from the thoracic inlet to the upper abdomen with coronal and sagittal reformations. This CT examination was performed using the following dose reduction techniques: Automated exposure control, adjustment of mA and/or kv according to the patient's size, and use of iterative reconstruction technique. FINDINGS: Fibrotic scarring at the right apex with traction bronchiectasis along with minimal left apical scarring. Remainder of lung parker are relatively well aerated and essentially clear. No acute consolidation, significant nodule or mass lesion. No pleural effusion. No pneumothorax. No obvious axillary, hilar, or mediastinal adenopathy. Further evaluation of the mediastinum demonstrates relatively normal thoracic aorta, pulmonary vasculature, and heart/pericardium. Skeletal structures are intact. Upper abdomen demonstrates normal bilateral adrenal glands. IMPRESSION: 1. Presumed biapical scarring (right greater than left) as described above. 2. No further acute mediastinal or pleuroparenchymal process appreciated. 3. Consider follow-up examination in 6-9 months has no prior examinations are available for comparison. <Electronically signed by Roney Lafleur > 07/15/20 [id number]
[2020-07-15 20:00] VITALS: BP 139/95
[2020-07-16 06:00] VITALS: BP 125/75
[2020-07-16] MEDS: hydrOXYzine 25 MG TAB PO PRN (06:28)
[2020-07-16 07:14] LABS: BASO # 0.1 10^3/uL (0.0-0.2); BASO % 0.4 % (0.0-1.0); EOS # 0.1 10^3/uL (0.0-0.5); EOS % 0.7 % (0.0-3.0); HEMATOCRIT 46.5 % (42.0-52.0); LYMPH # 2.1 10^3/uL (1.5-5.0); LYMPH % 16.2 % (24.0-44.0); MEAN CORPUSCULAR HEMOGLOBIN 28.8 pg (27.0-33.0); MEAN CORPUSCULAR HGB CONC 32.3 g/dl (32.0-36.5); MEAN CORPUSCULAR VOLUME 89.4 fl (80.0-96.0); MONO # 0.6 10^3/uL (0.0-0.8); MONO % 4.3 % (0.0-5.0); NEUTROPHILS # 9.9 10^3/uL (1.5-8.5); NEUTROPHILS % 77.9 % (36.0-66.0); PLATELET COUNT, AUTOMATED 402 10^3/uL (150-450); WHITE BLOOD COUNT 12.7 10^3/uL (4.0-10.0)
[2020-07-16] MEDS: IPRATROPIUM 0.5MG/ALBUTEROL 2.5MG INH SOL UD 3ML (DUONEB) NEB SCH ×4 (08:00→20:02)
[2020-07-16] MEDS: ATORVASTATIN 20 MG TAB PO SCH (09:11)
[2020-07-16] MEDS: FLUoxetine 20 MG CAP PO SCH (09:11)
[2020-07-16] MEDS: PANTOPRAZOLE 40MG TAB (PROTONIX) PO SCH (09:11)
[2020-07-16] MEDS: ASPIRIN 81 MG ENTERIC TAB PO SCH (09:11)
[2020-07-16] MEDS: CLOPIDOGREL 75 MG TAB PO SCH (09:11)
[2020-07-16] MEDS: ENOXAPARIN 40MG/0.4ML SYRINGE (J1650 PER 10MG) SC SCH (09:12)
[2020-07-16] MEDS: REMEDY PHYTOPLEX Z-GUARD PASTE 113GM TUBE (FROM STOREROOM PRODUCT) TOP SCH ×3 (09:13→21:22)
--- NOTE | 2020-07-16 10:13 | IPNPDOC ---
PM&R Progress Note DATE OF SERVICE: Jul 16, 2020 [employer] Progress Note Subjective- Patient complaining of worsening sore throat, denies fevers or chills. REVIEW OF SYSTEMS: The following is a completed review of systems and has been reviewed. Review of systems otherwise unremarkable. PAIN: Patient self reports no pain EYES: No recent vision changes EARS, NOSE, & THROAT: +dysphagia, +hypophonia (improving) CARDIOVASCULAR: Denies chest pain or palpitations PULMONARY: Denies shortness of breath GASTROINTESTINAL: +loose stools GENITOURINARY: denies dysuria MUSCULOSKELETAL: +paresis in all 4 limbs NEUROLOGICAL: +paresis in all 4 limbs HEMATOLOGICAL: denies easy bruising SKIN: rash bilat UE and LE PSYCHIATRIC: Unremarkable All other review of systems found to be negative. PHYSICAL EXAMINATION: VITAL SIGNS: Please see below. GENERAL: Pleasant and cooperative. No acute distress. thin HEENT: PERRL. Extraocular movements intact. Clear conjunctiva, +hypophonia, tongue midline, no facial droop, left sided ptosis, no lymphadenopathy CARDIOVASCULAR: Regular rate and rhythm. No murmurs, rubs, or gallops LUNGS: decreased breath sounds, weak inspiratory effort ABDOMEN: +mild TTP RLQ, no distension, normal bowel sounds NEUROLOGICAL: Alert and oriented times three. CN IX-X impairment, Sensation intact to light touch bilat face, left arm, bilat legs, slightly decreased right arm/hand +clonus bilat +Babinksi bilat +spasticity RUE and RLE EXTREMITIES: 3/5 LUE, 2/5 left hip flexion, knee extension, 0/5 left ankle DF/EHL/PF 3+/5 RUE, 3+/5 right hip flexion, knee extension, DF/EHL/PF SKIN: resolved rash ASSESSMENT:45-year-old M with past medical history of CVA who presents status post new right medullary infarct PLAN: 1. 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 CArdiac- HLD c/u statin -medicine consulted to assist in overall management 4. Resp- monitor for infection, hx of pneumothorax, CXR 07-14-20 negative for infiltrate, c/u to monitor, patient denies fevers or chills -patient with peristent weak cough and shallow breathing likely due to Cranial nerve involvement of stroke 5. GI ppx- protonix 6. DVT ppx- lovenox -bilat UE and LE dopplers ordered for immobility and patient slightly tachypneic, low concern for PE, but wish to r/o DVTs 7. Pain- Tylenol prn, will start back baclofen at 5mg to avoid daytime weakness for spasms 8. - monitor PVrs-patient incontinent, UA negative 9. Leukocytosis- back up to 16, will start cefdinir for suspected pharyngitis and obtain rapid strep test and throat cx -body rash and loose stools has resolved will continue to avoid body lotion and CHG baths as patient likely had allergic reaction -UA negative, CT chest without infiltrate, resp-panel negative -pending blood cx results 10. Dispo- 07-30-20, progressing slowly towards goals, will possibly need power wheelchair Allergies Uncoded Allergies: phytoplex (Allergy, Intermediate, diffuse body rash, 07/17/20) Phytoplex purple cream Vital Signs Vital Signs Date Time Temp Pulse Resp B/P (MAP) Pulse Ox O2 Delivery O2 Flow Rate FiO2 07/16/20 06:00 98.8 101 18 125/75 (92) 96 Room Air Laboratory Data CBC/BMP Laboratory Tests 07/16/20 06:55 Labs 24H Laboratory Tests 2 07/15/20 11:19: Urine Color YELLOW, Urine Appearance HAZY, Urine pH 6.0, Urine Specific [place] 1.029, Urine Protein 2+H, Urine Glucose (UA) NEGATIVE, Urine Ketones 1+H, Urine Blood 1+H, Urine Nitrite NEGATIVE, Urine Bilirubin NEGATIVE, Urine Urobilinogen 2.0H, Urine Leukocyte Esterase NEGATIVE, Urine WBC (Auto) 3, Urine RBC (Auto) 6H, Urine Hyaline Casts (Auto) 1, Urine Bacteria (Auto) 1+H, Urine Squamous Epithelial Cells 0, Urine Mucus (Auto) SMALL, Urine Sperm (Auto) 07/16/20 06:55: Immature Granulocyte % (Auto) 0.5, Neutrophils (%) (Auto) 77.9H, Lymphocytes (%) (Auto) 16.2L, Monocytes (%) (Auto) 4.3, Eosinophils (%) (Auto) 0.7, Basophils (%) (Auto) 0.4, Neutrophils # (Auto) 9.9H, Lymphocytes # (Auto) 2.1, Monocytes # (Auto) 0.6, Eosinophils # (Auto) 0.1, Basophils # (Auto) 0.1, Nucleated Red Blood Cells % (auto) 0.0 Microbiology Microbiology 07/15/20 Blood Culture, Received Pending 07/15/20 Blood Culture, Received Pending 07/15/20 Respiratory Virus Panel (PCR) ([facility]) - Final, Complete Current Medications Current Medications Current Medications Medications (Trade) Dose Ordered Sig/Juan Luis Route PRN Reason Start Time Stop Time Status Last Admin Dose Admin Acetaminophen (Tylenol Tab) 650 mg Q4HP PRN PO fever/MILD PAIN (PS 1-4) 07/07/20 12:15 07/14/20 20:38 Aspirin (Ecotrin) 81 mg DAILY PO 07/08/20 09:00 07/16/20 09:11 Atorvastatin Calcium (Lipitor) 40 mg DAILY PO 07/08/20 09:00 07/16/20 09:11 Baclofen (Lioresal) 5 mg QHS PO 07/16/20 21:00 Baclofen (Lioresal) 10 mg QHS PO 07/13/20 21:00 07/15/20 11:10 DC 07/14/20 20:38 Bisacodyl (Dulcolax Suppository) 10 mg DAILYPRN PRN [place] CONSTIPATION 07/07/20 12:15 Clopidogrel Bisulfate (PLAVix) 75 mg DAILY PO 07/08/20 09:00 07/16/20 09:11 Docusate Sodium (Colace) 100 mg BID PO 07/07/20 21:00 07/15/20 11:28 DC 07/15/20 08:29 Enoxaparin Sodium (Lovenox) 40 mg DAILY SC 07/08/20 09:00 07/16/20 09:12 Fluoxetine HCl (PROzac) 20 mg DAILY PO 07/10/20 09:00 07/16/20 09:11 Hydroxyzine HCl (Atarax) 25 mg Q6HP PRN PO itch 07/15/20 12:15 07/16/20 06:28 Ondansetron HCl (Zofran Odt) 4 mg Q4HP PRN SL NAUSEA OR VOMITING 07/15/20 11:15 07/15/20 11:15 Ondansetron HCl (Zofran) 4 mg Q6HP PRN PO NAUSEA 07/07/20 12:15 07/15/20 12:14 DC Oxymetazoline HCl (Afrin) 2 spray ASDIRECTED PRN NA SEE LABEL COMMENTS 07/17/20 09:00 Pantoprazole Sodium (Protonix) 40 mg DAILY PO 07/08/20 09:00 07/16/20 09:11 Senna (Senokot) 1 tab QHS PO 07/07/20 21:00 07/15/20 11:28 DC 07/14/20 20:38 HETAL CHRISTENSEN MD Jul 16, 2020 10:13
[2020-07-16 11:30] VITALS: BP 116/82
[2020-07-16] MEDS: METOPROLOL TART 12.5 MG PER 1/2 TAB PO SCH ×2 (11:42→20:49)
[2020-07-16] MEDS: ACETAMINOPHEN TAB 650MG DOSE (2X325MG) PO PRN (11:43)
[2020-07-16 14:00] VITALS: BP 126/80
[2020-07-16 20:00] VITALS: BP 109/67
[2020-07-16] MEDS: LACTOBACILLUS ACIDOPHILUS CAP (BACID) PO SCH (21:22)
[2020-07-16] MEDS: CEFDINIR 300 MG CAP (OMNICEF) PO SCH (21:22)
[2020-07-16] MEDS: BACLOFEN 5MG PER 1/2 TABLET PO SCH (21:22)
[2020-07-17 06:00] VITALS: BP 126/70
[2020-07-17] MEDS: IPRATROPIUM 0.5MG/ALBUTEROL 2.5MG INH SOL UD 3ML (DUONEB) NEB SCH ×3 (07:23→20:14)
[2020-07-17 08:54] VITALS: BP 142/64
[2020-07-17] MEDS: ENOXAPARIN 40MG/0.4ML SYRINGE (J1650 PER 10MG) SC SCH (08:56)
[2020-07-17] MEDS: PANTOPRAZOLE 40MG TAB (PROTONIX) PO SCH (08:57)
[2020-07-17] MEDS: ATORVASTATIN 20 MG TAB PO SCH (08:57)
[2020-07-17] MEDS: FLUoxetine 20 MG CAP PO SCH (08:57)
[2020-07-17] MEDS: METOPROLOL TART 12.5 MG PER 1/2 TAB PO SCH (08:57)
[2020-07-17] MEDS: CLOPIDOGREL 75 MG TAB PO SCH (08:57)
[2020-07-17] MEDS: REMEDY PHYTOPLEX Z-GUARD PASTE 113GM TUBE (FROM STOREROOM PRODUCT) TOP SCH ×3 (08:57→20:15)
[2020-07-17] MEDS: LACTOBACILLUS ACIDOPHILUS CAP (BACID) PO SCH ×4 (08:57→20:12)
[2020-07-17] MEDS: CEFDINIR 300 MG CAP (OMNICEF) PO SCH ×2 (08:57→20:12)
[2020-07-17] MEDS: ASPIRIN 81 MG ENTERIC TAB PO SCH (08:57)
[2020-07-17] MEDS ORDERED: OXYMETAZOLINE 0.05% NASAL SPRAY (AFRIN) PRN (09:00)
[2020-07-17 11:07] LABS: BASO % 0.2 % (0.0-1.0); EOS # 0.1 10^3/uL (0.0-0.5); EOS % 0.4 % (0.0-3.0); HEMATOCRIT 45.1 % (42.0-52.0); HEMOGLOBIN 14.6 g/dl (13.5-17.5); LYMPH # 1.6 10^3/uL (1.5-5.0); LYMPH % 9.6 % (24.0-44.0); MEAN CORPUSCULAR HEMOGLOBIN 29.2 pg (27.0-33.0); MEAN CORPUSCULAR HGB CONC 32.4 g/dl (32.0-36.5); MEAN CORPUSCULAR VOLUME 90.2 fl (80.0-96.0); MONO # 0.5 10^3/uL (0.0-0.8); MONO % 3.1 % (2.0-8.0); NEUTROPHILS # 14.6 10^3/uL (1.5-8.5); NEUTROPHILS % 86.3 % (36.0-66.0); PLATELET COUNT, AUTOMATED 463 10^3/uL (150-450); WHITE BLOOD COUNT 16.9 10^3/uL (4.0-10.0)
[2020-07-17 11:26] LABS: BLOOD UREA NITROGEN 24 MG/DL (7-18); CALCIUM LEVEL 9.2 MG/DL (8.5-10.1); CARBON DIOXIDE LEVEL 28 MEQ/L (21-32); CHLORIDE LEVEL 101 MEQ/L (98-107); CREATININE FOR GFR 1.05 MG/DL (0.70-1.30); GLOMERULAR FILTRATION RATE > 60.0 (>60); GLUCOSE, FASTING 164 MG/DL (70-100); POTASSIUM SERUM 4.2 MEQ/L (3.5-5.1); SODIUM LEVEL 137 MEQ/L (136-145)
[2020-07-17] MEDS ORDERED: NS 1,000 ML IV ONE (11:30)
[2020-07-17] MEDS: ACETAMINOPHEN TAB 650MG DOSE (2X325MG) PO PRN (12:45)
[2020-07-17] MEDS: AVEENO SOAP BAR TOP SCH ×3 (13:05→20:15)
[2020-07-17 14:00] VITALS: BP 123/78
--- NOTE | 2020-07-17 15:20 | REP ---
INDICATION: immobility. COMPARISON: None. TECHNIQUE: Bilateral lower extremity duplex venous sonography. FINDINGS: The deep veins are anechoic and fully compressible from the groin to the popliteal fossa in the left and right lower extremity. Color flow imaging is homogeneous. Spectral Doppler interrogation demonstrates intact respiratory variation in flow and normal manual augmentation of flow. There is no evidence of deep vein thrombosis. IMPRESSION: Negative bilateral lower extremity duplex venous ultrasound. No evidence of deep vein thrombosis. <Electronically signed by Star Fernandez > 07/17/20 [id number]
[2020-07-17 20:00] VITALS: BP 113/63
[2020-07-17] MEDS: BACLOFEN 5MG PER 1/2 TABLET PO SCH (20:12)
[2020-07-17] MEDS: METOPROLOL TART 25 MG TABLET PO SCH (20:14)
[2020-07-18] MEDS: hydrOXYzine 25 MG TAB PO PRN ×2 (00:23→07:45)
--- NOTE | 2020-07-18 00:34 | IPNPDOC ---
Subjective Date Seen The patient was seen on 07/17/20. Subjective Chief Complaint/HPI ema says he is feeling well today. His rash has gone away and he is no longer having diarrhea, no fever or chills, no oral discomfort, Objective Physical Examination General Exam: Positive: Alert, Cooperative, No Acute Distress Eye Exam: Positive: PERRLA, Conjunctiva & lids normal, EOMI; Negative: Sclera icteric ENT Exam: Positive: Atraumatic, Mucous membr. moist/pink, Pharynx Normal, Other ENT (no thrush) Neck Exam: Positive: Supple; Negative: JVD, thyromegaly Chest Exam: Positive: Clear to auscultation, Normal air movement Heart Exam: Positive: Rate Normal, Regular Rhythm, Normal S1, Normal S2; Negative: Murmurs, Rubs Abdomen Exam: Positive: Normal bowel sounds, Soft; Negative: Tenderness, Hepatospenomegaly Male Exam: Positive: Normal Genital Exam Extremity Exam: Positive: Normal pulses; Negative: Clubbing, Cyanosis, Edema Skin Exam: Positive: Nl turgor and temperature; Negative: Rash, Breakdown Neuro Exam: Positive: Other (quadruparesis) Assessment /Plan Assessment 45 yo male with PMH of PDO s/p closure, old CVA with right sided weakness and new right medullary CVA admitted to ARU for continued rehab s/p right medullary CVA. Ema has been noted tohave increased WBC over the past 4 days. He had diarrhea fo r 2 days but has stopped 2 days ago. He also had a erythematous rash which also has resolved 2 days ago. However patient continues to have elevated WBC. THere is no skin breakdown or any decubiti, Patietklaudia does not have any specific complaints other than weakness. No fever of chills. No Neck rigidity. Leucocytosis. CT chest shows chronic changes Procal 0.63 UA clean No thrush No skin breakdown / decubiti/ groin or perineal fungal infection No c diff strep throat sue, Resp panel negative Bilateral DVT scan negative will continue to monitor . Patient empirically started on antibiotic. Right medullary CVA, acute;--Newthis admission had existing RLE and RUE weakness from left medullary infarct, old. Now has quadriparesis C/W plavix, high dose statin. C/w PT/OT Hx of left-side CVA with right side weakness chronic but also worsened since CVA, s/p closure of PFO Plavix, statin PT/OT Bronchiectasis stable Plan/VTE VTE Prophylaxis Ordered?: Yes VS, I&O, 24H, [place] Vital Signs/I&O Vital Signs Date Time Temp Pulse Resp B/P (MAP) Pulse Ox O2 Delivery O2 Flow Rate FiO2 07/17/20 14:00 98.3 98 18 123/78 (93) 97 Room Air I&O- Last 24 Hours up to 6 AM 07/17/20 06:59 Intake Total 460 ml Balance 460 ml Laboratory Data 24H LABS Laboratory Tests 2 07/17/20 10:49: Immature Granulocyte % (Auto) 0.4, Neutrophils (%) (Auto) 86.3H, Lymphocytes (%) (Auto) 9.6L, Monocytes (%) (Auto) 3.1, Eosinophils (%) (Auto) 0.4, Basophils (%) (Auto) 0.2, Neutrophils # (Auto) 14.6H, Lymphocytes # (Auto) 1.6, Monocytes # (Auto) 0.5, Eosinophils # (Auto) 0.1, Basophils # (Auto) 0.0, Nucleated Red Blood Cells % (auto) 0.0, Anion Gap 8, Glomerular Filtration Rate > 60.0, Calcium Level 9.2 07/17/20 11:00: Procalcitonin 0.63 CBC/BMP Laboratory Tests 07/17/20 10:49 Microbiology Microbiology 07/16/20 Group A Streptococcus Screen ([facility]) - Final, Complete 07/16/20 Group A Streptococcus Screen ([facility]) - Final, Complete 07/16/20 Eye/Ear/Nose/Throat Culture - Final, Complete 07/15/20 Blood Culture - Preliminary, Resulted No Growth after 48 hours. All Specime... 07/15/20 Blood Culture - Preliminary, Resulted No Growth after 48 hours. All Specime... 07/15/20 Respiratory Virus Panel (PCR) ([facility]) - Final, Complete GOVIND BALDERRAMA MD Jul 17, 2020 16:32
[2020-07-18 05:12] VITALS: BP 101/58
[2020-07-18 06:54] LABS: BASO % 0.2 % (0.0-1.0); EOS # 0.2 10^3/uL (0.0-0.5); EOS % 1.4 % (0.0-3.0); HEMATOCRIT 38.6 % (42.0-52.0); LYMPH # 1.8 10^3/uL (1.5-5.0); LYMPH % 17.1 % (24.0-44.0); MEAN CORPUSCULAR HEMOGLOBIN 28.7 pg (27.0-33.0); MEAN CORPUSCULAR HGB CONC 31.3 g/dl (32.0-36.5); MEAN CORPUSCULAR VOLUME 91.7 fl (80.0-96.0); MONO # 0.5 10^3/uL (0.0-0.8); MONO % 4.3 % (2.0-8.0); NEUTROPHILS # 7.9 10^3/uL (1.5-8.5); NEUTROPHILS % 76.6 % (36.0-66.0); RED BLOOD COUNT 4.21 10^6/uL (4.30-6.10); WHITE BLOOD COUNT 10.4 10^3/uL (4.0-10.0)
[2020-07-18 07:05] LABS: HEMOGLOBIN 12.1 g/dl (13.5-17.5); PLATELET COUNT, AUTOMATED 346 10^3/uL (150-450)
[2020-07-18] MEDS: IPRATROPIUM 0.5MG/ALBUTEROL 2.5MG INH SOL UD 3ML (DUONEB) NEB SCH ×3 (07:12→20:03)
[2020-07-18] MEDS: METOPROLOL TART 25 MG TABLET PO SCH ×2 (07:39→20:39)
[2020-07-18] MEDS: FLUoxetine 20 MG CAP PO SCH (07:44)
[2020-07-18] MEDS: ACETAMINOPHEN TAB 650MG DOSE (2X325MG) PO PRN ×3 (07:44→20:39)
[2020-07-18] MEDS: LACTOBACILLUS ACIDOPHILUS CAP (BACID) PO SCH ×4 (07:44→20:39)
[2020-07-18] MEDS: CLOPIDOGREL 75 MG TAB PO SCH (07:44)
[2020-07-18] MEDS: ATORVASTATIN 20 MG TAB PO SCH (07:44)
[2020-07-18] MEDS: ENOXAPARIN 40MG/0.4ML SYRINGE (J1650 PER 10MG) SC SCH (07:44)
[2020-07-18] MEDS: PANTOPRAZOLE 40MG TAB (PROTONIX) PO SCH (07:45)
[2020-07-18] MEDS: CEFDINIR 300 MG CAP (OMNICEF) PO SCH ×2 (07:45→20:39)
[2020-07-18] MEDS: AVEENO SOAP BAR TOP SCH ×3 (07:45→20:40)
[2020-07-18] MEDS: ASPIRIN 81 MG ENTERIC TAB PO SCH (07:45)
[2020-07-18] MEDS: REMEDY PHYTOPLEX Z-GUARD PASTE 113GM TUBE (FROM STOREROOM PRODUCT) TOP SCH ×3 (07:46→20:40)
[2020-07-18] MEDS: SODIUM CHLORIDE NASAL 0.65% SPRAY BTL (OCEAN) SCH ×3 (09:00→20:40)
[2020-07-18 14:00] VITALS: BP 114/60
[2020-07-18 20:00] VITALS: BP 117/71
[2020-07-18] MEDS: BACLOFEN 5MG PER 1/2 TABLET PO SCH (20:39)
[2020-07-19 05:17] VITALS: BP 113/57
[2020-07-19] MEDS: ENOXAPARIN 40MG/0.4ML SYRINGE (J1650 PER 10MG) SC SCH (07:27)
[2020-07-19] MEDS: PANTOPRAZOLE 40MG TAB (PROTONIX) PO SCH (07:28)
[2020-07-19] MEDS: CLOPIDOGREL 75 MG TAB PO SCH (07:28)
[2020-07-19] MEDS: ACETAMINOPHEN TAB 650MG DOSE (2X325MG) PO PRN ×2 (07:28→21:01)
[2020-07-19] MEDS: LACTOBACILLUS ACIDOPHILUS CAP (BACID) PO SCH ×4 (07:28→21:01)
[2020-07-19] MEDS: ASPIRIN 81 MG ENTERIC TAB PO SCH (07:28)
[2020-07-19] MEDS: ATORVASTATIN 20 MG TAB PO SCH (07:28)
[2020-07-19] MEDS: FLUoxetine 20 MG CAP PO SCH (07:28)
[2020-07-19] MEDS: SODIUM CHLORIDE NASAL 0.65% SPRAY BTL (OCEAN) SCH ×3 (07:29→21:00)
[2020-07-19] MEDS: CEFDINIR 300 MG CAP (OMNICEF) PO SCH ×2 (07:29→21:01)
[2020-07-19] MEDS: REMEDY PHYTOPLEX Z-GUARD PASTE 113GM TUBE (FROM STOREROOM PRODUCT) TOP SCH ×3 (07:30→21:03)
[2020-07-19] MEDS: AVEENO SOAP BAR TOP SCH ×3 (07:30→21:00)
[2020-07-19] MEDS: METOPROLOL TART 25 MG TABLET PO SCH ×2 (07:32→21:02)
[2020-07-19 07:43] VITALS: BP 113/66
[2020-07-19 07:52] VITALS: BP 124/66
[2020-07-19] MEDS: IPRATROPIUM 0.5MG/ALBUTEROL 2.5MG INH SOL UD 3ML (DUONEB) NEB SCH ×3 (07:53→20:23)
[2020-07-19] MEDS: hydrOXYzine 25 MG TAB PO PRN (11:47)
[2020-07-19 14:00] VITALS: BP 122/71
[2020-07-19 20:00] VITALS: BP 141/71
[2020-07-19] MEDS: BACLOFEN 5MG PER 1/2 TABLET PO SCH (21:01)
[2020-07-20 06:06] VITALS: BP 111/72
[2020-07-20 06:35] LABS: BASO % 0.5 % (0.0-1.0); EOS # 0.2 10^3/uL (0.0-0.5); EOS % 3.6 % (0.0-3.0); HEMATOCRIT 39.5 % (42.0-52.0); HEMOGLOBIN 12.5 g/dl (13.5-17.5); LYMPH % 30.3 % (24.0-44.0); MEAN CORPUSCULAR HEMOGLOBIN 28.9 pg (27.0-33.0); MEAN CORPUSCULAR HGB CONC 31.6 g/dl (32.0-36.5); MEAN CORPUSCULAR VOLUME 91.4 fl (80.0-96.0); MONO # 0.4 10^3/uL (0.0-0.8); MONO % 6.2 % (2.0-8.0); NEUTROPHILS # 3.8 10^3/uL (1.5-8.5); NEUTROPHILS % 59.2 % (36.0-66.0); PLATELET COUNT, AUTOMATED 356 10^3/uL (150-450); RED BLOOD COUNT 4.32 10^6/uL (4.30-6.10); WHITE BLOOD COUNT 6.4 10^3/uL (4.0-10.0)
[2020-07-20 07:01] LABS: BLOOD UREA NITROGEN 16 MG/DL (7-18); CARBON DIOXIDE LEVEL 30 MEQ/L (21-32); CHLORIDE LEVEL 102 MEQ/L (98-107); CREATININE FOR GFR 0.76 MG/DL (0.70-1.30); GLOMERULAR FILTRATION RATE > 60.0 (>60); GLUCOSE, FASTING 89 MG/DL (70-100); POTASSIUM SERUM 4.1 MEQ/L (3.5-5.1); SODIUM LEVEL 136 MEQ/L (136-145)
[2020-07-20] MEDS: IPRATROPIUM 0.5MG/ALBUTEROL 2.5MG INH SOL UD 3ML (DUONEB) NEB SCH ×3 (07:32→20:43)
[2020-07-20] MEDS: CLOPIDOGREL 75 MG TAB PO SCH (08:04)
[2020-07-20] MEDS: LACTOBACILLUS ACIDOPHILUS CAP (BACID) PO SCH ×4 (08:04→21:15)
[2020-07-20] MEDS: FLUoxetine 20 MG CAP PO SCH (08:04)
[2020-07-20] MEDS: ATORVASTATIN 20 MG TAB PO SCH (08:04)
[2020-07-20] MEDS: PANTOPRAZOLE 40MG TAB (PROTONIX) PO SCH (08:04)
[2020-07-20] MEDS: ASPIRIN 81 MG ENTERIC TAB PO SCH (08:04)
[2020-07-20] MEDS: CEFDINIR 300 MG CAP (OMNICEF) PO SCH ×2 (08:07→21:15)
[2020-07-20] MEDS: METOPROLOL TART 25 MG TABLET PO SCH ×2 (08:07→21:15)
[2020-07-20] MEDS: ENOXAPARIN 40MG/0.4ML SYRINGE (J1650 PER 10MG) SC SCH (08:08)
[2020-07-20] MEDS: REMEDY PHYTOPLEX Z-GUARD PASTE 113GM TUBE (FROM STOREROOM PRODUCT) TOP SCH ×3 (08:08→21:16)
[2020-07-20] MEDS: SODIUM CHLORIDE NASAL 0.65% SPRAY BTL (OCEAN) SCH ×3 (08:08→21:15)
[2020-07-20] MEDS: AVEENO SOAP BAR TOP SCH ×3 (08:10→21:16)
[2020-07-20 14:00] VITALS: BP 115/81
--- NOTE | 2020-07-20 15:21 | IPNPDOC ---
Text Note Date of Service The patient was seen on 07/20/20. NOTE Subjective: Patient seen and examined at bedside. No acute overnight events reported. No new medical complaints. PHYSICAL EXAMINATION: VITAL SIGNS: Please see below GENERAL APPEARANCE: NAD, resting comfortablyh in bed HEENT: NC/AT, EOMI CARDIOVASCULAR: S1S2+, no M/R/G LUNGS: CTAB, No W/R/R ABDOMEN: soft, nontender, BS + in 4 quad, nondistended EXTREMITIES: No edema, cyanosis or clubbing, NEUROLOGICAL: CN 2-12 intact, 1/5 b/l lower ext, 5/5 LUE, 3/5 RUE- worsened from ER evaluation No sensory deficits. No nystagmus, no tremor. All reflexes in upper and lower ext intact PSYCHIATRIC: Mood and affect appropriate Assessment and plan 45 yo male admitted to ARU for continued rehab s/p right medullary CVA 1) Right medullary CVA, acute - had existing RLE and RUE weakness from left medullary infarct, old. -C/W plavix and aspirin , high dose statin. -C/w PT/OT 2) Hx of left-side CVA with right side weakness chronic but also worsened since CVA, s/p closure of PFO -Plavix aspirin , statin -PT/OT DVT with sq lovenox Disposition as per primary. VS,Fishbone, I+O VS, Fishbone, I+O Laboratory Tests 07/20/20 06:21 Vital Signs Date Time Temp Pulse Resp B/P (MAP) Pulse Ox O2 Delivery O2 Flow Rate FiO2 07/20/20 14:00 97.7 72 18 115/81 (92) 99 Room Air I&O- Last 24 Hours up to 6 AM 07/20/20 05:59 Intake Total 520 ml Balance 520 ml SHARITA TIRADO MD Jul 20, 2020 15:21
[2020-07-20 20:20] VITALS: BP 113/76
[2020-07-20] MEDS: BACLOFEN 5MG PER 1/2 TABLET PO SCH (21:15)
[2020-07-21 06:04] VITALS: BP 140/72
[2020-07-21] MEDS: IPRATROPIUM 0.5MG/ALBUTEROL 2.5MG INH SOL UD 3ML (DUONEB) NEB SCH ×3 (07:26→20:45)
[2020-07-21] MEDS: PANTOPRAZOLE 40MG TAB (PROTONIX) PO SCH (08:31)
[2020-07-21] MEDS: ASPIRIN 81 MG ENTERIC TAB PO SCH (08:31)
[2020-07-21] MEDS: LACTOBACILLUS ACIDOPHILUS CAP (BACID) PO SCH ×4 (08:31→20:35)
[2020-07-21] MEDS: ENOXAPARIN 40MG/0.4ML SYRINGE (J1650 PER 10MG) SC SCH (08:32)
[2020-07-21] MEDS: FLUoxetine 20 MG CAP PO SCH (08:32)
[2020-07-21] MEDS: CEFDINIR 300 MG CAP (OMNICEF) PO SCH (08:32)
[2020-07-21] MEDS: CLOPIDOGREL 75 MG TAB PO SCH (08:32)
[2020-07-21] MEDS: ATORVASTATIN 20 MG TAB PO SCH (08:32)
[2020-07-21] MEDS: METOPROLOL TART 25 MG TABLET PO SCH ×2 (08:32→20:34)
[2020-07-21] MEDS: AVEENO SOAP BAR TOP SCH ×3 (08:33→20:35)
[2020-07-21] MEDS: SODIUM CHLORIDE NASAL 0.65% SPRAY BTL (OCEAN) SCH ×3 (08:33→20:35)
[2020-07-21] MEDS: REMEDY PHYTOPLEX Z-GUARD PASTE 113GM TUBE (FROM STOREROOM PRODUCT) TOP SCH ×3 (08:33→20:35)
--- NOTE | 2020-07-21 12:36 | IPNPDOC ---
PM&R Progress Note DATE OF SERVICE: Jul 17, 2020 [employer] Progress Note Subjective- Patient reporitng his sore throat is a little better today. He has FEES scheduled. REVIEW OF SYSTEMS: The following is a completed review of systems and has been reviewed. Review of systems otherwise unremarkable. PAIN: Patient self reports no pain EYES: No recent vision changes EARS, NOSE, & THROAT: +dysphagia, +hypophonia (improving) CARDIOVASCULAR: Denies chest pain or palpitations PULMONARY: Denies shortness of breath GASTROINTESTINAL: +loose stools GENITOURINARY: denies dysuria MUSCULOSKELETAL: +paresis in all 4 limbs NEUROLOGICAL: +paresis in all 4 limbs HEMATOLOGICAL: denies easy bruising SKIN: rash bilat UE and LE PSYCHIATRIC: Unremarkable All other review of systems found to be negative. PHYSICAL EXAMINATION: VITAL SIGNS: Please see below. GENERAL: Pleasant and cooperative. No acute distress. thin HEENT: PERRL. Extraocular movements intact. Clear conjunctiva, +hypophonia, tongue midline, no facial droop, left sided ptosis, no lymphadenopathy CARDIOVASCULAR: Regular rate and rhythm. No murmurs, rubs, or gallops LUNGS: decreased breath sounds, weak inspiratory effort ABDOMEN: +mild TTP RLQ, no distension, normal bowel sounds NEUROLOGICAL: Alert and oriented times three. CN IX-X impairment, Sensation intact to light touch bilat face, left arm, bilat legs, slightly decreased right arm/hand +clonus bilat +Babinksi bilat +spasticity RUE and RLE EXTREMITIES: 3/5 LUE, 2/5 left hip flexion, knee extension, 0/5 left ankle DF/EHL/PF 3+/5 RUE, 3+/5 right hip flexion, knee extension, DF/EHL/PF SKIN: resolved rash ASSESSMENT:45-year-old M with past medical history of CVA who presents status post new right medullary infarct PLAN: 1. 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 CArdiac- HLD c/u statin -medicine consulted to assist in overall management 4. Resp- monitor for infection, hx of pneumothorax, CXR 07-14-20 negative for infiltrate, c/u to monitor, patient denies fevers or chills -patient with peristent weak cough and shallow breathing likely due to Cranial nerve involvement of stroke 5. GI ppx- protonix 6. DVT ppx- lovenox -bilat UE and LE dopplers ordered for immobility and patient slightly tachypneic, low concern for PE, but wish to r/o DVTs 7. Pain- Tylenol prn, will start back baclofen at 5mg to avoid daytime weakness for spasms 8. - monitor PVrs-patient incontinent, UA negative 9. Leukocytosis- back up to 16, will start cefdinir for suspected pharyngitis and obtain rapid strep test and throat cx -body rash and loose stools has resolved will continue to avoid body lotion and CHG baths as patient likely had allergic reaction -UA negative, CT chest without infiltrate, resp-panel negative -pending blood cx results 10. Dispo- 07-30-20, progressing slowly towards goals, will possibly need power wheelchair Allergies Uncoded Allergies: phytoplex (Allergy, Intermediate, diffuse body rash, 07/17/20) Phytoplex purple cream Vital Signs Vital Signs Date Time Temp Pulse Resp B/P (MAP) Pulse Ox O2 Delivery O2 Flow Rate FiO2 07/21/20 08:32 90 140/72 07/21/20 07:27 15 07/21/20 06:04 98.8 97 Room Air Microbiology Microbiology 07/16/20 Group A Streptococcus Screen ([facility]) - Final, Complete 07/16/20 Group A Streptococcus Screen ([facility]) - Final, Complete 07/16/20 Eye/Ear/Nose/Throat Culture - Final, Complete 07/15/20 Blood Culture - Final, Complete NO GROWTH AFTER 5 DAYS 07/15/20 Blood Culture - Final, Complete NO GROWTH AFTER 5 DAYS 07/15/20 Respiratory Virus Panel (PCR) ([facility]) - Final, Complete Current Medications Current Medications Current Medications Medications (Trade) Dose Ordered Sig/Juan Luis Route PRN Reason Start Time Stop Time Status Last Admin Dose Admin Acetaminophen (Tylenol Tab) 650 mg Q4HP PRN PO fever/MILD PAIN (PS 1-4) 07/07/20 12:15 07/19/20 21:01 Albuterol/ Ipratropium (Duoneb (Ipr 0.5mg/Alb 2.5mg)) 3 ml RTID NEB 07/16/20 08:00 07/21/20 07:26 Aspirin (Ecotrin) 81 mg DAILY PO 07/08/20 09:00 07/21/20 08:31 Atorvastatin Calcium (Lipitor) 40 mg DAILY PO 07/08/20 09:00 07/21/20 08:32 Baclofen (Lioresal) 5 mg QHS PO 07/16/20 21:00 07/20/20 21:15 Baclofen (Lioresal) 10 mg QHS PO 07/13/20 21:00 07/15/20 11:10 DC 07/14/20 20:38 Bisacodyl (Dulcolax Suppository) 10 mg DAILYPRN PRN [place] CONSTIPATION 07/07/20 12:15 Cefdinir (Omnicef) 300 mg BID PO 07/16/20 21:00 07/21/20 09:24 DC 07/21/20 08:32 Clopidogrel Bisulfate (PLAVix) 75 mg DAILY PO 07/08/20 09:00 07/21/20 08:32 Colloidal Oatmeal (Aveeno) 1 ea TID TOP 07/17/20 09:00 07/21/20 08:33 Docusate Sodium (Colace) 100 mg BID PO 07/07/20 21:00 07/15/20 11:28 DC 07/15/20 08:29 Enoxaparin Sodium (Lovenox) 40 mg DAILY SC 07/08/20 09:00 07/21/20 08:32 Fluoxetine HCl (PROzac) 20 mg DAILY PO 07/10/20 09:00 07/21/20 08:32 Hydroxyzine HCl (Atarax) 25 mg Q6HP PRN PO itch 07/15/20 12:15 07/19/20 11:47 Lactobacillus Acidophilus (Bacid) 1 ea ACHS PO 07/16/20 21:00 07/21/20 12:03 Metoprolol Tartrate (Lopressor) 12.5 mg BID PO 07/16/20 10:15 07/17/20 12:02 DC 07/17/20 08:57 Metoprolol Tartrate (Lopressor) 25 mg BID PO 07/17/20 21:00 07/21/20 08:32 Ondansetron HCl (Zofran Odt) 4 mg Q4HP PRN SL NAUSEA OR VOMITING 07/15/20 11:15 07/15/20 11:15 Ondansetron HCl (Zofran) 4 mg Q6HP PRN PO NAUSEA 07/07/20 12:15 07/15/20 12:14 DC Oxymetazoline HCl (Afrin) 2 spray ASDIRECTED PRN NA SEE LABEL COMMENTS 07/17/20 09:00 07/17/20 09:00 DC 07/17/20 08:56 Pantoprazole Sodium (Protonix) 40 mg DAILY PO 07/08/20 09:00 07/21/20 08:31 Senna (Senokot) 1 tab QHS PO 07/07/20 21:00 07/15/20 11:28 DC 07/14/20 20:38 Sodium Chloride ([place] Nasal [place]) 2 spray TID NA 07/18/20 09:00 07/21/20 08:33 HETAL CHRISTENSEN MD Jul 21, 2020 12:36
--- NOTE | 2020-07-21 12:36 | IPNPDOC ---
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 REVIEW OF SYSTEMS: The following is a completed review of systems and has been reviewed. Review of systems otherwise unremarkable. PAIN: Patient self reports no pain EYES: No recent vision changes EARS, NOSE, & THROAT: +dysphagia (improving , +hypophonia (improving) CARDIOVASCULAR: Denies chest pain or palpitations PULMONARY: Denies shortness of breath GASTROINTESTINAL: denies constipation/diarrhea GENITOURINARY: denies dysuria MUSCULOSKELETAL: +paresis in all 4 limbs NEUROLOGICAL: +paresis in all 4 limbs HEMATOLOGICAL: denies easy bruising SKIN: no rash PSYCHIATRIC: Unremarkable All other review of systems found to be negative. PHYSICAL EXAMINATION: VITAL SIGNS: Please see below. GENERAL: Pleasant and cooperative. No acute distress. thin HEENT: PERRL. Extraocular movements intact. Clear conjunctiva, +hypophonia, tongue midline, no facial droop, left sided ptosis, no lymphadenopathy CARDIOVASCULAR: Regular rate and rhythm. No murmurs, rubs, or gallops LUNGS: decreased breath sounds, weak inspiratory effort ABDOMEN: +mild TTP RLQ, no distension, normal bowel sounds NEUROLOGICAL: Alert and oriented times three. CN IX-X impairment, Sensation intact to light touch bilat face, left arm, bilat legs, slightly decreased right arm/hand +clonus bilat +Babinksi bilat +spasticity RUE and RLE EXTREMITIES: 3/5 LUE, 2/5 left hip flexion, knee extension, 0/5 left ankle DF/EHL/PF 3+/5 RUE, 3+/5 right hip flexion, knee extension, DF/EHL/PF SKIN: resolved rash ASSESSMENT:45-year-old M with past medical history of CVA who presents status post new right medullary infarct PLAN: 1. 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 CArdiac- HLD c/u statin -medicine consulted to assist in overall management 4. Resp- monitor for infection, hx of pneumothorax, CXR 07-14-20 negative for infiltrate, c/u to monitor, patient denies fevers or chills -patient with weak cough and shallow breathing likely due to Cranial nerve involvement of stroke that is gradually improving 5. GI ppx- protonix 6. DVT ppx- lovenox -bilat UE and LE dopplers negative 7. Pain- Tylenol prn, c/u baclofen at 5mg qhs 8. - monitor PVrs-patient incontinent, UA negative 9. Leukocytosis- resolved, finishing course of cefdinir for pharyngitis, symptoms have resolved, throat cx's negative -body rash and loose stools has resolved will continue to avoid body lotion and CHG baths as patient likely had allergic reaction -UA negative, CT chest without infiltrate, resp-panel negative -blood cx no growth 10. Dispo- 07-30-20, progressing slowly towards goals, will possibly need power wheelchair Allergies Uncoded Allergies: phytoplex (Allergy, Intermediate, diffuse body rash, 07/17/20) Phytoplex purple cream Vital Signs Vital Signs Date Time Temp Pulse Resp B/P (MAP) Pulse Ox O2 Delivery O2 Flow Rate FiO2 07/21/20 08:32 90 140/72 07/21/20 07:27 15 07/21/20 06:04 98.8 97 Room Air Microbiology Microbiology 07/16/20 Group A Streptococcus Screen ([facility]) - Final, Complete 07/16/20 Group A Streptococcus Screen ([facility]) - Final, Complete 07/16/20 Eye/Ear/Nose/Throat Culture - Final, Complete 07/15/20 Blood Culture - Final, Complete NO GROWTH AFTER 5 DAYS 07/15/20 Blood Culture - Final, Complete NO GROWTH AFTER 5 DAYS 07/15/20 Respiratory Virus Panel (PCR) ([facility]) - Final, Complete Current Medications Current Medications Current Medications Medications (Trade) Dose Ordered Sig/Juan Luis Route PRN Reason Start Time Stop Time Status Last Admin Dose Admin Acetaminophen (Tylenol Tab) 650 mg Q4HP PRN PO fever/MILD PAIN (PS 1-4) 07/07/20 12:15 07/19/20 21:01 Albuterol/ Ipratropium (Duoneb (Ipr 0.5mg/Alb 2.5mg)) 3 ml RTID NEB 07/16/20 08:00 07/21/20 07:26 Aspirin (Ecotrin) 81 mg DAILY PO 07/08/20 09:00 07/21/20 08:31 Atorvastatin Calcium (Lipitor) 40 mg DAILY PO 07/08/20 09:00 07/21/20 08:32 Baclofen (Lioresal) 5 mg QHS PO 07/16/20 21:00 07/20/20 21:15 Baclofen (Lioresal) 10 mg QHS PO 07/13/20 21:00 07/15/20 11:10 DC 07/14/20 20:38 Bisacodyl (Dulcolax Suppository) 10 mg DAILYPRN PRN AR CONSTIPATION 07/07/20 12:15 Cefdinir (Omnicef) 300 mg BID PO 07/16/20 21:00 07/21/20 09:24 DC 07/21/20 08:32 Clopidogrel Bisulfate (PLAVix) 75 mg DAILY PO 07/08/20 09:00 07/21/20 08:32 Colloidal Oatmeal (Aveeno) 1 ea TID TOP 07/17/20 09:00 07/21/20 08:33 Docusate Sodium (Colace) 100 mg BID PO 07/07/20 21:00 07/15/20 11:28 DC 07/15/20 08:29 Enoxaparin Sodium (Lovenox) 40 mg DAILY SC 07/08/20 09:00 07/21/20 08:32 Fluoxetine HCl (PROzac) 20 mg DAILY PO 07/10/20 09:00 07/21/20 08:32 Hydroxyzine HCl (Atarax) 25 mg Q6HP PRN PO itch 07/15/20 12:15 07/19/20 11:47 Lactobacillus Acidophilus (Bacid) 1 ea ACHS PO 07/16/20 21:00 07/21/20 12:03 Metoprolol Tartrate (Lopressor) 12.5 mg BID PO 07/16/20 10:15 07/17/20 12:02 DC 07/17/20 08:57 Metoprolol Tartrate (Lopressor) 25 mg BID PO 07/17/20 21:00 07/21/20 08:32 Ondansetron HCl (Zofran Odt) 4 mg Q4HP PRN SL NAUSEA OR VOMITING 07/15/20 11:15 07/15/20 11:15 Ondansetron HCl (Zofran) 4 mg Q6HP PRN PO NAUSEA 07/07/20 12:15 07/15/20 12:14 DC Oxymetazoline HCl (Afrin) 2 spray ASDIRECTED PRN NA SEE LABEL COMMENTS 07/17/20 09:00 07/17/20 09:00 DC 07/17/20 08:56 Pantoprazole Sodium (Protonix) 40 mg DAILY PO 07/08/20 09:00 07/21/20 08:31 Senna (Senokot) 1 tab QHS PO 07/07/20 21:00 07/15/20 11:28 DC 07/14/20 20:38 Sodium Chloride ([place] Nasal [place]) 2 spray TID NA 07/18/20 09:00 07/21/20 08:33 HETAL CHRISTENSEN MD Jul 21, 2020 12:36
[2020-07-21 14:00] VITALS: BP 110/71
--- NOTE | 2020-07-21 14:52 | IPNPDOC ---
Text Note Date of Service The patient was seen on 07/21/20. NOTE Patient seen and examined at bedside. No acute overnight events reported. No new medical complaints and pt is participating in therapy. PHYSICAL EXAMINATION: VITAL SIGNS: Please see below GENERAL APPEARANCE: NAD, resting comfortablyh in bed HEENT: NC/AT, EOMI CARDIOVASCULAR: S1S2+, no M/R/G LUNGS: CTAB, No W/R/R ABDOMEN: soft, nontender, BS + in 4 quad, nondistended EXTREMITIES: No edema, cyanosis or clubbing, NEUROLOGICAL: CN 2-12 intact, 1/5 b/l lower ext, 5/5 LUE, 3/5 RUE- worsened from ER evaluation No sensory deficits. No nystagmus, no tremor. 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 C/w PT/OT 2) Hx of left-side CVA with right side weakness chronic but also worsened since CVA, s/p closure of PFO : Plavix aspirin , statin . PT/OT DVT with sq lovenox Disposition as per primary. VS,Fishbone, I+O VS, Fishbone, I+O Vital Signs Date Time Temp Pulse Resp B/P (MAP) Pulse Ox O2 Delivery O2 Flow Rate FiO2 07/21/20 14:00 97.9 75 18 110/71 (84) 98 Room Air I&O- Last 24 Hours up to 6 AM 07/21/20 06:00 Intake Total 375 ml Balance 375 ml SHARITA TIRADO MD Jul 21, 2020 14:52
[2020-07-21] MEDS: BACLOFEN 5MG PER 1/2 TABLET PO SCH (20:33)
[2020-07-21] MEDS: ACETAMINOPHEN TAB 650MG DOSE (2X325MG) PO PRN (20:34)
[2020-07-21 21:00] VITALS: BP 124/70
[2020-07-22 05:30] VITALS: BP 117/69
[2020-07-22 07:06] LABS: BASO # 0.1 10^3/uL (0.0-0.2); BASO % 0.9 % (0.0-1.0); EOS # 0.3 10^3/uL (0.0-0.5); HEMATOCRIT 43.1 % (42.0-52.0); HEMOGLOBIN 14.1 g/dl (13.5-17.5); LYMPH % 28.4 % (24.0-44.0); MEAN CORPUSCULAR HEMOGLOBIN 29.6 pg (27.0-33.0); MEAN CORPUSCULAR HGB CONC 32.7 g/dl (32.0-36.5); MEAN CORPUSCULAR VOLUME 90.4 fl (80.0-96.0); MONO # 0.5 10^3/uL (0.0-0.8); MONO % 6.7 % (2.0-8.0); NEUTROPHILS # 4.2 10^3/uL (1.5-8.5); NEUTROPHILS % 59.6 % (36.0-66.0); PLATELET COUNT, AUTOMATED 408 10^3/uL (150-450); RED BLOOD COUNT 4.77 10^6/uL (4.30-6.10)
[2020-07-22 07:19] LABS: BLOOD UREA NITROGEN 16 MG/DL (7-18); CALCIUM LEVEL 9.5 MG/DL (8.5-10.1); CARBON DIOXIDE LEVEL 29 MEQ/L (21-32); CHLORIDE LEVEL 101 MEQ/L (98-107); CREATININE FOR GFR 0.92 MG/DL (0.70-1.30); GLOMERULAR FILTRATION RATE > 60.0 (>60); GLUCOSE, FASTING 93 MG/DL (70-100); POTASSIUM SERUM 4.2 MEQ/L (3.5-5.1); SODIUM LEVEL 136 MEQ/L (136-145)
[2020-07-22] MEDS: IPRATROPIUM 0.5MG/ALBUTEROL 2.5MG INH SOL UD 3ML (DUONEB) NEB SCH ×3 (07:53→20:49)
[2020-07-22] MEDS: PANTOPRAZOLE 40MG TAB (PROTONIX) PO SCH (09:01)
[2020-07-22] MEDS: SODIUM CHLORIDE NASAL 0.65% SPRAY BTL (OCEAN) SCH ×3 (09:01→20:20)
[2020-07-22] MEDS: FLUoxetine 20 MG CAP PO SCH (09:01)
[2020-07-22] MEDS: ATORVASTATIN 20 MG TAB PO SCH (09:01)
[2020-07-22] MEDS: ASPIRIN 81 MG ENTERIC TAB PO SCH (09:01)
[2020-07-22] MEDS: METOPROLOL TART 25 MG TABLET PO SCH ×2 (09:01→20:20)
[2020-07-22] MEDS: AVEENO SOAP BAR TOP SCH ×3 (09:01→20:20)
[2020-07-22] MEDS: CLOPIDOGREL 75 MG TAB PO SCH (09:01)
[2020-07-22] MEDS: ENOXAPARIN 40MG/0.4ML SYRINGE (J1650 PER 10MG) SC SCH (09:02)
[2020-07-22] MEDS: REMEDY PHYTOPLEX Z-GUARD PASTE 113GM TUBE (FROM STOREROOM PRODUCT) TOP SCH ×3 (09:02→20:20)
[2020-07-22] MEDS: LACTOBACILLUS ACIDOPHILUS CAP (BACID) PO SCH ×4 (09:04→20:19)
[2020-07-22 10:09] LABS: ACETYLCHOLINE RCPTOR BINDING A 0.25 nmol/L (0.00-0.24); ACETYLCHOLINE RCPTOR BLOCK AB 20 % (0-25); ACETYLCHOLINE RCPTOR MODULATIN <12 % (0-20); ANCA-ATYPICAL <1:20 titer (Neg:<1:20); CYTOPLASMIC NEUTROP AB ANCA-C <1:20 titer (Neg:<1:20); PERINUCLEAR AB ANCA-P <1:20 titer (Neg:<1:20); STRIATIONAL ANTIBODIES Negative (Neg:<1:40)
--- NOTE | 2020-07-22 12:45 | IPNPDOC ---
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 REVIEW OF SYSTEMS: The following is a completed review of systems and has been reviewed. Review of systems otherwise unremarkable. PAIN: Patient self reports no pain EYES: No recent vision changes EARS, NOSE, & THROAT: +dysphagia (improving , +hypophonia (improving) CARDIOVASCULAR: Denies chest pain or palpitations PULMONARY: Denies shortness of breath GASTROINTESTINAL: denies constipation/diarrhea GENITOURINARY: denies dysuria MUSCULOSKELETAL: +paresis in all 4 limbs NEUROLOGICAL: +paresis in all 4 limbs HEMATOLOGICAL: denies easy bruising SKIN: no rash PSYCHIATRIC: Unremarkable All other review of systems found to be negative. PHYSICAL EXAMINATION: VITAL SIGNS: Please see below. GENERAL: Pleasant and cooperative. No acute distress. thin HEENT: PERRL. Extraocular movements intact. Clear conjunctiva, +hypophonia, tong ue midline, no facial droop, left sided ptosis, no lymphadenopathy CARDIOVASCULAR: Regular rate and rhythm. No murmurs, rubs, or gallops LUNGS: decreased breath sounds, weak inspiratory effort ABDOMEN: +mild TTP RLQ, no distension, normal bowel sounds NEUROLOGICAL: Alert and oriented times three. CN IX-X impairment, Sensation intact to light touch bilat face, left arm, bilat legs, slightly decreased right arm/hand +clonus bilat +Babinksi bilat +spasticity RUE and RLE EXTREMITIES: 3/5 LUE, 2/5 left hip flexion, knee extension, 0/5 left ankle DF/EHL/PF 3+/5 RUE, 3+/5 right hip flexion, knee extension, DF/EHL/PF SKIN: resolved rash ASSESSMENT:45-year-old M with past medical history of CVA who presents status post new right medullary infarct PLAN: 1. 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 CArdiac- HLD c/u statin -medicine consulted to assist in overall management 4. Resp- monitor for infection, hx of pneumothorax, CXR 07-14-20 negative for infiltrate, c/u to monitor, patient denies fevers or chills -patient with weak cough and shallow breathing likely due to Cranial nerve involvement of stroke that is gradually improving 5. GI ppx- protonix 6. DVT ppx- lovenox -bilat UE and LE dopplers negative 7. Pain- Tylenol prn, c/u baclofen at 5mg qhs 8. - monitor PVrs-patient incontinent, UA negative 9. Leukocytosis- resolved, s/p course of cefdinir for pharyngitis, symptoms have resolved, throat cx's negative -body rash and loose stools has resolved will continue to avoid body lotion and CHG baths as patient likely had allergic reaction -UA negative, CT chest without infiltrate, resp-panel negative -blood cx no growth 10. Dispo- 07-30-20, progressing slowly towards goals, will possibly need power wheelchair Allergies Uncoded Allergies: phytoplex (Allergy, Intermediate, diffuse body rash, 07/17/20) Phytoplex purple cream Vital Signs Vital Signs Date Time Temp Pulse Resp B/P (MAP) Pulse Ox O2 Delivery O2 Flow Rate FiO2 07/22/20 09:01 69 117/69 07/22/20 05:30 98.2 16 96 Room Air Laboratory Data CBC/BMP Laboratory Tests 07/22/20 06:31 Labs 24H Laboratory Tests 2 07/22/20 06:31: Immature Granulocyte % (Auto) 0.4, Neutrophils (%) (Auto) 59.6, Lymphocytes (%) (Auto) 28.4, Monocytes (%) (Auto) 6.7, Eosinophils (%) (Auto) 4.0H, Basophils (%) (Auto) 0.9, Neutrophils # (Auto) 4.2, Lymphocytes # (Auto) 2.0, Monocytes # (Auto) 0.5, Eosinophils # (Auto) 0.3, Basophils # (Auto) 0.1, Nucleated Red Blood Cells % (auto) 0.0, Anion Gap 6L, Glomerular Filtration Rate > 60.0, Calcium Level 9.5 Microbiology Microbiology 07/16/20 Group A Streptococcus Screen ([facility]) - Final, Complete 07/16/20 Group A Streptococcus Screen ([facility]) - Final, Complete 07/16/20 Eye/Ear/Nose/Throat Culture - Final, Complete 07/15/20 Blood Culture - Final, Complete NO GROWTH AFTER 5 DAYS 07/15/20 Blood Culture - Final, Complete NO GROWTH AFTER 5 DAYS 07/15/20 Respiratory Virus Panel (PCR) ([facility]) - Final, Complete Current Medications Current Medications Current Medications Medications (Trade) Dose Ordered Sig/Juan Luis Route PRN Reason Start Time Stop Time Status Last Admin Dose Admin Acetaminophen (Tylenol Tab) 650 mg Q4HP PRN PO fever/MILD PAIN (PS 1-4) 07/07/20 12:15 07/21/20 20:34 Albuterol/ Ipratropium (Duoneb (Ipr 0.5mg/Alb 2.5mg)) 3 ml RTID NEB 07/16/20 08:00 07/22/20 07:53 Aspirin (Ecotrin) 81 mg DAILY PO 07/08/20 09:00 07/22/20 09:01 Atorvastatin Calcium (Lipitor) 40 mg DAILY PO 07/08/20 09:00 07/22/20 09:01 Baclofen (Lioresal) 5 mg QHS PO 07/16/20 21:00 07/21/20 20:33 Baclofen (Lioresal) 10 mg QHS PO 07/13/20 21:00 07/15/20 11:10 DC 07/14/20 20:38 Bisacodyl (Dulcolax Suppository) 10 mg DAILYPRN PRN SC CONSTIPATION 07/07/20 12:15 Cefdinir (Omnicef) 300 mg BID PO 07/16/20 21:00 07/21/20 09:24 DC 07/21/20 08:32 Clopidogrel Bisulfate (PLAVix) 75 mg DAILY PO 07/08/20 09:00 07/22/20 09:01 Colloidal Oatmeal (Aveeno) 1 ea TID TOP 07/17/20 09:00 07/22/20 09:01 Docusate Sodium (Colace) 100 mg BID PO 07/07/20 21:00 07/15/20 11:28 DC 07/15/20 08:29 Enoxaparin Sodium (Lovenox) 40 mg DAILY SC 07/08/20 09:00 07/22/20 09:02 Fluoxetine HCl (PROzac) 20 mg DAILY PO 07/10/20 09:00 07/22/20 09:01 Hydroxyzine HCl (Atarax) 25 mg Q6HP PRN PO itch 07/15/20 12:15 07/19/20 11:47 Lactobacillus Acidophilus (Bacid) 1 ea ACHS PO 07/16/20 21:00 07/22/20 09:04 Metoprolol Tartrate (Lopressor) 12.5 mg BID PO 07/16/20 10:15 07/17/20 12:02 DC 07/17/20 08:57 Metoprolol Tartrate (Lopressor) 25 mg BID PO 07/17/20 21:00 07/22/20 09:01 Ondansetron HCl (Zofran Odt) 4 mg Q4HP PRN SL NAUSEA OR VOMITING 07/15/20 11:15 07/15/20 11:15 Ondansetron HCl (Zofran) 4 mg Q6HP PRN PO NAUSEA 07/07/20 12:15 07/15/20 12:14 DC Oxymetazoline HCl (Afrin) 2 spray ASDIRECTED PRN NA SEE LABEL COMMENTS 07/17/20 09:00 07/17/20 09:00 DC 07/17/20 08:56 Pantoprazole Sodium (Protonix) 40 mg DAILY PO 07/08/20 09:00 07/22/20 09:01 Senna (Senokot) 1 tab QHS PO 07/07/20 21:00 07/15/20 11:28 DC 07/14/20 20:38 Sodium Chloride ([place] Nasal [place]) 2 spray TID NA 07/18/20 09:00 07/22/20 09:01 HETAL CHRISTENSEN MD Jul 22, 2020 12:45
[2020-07-22 14:00] VITALS: BP 108/65
[2020-07-22 20:00] VITALS: BP 98/60
[2020-07-22] MEDS: BACLOFEN 5MG PER 1/2 TABLET PO SCH (20:19)
[2020-07-22] MEDS: ACETAMINOPHEN TAB 650MG DOSE (2X325MG) PO PRN (21:48)
[2020-07-23 05:24] VITALS: BP 109/61
[2020-07-23] MEDS: IPRATROPIUM 0.5MG/ALBUTEROL 2.5MG INH SOL UD 3ML (DUONEB) NEB SCH ×3 (07:32→20:18)
--- NOTE | 2020-07-23 07:35 | IPNPDOC ---
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 REVIEW OF SYSTEMS: The following is a completed review of systems and has been reviewed. Review of systems otherwise unremarkable. PAIN: Patient self reports no pain EYES: No recent vision changes EARS, NOSE, & THROAT: +dysphagia (improving , +hypophonia (improving) CARDIOVASCULAR: Denies chest pain or palpitations PULMONARY: Denies shortness of breath GASTROINTESTINAL: denies constipation/diarrhea GENITOURINARY: denies dysuria MUSCULOSKELETAL: +paresis in all 4 limbs NEUROLOGICAL: +paresis in all 4 limbs HEMATOLOGICAL: denies easy bruising SKIN: no rash PSYCHIATRIC: Unremarkable All other review of systems found to be negative. PHYSICAL EXAMINATION: VITAL SIGNS: Please see below. GENERAL: Pleasant and cooperative. No acute distress. thin HEENT: PERRL. Extraocular movements intact. Clear conjunctiva, +hypophonia, tongue midline, no facial droop, left sided ptosis, no lymphadenopathy CARDIOVASCULAR: Regular rate and rhythm. No murmurs, rubs, or gallops LUNGS: decreased breath sounds, weak inspiratory effort ABDOMEN: +mild TTP RLQ, no distension, normal bowel sounds NEUROLOGICAL: Alert and oriented times three. CN IX-X impairment, Sensation int act to light touch bilat face, left arm, bilat legs, slightly decreased right arm/hand +clonus bilat +Babinksi bilat +spasticity RUE and RLE EXTREMITIES: 3/5 LUE, 2/5 left hip flexion, knee extension, 0/5 left ankle DF/EHL/PF 3+/5 RUE, 3+/5 right hip flexion, knee extension, DF/EHL/PF SKIN: resolved rash ASSESSMENT:45-year-old M with past medical history of CVA who presents status post new right medullary infarct PLAN: 1. Rehab- PT/OT advance mobility and ADLs, strengthen/stretch/maintain ROM all 4 limbs -FUNERAL CAR CHAUFFEUR for cog and repeat swallow eval, s/p FEES cleared for thins and level 2 with supervision 2. 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 CArdiac- HLD c/u statin -medicine consulted to assist in overall management 4. Resp- monitor for infection, hx of pneumothorax, CXR 07-14-20 negative for infiltrate, c/u to monitor, patient denies fevers or chills -patient with weak cough and shallow breathing likely due to Cranial nerve involvement of stroke that is gradually improving 5. GI ppx- protonix 6. DVT ppx- lovenox -bilat UE and LE dopplers negative 7. Pain- Tylenol prn, c/u baclofen at 5mg qhs 8. - monitor PVrs-patient incontinent, UA negative 9. Leukocytosis- resolved, s/p course of cefdinir for pharyngitis, symptoms have resolved, throat cx's negative -body rash and loose stools has resolved will continue to avoid phytoplex body lotion and CHG baths as patient likely had allergic reaction -UA negative, CT chest without infiltrate, resp-panel negative -blood cx no growth 10. Dispo- 07-30-20, progressing slowly towards goals, will possibly need power wheelchair Allergies Uncoded Allergies: phytoplex (Allergy, Intermediate, diffuse body rash, 07/17/20) Phytoplex purple cream Vital Signs Vital Signs Date Time Temp Pulse Resp B/P (MAP) Pulse Ox O2 Delivery O2 Flow Rate FiO2 07/23/20 05:24 97.8 89 18 109/61 (77) 98 Room Air Microbiology Microbiology 07/16/20 Group A Streptococcus Screen ([facility]) - Final, Complete 07/16/20 Group A Streptococcus Screen ([facility]) - Final, Complete 07/16/20 Eye/Ear/Nose/Throat Culture - Final, Complete 07/15/20 Blood Culture - Final, Complete NO GROWTH AFTER 5 DAYS 07/15/20 Blood Culture - Final, Complete NO GROWTH AFTER 5 DAYS 07/15/20 Respiratory Virus Panel (PCR) ([facility]) - Final, Complete Current Medications Current Medications Current Medications Medications (Trade) Dose Ordered Sig/Juan Luis Route PRN Reason Start Time Stop Time Status Last Admin Dose Admin Acetaminophen (Tylenol Tab) 650 mg Q4HP PRN PO fever/MILD PAIN (PS 1-4) 07/07/20 12:15 07/22/20 21:48 Albuterol/ Ipratropium (Duoneb (Ipr 0.5mg/Alb 2.5mg)) 3 ml RTID NEB 07/16/20 08:00 07/22/20 20:49 Aspirin (Ecotrin) 81 mg DAILY PO 07/08/20 09:00 07/22/20 09:01 Atorvastatin Calcium (Lipitor) 40 mg DAILY PO 07/08/20 09:00 07/22/20 09:01 Baclofen (Lioresal) 5 mg QHS PO 07/16/20 21:00 07/22/20 20:19 Baclofen (Lioresal) 10 mg QHS PO 07/13/20 21:00 07/15/20 11:10 DC 07/14/20 20:38 Bisacodyl (Dulcolax Suppository) 10 mg DAILYPRN PRN IN CONSTIPATION 07/07/20 12:15 Cefdinir (Omnicef) 300 mg BID PO 07/16/20 21:00 07/21/20 09:24 DC 07/21/20 08:32 Clopidogrel Bisulfate (PLAVix) 75 mg DAILY PO 07/08/20 09:00 07/22/20 09:01 Colloidal Oatmeal (Aveeno) 1 ea TID TOP 07/17/20 09:00 07/22/20 17:15 Docusate Sodium (Colace) 100 mg BID PO 07/07/20 21:00 07/15/20 11:28 DC 07/15/20 08:29 Enoxaparin Sodium (Lovenox) 40 mg DAILY SC 07/08/20 09:00 07/22/20 09:02 Fluoxetine HCl (PROzac) 20 mg DAILY PO 07/10/20 09:00 07/22/20 09:01 Hydroxyzine HCl (Atarax) 25 mg Q6HP PRN PO itch 07/15/20 12:15 07/19/20 11:47 Lactobacillus Acidophilus (Bacid) 1 ea ACHS PO 07/16/20 21:00 07/22/20 20:19 Metoprolol Tartrate (Lopressor) 12.5 mg BID PO 07/16/20 10:15 07/17/20 12:02 DC 07/17/20 08:57 Metoprolol Tartrate (Lopressor) 25 mg BID PO 07/17/20 21:00 07/22/20 09:01 Ondansetron HCl (Zofran Odt) 4 mg Q4HP PRN SL NAUSEA OR VOMITING 07/15/20 11:15 07/15/20 11:15 Ondansetron HCl (Zofran) 4 mg Q6HP PRN PO NAUSEA 07/07/20 12:15 07/15/20 12:14 DC Oxymetazoline HCl (Afrin) 2 spray ASDIRECTED PRN NA SEE LABEL COMMENTS 07/17/20 09:00 07/17/20 09:00 DC 07/17/20 08:56 Pantoprazole Sodium (Protonix) 40 mg DAILY PO 07/08/20 09:00 07/22/20 09:01 Senna (Senokot) 1 tab QHS PO 07/07/20 21:00 07/15/20 11:28 DC 07/14/20 20:38 Sodium Chloride ([place] Nasal [place]) 2 spray TID NA 07/18/20 09:00 07/22/20 17:17 HETAL CHRISTENSEN MD Jul 23, 2020 07:35
[2020-07-23 09:02] VITALS: BP 119/76
[2020-07-23] MEDS: SODIUM CHLORIDE NASAL 0.65% SPRAY BTL (OCEAN) SCH ×3 (09:03→20:21)
[2020-07-23] MEDS: AVEENO SOAP BAR TOP SCH ×3 (09:03→20:21)
[2020-07-23] MEDS: FLUoxetine 20 MG CAP PO SCH (09:04)
[2020-07-23] MEDS: ASPIRIN 81 MG ENTERIC TAB PO SCH (09:04)
[2020-07-23] MEDS: CLOPIDOGREL 75 MG TAB PO SCH (09:04)
[2020-07-23] MEDS: ENOXAPARIN 40MG/0.4ML SYRINGE (J1650 PER 10MG) SC SCH (09:04)
[2020-07-23] MEDS: METOPROLOL TART 25 MG TABLET PO SCH ×2 (09:04→20:21)
[2020-07-23] MEDS: ATORVASTATIN 20 MG TAB PO SCH (09:04)
[2020-07-23] MEDS: PANTOPRAZOLE 40MG TAB (PROTONIX) PO SCH (09:04)
[2020-07-23] MEDS: ACETAMINOPHEN TAB 650MG DOSE (2X325MG) PO PRN ×2 (09:04→20:20)
[2020-07-23] MEDS: REMEDY PHYTOPLEX Z-GUARD PASTE 113GM TUBE (FROM STOREROOM PRODUCT) TOP SCH ×3 (09:06→20:21)
[2020-07-23] MEDS: LACTOBACILLUS ACIDOPHILUS CAP (BACID) PO SCH ×4 (09:06→20:20)
[2020-07-23 14:00] VITALS: BP 111/73
--- NOTE | 2020-07-23 16:51 | IPNPDOC ---
Text Note Date of Service The patient was seen on 07/23/20. NOTE Patient seen and examined at bedside. No acute overnight events reported. No new medical complaints and pt is participating in therapy. PHYSICAL EXAMINATION: VITAL SIGNS: Please see below GENERAL APPEARANCE: NAD, resting comfortablyh in bed HEENT: NC/AT, EOMI CARDIOVASCULAR: S1S2+, no M/R/G LUNGS: CTAB, No W/R/R ABDOMEN: soft, nontender, BS + in 4 quad, nondistended EXTREMITIES: No edema, cyanosis or clubbing, NEUROLOGICAL: CN 2-12 intact, 1/5 b/l lower ext, 5/5 LUE, 3/5 RUE- worsened from ER evaluation No sensory deficits. No nystagmus, no tremor. 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 C/w PT/OT 2) Hx of left-side CVA with right side weakness chronic but also worsened since CVA, s/p closure of PFO : Plavix aspirin , statin . PT/OT DVT with sq lovenox Disposition as per primary. VS,Fishbone, I+O VS, Fishbone, I+O Vital Signs Date Time Temp Pulse Resp B/P (MAP) Pulse Ox O2 Delivery O2 Flow Rate FiO2 07/23/20 14:00 98.2 77 18 111/73 (86) 97 Room Air I&O- Last 24 Hours up to 6 AM 07/23/20 06:00 Intake Total 370 ml Balance 370 ml SHARITA TIRADO MD Jul 23, 2020 16:51
[2020-07-23 20:00] VITALS: BP 102/67
[2020-07-23] MEDS: hydrOXYzine 25 MG TAB PO PRN (20:20)
[2020-07-23] MEDS: BACLOFEN 5MG PER 1/2 TABLET PO SCH (20:20)
[2020-07-24 05:33] VITALS: BP 114/66
[2020-07-24 07:12] LABS: BASO # 0.1 10^3/uL (0.0-0.2); BASO % 0.9 % (0.0-1.0); EOS # 0.3 10^3/uL (0.0-0.5); HEMATOCRIT 43.2 % (42.0-52.0); HEMOGLOBIN 13.8 g/dl (13.5-17.5); LYMPH # 2.2 10^3/uL (1.5-5.0); LYMPH % 28.2 % (24.0-44.0); MEAN CORPUSCULAR HEMOGLOBIN 29.1 pg (27.0-33.0); MEAN CORPUSCULAR HGB CONC 31.9 g/dl (32.0-36.5); MEAN CORPUSCULAR VOLUME 90.9 fl (80.0-96.0); MONO # 0.5 10^3/uL (0.0-0.8); MONO % 6.4 % (2.0-8.0); NEUTROPHILS # 4.6 10^3/uL (1.5-8.5); NEUTROPHILS % 60.2 % (36.0-66.0); PLATELET COUNT, AUTOMATED 375 10^3/uL (150-450); RED BLOOD COUNT 4.75 10^6/uL (4.30-6.10); WHITE BLOOD COUNT 7.7 10^3/uL (4.0-10.0)
[2020-07-24] MEDS: IPRATROPIUM 0.5MG/ALBUTEROL 2.5MG INH SOL UD 3ML (DUONEB) NEB SCH ×3 (07:23→19:46)
[2020-07-24 07:36] LABS: BLOOD UREA NITROGEN 19 MG/DL (7-18); CALCIUM LEVEL 9.6 MG/DL (8.5-10.1); CARBON DIOXIDE LEVEL 30 MEQ/L (21-32); CHLORIDE LEVEL 103 MEQ/L (98-107); CREATININE FOR GFR 1.02 MG/DL (0.70-1.30); GLOMERULAR FILTRATION RATE > 60.0 (>60); GLUCOSE, FASTING 89 MG/DL (70-100); POTASSIUM SERUM 4.4 MEQ/L (3.5-5.1); SODIUM LEVEL 139 MEQ/L (136-145)
[2020-07-24] MEDS: FLUoxetine 20 MG CAP PO SCH (08:50)
[2020-07-24] MEDS: METOPROLOL TART 25 MG TABLET PO SCH ×2 (08:50→20:20)
[2020-07-24] MEDS: ATORVASTATIN 20 MG TAB PO SCH (08:50)
[2020-07-24] MEDS: CLOPIDOGREL 75 MG TAB PO SCH (08:50)
[2020-07-24] MEDS: ASPIRIN 81 MG ENTERIC TAB PO SCH (08:50)
[2020-07-24] MEDS: PANTOPRAZOLE 40MG TAB (PROTONIX) PO SCH (08:50)
[2020-07-24] MEDS: AVEENO SOAP BAR TOP SCH ×3 (08:51→20:23)
[2020-07-24] MEDS: SODIUM CHLORIDE NASAL 0.65% SPRAY BTL (OCEAN) SCH ×3 (08:51→20:21)
[2020-07-24] MEDS: ENOXAPARIN 40MG/0.4ML SYRINGE (J1650 PER 10MG) SC SCH (08:51)
[2020-07-24] MEDS: REMEDY PHYTOPLEX Z-GUARD PASTE 113GM TUBE (FROM STOREROOM PRODUCT) TOP SCH ×3 (08:52→20:24)
[2020-07-24] MEDS: LACTOBACILLUS ACIDOPHILUS CAP (BACID) PO SCH ×4 (08:54→20:21)
[2020-07-24] MEDS ORDERED: BACLOFEN 5MG PER 1/2 TABLET PO PRN (12:00)
--- NOTE | 2020-07-24 12:17 | IPNPDOC ---
PM&R Progress Note DATE OF SERVICE: Jul 24, 2020 Sr. Operations Manager Progress Note Subjective- Patient asking for higher dose of baclofen at night because he has been having painful spasms. He reports his hands still feel dry and would like to try a different lotion. REVIEW OF SYSTEMS: The following is a completed review of systems and has been reviewed. Review of systems otherwise unremarkable. PAIN: Patient self reports no pain EYES: No recent vision changes EARS, NOSE, & THROAT: +dysphagia (improving , +hypophonia (improving) CARDIOVASCULAR: Denies chest pain or palpitations PULMONARY: Denies shortness of breath GASTROINTESTINAL: denies constipation/diarrhea GENITOURINARY: denies dysuria MUSCULOSKELETAL: +paresis in all 4 limbs NEUROLOGICAL: +paresis in all 4 limbs HEMATOLOGICAL: denies easy bruising SKIN: no rash PSYCHIATRIC: Unremarkable All other review of systems found to be negative. PHYSICAL EXAMINATION: VITAL SIGNS: Please see below. GENERAL: Pleasant and cooperative. No acute distress. thin HEENT: PERRL. Extraocular movements intact. Clear conjunctiva, +hypophonia, tongue midline, no facial droop, left sided ptosis, no lymphadenopathy CARDIOVASCULAR: Regular rate and rhythm. No murmurs, rubs, or gallops LUNGS: decreased breath sounds, weak inspiratory effort ABDOMEN: +mild TTP RLQ, no distension, normal bowel sounds NEUROLOGICAL: Alert and oriented times three. CN IX-X impairment, Sensation intact to light touch bilat face, left arm, bilat legs, slightly decreased right arm/hand +clonus bilat +Babinksi bilat +spasticity RUE and RLE EXTREMITIES: 3/5 LUE, 2/5 left hip flexion, knee extension, 0/5 left ankle DF/EHL/PF 3+/5 RUE, 3+/5 right hip flexion, knee extension, DF/EHL/PF SKIN: resolved rash ASSESSMENT:45-year-old M with past medical history of CVA who presents status post new right medullary infarct PLAN: 1. Rehab- PT/OT advance mobility and ADLs, strengthen/stretch/maintain ROM all 4 limbs -OCC MED PHYSICIAN for cog and repeat swallow eval, s/p FEES cleared for thins and level 2 with supervision 2. 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 CArdiac- HLD c/u statin -medicine consulted to assist in overall management 4. Resp- monitor for infection, hx of pneumothorax, CXR 07-14-20 negative for infiltrate, c/u to monitor, patient denies fevers or chills -patient with weak cough and shallow breathing likely due to Cranial nerve involvement of stroke that is gradually improving 5. GI ppx- protonix 6. DVT ppx- lovenox -bilat UE and LE dopplers negative 7. Pain- Tylenol prn, worsening nocturnal spasticity- will increase baclofen to 10mg qHS and ad 5mg prn overnight 8. - monitor PVrs-patient incontinent, UA negative 9. Leukocytosis- resolved, s/p course of cefdinir for pharyngitis, symptoms have resolved, throat cx's negative -body rash and loose stools has resolved will continue to avoid phytoplex body lotion and CHG baths as patient likely had allergic reaction, patient with still mildly dry hands and although Aveeno was ordered, we do not carry lotion, only bar of soap, will trial Vanicream and monitor for rash -UA negative, CT chest without infiltrate, resp-panel negative -blood cx no growth 10. Dispo- 07-30-20, progressing slowly towards goals, will possibly need power wheelchair Allergies Uncoded Allergies: phytoplex (Allergy, Intermediate, diffuse body rash, 07/17/20) Phytoplex purple cream Vital Signs Vital Signs Date Time Temp Pulse Resp B/P (MAP) Pulse Ox O2 Delivery O2 Flow Rate FiO2 07/24/20 08:50 88 114/66 07/24/20 05:33 98.3 18 98 Room Air Laboratory Data CBC/BMP Laboratory Tests 07/24/20 06:50 Labs 24H Laboratory Tests 2 07/24/20 06:50: Immature Granulocyte % (Auto) 0.3, Neutrophils (%) (Auto) 60.2, Lymphocytes (%) (Auto) 28.2, Monocytes (%) (Auto) 6.4, Eosinophils (%) (Auto) 4.0H, Basophils (%) (Auto) 0.9, Neutrophils # (Auto) 4.6, Lymphocytes # (Auto) 2.2, Monocytes # (Auto) 0.5, Eosinophils # (Auto) 0.3, Basophils # (Auto) 0.1, Nucleated Red Blood Cells % (auto) 0.0, Anion Gap 6L, Glomerular Filtration Rate > 60.0, Calcium Level 9.6 Microbiology Microbiology 07/16/20 Group A Streptococcus Screen ([facility]) - Final, Complete 07/16/20 Group A Streptococcus Screen ([facility]) - Final, Complete 07/16/20 Eye/Ear/Nose/Throat Culture - Final, Complete 07/15/20 Blood Culture - Final, Complete NO GROWTH AFTER 5 DAYS 07/15/20 Blood Culture - Final, Complete NO GROWTH AFTER 5 DAYS 07/15/20 Respiratory Virus Panel (PCR) ([facility]) - Final, Complete Current Medications Current Medications Current Medications Medications (Trade) Dose Ordered Sig/Juan Luis Route PRN Reason Start Time Stop Time Status Last Admin Dose Admin Acetaminophen (Tylenol Tab) 650 mg Q4HP PRN PO fever/MILD PAIN (PS 1-4) 07/07/20 12:15 07/23/20 20:20 Albuterol/ Ipratropium (Duoneb (Ipr 0.5mg/Alb 2.5mg)) 3 ml RTID NEB 07/16/20 08:00 07/24/20 07:23 Aspirin (Ecotrin) 81 mg DAILY PO 07/08/20 09:00 07/24/20 08:50 Atorvastatin Calcium (Lipitor) 40 mg DAILY PO 07/08/20 09:00 07/24/20 08:50 Baclofen (Lioresal) 5 mg DAILY PRN PO spasms 07/24/20 12:00 Baclofen (Lioresal) 5 mg QHS PO 07/16/20 21:00 07/24/20 11:55 DC 07/23/20 20:20 Baclofen (Lioresal) 10 mg QHS PO 07/24/20 21:00 Baclofen (Lioresal) 10 mg QHS PO 07/13/20 21:00 07/15/20 11:10 DC 07/14/20 20:38 Bisacodyl (Dulcolax Suppository) 10 mg DAILYPRN PRN [place] CONSTIPATION 07/07/20 12:15 Cefdinir (Omnicef) 300 mg BID PO 07/16/20 21:00 07/21/20 09:24 DC 07/21/20 08:32 Clopidogrel Bisulfate (PLAVix) 75 mg DAILY PO 07/08/20 09:00 07/24/20 08:50 Colloidal Oatmeal (Aveeno) 1 ea TID TOP 07/17/20 09:00 07/24/20 08:51 Docusate Sodium (Colace) 100 mg BID PO 07/07/20 21:00 07/15/20 11:28 DC 07/15/20 08:29 Emollient Cream (Vanicream) bilat Hands and ar... BID TOP 07/24/20 09:00 Enoxaparin Sodium (Lovenox) 40 mg DAILY SC 07/08/20 09:00 07/24/20 08:51 Fluoxetine HCl (PROzac) 20 mg DAILY PO 07/10/20 09:00 07/24/20 08:50 Hydroxyzine HCl (Atarax) 25 mg Q6HP PRN PO itch 07/15/20 12:15 07/23/20 20:20 Lactobacillus Acidophilus (Bacid) 1 ea ACHS PO 07/16/20 21:00 07/24/20 12:05 Metoprolol Tartrate (Lopressor) 12.5 mg BID PO 07/16/20 10:15 07/17/20 12:02 DC 07/17/20 08:57 Metoprolol Tartrate (Lopressor) 25 mg BID PO 07/17/20 21:00 07/24/20 08:50 Ondansetron HCl (Zofran Odt) 4 mg Q4HP PRN SL NAUSEA OR VOMITING 07/15/20 11:15 07/15/20 11:15 Ondansetron HCl (Zofran) 4 mg Q6HP PRN PO NAUSEA 07/07/20 12:15 07/15/20 12:14 DC Oxymetazoline HCl (Afrin) 2 spray ASDIRECTED PRN NA SEE LABEL COMMENTS 07/17/20 09:00 07/17/20 09:00 DC 07/17/20 08:56 Pantoprazole Sodium (Protonix) 40 mg DAILY PO 07/08/20 09:00 07/24/20 08:50 Senna (Senokot) 1 tab QHS PO 07/07/20 21:00 07/15/20 11:28 DC 07/14/20 20:38 Sodium Chloride ([place] Nasal [place]) 2 spray TID NA 07/18/20 09:00 07/24/20 08:51 HETAL CHRISTENSEN MD Jul 24, 2020 12:17
[2020-07-24] MEDS: VANICREAM MOISTURIZING SKIN CREAM 113GM TUBE TOP SCH ×2 (13:38→20:24)
[2020-07-24 14:00] VITALS: BP 95/60
--- NOTE | 2020-07-24 14:39 | IPNPDOC ---
Text Note Date of Service The patient was seen on 07/24/20. NOTE Patient seen and examined at bedside. No acute overnight events reported. pt is participating in therapy. PHYSICAL EXAMINATION: VITAL SIGNS: Please see below GENERAL APPEARANCE: NAD, resting comfortablyh in bed HEENT: NC/AT, EOMI CARDIOVASCULAR: S1S2+, no M/R/G LUNGS: CTAB, No W/R/R ABDOMEN: soft, nontender, BS + in 4 quad, nondistended EXTREMITIES: No edema, cyanosis or clubbing, NEUROLOGICAL: CN 2-12 intact, 1/5 b/l lower ext, 5/5 LUE, 3/5 RUE-.No sensory deficits. No nystagmus, no tremor. PSYCHIATRIC: Mood and affect appropriate Assessment and plan 45 yo male admitted to ARU for continued rehab s/p right medullary CVA 1) Right medullary CVA: C/W plavix and aspirin , high dose statin, had existing RLE and RUE weakness from left medullary infarct, old. C/w PT/OT 2) Hx of left-side CVA with right side weakness chronic but also worsened since CVA, s/p closure of PFO : Plavix aspirin , statin . PT/OT DVT with sq lovenox Disposition as per primary. VS,Fishbone, I+O VS, Fishbone, I+O Laboratory Tests 07/24/20 06:50 Vital Signs Date Time Temp Pulse Resp B/P (MAP) Pulse Ox O2 Delivery O2 Flow Rate FiO2 07/24/20 14:00 98.0 82 18 95/60 (72) 97 Room Air I&O- Last 24 Hours up to 6 AM 07/24/20 06:00 Intake Total 420 ml Balance 420 ml SHARITA TIRADO MD Jul 24, 2020 14:39
[2020-07-24 20:05] VITALS: BP 95/58
[2020-07-24] MEDS: BACLOFEN 10 MG TAB PO SCH (20:21)
[2020-07-25 04:56] VITALS: BP 109/68
[2020-07-25] MEDS: IPRATROPIUM 0.5MG/ALBUTEROL 2.5MG INH SOL UD 3ML (DUONEB) NEB SCH ×3 (07:31→19:26)
[2020-07-25] MEDS: ASPIRIN 81 MG ENTERIC TAB PO SCH (08:08)
[2020-07-25] MEDS: ENOXAPARIN 40MG/0.4ML SYRINGE (J1650 PER 10MG) SC SCH (08:08)
[2020-07-25] MEDS: ATORVASTATIN 20 MG TAB PO SCH (08:08)
[2020-07-25] MEDS: CLOPIDOGREL 75 MG TAB PO SCH (08:08)
[2020-07-25] MEDS: LACTOBACILLUS ACIDOPHILUS CAP (BACID) PO SCH ×4 (08:08→20:18)
[2020-07-25] MEDS: PANTOPRAZOLE 40MG TAB (PROTONIX) PO SCH (08:08)
[2020-07-25] MEDS: FLUoxetine 20 MG CAP PO SCH (08:08)
[2020-07-25] MEDS: METOPROLOL TART 25 MG TABLET PO SCH ×2 (08:09→20:17)
[2020-07-25] MEDS: AVEENO SOAP BAR TOP SCH ×3 (08:09→20:22)
[2020-07-25] MEDS: REMEDY PHYTOPLEX Z-GUARD PASTE 113GM TUBE (FROM STOREROOM PRODUCT) TOP SCH ×3 (08:10→20:19)
[2020-07-25] MEDS: VANICREAM MOISTURIZING SKIN CREAM 113GM TUBE TOP SCH ×2 (08:10→20:20)
[2020-07-25] MEDS: SODIUM CHLORIDE NASAL 0.65% SPRAY BTL (OCEAN) SCH ×3 (08:10→20:18)
[2020-07-25] MEDS: ACETAMINOPHEN TAB 650MG DOSE (2X325MG) PO PRN (12:41)
[2020-07-25 14:00] VITALS: BP 101/65
[2020-07-25] MEDS: BACLOFEN 10 MG TAB PO SCH (20:18)
[2020-07-25 21:33] VITALS: BP 101/65
[2020-07-26] MEDS: IPRATROPIUM 0.5MG/ALBUTEROL 2.5MG INH SOL UD 3ML (DUONEB) NEB SCH ×3 (07:20→19:25)
[2020-07-26] MEDS: CLOPIDOGREL 75 MG TAB PO SCH (08:27)
[2020-07-26] MEDS: ASPIRIN 81 MG ENTERIC TAB PO SCH (08:27)
[2020-07-26] MEDS: PANTOPRAZOLE 40MG TAB (PROTONIX) PO SCH (08:27)
[2020-07-26] MEDS: LACTOBACILLUS ACIDOPHILUS CAP (BACID) PO SCH ×4 (08:27→22:27)
[2020-07-26] MEDS: ATORVASTATIN 20 MG TAB PO SCH (08:28)
[2020-07-26] MEDS: METOPROLOL TART 25 MG TABLET PO SCH ×2 (08:28→22:27)
[2020-07-26] MEDS: SODIUM CHLORIDE NASAL 0.65% SPRAY BTL (OCEAN) SCH ×3 (08:29→22:28)
[2020-07-26] MEDS: AVEENO SOAP BAR TOP SCH ×3 (08:29→22:29)
[2020-07-26] MEDS: ENOXAPARIN 40MG/0.4ML SYRINGE (J1650 PER 10MG) SC SCH (08:29)
[2020-07-26] MEDS: FLUoxetine 20 MG CAP PO SCH (08:29)
[2020-07-26] MEDS: REMEDY PHYTOPLEX Z-GUARD PASTE 113GM TUBE (FROM STOREROOM PRODUCT) TOP SCH ×3 (08:30→22:28)
[2020-07-26] MEDS: VANICREAM MOISTURIZING SKIN CREAM 113GM TUBE TOP SCH ×2 (08:30→22:29)
[2020-07-26 14:00] VITALS: BP 109/78
[2020-07-26 20:00] VITALS: BP 121/77
[2020-07-26] MEDS: BACLOFEN 10 MG TAB PO SCH (22:27)
[2020-07-27 05:25] VITALS: BP 111/65
[2020-07-27 07:05] LABS: BASO # 0.1 10^3/uL (0.0-0.2); EOS # 0.2 10^3/uL (0.0-0.5); EOS % 3.1 % (0.0-3.0); HEMOGLOBIN 14.1 g/dl (13.5-17.5); LYMPH # 1.9 10^3/uL (1.5-5.0); LYMPH % 24.5 % (24.0-44.0); MEAN CORPUSCULAR HEMOGLOBIN 28.4 pg (27.0-33.0); MEAN CORPUSCULAR HGB CONC 31.3 g/dl (32.0-36.5); MEAN CORPUSCULAR VOLUME 90.7 fl (80.0-96.0); MONO # 0.5 10^3/uL (0.0-0.8); MONO % 6.1 % (2.0-8.0); NEUTROPHILS # 5.1 10^3/uL (1.5-8.5); PLATELET COUNT, AUTOMATED 382 10^3/uL (150-450); RED BLOOD COUNT 4.96 10^6/uL (4.30-6.10); WHITE BLOOD COUNT 7.8 10^3/uL (4.0-10.0)
[2020-07-27] MEDS: IPRATROPIUM 0.5MG/ALBUTEROL 2.5MG INH SOL UD 3ML (DUONEB) NEB SCH ×3 (07:06→19:35)
[2020-07-27 07:23] LABS: BLOOD UREA NITROGEN 13 MG/DL (7-18); CALCIUM LEVEL 9.7 MG/DL (8.5-10.1); CARBON DIOXIDE LEVEL 31 MEQ/L (21-32); CHLORIDE LEVEL 100 MEQ/L (98-107); GLOMERULAR FILTRATION RATE > 60.0 (>60); GLUCOSE, FASTING 97 MG/DL (70-100); POTASSIUM SERUM 4.2 MEQ/L (3.5-5.1); SODIUM LEVEL 136 MEQ/L (136-145)
[2020-07-27] MEDS: ASPIRIN 81 MG ENTERIC TAB PO SCH (08:20)
[2020-07-27] MEDS: LACTOBACILLUS ACIDOPHILUS CAP (BACID) PO SCH ×4 (08:20→20:02)
[2020-07-27] MEDS: ATORVASTATIN 20 MG TAB PO SCH (08:20)
[2020-07-27] MEDS: FLUoxetine 20 MG CAP PO SCH (08:20)
[2020-07-27] MEDS: PANTOPRAZOLE 40MG TAB (PROTONIX) PO SCH (08:20)
[2020-07-27] MEDS: REMEDY PHYTOPLEX Z-GUARD PASTE 113GM TUBE (FROM STOREROOM PRODUCT) TOP SCH ×3 (08:21→20:04)
[2020-07-27] MEDS: CLOPIDOGREL 75 MG TAB PO SCH (08:21)
[2020-07-27] MEDS: ENOXAPARIN 40MG/0.4ML SYRINGE (J1650 PER 10MG) SC SCH (08:21)
[2020-07-27] MEDS: SODIUM CHLORIDE NASAL 0.65% SPRAY BTL (OCEAN) SCH ×3 (08:22→20:03)
[2020-07-27] MEDS: VANICREAM MOISTURIZING SKIN CREAM 113GM TUBE TOP SCH ×2 (08:22→20:04)
[2020-07-27] MEDS: AVEENO SOAP BAR TOP SCH ×3 (08:22→20:04)
[2020-07-27] MEDS: METOPROLOL TART 25 MG TABLET PO SCH ×2 (08:27→20:03)
--- NOTE | 2020-07-27 11:48 | IPNPDOC ---
PM&R Progress Note DATE OF SERVICE: Jul 27, 2020 Oil [employer] Progress Note Subjective- Patient reporting his evening muscle spasms are better, he also state eh can tolerate the vanicream and that his rash has not returned. REVIEW OF SYSTEMS: The following is a completed review of systems and has been reviewed. Review of systems otherwise unremarkable. PAIN: Patient self reports no pain EYES: No recent vision changes EARS, NOSE, & THROAT: +dysphagia (improving , +hypophonia (improving) CARDIOVASCULAR: Denies chest pain or palpitations PULMONARY: Denies shortness of breath GASTROINTESTINAL: denies constipation/diarrhea GENITOURINARY: denies dysuria MUSCULOSKELETAL: +paresis in all 4 limbs NEUROLOGICAL: +paresis in all 4 limbs HEMATOLOGICAL: denies easy bruising SKIN: no rash PSYCHIATRIC: Unremarkable All other review of systems found to be negative. PHYSICAL EXAMINATION: VITAL SIGNS: Please see below. GENERAL: Pleasant and cooperative. No acute distress. thin HEENT: PERRL. Extraocular movements intact. Clear conjunctiva, +hypophonia, tongue midline, no facial droop, left sided ptosis, no lymphadenopathy CARDIOVASCULAR: Regular rate and rhythm. No murmurs, rubs, or gallops LUNGS: decreased breath sounds, weak inspiratory effort ABDOMEN: +mild TTP RLQ, no distension, normal bowel sounds NEUROLOGICAL: Alert and oriented times three. CN IX-X impairment, Sensation intact to light touch bilat face, left arm, bilat legs, slightly decreased right arm/hand +clonus bilat +Babinksi bilat +spasticity RUE and RLE EXTREMITIES: 3/5 LUE, 2/5 left hip flexion, knee extension, 0/5 left ankle DF/EHL/PF 3+/5 RUE, 3+/5 right hip flexion, knee extension, DF/EHL/PF SKIN: resolved rash ASSESSMENT:45-year-old M with past medical history of CVA who presents status post new right medullary infarct PLAN: 1. Rehab- PT/OT advance mobility and ADLs, strengthen/stretch/maintain ROM all 4 limbs -MANAGER HVAC for cog and repeat swallow eval, s/p FEES cleared for thins and level 2 with supervision 2. 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 CArdiac- HLD c/u statin -medicine consulted to assist in overall management 4. Resp- monitor for infection, hx of pneumothorax, CXR 07-14-20 negative for infiltrate, c/u to monitor, patient denies fevers or chills -patient with weak cough and shallow breathing likely due to Cranial nerve involvement of stroke that is gradually improving 5. GI ppx- protonix 6. DVT ppx- lovenox -bilat UE and LE dopplers negative 7. Pain- Tylenol prn, worsening nocturnal spasticity- will increase baclofen to 10mg qHS and ad 5mg prn overnight 8. - monitor PVrs-patient incontinent, UA negative 9. Leukocytosis- resolved, s/p course of cefdinir for pharyngitis, symptoms have resolved, throat cx's negative -body rash and loose stools has resolved will continue to avoid phytoplex body lotion and CHG baths as patient likely had allergic reaction, patient with still mildly dry hands and although Aveeno was ordered, we do not carry lotion, only bar of soap, will trial Vanicream and monitor for rash -UA negative, CT chest without infiltrate, resp-panel negative -blood cx no growth 10. Dispo- 07-30-20, progressing slowly towards goals, will possibly need power wheelchair DME- PAtient will require a hospital bed as he is functionally a quadriplegic. He is unable to reposition himself in bed on his own without assistance and due to his sensory impairments in setting of bilateral stroke is at high risk of skin breakdown and developing pressure sores. A hospital bed will also help him family care for him and allow him to better transfer to and from the bed with a mattress height that can be adjusted. Allergies Uncoded Allergies: phytoplex (Allergy, Intermediate, diffuse body rash, 07/17/20) Phytoplex purple cream Vital Signs Vital Signs Date Time Temp Pulse Resp B/P (MAP) Pulse Ox O2 Delivery O2 Flow Rate FiO2 07/27/20 08:27 70 109/70 07/27/20 05:25 97.6 18 97 Room Air Laboratory Data CBC/BMP Laboratory Tests 07/27/20 06:50 Labs 24H Laboratory Tests 2 07/27/20 06:50: Immature Granulocyte % (Auto) 0.3, Neutrophils (%) (Auto) 65.0, Lymphocytes (%) (Auto) 24.5, Monocytes (%) (Auto) 6.1, Eosinophils (%) (Auto) 3.1H, Basophils (%) (Auto) 1.0, Neutrophils # (Auto) 5.1, Lymphocytes # (Auto) 1.9, Monocytes # (Auto) 0.5, Eosinophils # (Auto) 0.2, Basophils # (Auto) 0.1, Nucleated Red Blood Cells % (auto) 0.0, Anion Gap 5L, Glomerular Filtration Rate > 60.0, Calcium Level 9.7 Current Medications Current Medications Current Medications Medications (Trade) Dose Ordered Sig/Juan Luis Route PRN Reason Start Time Stop Time Status Last Admin Dose Admin Acetaminophen (Tylenol Tab) 650 mg Q4HP PRN PO fever/MILD PAIN (PS 1-4) 07/07/20 12:15 07/25/20 12:41 Albuterol/ Ipratropium (Duoneb (Ipr 0.5mg/Alb 2.5mg)) 3 ml RTID NEB 07/16/20 08:00 07/27/20 07:06 Aspirin (Ecotrin) 81 mg DAILY PO 07/08/20 09:00 07/27/20 08:20 Atorvastatin Calcium (Lipitor) 40 mg DAILY PO 07/08/20 09:00 07/27/20 08:20 Baclofen (Lioresal) 5 mg DAILY PRN PO spasms 07/24/20 12:00 Baclofen (Lioresal) 5 mg QHS PO 07/16/20 21:00 07/24/20 11:55 DC 07/23/20 20:20 Baclofen (Lioresal) 10 mg QHS PO 07/24/20 21:00 07/26/20 22:27 Baclofen (Lioresal) 10 mg QHS PO 07/13/20 21:00 07/15/20 11:10 DC 07/14/20 20:38 Bisacodyl (Dulcolax Suppository) 10 mg DAILYPRN PRN [place] CONSTIPATION 07/07/20 12:15 07/26/20 08:28 Cefdinir (Omnicef) 300 mg BID PO 07/16/20 21:00 07/21/20 09:24 DC 07/21/20 08:32 Clopidogrel Bisulfate (PLAVix) 75 mg DAILY PO 07/08/20 09:00 07/27/20 08:21 Colloidal Oatmeal (Aveeno) 1 ea TID TOP 07/17/20 09:00 07/27/20 08:22 Docusate Sodium (Colace) 100 mg BID PO 07/07/20 21:00 07/15/20 11:28 DC 07/15/20 08:29 Emollient Cream (Vanicream) bilat Hands and ar... BID TOP 07/24/20 09:00 07/27/20 08:22 Enoxaparin Sodium (Lovenox) 40 mg DAILY SC 07/08/20 09:00 07/27/20 08:21 Fluoxetine HCl (PROzac) 20 mg DAILY PO 07/10/20 09:00 07/27/20 08:20 Hydroxyzine HCl (Atarax) 25 mg Q6HP PRN PO itch 07/15/20 12:15 07/23/20 20:20 Lactobacillus Acidophilus (Bacid) 1 ea ACHS PO 07/16/20 21:00 07/27/20 08:20 Metoprolol Tartrate (Lopressor) 12.5 mg BID PO 07/16/20 10:15 07/17/20 12:02 DC 07/17/20 08:57 Metoprolol Tartrate (Lopressor) 25 mg BID PO 07/17/20 21:00 07/26/20 22:27 Ondansetron HCl (Zofran Odt) 4 mg Q4HP PRN SL NAUSEA OR VOMITING 07/15/20 11:15 07/15/20 11:15 Ondansetron HCl (Zofran) 4 mg Q6HP PRN PO NAUSEA 07/07/20 12:15 07/15/20 12:14 DC Oxymetazoline HCl (Afrin) 2 spray ASDIRECTED PRN NA SEE LABEL COMMENTS 07/17/20 09:00 07/17/20 09:00 DC 07/17/20 08:56 Pantoprazole Sodium (Protonix) 40 mg DAILY PO 07/08/20 09:00 07/27/20 08:20 Senna (Senokot) 1 tab QHS PO 07/07/20 21:00 07/15/20 11:28 DC 07/14/20 20:38 Sodium Chloride ([place] Nasal [place]) 2 spray TID NA 07/18/20 09:00 07/27/20 08:22 HETAL CHRISTENSEN MD Jul 27, 2020 11:48
[2020-07-27 14:00] VITALS: BP 123/87
[2020-07-27 20:00] VITALS: BP 99/64
[2020-07-27] MEDS: BACLOFEN 10 MG TAB PO SCH (20:03)
[2020-07-27] MEDS: ACETAMINOPHEN TAB 650MG DOSE (2X325MG) PO PRN (20:03)
[2020-07-28 05:22] VITALS: BP 106/60
[2020-07-28] MEDS: IPRATROPIUM 0.5MG/ALBUTEROL 2.5MG INH SOL UD 3ML (DUONEB) NEB SCH ×3 (07:40→22:00)
[2020-07-28] MEDS: ATORVASTATIN 20 MG TAB PO SCH (08:46)
[2020-07-28] MEDS: FLUoxetine 20 MG CAP PO SCH (08:46)
[2020-07-28] MEDS: CLOPIDOGREL 75 MG TAB PO SCH (08:46)
[2020-07-28] MEDS: METOPROLOL TART 25 MG TABLET PO SCH ×2 (08:46→20:19)
[2020-07-28] MEDS: ASPIRIN 81 MG ENTERIC TAB PO SCH (08:46)
[2020-07-28] MEDS: PANTOPRAZOLE 40MG TAB (PROTONIX) PO SCH (08:46)
[2020-07-28] MEDS: SODIUM CHLORIDE NASAL 0.65% SPRAY BTL (OCEAN) SCH ×3 (08:47→20:19)
[2020-07-28] MEDS: ENOXAPARIN 40MG/0.4ML SYRINGE (J1650 PER 10MG) SC SCH (08:47)
[2020-07-28] MEDS: AVEENO SOAP BAR TOP SCH ×3 (08:48→20:19)
[2020-07-28] MEDS: REMEDY PHYTOPLEX Z-GUARD PASTE 113GM TUBE (FROM STOREROOM PRODUCT) TOP SCH ×3 (08:48→20:20)
[2020-07-28] MEDS: VANICREAM MOISTURIZING SKIN CREAM 113GM TUBE TOP SCH ×2 (08:49→20:20)
[2020-07-28] MEDS: LACTOBACILLUS ACIDOPHILUS CAP (BACID) PO SCH ×4 (08:51→20:18)
[2020-07-28] MEDS ORDERED: ASPI81TAEC PO (10:05)
[2020-07-28] MEDS ORDERED: BACL10TA2 PO (10:05)
[2020-07-28] MEDS ORDERED: PANT40TA29 PO (10:06)
[2020-07-28] MEDS ORDERED: RISATAB3 PO (10:06)
[2020-07-28] MEDS ORDERED: ATOR40TA75 PO (10:06)
[2020-07-28] MEDS ORDERED: METO1TAB87 PO (10:06)
[2020-07-28] MEDS ORDERED: FLUO20CA22 PO (10:06)
[2020-07-28] MEDS ORDERED: CLOP75TA2 PO (10:06)
--- NOTE | 2020-07-28 10:17 | IPNPDOC ---
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 Review of systems otherwise unremarkable. PAIN: Patient self reports no pain EYES: No recent vision changes EARS, NOSE, & THROAT: +dysphagia (improving , +hypophonia (improving) CARDIOVASCULAR: Denies chest pain or palpitations PULMONARY: Denies shortness of breath GASTROINTESTINAL: denies constipation/diarrhea GENITOURINARY: denies dysuria MUSCULOSKELETAL: +paresis in all 4 limbs NEUROLOGICAL: +paresis in all 4 limbs HEMATOLOGICAL: denies easy bruising SKIN: no rash PSYCHIATRIC: Unremarkable All other review of systems found to be negative. PHYSICAL EXAMINATION: VITAL SIGNS: Please see below. GENERAL: Pleasant and cooperative. No acute distress. thin HEENT: PERRL. Extraocular movements intact. Clear conjunctiva, +hypophonia, tongue midline, no facial droop, left sided ptosis, no lymphadenopathy CARDIOVASCULAR: Regular rate and rhythm. No murmurs, rubs, or gallops LUNGS: decreased breath sounds, weak inspiratory effort ABDOMEN: +mild TTP RLQ, no distension, normal bowel sounds NEUROLOGICAL: Alert and oriented times three. CN IX-X impairment, Sensation intact to light touch bilat face, left arm, bilat legs, slightly decreased right arm/hand +clonus bilat +Babinksi bilat +spasticity RUE and RLE EXTREMITIES: 3/5 LUE, 2/5 left hip flexion, knee extension, 0/5 left ankle DF /EHL/PF 3+/5 RUE, 3+/5 right hip flexion, knee extension, DF/EHL/PF SKIN: resolved rash ASSESSMENT:45-year-old M with past medical history of CVA who presents status post new right medullary infarct PLAN: 1. 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 Neuro- functional quadriplegic, hx of CVA with right sided paresis, now with acute right medullary CVA with significant left sided paresis etiology unclear, vasculitis/hypercoagulable/NMO work-up negative, previous MRi cervical/thoracic spine not done with contrast, repeat MRI cervical/thoracic with contrast performed 2-- with no cord abnormalities, patient's hypophonia and dysphagia seem t be improving, repeat MRI 07-09-20 showing no new infarct, but cytotoxic edema at site of recent infarct, neurology recs appreciated -c/u plavix/ASA and statin for secondary stroke prevention -prozac started as well to help with motor recovery 3. CArdiac- HLD c/u statin -medicine consulted to assist in overall management 4. Resp- monitor for infection, hx of pneumothorax, CXR 07-14-20 negative for infiltrate, c/u to monitor, patient denies fevers or chills -patient with weak cough and shallow breathing likely due to Cranial nerve involvement of stroke that is gradually improving 5. GI ppx- protonix 6. DVT ppx- lovenox -bilat UE and LE dopplers negative 7. Pain- Tylenol prn, worsening nocturnal spasticity- will increase baclofen to 10mg qHS and ad 5mg prn overnight 8. - monitor PVrs-patient incontinent, UA negative 9. Leukocytosis- resolved, s/p course of cefdinir for pharyngitis, symptoms have resolved, throat cx's negative -body rash and loose stools has resolved will continue to avoid phytoplex body lotion and CHG baths as patient likely had allergic reaction, patient with still mildly dry hands and although Aveeno was ordered, we do not carry lotion, only bar of soap, will trial Vanicream and monitor for rash -UA negative, CT chest without infiltrate, resp-panel negative -blood cx no growth 10. Dispo- 07-30-20, progressing slowly towards goals, will possibly need power wheelchair DME- PAtient will require a hospital bed as he is functionally a quadriplegic. He is unable to reposition himself in bed on his own without assistance and due to his sensory impairments in setting of bilateral stroke is at high risk of skin breakdown and developing pressure sores. A hospital bed will also help him family care for him and allow him to better transfer to and from the bed with a mattress height that can be adjusted. Allergies Uncoded Allergies: phytoplex (Allergy, Intermediate, diffuse body rash, 07/17/20) Phytoplex purple cream Vital Signs Vital Signs Date Time Temp Pulse Resp B/P (MAP) Pulse Ox O2 Delivery O2 Flow Rate FiO2 07/28/20 08:46 88 106/60 07/28/20 05:22 97.7 19 98 Room Air Current Medications Current Medications Current Medications Medications (Trade) Dose Ordered Sig/Juan Luis Route PRN Reason Start Time Stop Time Status Last Admin Dose Admin Acetaminophen (Tylenol Tab) 650 mg Q4HP PRN PO fever/MILD PAIN (PS 1-4) 07/07/20 12:15 07/27/20 20:03 Albuterol/ Ipratropium (Duoneb (Ipr 0.5mg/Alb 2.5mg)) 3 ml RTID NEB 07/16/20 08:00 07/28/20 07:40 Aspirin (Ecotrin) 81 mg DAILY PO 07/08/20 09:00 07/28/20 08:46 Atorvastatin Calcium (Lipitor) 40 mg DAILY PO 07/08/20 09:00 07/28/20 08:46 Baclofen (Lioresal) 5 mg DAILY PRN PO spasms 07/24/20 12:00 Baclofen (Lioresal) 5 mg QHS PO 07/16/20 21:00 07/24/20 11:55 DC 07/23/20 20:20 Baclofen (Lioresal) 10 mg QHS PO 07/24/20 21:00 07/27/20 20:03 Baclofen (Lioresal) 10 mg QHS PO 07/13/20 21:00 07/15/20 11:10 DC 07/14/20 20:38 Bisacodyl (Dulcolax Suppository) 10 mg DAILYPRN PRN [place] CONSTIPATION 07/07/20 12:15 07/26/20 08:28 Cefdinir (Omnicef) 300 mg BID PO 07/16/20 21:00 07/21/20 09:24 DC 07/21/20 08:32 Clopidogrel Bisulfate (PLAVix) 75 mg DAILY PO 07/08/20 09:00 07/28/20 08:46 Colloidal Oatmeal (Aveeno) 1 ea TID TOP 07/17/20 09:00 07/28/20 08:48 Docusate Sodium (Colace) 100 mg BID PO 07/07/20 21:00 07/15/20 11:28 DC 07/15/20 08:29 Emollient Cream (Vanicream) bilat Hands and ar... BID TOP 07/24/20 09:00 07/28/20 08:49 Enoxaparin Sodium (Lovenox) 40 mg DAILY SC 07/08/20 09:00 07/28/20 08:47 Fluoxetine HCl (PROzac) 20 mg DAILY PO 07/10/20 09:00 07/28/20 08:46 Hydroxyzine HCl (Atarax) 25 mg Q6HP PRN PO itch 07/15/20 12:15 07/23/20 20:20 Lactobacillus Acidophilus (Bacid) 1 ea ACHS PO 07/16/20 21:00 07/28/20 08:51 Metoprolol Tartrate (Lopressor) 12.5 mg BID PO 07/16/20 10:15 07/17/20 12:02 DC 07/17/20 08:57 Metoprolol Tartrate (Lopressor) 25 mg BID PO 07/17/20 21:00 07/26/20 22:27 Ondansetron HCl (Zofran Odt) 4 mg Q4HP PRN SL NAUSEA OR VOMITING 07/15/20 11:15 07/15/20 11:15 Ondansetron HCl (Zofran) 4 mg Q6HP PRN PO NAUSEA 07/07/20 12:15 07/15/20 12:14 DC Oxymetazoline HCl (Afrin) 2 spray ASDIRECTED PRN NA SEE LABEL COMMENTS 07/17/20 09:00 07/17/20 09:00 DC 07/17/20 08:56 Pantoprazole Sodium (Protonix) 40 mg DAILY PO 07/08/20 09:00 07/28/20 08:46 Senna (Senokot) 1 tab QHS PO 07/07/20 21:00 07/15/20 11:28 DC 07/14/20 20:38 Sodium Chloride ([place] Nasal [place]) 2 spray TID NA 07/18/20 09:00 07/28/20 08:47 HETAL CHRISTENSEN MD Jul 28, 2020 10:17
[2020-07-28 14:00] VITALS: BP 111/66
[2020-07-28] MEDS: BACLOFEN 10 MG TAB PO SCH (20:18)
[2020-07-28] MEDS: ACETAMINOPHEN TAB 650MG DOSE (2X325MG) PO PRN (20:19)
[2020-07-28 22:00] VITALS: BP 119/79
[2020-07-29 06:00] VITALS: BP 101/57
[2020-07-29 06:25] LABS: BASO # 0.1 10^3/uL (0.0-0.2); BASO % 1.5 % (0.0-1.0); EOS # 0.3 10^3/uL (0.0-0.5); EOS % 3.8 % (0.0-3.0); HEMATOCRIT 42.9 % (42.0-52.0); HEMOGLOBIN 13.6 g/dl (13.5-17.5); LYMPH # 2.3 10^3/uL (1.5-5.0); LYMPH % 31.4 % (24.0-44.0); MEAN CORPUSCULAR HEMOGLOBIN 28.8 pg (27.0-33.0); MEAN CORPUSCULAR HGB CONC 31.7 g/dl (32.0-36.5); MEAN CORPUSCULAR VOLUME 90.7 fl (80.0-96.0); MONO # 0.5 10^3/uL (0.0-0.8); MONO % 6.7 % (2.0-8.0); NEUTROPHILS # 4.1 10^3/uL (1.5-8.5); NEUTROPHILS % 56.3 % (36.0-66.0); PLATELET COUNT, AUTOMATED 368 10^3/uL (150-450); RED BLOOD COUNT 4.73 10^6/uL (4.30-6.10); WHITE BLOOD COUNT 7.2 10^3/uL (4.0-10.0)
[2020-07-29 06:56] LABS: BLOOD UREA NITROGEN 14 MG/DL (7-18); CARBON DIOXIDE LEVEL 31 MEQ/L (21-32); CHLORIDE LEVEL 101 MEQ/L (98-107); CREATININE FOR GFR 0.87 MG/DL (0.70-1.30); GLOMERULAR FILTRATION RATE > 60.0 (>60); GLUCOSE, FASTING 92 MG/DL (70-100); POTASSIUM SERUM 4.4 MEQ/L (3.5-5.1); SODIUM LEVEL 138 MEQ/L (136-145)
[2020-07-29] MEDS: IPRATROPIUM 0.5MG/ALBUTEROL 2.5MG INH SOL UD 3ML (DUONEB) NEB SCH ×3 (07:25→19:46)
[2020-07-29] MEDS: SODIUM CHLORIDE NASAL 0.65% SPRAY BTL (OCEAN) SCH ×3 (09:00→20:41)
[2020-07-29] MEDS: CLOPIDOGREL 75 MG TAB PO SCH (09:23)
[2020-07-29] MEDS: FLUoxetine 20 MG CAP PO SCH (09:23)
[2020-07-29] MEDS: ENOXAPARIN 40MG/0.4ML SYRINGE (J1650 PER 10MG) SC SCH (09:23)
[2020-07-29] MEDS: ATORVASTATIN 20 MG TAB PO SCH (09:23)
[2020-07-29] MEDS: ASPIRIN 81 MG ENTERIC TAB PO SCH (09:23)
[2020-07-29] MEDS: LACTOBACILLUS ACIDOPHILUS CAP (BACID) PO SCH ×4 (09:23→20:39)
[2020-07-29] MEDS: AVEENO SOAP BAR TOP SCH ×3 (09:23→20:43)
[2020-07-29] MEDS: PANTOPRAZOLE 40MG TAB (PROTONIX) PO SCH (09:23)
[2020-07-29] MEDS: REMEDY PHYTOPLEX Z-GUARD PASTE 113GM TUBE (FROM STOREROOM PRODUCT) TOP SCH ×3 (09:24→20:43)
[2020-07-29] MEDS: VANICREAM MOISTURIZING SKIN CREAM 113GM TUBE TOP SCH ×2 (09:24→20:45)
[2020-07-29] MEDS: METOPROLOL TART 25 MG TABLET PO SCH ×2 (09:25→20:39)
[2020-07-29 14:00] VITALS: BP 106/70
[2020-07-29] MEDS ORDERED: SIMETHICONE 80MG CHEW TAB PO PRN (16:00)
[2020-07-29 20:30] VITALS: BP 105/65
[2020-07-29] MEDS: BACLOFEN 10 MG TAB PO SCH (20:39)
[2020-07-29] MEDS ORDERED: MI-A80CH PO (22:02)
[2020-07-30 06:55] VITALS: BP 108/69
[2020-07-30] MEDS: IPRATROPIUM 0.5MG/ALBUTEROL 2.5MG INH SOL UD 3ML (DUONEB) NEB SCH ×2 (07:34→12:54)
[2020-07-30 09:00] VITALS: BP 107/71
[2020-07-30] MEDS: METOPROLOL TART 25 MG TABLET PO SCH (09:00)
[2020-07-30] MEDS: SODIUM CHLORIDE NASAL 0.65% SPRAY BTL (OCEAN) SCH (09:00)
[2020-07-30] MEDS: ASPIRIN 81 MG ENTERIC TAB PO SCH (09:18)
[2020-07-30] MEDS: FLUoxetine 20 MG CAP PO SCH (09:18)
[2020-07-30] MEDS: LACTOBACILLUS ACIDOPHILUS CAP (BACID) PO SCH ×2 (09:18→12:32)
[2020-07-30] MEDS: ATORVASTATIN 20 MG TAB PO SCH (09:18)
[2020-07-30] MEDS: PANTOPRAZOLE 40MG TAB (PROTONIX) PO SCH (09:18)
[2020-07-30] MEDS: CLOPIDOGREL 75 MG TAB PO SCH (09:18)
[2020-07-30] MEDS: ENOXAPARIN 40MG/0.4ML SYRINGE (J1650 PER 10MG) SC SCH (09:18)
[2020-07-30] MEDS: VANICREAM MOISTURIZING SKIN CREAM 113GM TUBE TOP SCH (09:20)
[2020-07-30] MEDS: REMEDY PHYTOPLEX Z-GUARD PASTE 113GM TUBE (FROM STOREROOM PRODUCT) TOP SCH (09:20)
[2020-07-30] MEDS: AVEENO SOAP BAR TOP SCH (09:20)
[2020-07-30 14:00] VITALS: BP 114/74
== END 2020-07-30 14:40 | disposition home health service (06) | DRG 948 ==
LOC: M PM&R 15:50
PROVIDERS: ADMIT Physical Medicine & Rehabilitation; ATTEND Physical Medicine & Rehabilitation
DX: R53.2 Functional quadriplegia (principal); I69.351 Hemiplegia and hemiparesis following cerebral infarction affecting right dominant side; K21.9 Gastro-esophageal reflux disease without esophagitis; Z74.09 Other reduced mobility; Z74.1 Need for assistance with personal care; I69.398 Other sequelae of cerebral infarction; Z87.74 Personal history of (corrected) congenital malformations of heart and circulatory system; R25.2 Cramp and spasm; R49.8 Other voice and resonance disorders; Z79.899 Other long term (current) drug therapy

== ENCOUNTER → 2021-05-05 | Outpatient (CLI) | payer MEDICARE, MEDICAID ==
[~2021-05-05] MED LIST changes: +ASPI-569 PO; +ATOR40TA75 PO; +BACL10TA2 PO; +FLUO20CA22 PO; +METO1TAB87 PO; +MI-A80CH PO; +PANT40TA29 PO; +RISATAB3 PO
== END ==
LOC: M LABSMTC 11:10
PROVIDERS: ATTEND Anesthesiology
DX: Z01.818 Encounter for other preprocedural examination (principal); Z11.52 Encounter for screening for COVID-19

== ENCOUNTER 2021-05-10 11:10 | Day surgery (SDC) | payer MEDICARE, MEDICAID ==
[~2021-05-10] VITALS: Ht 160 cm; Wt 49.9 kg
[~2021-05-10 11:10] MED LIST changes: +ceFAZolin SOD 2 GM in IV 1 EA IV ONE
--- OUTSIDE RECORDS SUMMARY | 2021-05-10 11:18 | CCD | Continuity of Care Document ---
Author Organization Unknown Address Unknown Phone Unavailable Care Team Providers Care [place] Packer Name Role Phone Pan Harmon MD [facility] [phone] Bhanu Harmon MD [facility] [phone] Meri Rosa MD AUTM [phone] Katie Finch MD AUTM [phone] Chauncey Mckeon MD AUTM [phone] Pan Rod MD AUTM [phone] Problems Active Problems Provider Date Pure hypercholesterolemia Pan Taylor MD Onset: 2011 Cerebral artery occlusion Pan Taylor MD Onset: 2011 Ostium secundum type atrial septal defect Pan Taylor MD Onset: 05/18/2012 Social History Type Date Description Comments Sex Unknown ETOH Use Occasionally consumes alcohol Tobacco Use Start: Unknown Patient has never smoked Exercise Type/Frequency Physical therapy three t imes a week Exercise Limitations CVA Allergies, Adverse Reactions, Alerts Description No Known Drug Allergies Medications Active Medications SIG Qnty Indications Ordering Provide r Date Vitamin D 21315Bhpn Capsules 1 po twice a month Unknown 02/11/2013 Baclofen 20mg Tablets 1 po ti d Unknown 02/11/2013 Aspirin 81mg Tablets 1 po qd Unknown 02/11/2013 Lipitor 10mg Tablets 1 po qd 90tabs Bhanu Harmon MD 05/17/2012 Amoxicillin 500mg Capsules 4 capsules po 1 hour prior to dental procedures (sbe) Unknown Immunizations Description No Information Available Vital Signs Date Vital Result Comment 04/15/2013 8:49am Weight 110.00 lb Height 62 inches 5'2" BMI (Body Mass Index) 20.1 kg/m2 Heart Rate 72 /min Regular Respiratory Rate 16 /min BP Systolic Sitting 110 mmHg medium cuff, LA BP Diastolic Sitting 70 mmHg medium cuff, LA 05/18/2012 8:53am Weight 102.00 lb Height 62 inches 5'2" BMI (Body Mass Index) 18.7 kg/m2 Heart Rate 63 /min BP Systolic Lying Down 105 mmHg medium cuff, Ra BP Diastolic Lying Down 67 mmHg medium cuff, Ra BP Systolic Right Arm 96 mmHg medium cuff, Ra BP Diastolic Right Arm 66 mmHg medium cuff, Ra BP Systolic Left Arm 102 mmHg medium cuff, LA BP Diastolic Left Arm 59 mmHg medium cuff, LA Results Test Acquired Date Facility Test Result H/L Range Note Basic metabolic panel 12/22/2020 [facility] Glucose 100 mg/dL Urea nitrogen 15 mg/dL 4 - 21 Co2 32 mmol/L Abnormal 13 - 22 Creatinine 0.80 mg/dL 0.60 - 1.30 Potassium 4.1 mmol/L 3.4 - 5.3 Sodium 140 mmol/L 137 - 147 Chloride 105 mmol/L 99 - 108 GFR 60 Hemoglobin A1c 12/22/2020 [facility] Hemoglobin A1c 5.4 % 4.0 - 6.0 Lipid panel 12/22/2020 [facility] Triglycerides 95 mg/dL 40 - 160 Cholesterol 113 mg/dL 0 - 200 LDL Calculated 58 mg/dL 0 - 160 HDL 36 mg/dL 35 - 70 Procedures Description No Information Available Medical Devices Description No Information Available Encounters Description No Information Available Assessments Description No Information Available Plan of Treatment Future Appointment(s):* 04/09/2021 12:30 pm - Pan Taylor MD at Main Office 04/15/2013 - Chirag Kaplan NP* 745.5 Atrial Septal Defect Ostium Secundum Type* Recommendations:* Continue aspirin. * 434.91 Occlusion Cerebral Artery Unspec W/ Cerebral Infarc* Recommendations:* Continue aspirin. * 272.0 Hypercholesterolemia Pure* Recommendations:* Continue Lipitor at current dosing. The patient has been encouraged to continue dietary measures and regular exercise. * All * Follow up:* No specific arrangements were made for further cardiology follow up at this time. Functional Status Functional Condition Comment Date Status Independent with all ADL's Activ e Mental Status Description No Information Available Referrals Description No Information Available
--- OUTSIDE RECORDS SUMMARY | 2021-05-10 11:18 | CCD | Continuity of Care Document ---
Author Organization Unknown Address Unknown Phone Unavailable Care Team Providers Care [employer] Operator Name Role Phone Pan Harmon MD [facility] [phone] Bhanu Harmon MD [facility] [phone] Meri Rosa MD [facility]M [phone] Katie Finch MD AUTM [phone] Chauncey Mckeon MD AUTM [phone] Pan Rod MD AUTM [phone] Problems Active Problems Provider Date Pure hypercholesterolemia [...] Indications Ordering Provide r Date Vitamin D 68481Egms Capsules 1 po twice a month Unknown [...]
--- OUTSIDE RECORDS SUMMARY | 2021-05-10 11:18 | CCD ---
Author Author [facility] Organization [facility] Address Unknown Phone Unavailable Care Team Providers Care Raftsman Name Role Phone Katie Finch MD Unavailable Unavailable Katie Finch MD Unavailable Unavailable Katie Finch MD Unavailable Unavailable Katie Finch MD Unavailable Unavailable Katie Finch MD Unavailable Unavailable Katie Finch MD Unavailable Unavailable Katie Finch MD Unavailable Unavailable Katie Finch MD Unavailable Unavailable Katie Finch MD Unavailable Unavailable Katie Finch MD Unavailable Unavailable Katie Finch MD Unavailable Unavailable Katie Finch MD Unavailable Unavailable Katie Finch MD Unavailable Unavailable Katie Finch MD Unavailable Unavailable Katie Finch MD Unavailable Unavailable Katie Finch MD Unavailable Unavailable Katie Finch MD Unavailable Unavailable Katie Finch MD Unavailable Unavailable Katie Finch MD Unavailable Unavailable Katie Finch MD Unavailable Unavailable Katie Finch MD Unavailable Unavailable Katie Finch MD Unavailable Unavailable Katie Finch MD Unavailable Unavailable Katie Finch MD Unavailable Unavailable Katie Finch MD Unavailable Unavailable Katie Finch MD Unavailable Unavailable Katie Finch MD Unavailable Unavailable Katie Finch MD Unavailable Unavailable Katie Finch MD Unavailable Unavailable Katie Finch MD Unavailable Unavailable Katie Finch MD Unavailable Unavailable Ali, Katie MD Unavailable Unavailable Ali, Katie Unavailable Unavailable Ali, Katie MD Unavailable Unavailable Ali, Katie MD Unavailable Unavailable Ali, Katie MD Unavailable Unavailable Ali, Katie MD Unavailable Unavailable Ali, Katie MD Unavailable Unavailable Ali, Katie MD Unavailable Unavailable Ali, Katie MD Unavailable Unavailable Ali, Katie MD Unavailable Unavailable Ali, Katie MD Unavailable Unavailable Ali, Katie MD Unavailable Unavailable Ali, Katie MD Unavailable Unavailable Ali, Katie MD Unavailable Unavailable Ali, Katie MD Unavailable Unavailable Ali, Katie MD Unavailable Unavailable Ali, Katie MD Unavailable Unavailable Ali, Katie MD Unavailable Unavailable Ali, Katie MD Unavailable Unavailable Ali, Katie MD Unavailable Unavailable Ali, Katie MD Unavailable Unavailable Ali, Katie MD Unavailable Unavailable Ali, Katie MD Unavailable Unavailable Ali, Katie MD Unavailable Unavailable Ali, Katie MD Unavailable Unavailable Ali, Katie MD Unavailable Unavailable Ali, Katie MD Unavailable Unavailable Ali, Katie MD Unavailable Unavailable Ali, Katie MD Unavailable Unavailable Ali, Katie MD Unavailable Unavailable Ali, Katie AUSTIN Unavailable Unavailable Ali, Katie AUSTIN Unavailable Unavailable Ali, Katie MD Unavailable Unavailable Ali, Katie MD Unavailable Unavailable Ali, Katie MD Unavailable Unavailable Ali, Katie MD Unavailable Unavailable Ali, Katie MD Unavailable Unavailable Ali, Katie MD Unavailable Unavailable Ali, Aktie MD Unavailable Unavailable Ali, Katie AUSTIN Unavailable Unavailable Ali, Katie AUSTIN Unavailable Unavailable Ali, Katie MD Unavailable Unavailable Ali, Katie MD Unavailable Unavailable Ali, Katie MD Unavailable Unavailable Ali, Katie MD Unavailable Unavailable Ali, Katie [place]USTIN Unavailable Unavailable Ali, Katie [place]IN Unavailable Unavailable Ali, Katie [place] Unavailable Unavailable Ali, Katie [place] Unavailable Unavailable Ali, Katie [place] Unavailable Unavailable Ali, Katie [place] Unavailable Unavailable Ali, Katie [place] Unavailable Unavailable Ali, Katie Unavailable Unavailable Ali, Katie Unavailable Unavailable Ali, Katie Unavailable Unavailable Ali, Katie [place] Unavailable Unavailable Ali, Katie [place] Unavailable Unavailable Ali, Katie AUSTIN Unavailable Unavailable Ali, Katie [place] Unavailable Unavailable Ali, Katie [place]USTIN Unavailable Unavailable Ali, Katie MD Unavailable Unavailable Ali, Katie Unavailable Unavailable Ali, Katie Unavailable Unavailable Ali, Katie MD Unavailable Unavailable Ali, Katie [place] Unavailable Unavailable Ali, Katie [place] Unavailable Unavailable Ali, Katie [place] Unavailable Unavailable Ali, Katie [place] Unavailable Unavailable Ali, Katie [place]IN Unavailable Unavailable Ali, Katie [place]IN Unavailable Unavailable Ali, Katie [place]USTIN Unavailable Unavailable Ali, Katie Unavailable Unavailable Ali, Katie MD Unavailable Unavailable Marcel, A Shanika PA Unavailable [...] A Shanika PA Unavailable Unavailable Marcel, A Sahnika PA Unavailable Unavailable Marcel, A Shanika PA [...] Unavailable Unavailable KADI, NICHOLE PA Unavailable Unavailable KDAI, NICHOLE PA Unavailable Unavailable KADI, NICHOLE PA [...] Unavailable Unavailable KADI, NICHOLE PA Unavailable Unavailable ANTECOL, Lee ZARAGOZA MD Unavailable Unavailable ANTECOL, Lee ZARAGOZA MD Unavailable Unavailable ANTECOL, Lee ZARAGOZA MD Unavailable Unavailable ANTECOL, Lee ZARAGOZA MD Unavailable Unavailable ANTECOL, eLe ZARAGOZA MD Unavailable Unavailable ANTECOL, Lee ZARAGOZA MD Unavailable Unavailable ANTECOL, Lee ZARAGOZA MD Unavailable Unavailable ANTECOL, Lee ZARAGOZA MD Unavailable Unavailable ANTECOL, Lee ZARAGOZA MD Unavailable Unavailable ANTECOL, Lee ZARAGOZA MD Unavailable Unavailable ANTECOL, Lee ZARAGOZA MD Unavailable Unavailable ANTECOL, Lee ZARAGOZA MD Unavailable Unavailable ANTECOL, Lee ZARAGOZA MD Unavailable Unavailable ANTECOL, Lee ZARAGOZA MD Unavailable Unavailable ANTECOL, Lee ZARAGOZA MD Unavailable Unavailable ANTECOL, Lee ZARAGOZA MD Unavailable Unavailable ANTECOL, Lee ZARAGOZA MD Unavailable Unavailable ANTECOL, Lee ZARAGOZA MD Unavailable Unavailable ANTECOL, Lee ZARAGOZA MD Unavailable Unavailable ANTECOL, Lee ZARAGOZA MD Unavailable Unavailable ANTECOL, Lee ZARAGOZA MD Unavailable Unavailable ANTECOL, Lee ZARAGOZA MD Unavailable Unavailable ANTECOL, Lee ZARAGOZA MD Unavailable Unavailable ANTECOL, Lee ZARAGOZA MD Unavailable Unavailable ANTECOL, Lee ZARAGOZA MD Unavailable Unavailable ANTECOL, Lee ZARAGOZA MD Unavailable Unavailable ANTECOL, Lee ZARAGOZA MD Unavailable Unavailable ANTECOL, Lee ZARAGOZA MD Unavailable Unavailable ANTECOL, Lee ZARAGOZA MD Unavailable Unavailable ANTECOL, Lee ZARAGOZA MD Unavailable Unavailable ANTECOL, Lee ZARAGOZA MD Unavailable Unavailable ANTECOL, Lee ZARAGOZA MD Unavailable Unavailable ANTECOL, Lee ZARAGOZA MD Unavailable Unavailable ANTECOL, Lee ZARAGOZA MD Unavailable Unavailable ANTECOL, Lee ZARAGOZA MD Unavailable Unavailable ANTECOL, Lee ZARAGOZA MD Unavailable Unavailable ANTECOL, Lee ZARAGOZA MD Unavailable Unavailable ANTECOL, Lee ZARAGOZA MD Unavailable Unavailable ANTECOL, Lee ZARAGOZA MD Unavailable Unavailable ANTECOL, Lee ZARAGOZA MD Unavailable Unavailable ANTECOL, Lee ZARAGOZA MD Unavailable Unavailable ANTECOL, Lee ZARAGOZA MD Unavailable Unavailable ANTECOL, Lee ZARAGOZA MD Unavailable Unavailable ANTECOL, Lee ZARAGOZA MD Unavailable Unavailable ANTECOL, Lee ZARAGOZA MD Unavailable Unavailable ANTECOL, Lee ZARAGOZA MD Unavailable Unavailable ANTECOL, Lee ZARAGOZA MD Unavailable Unavailable ANTECOL, Lee ZARAGOZA MD Unavailable Unavailable ANTECOL, Lee ZARAGOZA MD Unavailable Unavailable ANTECOL, Lee ZARAGOZA MD Unavailable Unavailable ANTECOL, Lee ZARAGOZA MD Unavailable Unavailable ANTECOL, Lee ZARAGOZA MD Unavailable Unavailable ANTECOL, Lee ZARAGOZA MD Unavailable Unavailable ANTECOL, Lee ZARAGOZA MD Unavailable Unavailable ANTECOL, Lee ZARAGOZA MD Unavailable Unavailable SALMERON, DR MD MILNER Unavailable Unavailable Marcel, A Shanika PA Unavailable [...] Unavailable Marcel, A Shanika PA Unavailable Unavailable OTHER, DR PHYSICIAN REFERRING Unavailable Unavailabl e Marcel, A Shanika PA Unavailable Unavailable Marcel, [...] Unavailable Marcel, A Shanika PA Unavailable Unavailable Jazlyn Mckeon MD Unavailable Unavailable Jazlyn Mckeon MD Unavailable Unavailable Jazlyn Mckeon MD Unavailable Unavailable Jazlyn Mckeon MD Unavailable Unavailable Jazlyn Mckeon MD Unavailable Unavailable Yuval Mckeonjreymundo AUSTIN Unavailable Unavailable Jazlyn Mckeon MD Unavailable Unavailable Jazlyn Mckeon MD Unavailable Unavailable Jazlyn Mckeon MD Unavailable Unavailable Jazlyn Mckeon MD Unavailable Unavailable Jazlyn Mckeon MD Unavailable Unavailable Yuval Mckeonjreymundo AUSTIN Unavailable Unavailable Jazlyn Mckeon MD Unavailable Unavailable Jazlyn Mckeon MD Unavailable Unavailable Jazlyn Mckeon MD Unavailable Unavailable Yuval Mckeonjreymundo AUSTIN Unavailable Unavailable SlezuleimakaYuvaljtech Unavailable Unavailable Yuval Mckeonjtech Unavailable Unavailable Yuval Mckeonjtech Unavailable Unavailable Yuval Mckeonjreymundo AUSTIN Unavailable Unavailable Yuval Mckeonjreymundo AUSTIN Unavailable Unavailable SleYuval curryjreymundo AUSTIN Unavailable Unavailable SleYuval curryjtech Unavailable Unavailable SlezuleimakaYuvaljtech Unavailable Unavailable SlezuleimakaYuvaljtech Unavailable Unavailable SlezuleimakaYuvaljtech Unavailable Unavailable SleYuval curryjtech Unavailable Unavailable SleYuval curryjtech Unavailable Unavailable Slezuleimaka, Vojtech Unavailable Unavailable Slezka, Vojtech MD Unavailable Unavailable Slezka, Vojtech MD Unavailable Unavailable Slezka, Vojtech MD Unavailable Unavailable Slezka, Vojtech MD Unavailable Unavailable Slezka, Vojtech MD Unavailable Unavailable Slezka, Vojtech MD Unavailable Unavailable Slezka, Vojtech MD Unavailable Unavailable Slezka, Vojtech MD Unavailable Unavailable Slezka, Vojtech MD Unavailable Unavailable Slezka, Vojtech MD Unavailable Unavailable Slezka, Vojtech MD Unavailable Unavailable Slezka, Vojtech MD Unavailable Unavailable Slezka, Vojtech MD Unavailable Unavailable Slezka, Vojtech MD Unavailable Unavailable Slezka, Vojtech MD Unavailable Unavailable Slezka, Vojtech MD Unavailable Unavailable Slezka, Vojtech MD Unavailable Unavailable Slezka, Vojtech MD Unavailable Unavailable Slezka, Vojtech MD Unavailable Unavailable Slezka, Vojtech MD Unavailable Unavailable Slezka, Vojtech MD Unavailable Unavailable Slezka, Vojtech MD Unavailable Unavailable Slezka, Vojtech MD Unavailable Unavailable Slezka, Vojtech MD Unavailable Unavailable Slezka, Vojtech MD Unavailable Unavailable Slezka, Vojtech MD Unavailable Unavailable Slezka, Vojtech MD Unavailable Unavailable Slezka, Vojtech MD Unavailable Unavailable Slezka, Vojtech MD Unavailable Unavailable Slezka, Vojtech MD Unavailable Unavailable Slezka, Vojtech MD Unavailable Unavailable Re-disclosure Warning The records that [...] is protected by Article 27-F of the [facility] Public Health law. If you continue you may have access to information: Regarding HIV / AIDS; Provided by facilities licensed or operated by the [facility] Office of Mental Health; or Provided by the [facility] Office for People With Developmental Disabilities. If such information is present, then the following [facility] mandated warning applies: This information has been [...] may result in a fine or senior living sentence or both. A general authorization for the release of medical or other information is NOT sufficient authorization for further disc losure. Allergies and Adverse Reactions Type Description Substance Reaction Status Data Source(s ) Miscellaneous allergy No Known Drug Allergies No Known Drug Allergies [facility] Food allergy No Known Food Allergies No Known Food Allergies [facility] Drug allergy No Known Drug Allergies No Known Drug Allergies [facility] Family History Family Member Name Family Member Gender Family Member Status Date o f Status Description Data Source(s) Unknown Male Problem [facility] Pt was adopted Encounters Encounter Providers Location Date Indications Data Source(s ) Outpatient Attender: REFERRING OTHER Admitter: DR CHAN OTHERConsultant: Shanika DENSON 05/07/2021 04:03:00 PM EST [facility] Outpatient Attender: MILA HAYWOOD MD Main Office 04/09/2021 11:00:00 AM EDT [facility] ([facility]) Outpatient Attender: DR ANNIA Sanchez er: DR CHAN OTHERAdmitter: DR ANNIA Gantsultant: Shanika DENSON 04/05/2021 12:16:00 PM EDT - 05/04/2021 10:51:00 AM EST Physical therapy [facility] Physical therapy Patient discharged. Outpatient Attender: DR ANNIA Vergara er: DR ANNIA Terrazasant: Shanika DENSON 03/04/2021 04:11:29 PM EDT - 04/04/2021 12:14:00 PM EDT PHYSICAL THERAPY [facility] PHYSICAL THERAPY Patient discharged. Outpatient Attender: DR ANNIA Vergara er: DR ANNIA SALMERONConsultant: Shanika DENSON 02/05/2021 02:36:00 PM EDT - 03/04/2021 02:20:00 PM EDT PHYSICAL THERAPY [facility] PHYSICAL THERAPY Patient discharged. Outpatient Attender: Katie Norman ter: Katie SOTOonsultant: Shanika DENSON 02/03/2021 02:28:00 PM EDT - 03/04/2021 02:20:00 PM EDT Physical therapy [facility] Physical therapy Patient discharged. Outpatient Referrer: Jazlyn DEL [email or web address] 01/04 12:00:00 AM EDT [facility] Outpatient Attender: Jazlyn Mckeon MDConsultant: Jazlyn DEL ROSARIO.CHON-SJP 01/18/2021 12:55:56 PM EDT - 01/18/2021 01:53:50 PM EDT [facility] Outpatient Attender: Katie Norman ter: Katie SOTOonsultant: Shanika DENSON 01/03/2021 12:19:00 PM EDT - 02/02/2021 09:13:00 AM EDT PHYSICAL THERAPY [facility] PHYSICAL THERAPY Patient discharged. Outpatient Attender: Shanika Rod PAReferrer: Shanika DENSON 12/28/2020 12:45:00 PM EDT - 12/28/2020 02:38:00 PM EDT [facility] Outpatient Attender: Shanika DENSON 12/22/2020 01 :51:00 PM EDT R73.03,E55.9,E78.2 [facility] R73.03,E55.9,E78.2 Outpatient Attender: Katie Norman ter: Katie SOTOonsultant: Shanika DENSON 12/03/2020 10:13:00 AM EDT - 01/02/2021 03:40:00 PM EDT Physical therapy [facility] Physical therapy Patient discharged. Outpatient Attender: Katie Beaulieu costa: DR REFERRING OTHERAdmitter: Katie Lebronultant: Shanika DENSON 11/03/2020 03:59:0 0 PM EDT - 12/02/2020 11:18:00 AM EDT Physical therapy [facility] Physical therapy Patient discharged. Outpatient Attender: Jazlyn Mckeon MDReferrer: Jolene DENSON [email or web address] 10/12/2020 12:00:00 AM EDT - 10/12/2020 12:26:15 PM EDT [facility] Outpatient Attender: REFERRING OTHER Admitter: REFERRING OTHERConsultant: Shanika DENSON 10/06/2020 10:15:00 AM EDT Occupational therap y [facility] Occupational therapy Admission cancelled. Disregard status an d admitted date. Outpatient Attender: Katie Beaulieu costa: REFERRING OTHERAdmitter: Katie SOTOonsultant: Shanika DENSON 10/03/2020 11:42:0 0 AM EDT - 11/02/2020 10:14:00 AM EDT Physical therapy [facility] Physical therapy Patient discharged. Outpatient Attender: Shanika Rod PAReferrer: Shanika DENSON 09/24/2020 01:12:00 PM EDT - 09/24/2020 02:52:00 PM EDT [facility] Outpatient Attender: Katie Norman ter: Katie Finch MDConsultant: Shanika DENSON 09/18/2020 12:31:00 PM EDT - 10/02/2020 10:11:00 AM EDT Physical therapy [facility] Physical therapy Patient discharged. Outpatient Attender: Katie Beaulieu costa: Shanika Rod PAAdmitter: Katie Finch MDConsultant: Shanika DENSON 09/11/2020 10:56:0 0 AM EDT - 10/02/2020 11:31:00 AM EDT PHYSICAL THERAPY [facility] PHYSICAL THERAPY Patient discharged. Outpatient Attender: Katie Finch MD Main office [facility] 08/27/2020 02:30:00 PM EDT [facility] Outpatient Attender: Shanika GARZAeferrer: Shanika DENSON 08/04/2020 01:16:00 PM EST - 08/04/2020 02:51:00 PM EST [facility] Emergency Attender: NICHOLE VARELA ttender: Shanika VARELAdmitter: NICHOLE WALLIS PAConsultant: Shanika DENSON [phone] 07/01/2020 09: 05:00 AM EST - 07/01/2020 01:11:00 PM EST [facility] SICK Patient discharged. Outpatient Attender: Shanika Stanleyerrer: Shanika DENSON 04/22/2020 01:00:00 PM EST - 04/22/2020 02:15:00 PM EST [facility] Outpatient Attender: Shanika VARELA dmitter: Shanika Rod PAConsultant: Shanika DENSON 008 04/21/2020 01:06:00 PM EST - 04/21/2020 01:06:00 PM EST Lab test [facility] Lab test Immunizations Vaccine Date Status Description Data Source(s) IIV3. This is one of two codes replacing CVX 15, which is being retired. 04/22/2020 12:00:00 AM EST [facility] Medications Medication Brand Name Start Date Product Form Dose Route Admi nistrative Instructions Pharmacy Instructions Status Indications Reaction Description Data Source(s) 60 ACTUAT Albuterol 0.09 MG/ACTUAT Metered Dose Inhaler Albu terol Sulfate HFA 04/08/2021 12:00:00 AM EDT RESPIRATORY active [facility] ([facility]) clopidogrel 75 MG Oral Tablet Clopidogrel Bisulfate 04/08/2021 1 2:00:00 AM EDT ORAL active [facility] ( [facility]) Cholecalciferol 2000 UNT Oral Tablet Vitamin D 04/08/2021 12:00:00 A M EDT ORAL active [facility] pantoprazole 40 MG Delayed Release Oral Tablet Pantoprazole Sodium 04/08/2021 12:00:00 AM EDT ORAL active M [facility] ([facility]) Lactobacillus acidophilus [id number] UNT Oral Capsule Probiot ic Acidophilus 04/08/2021 12:00:00 AM EDT ORAL active [facility] ([facility]) Fluoxetine 20 MG Oral Capsule Fluoxetine HCL 04/08/2021 12:00:00 AM E DT ORAL active [facility] atorvastatin 40 MG Oral Tablet [Lipitor] Lipitor 04/08/2021 12:00: 00 AM EDT ORAL active [facility] ([facility] Baclofen 10 MG Oral Tablet Baclofen 04/08/2021 12:00:00 AM EDT ORAL active [facility] ([facility]) 60 ACTUAT Fluticasone propionate 0.25 MG /ACTUAT / salmeterol 0.05 MG/ACTUAT Dry Powder Inhaler [Advair] Advair Diskus 04/08/2021 12:00:00 AM EDT RESPIRATORY active [facility] Simethicone 180 MG Oral Capsule Simethicone 04/08/2021 12:00:00 AM EDT ORAL active [facility] ([facility]) 60 ACTUAT Fluticasone propionate 0.25 MG /ACTUAT / salmeterol 0.05 MG/ACTUAT Dry Powder Inhaler [Advair] Advair Diskus 250-50 MCG/DOSE DISKUS Advair Diskus 250- 50 MCG/DOSE DISKUS 12/28/2020 12:00:00 AM EDT acti ve [facility] Fluticasone Propionate 09/24/2020 02:06:53 PM EDT 1 SPRAY active [facility] Fluoxetine 20 MG Oral Capsule Fluoxetine 08/31/2020 08:00:50 AM EDT 20 MG active [facility] pantoprazole 40 MG Delayed Release Oral Tablet Pantoprazole Pantoprazole 08/31/2020 08:00:18 AM EDT 40 MG active [facility] Metoprolol Tartrate 25 MG Oral Tablet Metoprolol Tartrate 07:59:37 AM EDT 12.5 MG active [facility] Diaper,Brief,Adult,Disposable 08/31/2020 07:59:16 AM EDT 0 [facility] clopidogrel 75 MG Oral Tablet Clopidogrel Clopidogrel 08/31/2020 07:58:33 AM EDT 75 MG active [facility] Baclofen 10 MG Oral Tablet Baclofen 08/31/2020 07:58:10 AM EDT 1 0 MG active [facility] atorvastatin 40 MG Oral Tablet Atorvastatin Atorvastatin 08/31/2020 07:57:40 AM EDT 40 MG active [facility] Diaper,Brief,Adult,Disposable 08/04/2020 05:19:45 PM EST 0 completed [facility] Metoprolol Tartrate 25 MG Oral Tablet Metoprolol Tartrate 04:42:02 PM EST 12.5 MG completed [facility] atorvastatin 40 MG Oral Tablet Atorvastatin Atorvastatin 08/04/2020 04:39:10 PM EST 40 MG completed [facility] clopidogrel 75 MG Oral Tablet Clopidogrel Clopidogrel 08/04/2020 01:58:39 PM EST 75 MG completed [facility] Simethicone 80 MG Chewable Tablet Simeth icone (Gas Relief (Simethicone)) 80 mg tablet,chewable Simethicone (Gas Relief (Simethicone)) 80 mg tablet,ch ewable 08/04/2020 01:58:13 PM EST 80 MG active [facility] pantoprazole 40 MG Delayed Release Oral Tablet Pantoprazole Pantoprazole 08/04/2020 01:57:53 PM EST 40 MG completed [facility] Metoprolol Tartrate 25 MG Oral Tablet Metoprolol Tartrate 01:57:27 PM EST 25 MG completed [facility] Lactobacillus Acidophilus (Acidophilus) capsule 2020 01:56:50 PM EST 10 MG active [facility] Fluoxetine 20 MG Oral Capsule Fluoxetine 08/04/2020 01:55:09 PM EST 20 MG completed [facility] Baclofen 10 MG Oral Tablet Baclofen 08/04/2020 01:52:49 PM EST 1 0 MG completed [facility] atorvastatin 10 MG Oral Tablet Atorvastatin Atorvastatin 04/22/2020 03:18:41 PM EST 10 MG completed [facility] Cholecalciferol 2000 UNT Oral Capsule Cholecalciferol (Vitamin D3) Cholecalciferol (Vitamin D3) 04/22/2020 03:18:18 PM EST 2000 UNIT active [facility] Afluria Qd 2019-21(3yr up)(PF) (flu vac [id number] 36mos up(P F)) 04/22/2020 01:00:34 PM EST 0.5 ML completed [facility] Omeprazole 40 MG Delayed Release Oral Capsule Omeprazole 08/29/2017 11:58:00 AM EDT 40 MG completed [facility] cetirizine hydrochloride 10 MG Oral Tablet Cetirizine Cetiri zine 12/28/2016 09:08:00 AM EDT 10 MG completed [facility] epinastine hydrochloride 0.5 MG/ML Ophthalmic Solution Epina agnes Epinastine 12/28/2016 09:08:00 AM EDT 1 DROPS completed [facility] Fluticasone Propionate 09/15/2016 08:43:00 AM EDT 1 SPRAYS completed [facility] Baclofen 20 MG Oral Tablet Baclofen 09/11/2015 10:58:00 AM EDT 2 0 MG completed [facility] Metoprolol Tartrate 25 MG Oral Tablet me toprolol tartrate (LOPRESSOR) 25 MG tablet metoprolol tartrate (LOPRESSOR) 25 MG tablet 12.5 mg Ora l aborted Take 12.5 mg by mouth 2 (two) ti mes a day [facility] Cholecalciferol 1000 UNT Oral Capsule ch olecalciferol (VITAMIN D3) 25 MCG (1000 UT) capsule cholecalciferol (VITAMIN D3) 25 MCG (1000 UT) capsule 1000 U Oral aborted Take 1,000 Units by mouth daily [facility] Insurance Providers Payer name Policy type / Coverage type Policy ID Covered constitution party ID Covered constitution party's relationship to barr Policy Barr Plan Information MEDICAID [facility] 3 [id number] Y [place]ICAID [place] 3 [id number] MEDICARE [id number] SP [id number] A MEDICARE [id number] SP [id number] MEDICARE [id number] Connie [id number] MEDICARE [id number] [place] [id number] SP [id number] Y MEDICAID [id number] SP [id number] EMEDNY [id number] SP [id number] MEDICAID [id number] MEDICAID [id number] Connie [id number] Medicare - [place] Medicare Primary [id number] Self 0 [id number] MEDICARE -RECURRING [id number] undefined [id number] Medicaid [place] Medig[place] Part B [id number] Self [id number] Medicare - [place] Medicare Primary [id number] Self 0 [id number] MEDICARE [id number] SP [id number] A Medicaid [place] Part B [id number] Self [id number] Medicare - [place] Medicare Primary [id number] Self 0 [id number] MEDICARE C [id number] S [id number] A Medicaid [place] Part B [id number] Self [id number] Medicare - [place] Medicare Primary [id number] Self 0 [id number] MEDICAID [id number] SP [id number] Medicaid [place] [id number] Self [id number] [place] [id number] Self [id number] MEDICAID - O/P EMERGENCY ROOM [id number] SELF PAY 2 UNAVAILABLE 1 UNAVAILA BLE MEDICAID -RECURRING [id number] u ndefined [id number] MEDICARE -RECURRING [id number] undefined [id number] MEDICAID [facility]-OP [id number] undefined [id number] MEDICARE-OP [id number] undefined [id number] MEDICARE C [id number] S [id number] MEDICAID M [id number] S [id number] MEDICARE-OP [id number] undefined [id number] Medicaid [place] [employer] Part B [id number] Self [id number] Medicare - NGS Medicare Primary [id number] Self 0 [id number] Medicaid [facility] Part B [id number] Self [id number] Problems, Conditions, and Diagnoses Code Display Name Description Problem Type Effective Dates Data Source(s) R5381 Other malaise Other malaise Diagnosis 04/05/2021 12:16:00 PM EDT [facility] Z5189 Encounter for other specified aftercare Encounter for other specified aftercare Diagnosis 04/05/2021 12:16:00 PM EDT [facility] E78.00 Pure hypercholesterolemia, unspecified P ure hypercholesterolemia, unspecified Diagnosis 01/18/2021 12:55:56 PM EDT [facility] I63.9 Cerebral infarction, unspecified Cerebral infarc tion, unspecified Diagnosis 01/18/2021 12:55:56 PM EDT [facility] R262 Difficulty in walking, not elsewhere cla ssified Difficulty in walking, not elsewhere classified Diagnosis 01/03/2021 12:19:00 PM EDT [facility] M6281 Muscle weakness (generalized) Muscle weakness (general ized) Diagnosis 01/03/2021 12:19:00 PM EDT [facility] R278 Other lack of coordination Other lack of coordination Diagnosis 11/03/2020 03:59:00 PM EDT [facility] 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 ral infarction affecting unspecified side Diagnosis 10/03/2020 11:42:00 AM EDT [facility] [id number] Hemiplegia and hemiparesis f ollowing cerebral infarction affecting left non-dominant side Hemiplegia and hemiparesis following cer ebral infarction affecting left non-dominant side Diagnosis 09/18/2020 12:31:00 PM EDT [facility] [id number] Hemiplegia and hemiparesis f ollowing cerebral infarction affecting right dominant side Hemiplegia and hemiparesis following cer ebral infarction affecting right dominant side Diagnosis 09/18/2020 12:31:00 PM EDT [facility] [id number] Hemiplegia and hemiparesis f ollowing cerebral infarction affecting unspecified side Hemiplegia and hemiparesis following cer ebral infarction affecting unspecified side Diagnosis 07/01/2020 09:05:00 AM [facility] R1110 Vomiting, unspecified Vomiting, unspecified Diagnosis 07/01/2020 09:05:[address] [facility] R531 Weakness Weakness Diagnosis 07/01/2020 09:05:00 AM [facility] R7301 Impaired fasting glucose Impaired fasting glucose Diag nosis 04/21/2020 01:06:[address] [facility] E559 Vitamin D deficiency, unspecified Vitamin D defi ciency, unspecified Diagnosis 04/21/2020 01:06:[address] [facility] R5383 Other fatigue Other fatigue Diagnosis 04/21/2020 01:06:[address] [facility] E78.00 Hypercholesterolemia Hypercholesterolemia [id number] 01/18/2021 12:00:00 AM EDT [facility] I63.9 Stroke Stroke [id number] 10/12/2020 12:00:00 AM ED T [facility] Surgeries/Procedures Procedure Description Date Indications Data Source(s) ECG ROUTINE ECG W/LEAST 12 LDS W/I&R 04/09/2021 12:00: 00 AM EDT [facility] ([facility]) OFFICE OUTPATIENT NEW 45 MINUTES 04/09/2021 12:00:00 A M EDT [facility] ([facility]) HEMOGLOBIN GLYCOSYLATED A1C <td>HEMOGLOBIN A1C</td><td>Routine</td><td>12/22/2020</td><td></td><td> </td> 12/22/2020 12:00:00 AM EDT [facility] LIPID PANEL <td>LIPID PANEL</td><td>Rout ine</td><td>12/22/2020</td><td></td><td> </td> 12/22/2020 12:00:00 AM EDT [facility] BASIC METABOLIC PANEL CALCIUM TOTAL <td>BASIC METABOLI C PANEL</td><td>Routine</td><td>12/22/2020</td><td></td><td> </td> 12/22/2020 12:00:00 AM EDT [facility] ECG ROUTINE ECG W/LEAST 12 LDS W/I&R <td>POCT AMB EKG</td><td>Routine</td><td>10/12/2020 11:45 AM EDT</td><td> Cerebrovascular accident (CVA), unspecified mechanism</td><td> </td> 10/12/2020 11:45:00 AM EDT Cerebrovascular accident (CVA), unspecified mechanism [facility] Cerebrovascular accident (CVA), unspecif ied mechanism BLOOD COUNT COMPLETE AUTOMATED <td>CBC</td><td>Routine</td><td>07/29/2020</td><td></td><td> </td> 07/29/2020 12:00:00 AM EST [facility] BLOOD COUNT COMPLETE AUTO&AUTO DIFRNTL WBC COUNT <td>C BC AND DIFFERENTIAL</td><td>Routine</td><td>07/29/2020</td><td></td><td> </td> 07/29/2020 12:00:00 AM EST [facility] BASIC METABOLIC PANEL CALCIUM TOTAL <td>BASIC METABOLI C PANEL</td><td>Routine</td><td>07/29/2020</td><td></td><td> </td> 07/29/2020 12:00:00 AM EST [facility] THYROID STIMULATING HORMONE TSH <td>TSH</td><td>Routine</td><td>07/09/2020</td><td></td><td> </td> 07/09/2020 12:00:00 AM EST [facility] HEMOGLOBIN GLYCOSYLATED A1C <td>HEMOGLOBIN A1C</td><td>Routine</td><td>07/01/2020</td><td></td><td> </td> 07/01/2020 12:00:00 AM EST [facility] LIPID PANEL <td>LIPID PANEL</td><td>Rout ine</td><td>07/01/2020</td><td></td><td> </td> 07/01/2020 12:00:00 AM EST [facility] Results ID Date Data Source [id number] 05/05/2021 11:05:00 AM EST [facility] Name Value Range Interpretation Code Description Data Kassandra rce(s) Supporting Document(s) SARS-CoV-2 (COVID-19) RNA [Presence] in Respiratory specimen by NATHALIE with probe detection Not Detected [facility] This lab was ordered by [facility] and reported by [employer]. ID Date Data Source [id number] 01/25/2021 01:31:[facility] Name Date of Age Gend*PT [id number] Luiz Jerez 1975 45 years M ---PT Location Admission Date/Time Visit ID Attending Provider --- --- --- --- EPI ID CSN Admitting Provider [id number] ---Addended by: JAZLYN MCKEON on: 01/25/2021 01:31 PM Modules accepted: Orders Name Value Range Interpretation Code Description Data Kassandra rce(s) Supporting Document(s) ID Date Data Source [id number] 01/23/2021 01:25:08 PM EDT [facility] Name Value Range Interpretation Code Description Data Kassandra rce(s) Supporting Document(s) &PDF [facility] XHXOMh4lAgTDEhYx30/TXDghYPQcf8FlBHsoONt1MDauWXKpW0RwbOheSAgLQoHyQ5HOHLKRTT4tFT8d pYy [file] 3/mjdpzNOMYyhJhRTQS8q7YmWvXI6BPQebbs8LBwh54GacX7YWumN+8JvsUi4kUg1M1IWrDC6MB+evp global product leadership+n [file] DQpYhWNgYNDeGsOABPTf/5+HxBV++f//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 control+338gUE [file] AgICAgICAgICAgICAgICAgICAgICAgICAgICAgICAgICAgICAgICAgICAgICAgICAgICAgICAgICAgIC HfTIAzWNVaXJPrXXIdVMPvUXTlDP3NCMRtPKHvRQCj ICAgICAgICAgICAgICAgICAgICAgICAgICAgICAgICAgICAgICAgICAgICAgICAgICAgICAgICAgICAg CJObONJrXGQpCAHpBHDwTBWtLEUkGVUxSGFzKYXrKD9HSBAwXTYtVEJvDCChWDEzLIZvAYTlOTDvVYYl ICAgICAgICAgICAgICAgICAgICAgICAgICAgICAgIC BdUQYyHPSkMQZtTIKyDILwTYMxJJUbDAWjQJJpEGDlOYIkOFSvNOYhVC2TQELnGYLcAJJwKLPwKSRxVE AgICAgICAgICAgICAgICAgICAgICAgICAgICAgICAgICAgICAgICAgICAgICAgICAgICAgICAgICAgIC ObNIIlHXUwMZYjETPqTWAcZYTdUEEbAX3ZZWCnKGEn ICAgICAgICAgICAgICAgICAgICAgICAgICAgICAgICAgICAgICAgICAgICAgICAgICAgICAgICAgICAg CFOgRQUvMDLgKMUfVSTxEZSgLRKeQUGeCZLzANDpAQJnDC3AOISvVGXjHVPvNWOeLCIjXDLdEFIqPPTp ICAgICAgICAgICAgICAgICAgICAgICAgICAgICAgIC KeQSTpQSRcDIQpJNErTQOjAKLoUTEcVUInTJOmCVIeEZSsODHuSFUsCOLoLO7PGHJgHRBdWGPwCSWhEW AgICAgICAgICAgICAgICAgICAgICAgICAgICAgICAgICAgICAgICAgICAgICAgICAgICAgICAgICAgIC XkNMNtAMTfQKZdITKkNYTpDFQgYAZkXAPfFR3VVDGg ICAgICAgICAgICAgICAgICAgICAgICAgICAgICAgICAgICAgICAgICAgICAgICAgICAgICAgICAgICAg WPBpUEMnGJLwXXFhWBCsFBAoDZPuNMJgBEBsWEFmSOAgUNZkZS7LYRHjRBQyOLImPABqSGHpXCTcNEJe ICAgICAgICAgICAgICAgICAgICAgICAgICAgICAgIC XtOFAhVRPsYXKcDRLcFSVaNXHsSULmSEJvAQSaSDYfCQUvSYIhCYWhQNQlLWEoEF1GLPMsITZkAZFoBJ AgICAgICAgICAgICAgICAgICAgICAgICAgICAgICAgICAgICAgICAgICAgICAgICAgICAgICAgICAgIC CoWRAzPAZhWVRjYKYpQVKiYHRcTSEtUZBsXNUvVS8Q NY65nXZtr5P2NOBoFU2rvyc/Od0ICGazoyLxzYWvXT4YXhAgEZ3mqp3KUzNzYQ7gjz5ABYrSOaAbC1N3 jNEfIZQyHLPSWnPdH51iELqmHl33TRrmLIDwMsGbNUu5Vl7PAwHlH6ucGYKxWuO5RTVaTyA8JUPvIcGk FPfkKR2Ah4NncIOiYKd+Fr3LRD2br6ZoFLpfOpJzJV 9gtc5LEVrUArLrR2V8zAMvC9J4HUsfBt4ZIEMdHWKkYfXoBYWHEFvaYF6UQI8zzgB3DM2IzWIwVWBxJL RpsILrDHo2K36ssKRgJUmjAJ3JIEI+Barbie+Ip7CLRJgVXTgPJNtGbGeUEICTbSgV19lwUKtZRCaSAVpRA AiEq1DNFMoV5RmdeHzgTpnfpTkOUWiZXJHTO7SQDkc fiDadXHyoSkrPS55eKlyGK5XTx9VPvMuWM0acl8MbHSlXh2EWUCuCi1TYPOkTWXiZOUiPNO3AUXoFsSt UJhnPJAmZYQbURP8NYIdZQOsCF5HEwRkFNXaIAB0RSKdKMDsCIDceh5VDZLmZWSlPuEfSVWpICKiTBDv ZYnoTWQbQAAeMSm9EJKsZBInXQ7TVeMwSUBjWGQ3MP UvWTWpJEWado4YQSXxKOPrWnepZBHbMRHyIXPiPBgePJCtOUI9FOCjXGBtIKEbZV6VNlLhDNQhHBRnBU QxUYZjIEBuhz8SKZEdSFQbWtQ1GNHbWMLxSRQnSMarASWzDBN3XJHdOWHpEGMiNJ2RNuMkRYLyAIb7KP NmIMOyTMNsxc2DCLSyFHJkUALlRVPdINJcSCLiNAeb TBErTFL7JBXlNVWuURHzKM2VAwBwXABjQZs7LWXoGUJaWXQxxk6UUDNsLBUhLQs6CRAjHTPkLMTdDNsb KNFgHPYcYWYgBOWzJSFfMP2LXsWnAEXpMTIkIcCyFHXpEEEuwq3SJYRcMKVbBEN6TmKkAJByUHGzNWzh BBMtDNKxDUn8UPUbARHsFX5OJuDiVDLqSJD0LFAcXV YuHEUsbp0QNSYyJRKuYaSkENJfECRfLGEqLRuuGAPaGCZkKzGcQRYaWYLyYB2RGaWsTGHgHZH2UlUnZS LsNVVzaj3LQBAcRBRoSaigZHYvSXWhZJZvLAnvGWXoKXHeATJ9AFLqFZCzJZ5HGjHgTYOmDOCgKXCxFZ UoXQAgdv8RLDKkOPBhWoYiNfFoXTWyGUGcAQucXEKb SQNxMNH4TBQoZJSmGY2BUyKlIXOxHJSxRGKvYRAtJBWbjf5SRDHjKRAaOJA2QrOiBVCuOQSqJPoqRRUo JGQ2FFM7TLRwYGHlZK9CUiWhJZDpMLR9OVghWJVlIAEeze1ZxSUadUandh5RYQiNVk3JyYppJJGvUUwy Rb1rbYEmDpVmGZWNFj0UxmSbZZGgVFOSJSczNSAyCO JwGLqnXLutPnO9LLF3HBzqHzF2ZJWdV6FvLFs0TCJiIlB3PCE5EODgUvEzYSCpORD1AUQ4SIH2GQQ8B0 D4MdH9XQR+ZO9aEVk+Vt0Ga0PsmjX6weKsRWdiAdM8AP7YRPVDY8HRFi== ID Date Data Source [id number] 12/28/2020 12:58:00 PM EDT [facility] Patient Name: LUIZ JEREZ : 0 1975 Sex: M Pt Unit #: [id number] Location:[facility] Provider: Visit Date/Time: 12/28/20 Primary Insurance: MEDICARE [place] Secondary Insurance: [place]ICAID [place] Intake Vital Signs 12/28/20 13:04 12/28/20 16:09 BP 86/62 92/70 Blood Pressure Location Rt brachial Lt brachial Position Sitting Sitting Respiration 18 Pulse 95 Pulse Source Pulse Oximeter Pulse Oximetry (%) 98 Oxygen Delivery Method room air Intake-Medicare Annual Visit Reasons: Medicare Annual Wellness subsequent Nurse Note: 45 year old male in for medicare annual wellness, voice no concerns Agate Setter Required: No Accompanied by: Mother Is patient in pain?: Yes (back) Pain scale (1-10): 3 Allergies No Known Drug Allergies Allergy (Verified 12/28/20 13:41) No Known Food Allergies Allergy (Verified 12/28/20 13:41) Medications - Last Reconciled 12/28/20 by MATY Damon albuterol sulfate 90 mcg/actuation (ProAir HFA) 1 - 2 puffs inhalation QIDPRN aspirin 81 mg PO DAILY atorvastatin 40 mg PO QDAY baclofen 10 mg PO QDAY cholecalciferol (vitamin D3) 2,000 units PO QDAY clopidogrel 75 mg PO QDAY diaper,brief,adult,disposable As directed fluoxetine 20 mg PO QDAY fluticasone propion-salmeterol 250-50 mcg/dose (Advair Diskus) 1 puff inhalation BID fluticasone propionate 50 mcg/actuation 1 spray EN BID PRN Lactobacillus acidophilus (Acidophilus) 10 mg PO QDAY metoprolol tartrate 12.5 mg (1/2 x 25 mg) PO BID pantoprazole 40 mg PO QDAY simethicone (Gas Relief (simethicone)) 80 mg PO BID-QID PRN Fall Risk History of falls: No Ambulatory Aid:: None Gait/Transferring:: Impaired HIV testing Offer: Yes Requirement for HIV testing offer been met?: [...] a prescription medication for nonmedical reasons?: None Coronavirus Screening Screening Are you currently positive or on isolation for COVID ?: No Do you have any NEW signs of one or more of the following?: no symptoms Do you have NEW signs of at least two of the following?: no symptoms [facility] Medical History (Updated 12/28/20 @ 20:39 by MATY Damon) Allergic rhinitis Anxiety Depression GERD without esophagitis (09/11/15) History of CVA (cerebrovascular accident) History of leukemia History of pneumothorax Mixed hyperlipidemia Moderate persistent asthma, uncomplicated (02/23/18) Moderate recurrent major depression ELVIS (obstructive sleep apnea) (12/28/17) Pre-diabetes Right spastic hemiparesis Tinnitus Vitamin D deficiency Vitamin D insufficiency Surgical History History of appendectomy History of cystoscopy History of heart surgery History of sinus surgery Family History Mother No problems noted. Father No problems noted. Social History Does the Patient have a Healthcare Proxy: No Does Patient have a DNR?: No Does Patient have a Living Will?: No Advance Directives on File or in chart?: No adopted: Yes household members: family housing: house marital status: Single lives independently: [...] identity: male well-balanced diet: daily caffeine: Yes (occasional) Type: carbonated beverages daily servings fruits/ve-4 daily servings of milk/calcium: 2-4 eating out: rarely or never reads food labels: sometimes during the past year weight has: remained stable what type of physical activity do you participate in?: none Smoking Status: Never smoker alcohol intake: never substance use type: does not use special maco needs: No seatbelt use: always helmet use: Yes drive intox or ride w/ intox school bus driver: No water heater temp set < 120 deg: Yes working smoke detector in home: Yes fire extinguisher in home: Yes carbon monox detector in home: Yes firearms in home: No do you feel safe at home: Yes victim of physical abuse: No victim of emotional abuse: No victim of sexual abuse: No would you like helpful sources: No Medicare Annual Wellness EKG EKG Performed: No Medication list Medications albuterol sulfate 90 mcg/actuation (ProAir HFA) 1 - 2 puffs inhalation QIDPRN aspirin 81 mg PO DAILY atorvastatin 40 mg PO QDAY baclofen 10 mg PO QDAY cholecalciferol (vitamin D3) 2,000 units PO QDAY cholecalciferol (vitamin D3) 50,000 units PO QWEEK clopidogrel 75 mg PO QDAY diaper,brief,adult,disposable As directed fluoxetine 20 mg PO QDAY fluticasone propion-salmeterol 250-50 mcg/dose (Advair Diskus) 1 inh inhalation BID fluticasone propionate 50 mcg/actuation 1 spray EN BID PRN Lactobacillus acidophilus (Acidophilus) 10 mg PO QDAY metoprolol tartrate 12.5 mg (1/2 x 25 mg) PO BID pantoprazole 40 mg PO QDAY simethicone (Gas Relief (simethicone)) 80 mg PO BID-QID PRN Allergies Allergies No Known Drug Allergies Allergy (Verified 12/28/20 13:41) No Known Food Allergies Allergy (Verified 12/28/20 13:41) Current Diet Current diet: regular PHQ-2/9 Over the last 2 weeks, how often have you been bothered by any of the following problems? 1. Little interest or pleasure in doing things: not at all 2. Feeling down, depressed, or hopeless: several days Total score: 1 If score is 2 greater, continue 3. Trouble falling or staying asleep, or sleeping too much: several days 4. Feeling tired or having little energy: not at all 5. Poor appetite or overeating: several days 6. Feeling bad about yourself - or [...] moving around a lot more than usual: more than half the days 9. Thoughts that you would be better off or of hurting yourself in some way: not at all Total score: 5 If you checked off any problems, how difficult have these problems made it for you to do your work, take care of things at home, or get along with other people?: somewhat difficult Source: Developed by Drs. David Olsen, Alejandra Ngo, Grant Krueger and colleagues, with an educational vannessa from [employer]. Functional Assessment Bathing: Dependent Dressing: Dependent Toileting: Dependent Transferring: Dependent Continence: Dependent Feeding: Independent Total Score: 1 Home Safety Home Safety: Reports Lighting: Adequate and [place]: No throw rugs Hearing Hearing Left Ear: Normal Hearing Right Ear: Normal Hearing test method: whispered voice IADL Assessment Functional abilities: Pt independent w/phone and Pt independent w/finances Cognitive Evaluation Oriented to the date:: Yes Oriented to time:: Yes Oriented to place:: Yes Mood: grossly normal Affect: Normal Judgement: normal Needs caregiver for assistance: Yes Clock drawing: Yes Clock drawing with correct time: Yes 3 item recall: 3 HPI Additional HPI HPI Details: 45yo male with PMH LT CVA with RT hemiparesis 2011, s/p PFO closure 2012, GERD, asthma, allergies, hyperlipidemia, ELVIS and recent RT medullary CVA here for medicare wellness and to discusslab results. Luiz states he is doing okay. Has been going to PT and OT 2x/wk. He is getting stronger, has been able to walk 24ft with a walker. Feels that his strength in his LT UE and LT LE are getting stronger. Next week will be doing PT 1 day and OT the other day, has been doing both on each day. Transferring with 1 person. Has not had any bowel/bladder accidents - using the urinal. Saw cardiology in October - recommended placement of reveal monitor, has appt next month and will discuss further. Not sure when next f/u with neurology is. Missed appt with pulmonology - has not been using cpap. Has been using advair daily. Has not had any coughing/wheezing/sob. Labs done 12/22/2020 - HDL 36, LDL 58, TG 95. Hga1c 5.4%, 25oh vit d 25 - has been taking vit d 2000iu daily Review of Systems Const Denies chills, Denies difficulty sleeping, Reports fatigue (improving), Denies fever(s), Denies headache(s), Denies poor appetite and Reports weakness (improving) Eyes Denies blurry vision and Denies change in vision ENT Denies vertigo, Denies dizziness, Denies otalgia, Denies headache(s), Denies nasal congestion, Denies nasal discharge, Denies post nasal drip and Denies sore throat Details: A LOT OF PHLEGM IN HIS THROAT, USUALLY WORSE AT THE END OF THE DAY, WHEN ABLE TO COUGH IT UP, WHITE Card Denies chest pain, Denies syncope, Denies rapid heart rate, Denies palpitations and Denies dyspnea Resp Denies cough, Denies dyspnea and Denies wheezing GI Denies abdominal pain, Denies change in bowel habits, Denies heartburn, Denies nausea and Denies vomiting Denies urinary incontinence Neuro Denies vertigo, Denies dizziness, Denies syncope, Denies headache(s) and Reports weakness (improving) Psych Denies abnormal sleep pattern, Denies anxiety, Denies depression and Denies suicidal ideation Endo Reports fatigue (improving) and Denies palpitations Elvin/Lymph Denies easy bleeding, Denies easy bruising and Denies lymphadenopathy Aller/Immun Denies wheezing Exam Const General: cooperative, comfortable, no acute distress, well developed and well groomed HENMT Ears: TM's normal bilaterally and EAC's normal General nose exam: no nasal discharge Mouth: oral mucosae normal and moist mucous membranes Throat: posterior oropharynx normal Eyes Conjunctivae: conjunctival abnormality (RT EYE WATERY) EOM: EOM intact bilaterally Neck Neck: no lymphadenopathy Carotids: no bruits Resp Effort Inspection: normal respiratory effort Auscultation: clear to auscultation bilaterally, diminished lung sounds (BILAT), no rhonchi and no wheezes Cardio Rhythm: regular rhythm Heart Sounds: S1 normal and S2 normal Neuro General: CN's II-XI intact bilaterally Cognition: normal cognition Speech: speech normal Gait: gait assisted Method: wheelchair bound Extrem General: no edema Psych Appearance: grossly normal Mental Status: mental status grossly normal Speech and Movement: speech and movement normal Mood: congruent mood Affect: normal affect Attitude: cooperative Thought Process: normal Quality Reporting Depression/Bipolar (159/160/161/169/177) Total score: 5 Assessment Plan Assessment Plan (1) Medicare annual wellness visit, subsequent: Code(s): Z00.00 - Encounter for general adult medical examination without abnormal findings Plan: Medicare wellness visit done today. Mom to check to see if public health can administer covid vaccine or if he will have to go to the pharmacy. Tdap due 12/2029. Pneumovax 23 12/2019. Flu vaccine 04/2020. (2) Obstructive sleep apnea: Status: Chronic Onset Date: 01/09/18 Comment: [facility] Code(s): G47.33 - Obstructive sleep apnea (adult) (pediatric) SNOMED Code(s): 30059281 Category: Medical Plan: Stressed the importance of using cpap. Encouraged to set up f/u appt with pulmonlogy. (3) Mixed hyperlipidemia: Status: Chronic Code(s): E78.2 - Mixed hyperlipidemia SNOMED Code(s): 737003764 Category: Medical Plan: Discussed lab results. LDL at goal 58. Continue atorvastatin 40mg daily. (4) Vitamin D insufficiency: Status: Chronic Code(s): E55.9 - Vitamin D deficiency, unspecified SNOMED Code(s): 28730705 Category: Medical Plan: Discussed lab results. [id number] 1x/wk x 3months. Continue 2000iu daily. Encouraged to take with food. Recheck level before f/u appt. (5) GERD without esophagitis: Status: Chronic Onset Date: 09/11/15 Code(s): K21.9 - Gastro- esophageal reflux disease without esophagitis SNOMED Code(s): 670684476 Category: Medical Plan: Stable on pantoprazole 40mg daily. (6) Moderate recurrent major depression: Status: Chronic Code(s): F33.1 - Major depressive disorder, recurrent, moderate SNOMED Code(s): 317748889 Category: Medical Plan: Depression stable on fluoxetine 20mg daily. Plan: Discussed possible causes of phlegm in the throat. Encouraged to use cpap. Recommended hot water/tea with honey and lemon. Monitor. F/u 4months with labs prior to appt or sooner if needed. Advised to call if any concerns or s/s worsen. Orders: Orders CMP 12/22/20 E78.2 - Mixed hyperlipidemia LIPID PANEL 12/22/20 E78.2 - Mixed hyperlipidemia HGBA1C + EAG 12/22/20 R73.03 - Prediabetes Vitamin D 25-OH 12/22/20 E55.9 - Vitamin D deficiency, unspecified CMP 4 Months E78.2 - Mixed hyperlipidemia LIPID PANEL 4 Months E78.2 - Mixed hyperlipidemia Vitamin D 25-OH 4 Months E55.9 - Vitamin D deficiency, unspecified Medications: New cholecalciferol (vitamin D3) W/DINNER 50,000 units PO QWEEK 12 caps 1RF E55.9 - Vitamin D deficiency, unspecified Changed From fluticasone propion-salmeterol 250-50 mcg/dose (Advair Diskus) 1 puff inhalation BID #60 11RF J45.40 - Moderate persistent asthma, uncomplicated To fluticasone propion-salmeterol 250-50 mcg/dose (Advair Diskus) RINSE MOUTH AFTER USE 1 inh inhalation BID 60 ea 5RF J45.40 - Moderate persistent asthma, uncomplicated Coding Level of Care Code Medicare AWV subsequent Coding comments Coding Comments Additional info for the purchasing and fiscal clerk: also regular o.v. Exam Detailed Diagnoses Medicare annual wellness visit, subsequent Z00.00 Vitamin D insufficiency E55.9 Mixed hyperlipidemia E78.2 GERD without esophagitis K21.9 Obstructive sleep apnea G47.33 Moderate recurrent major depression F33.1 <Electronically signed by Shanika Rod RPA C> 12/28/202040 Name Value Range Interpretation Code Description Data Kassandra rce(s) Supporting Document(s) ID Date Data Source [id number] 12/22/2020 12:00:00 PM EDT [facility] ([facility] Name Value Range Interpretation Code Description Data Kassandra rce(s) Supporting Document(s) Triglyceride [Mass/volume] in Serum or Plasma 95 mg/dL 40-160 [facility] ([facility]) Cholesterol [Mass/volume] in Serum or Plasma 113 mg/dL 0-200 [facility] ([facility]) Cholesterol in LDL [Mass/volume] in Serum or Plasma by calcu lation 58 mg/dL 0-160 [facility] ([facility]) Cholesterol in HDL [Mass/volume] in Serum or Plasma 36 mg/dL 35-70 [facility] ([facility]) ID Date Data Source [id number] 12/22/2020 12:00:00 PM EDT [facility] ([facility]) Name Value Range Interpretation Code Description Data Kassandra rce(s) Supporting Document(s) Hemoglobin A1c/Hemoglobin.total in Blood 5.4 % 4.0-6.0 [facility] ([facility]) ID Date Data Source [id number] 12/22/2020 12:00:00 PM EDT [facility] ([facility]) Name Value Range Interpretation Code Description Data Kassandra rce(s) Supporting Document(s) Urea nitrogen [Mass/volume] in Serum or Plasma 15 mg/dL 4-21 [facility] ([facility]) Glucose [Mass/volume] in Serum or Plasma 100 mg/dL [facility] ([facility]) Carbon dioxide, total [Moles/volume] in Serum or Plasma 32 mmol/ L 13-22 Abnormal (applies to non-numeric results) [facility] ([facility]) Creatinine [Mass/volume] in Serum or Plasma 0.80 mg/dL 0.60-1.30 [facility] (Cardiology [facility]) Chloride [Moles/volume] in Serum or Plasma 105 mmol/L 99-108 [facility] (Cardiology [facility]) Potassium [Moles/volume] in Serum or Plasma 4.1 mmol/L 3.4-5.3 [facility] (Cardiology [facility]) Sodium [Moles/volume] in Serum or Plasma 140 mmol/L 137-147 [facility] (Cardiology [facility]) Glomerular filtration rate/1.73 sq M.pre dicted [Volume Rate/Area] in Serum or Plasma by Creatinine-based formula (MDRD) 60 [facility] (Cardiology [facility]) ID Date Data Source [id number] 12/22/2020 02:14:00 PM EDT [facility] Name Value Range Interpretation Code Description Data Kassandra rce(s) Supporting Document(s) Urea nitrogen [Mass/volume] in Serum or Plasma 15 mg/dL 9-23 N [facility] Sodium [Moles/volume] in Serum or Plasma 140 mmol/L 132-146 [facility] Potassium [Moles/volume] in Serum or Plasma 4.1 mmol/L 3.5-5.5 [facility] Chloride [Moles/volume] in Serum or Plasma 105 mmol/L 99-109 [facility] Carbon dioxide, total [Moles/volume] in Serum or Plasma 32 mmol/ L 20-31 Above high normal [facility] Anion gap in Serum or Plasma 7 mmol/L 8-16 Below low normal [facility] Glucose [Mass/volume] in Serum or Plasma 100 mg/dL 74-106 N [facility] Creatinine 0.8 mg/dL 0.5-1.1 [facility] Glomerular filtration rate/1.73 sq M.pre dicted [Volume Rate/Area] in Serum or Plasma Greater Than 60 ABOVE 60 [facility] Alanine aminotransferase [Enzymatic acti vity/volume] in Serum or Plasma by With P-5'-P 30 U/L 10-49 [facility] ital Aspartate aminotransferase [Enzymatic ac tivity/volume] in Serum or Plasma by With P-5'-P 19 U/L 0-33 [facility] pital Alkaline phosphatase [Enzymatic activity/volume] in Serum or Plasma 106 U/L 45-129 [facility] Calcium [Mass/volume] in Serum or Plasma 9.3 mg/dL 8.5-10.1 [facility] Bilirubin.total [Mass/volume] in Serum or Plasma 0.3 mg/dL 0.3-1.2 [facility] Albumin [Mass/volume] in Serum or Plasma by Bromocresol purple (BCP) dye binding method 3.7 g/dL 3.2-4.8 [facility] ital Protein [Mass/volume] in Serum or Plasma 7.3 g/dL 5.7-8.2 [facility] ID Date Data Source [id number] 12/22/2020 02:22:00 PM EDT [facility] Name Value Range Interpretation Code Description Data Kassandra rce(s) Supporting Document(s) Hemoglobin A1c [Mass/volume] in Blood 5.4 % 3.8-5.6 N [facility] The following ranges may be u sed for interpretation of results: HGBA1C degree of glucose control: Greater than 8%: Action Suggested * Less than 7%: Goal of Diabetic Therapy Less than 5.6%: NormalFactors such as duration of diabetes, adherence to therapyand the age of the patient should also be considered inassessing the degree of blood glucose control.* High risk of developing intermediate manager complications such asretinopathy, nephropathy, neuropathy, cardiopathy, etc. Some danger of hypoglycemic reaction in Type I diabetics.Some glucose intolerant individuals and "Sub Clinical"diabetics may demonstrate HGBA1C levels in this area. Glucose mean value [Moles/volume] in Blood Estimated f rom glycated hemoglobin 108 mg/dL [facility] An A1C of 7% - the goal of diabetic ther apy - is equivalentto an EAG of 154 mg/dl. ID Date Data Source [id number] 12/23/2020 06:46:00 AM Health system Name Value Range Interpretation Code Description Data Kassandra rce(s) Supporting Document(s) 25-Hydroxyvitamin D2+25-Hydroxyvitamin D3 [Mass/volume ] in Serum or Plasma 25 ng/mL 30-100 [facility] Vitamin D Status 25-OH Vitamin D :Deficiency: <20 ng/mLInsufficiency: 20 - 29 ng/mLOptimal: > or = 30 ng/mLFor 25-OH Vitamin D testing on patients onD2-supplementation and patients for whom quantitationof D2 and D3 fractions is required, the QuestAssureD(TM)25- [place] VIT D, (D2,D3), LC/MS/MS is recommended: ordercode 24052 (patients >2yrs).See Note 1Note 1For additional information, please refer [email or web address](This link is being provided for informational/educational purposes only.)THIS TEST WAS PERFORMED AT:[facility] [id number] MD ID Date Data Source [id number] 12/22/2020 02:14:00 PM Health system Name Value Range Interpretation Code Description Data Kassandra rce(s) Supporting Document(s) Triglycerides 95 mg/dL 0-150 [facility] Cholesterol 113 mg/dL 120-200 Below low normal [facility] HDL Cholesterol 36 mg/dL [facility] HDL Less than 40 mg/dL: Major risk for CHDHDL Greater than 59 mg/dL: Low risk for CHD LDL Cholesterol, Calc 58 mg/dL 0-100 [facility] ID Date Data Source [id number] 09/24/2020 01:27:00 PM EDT [facility] Patient Name: LUIZ JEREZ : 0 1975 Sex: M Pt Unit #: [id number] Location:[facility] Provider: Visit Date/Time: 09/24/20 Primary Insurance: MEDICARE [facility] Secondary Insurance: MEDICAID [place] Intake Vital Signs 09/24/20 13:27 09/24/20 17:40 Current Height 5 ft 3 in BP 98/70 108/74 Blood Pressure Location Lt brachial Lt brachial Position Sitting Sitting Respiration 18 Pulse 82 Pulse Strength Normal Pulse Source Pulse Oximeter Temp 98.2 F Temp Source Oral Pulse Oximetry (%) 97 Oxygen Delivery Method room air Intake Visit Reasons: Cerebrovascular accident Nurse Note: Pt is here for a follow up. His Metoprolol was lowered to a half BID as his BP was too low by Dr Finch Agate Setter Required: No Accompanied by: Self / Same as Patient Is patient in pain?: No Allergies No Known Drug Allergies Allergy (Verified 04/22/20 13:25) No Known Food Allergies Allergy (Unverified 08/04/20 13:37) Medications - Last Reconciled 09/24/20 by MATY Damon albuterol sulfate 90 mcg/actuation (ProAir HFA) 1 - 2 puffs inhalation QIDPRN aspirin 81 mg PO DAILY atorvastatin 40 mg PO QDAY baclofen 10 mg PO QDAY cholecalciferol (vitamin D3) 2,000 units PO QDAY clopidogrel 75 mg PO QDAY diaper,brief,adult,disposable As directed epinastine 0.05% 1 drop OP BID fluoxetine 20 mg PO QDAY fluticasone propion-salmeterol 250-50 mcg/dose (Advair Diskus) 1 puff inhalation BID fluticasone propionate 50 mcg/actuation 1 spray EN BID PRN Lactobacillus acidophilus (Acidophilus) 10 mg PO QDAY metoprolol tartrate 12.5 mg (1/2 x 25 mg) PO BID pantoprazole 40 mg PO QDAY si methicone (Gas Relief (simethicone)) 80 mg PO BID-QID PRN HIV Testing Offer - ages 13-64 Requirement [...] return to daycare/school/sports/work: No Coronavirus Screening Screening Are you currently positive or on isolation for COVID ?: No Do you have any NEW signs of one or more of the following?: no symptoms Do you have NEW signs of at least two of the following?: no symptoms HPI Additional HPI HPI Details: 45yo male with PMH LT CVA with RT hemiparesis 2011, s/p PFO closure 2012, GERD, asthma, allergies, hyperlipidemia, LEVIS and recent RT medullary CVA here for f/u. Luiz is non ambulatory - currently in a wheelchair, brought here by his sister Nicolasa. Luiz's mom and Nicolasa have been caring for Luiz. Luiz was last seen 08/04/2020 - I advised to decrease [id number] 1/2tab bid d/t low BP. Luiz saw Dr. Rivas 08/28/2020 and advised to decrease metoprolol 25mg 1/2tab bid. Apparently, Mom had forgotten to decrease the BP medication. Advised to continue PT and OT, f/u 4months. Luiz has an appt with [facility] 10/12/2020. This week is Luiz's first week of both PT and OT - 1hr for each 2x/wk. Nicolasa states she has noticed a little improvement - some with upper body strength, able to pull himself forward depending on the chair. When changing positions, Nicolasa puts her knees against Luiz's and has him stand, has shaking of his legs but after the shaking stops, able to straighten legs out. 2wks ago could not straighten legs. Not not able to get stand/sit lift, not covered withinsurance. Did get hospital bed, regular wheelchair and wheelchair for transport. Fitted and now has bilat AFOs. Has been checking BP and has been running. No headaches or dizziness. Only has a rare bladder accident as able to get the urinal. Sometimes not able to get to the commode in time and will havebowel accident. Wondering about a [facility]. Feels moods are good on fluoxetine 20mg daily. Has not had any problems wit h breathing or with heartburn reflux - has been using advair. Has not needed alb inh. Has been taking pantoprazole 40mg daily. CVA/TIA Current symptoms: Reports numbness (RT HAND AND A COUPLE TOES ON THE RT SINCE FIRST STROKE); Denies difficulty speaking, difficulty understanding, change in vision or confusion Associated symptoms: Denies difficulty understanding or difficulty speaking Most Recent Cardiac Tests: No Data to Display Stroke/TIA Current symptoms: Denies confusion, chest pain, dizziness, dyspnea, headache(s), palpitations or syncope PFSH Medical History (Updated 09/24/20 @ 17:39 by MATY Damon) Allergic rhinitis Anxiety Depression GERD without esophagitis (09/11/15) History of CVA (cerebrovascular accident) History of leukemia History of pneumothorax Mixed hyperlipidemia Moderate persistent asthma, uncomplicated (02/23/18) ELVIS (obstructive sleep apnea) (12/28/17) Right spastic hemiparesis Tinnitus Vitamin D deficiency Surg ical History (Updated 12/24/19 @ 16:32 by MATY [...] physical activity do you participate in?: walking Smoking Status: Never smoker alcohol intake: current alcohol intake frequency: holidays/special occasions only substance use type: does not use special maco needs: No seatbelt use: always helmet use: Yes drive intox or ride w/ intox school bus driver: No water heater temp set < 120 deg: Yes working smoke detector in home: Yes fire extinguisher in home: No carbon monox detector in home: Yes firearms in home: No do you feel safe at home: Yes victim of physical abuse: No victim of emotional abuse: No victim of sexual abuse: No would you like helpful sources: No Review of Systems Const Denies chills, Denies headache(s) and Denies poor appetite Eyes Denies change in vision ENT Denies dizziness and Denies headache(s) Card Denies chest pain, Denies syncope, Denies palpitations and Denies dyspnea Resp Reports cough (D/T DRY THROAT), Denies dyspnea and Denies wheezing GI Denies abdominal pain, Denies hematochezia, Denies heartburn, Denies nausea and Denies vomiting Neuro Denies confusion, Denies dizziness, Denies syncope and Denies headache(s) Psych Denies abnormal sleep pattern, Denies anxiety, Denies change in appetite, Denies confusion, Denies depression, Denies irritability, Denies mood swings, Denies panic attacks and Denies suicidal ideation Endo Denies palpitations Aller/Immun Denies wheezing Exam Const General: cooperative, healthy appearing, comfortable, no acute distress, well developed and well groomed HENMT Head: normocephalic and atraumatic Eyes Conjunctivae: conjunctivae normal EOM: EOM intact bilaterally Neck Neck: no lymphadenopathy Carotids: no bruits Resp Effort Inspection: normal respiratory effort Auscultation: clear to auscultation bilaterally, diminished lung sounds (BILAT), no rhonchi and no wheezes Cardio Rhythm: regular rhythm Heart Sounds: S1 normal and S2 normal Neuro General: CN's II-XI intact bilaterally Cognition: normal cognition Speech: speech normal Gait: gait assisted Method: wheelchair bound Other: BILAT AFOS NOTED LE Extrem General: no edema Psych Appearance: grossly normal Mental Status: mental status grossly normal Speech and Movement: speech and movement normal Mood: congruent mood Affect: normal affect Attitude: cooperative Thought Process: normal Assessment Plan Assessment Plan (1) Cerebrovascular accident (CVA): Code(s): I63.9 - Cerebral infarction, unspecified Plan - MATY Damon: S/p RT medullary CVA - has seen Dr. Rivas - has f/u appt in 4months. Advised to continue ASA 81mg daily, clopidogrel 75mg daily and atorvastatin 40mg daily. BP stable on metoprolol 25mg 1/2tab bid. Has appt with cardiology 10/12/2020. Continue PT/OT 2x/wk. (2) Depression: Status: Chronic Code(s): F32.9 - Major depressive disorder, single episode, unspecified SNOMED Code(s): 87803781 Category: Medical Qualifiers: Depression Type: major depressive disorder Major depression recurrence: recur rent Active/Remission status: currently active Major depression episode severity: unspecified QualifiedCode(s): F33.9 - Major depressive disorder, recurrent, unspecified Plan - MATY Damon: Stable on fluoxetine 20mg daily. (3) Moderate persistent asthma without complication: Status: Chronic Onset Date: 08/11/17 Code(s): J45.40 - Moderate persistent asthma, uncomplicated SNOMED Code(s): 867392156 Category: Medical Plan - MATY Damon: Stable on advair 250- 50mcg 1puff bid. (4) GERD without esophagitis: Status: Chronic Onset Date: 09/11/15 Code(s): K21.9 - Gastro-esophageal reflux disease without esophagitis SNOMED Code(s): 961250314 Category: Medical Plan - MATY Damon: Stable on pantoprazole 40mg daily. Additional Comments Additional Comments: F/u 4months or sooner if needed. Advised to contact office if questions/concerns arise or s/s develop. Coding Level of Care Code 62740 Est Pt Extended Comp Exam Expanded Problem Focused Diagnoses Cerebrovascular accident (CVA) I63.9 Depression F33.9 Depression Type: major depressive disorder Major depression recurrence: recurrent Active/Remission status: currently active Major depression episode severity: unspecified Moderate persistent asthma without complication J45.40 GERD without esophagitis K21.9 <Electronically signed by Shanika Juares> 09/24/20 1741 Name Value Range Interpretation Code Description Data Kassandra rce(s) Supporting Document(s) ID Date Data Source [id number] 08/04/2020 01:22:00 PM [facility] Patient Name: LUIZ JEREZ : 0 1975 Sex: M Pt Unit #: [id number] Location:[facility] Provider: Visit Date/Time: 08/04/20 Primary Insurance: MEDICARE [employer] Secondary Insurance: MEDICAID [place] ADDENDUM CUSTOM BILAT AFOS - PATIENT IS NON AMBULATORY. LUIZ EXHIBITS WEAKNESS IN LE BILAT. HE IS S/P CVA AND CONDITION IS EXPECTED TO EXIST FOR MORE THAN 6MONTHS. THE FOOT/ANKLE REQUIRE CONTROL IN MORE THAN 1 PLANE. LUIZ IS S/P CVA THAT REQUIRES CUSTOM FABRICATION OVER AN IMPRESSION TO MINIMIZE TISSUE INJURY. <Electronically signed by Shanika Juares> 08/20/20 1750 Intake Vital Signs 08/04/20 13:22 08/04/20 17:24 Current Height 5 ft 3 in Current Weight 101 lb Weight Measurement Method Stated by Patient BMI 17.9 BP 80/40 90/64 Blood Pressure Location Lt brachial Lt brachial Position Sitting Sitting Respiration 18 Pulse 56 L Pulse Strength Normal Pulse Source Pulse Oximeter Temp 97.9 F Temp Source Tympanic Pulse Oximetry (%) 98 Intake Visit Reasons: Hospital Discharge Follow-up Nurse Note: Pt is here for a hospital follow up. He has had several TIA's and now needs round the clock care. His mother and sister are his primary care takers at this time. He was only seeing Dr Finch in the hospital and never saw a rock crushing machine operator. Agate Setter Required: No Accompanied by: Mother Is patient in pain?: No Allergies No Known Drug Allergies Allergy (Verified 04/22/20 13:25) No Known Food Allergies Allergy (Unverified 08/04/20 13:37) Medications - Last Reconciled 08/04/20 by MATY Damon albuterol sulfate 90 mcg/actuation (ProAir HFA) 1 - 2 puffs inhalation QIDPRN aspirin 81 mg PO DAILY atorvastatin 40 mg PO QDAY baclofen 10 mg PO QDAY cholecalciferol (vitamin D3) 2,000 units PO QDAY clopidogrel 75 mg PO QDAY epinastine 0.05% 1 drop OP BID fluoxetine 20 mg PO QDAY fluticasone propion-salmeterol 250-50 mcg/dose (Advair Diskus) 1 puff inhalation BID fluticasone propionate 50 mcg/actuation 1 spry EN BID Lactobacillus acidophilus (Acidophilus) 10 mg PO QDAY metoprolol tartrate 12.5 mg PO BID pantoprazole 40 mg PO QDAY simethicone (Gas Relief (simethicone)) 80 mg PO BID-QID PRN HIV Testing Offer - ages 13-64 Requirement for HIV testing offer been met?: Declines today. Pretest education received and acknowledged [facility] Medical History (Updated 08/04/20 @ 17:29 by MATY Damon) Allergic rhinitis Anxiety Depression GERD without esophagitis (09/11/15) History of CVA (cerebrovascular accident) History of leukemia History of pneumothorax Mixed hyperlipidemia Moderate persistent asthma, uncomplicated (02/23/18) ELVIS (obstructive sleep apnea) (12/28/17) Right spastic hemiparesis Tinnitus Vitamin D deficiency Surgical History (Updated 12/24/19 @ 16:32 by [...] physical activity do you participate in?: walking Smoking Status: Never smoker alcohol intake: current alcohol intake frequency: holidays/special occasions only substance use type: does not use special maco needs: No seatbelt use: always helmet use: Yes drive intox or ride w/ intox school bus driver: No water heater temp set < 120 deg: Yes working smoke detector in home: Yes fire extinguisher in home: No carbon monox detector in home: Yes firearms in home: No do you feel safe at home: Yes victim of physical abuse: No victim of emotional abuse: No victim of sexual abuse: No would you like helpful sources: No HPI Additional HPI HPI Details: 45yo male with PMH LT CVA with RT hemiparesis 2011, s/p PFO closure 2012, GERD, asthma, allergies, hyperlipidemia and ELVIS here for hospital f/u d/t RT medullary CVA. Luiz initially went to [facility] 07/01/2020 d/t RT sided weakness/numbness, inability to walk d/t paresthesias, change in speech. Symptoms waxed and waned in the morning but then worsened so he went to [facility]. CT head showed cerebral atrophy and 2 small luncar infarts LT parietal white matter, no acute events. Neuro consulted who recommended transfer to [facility] d/t hx LT medullary CVA and MRI. Transferred to [facility] - H P scanned in but I am unable to access at this time. Official discharge summary not received as of yet. Dx with RT medullary CVA. Last 2wks was in rehab. Discharged 07/30/2020 - new medications include probiotic, pantoprazole 40mg daily, metoprolol 25mg bid, fluoxetine 20mg daily, clopidogrel 75mg daily, atorvastatin 40mg, baclofen 10mg at bedtime, ASA 81mg. Has f/u with Dr. Finch 08/13/2020. Appt with Bhanu Morris. Currently has AFO for RT and needs to be refitted. Jonathan and Miguel A from PT were there yesterday. Recommended mechanical sit to stand lift so that he can transfer with 1 person. Currently Mom and sister are caring for him. No way only one of themcould care for him. Also needs a tub transfer bench. Also needs a script for depends. Is supposed to be getting a wheelchair cushion but have not yet received. Has a hospital bed from [facility]. PT will be coming 2x/wk Did mention occupational therapy but did not receive any information. While in the hospital received, PT, OT 2x/day 5x/wk and speech 1x/day 5x/wk. Given home exercises to do for speech therapy. Now weakness is worse on the LT side compared to the RT. Not able to stand on his own. Sister states she and her Mom carry about 95% of his weight. Started on fluoxetine 20mg daily for moods. Luiz denies feeling depressed/anxious. No suicidal thoughts. Review of Systems Const Denies chills, Reports fatigue (IMPROVING), Denies fever(s), Denies headache(s), Denies night sweats, Denies poor appetite and Reports weight loss Eyes Denies blurry vision, Denies diplopia and Denies loss of vision ENT Denies vertigo, Denies dizziness and Denies headache(s) Card Denies chest pain, Denies chest pain with activity, Denies syncope, Denies irregular heart rhythm, Denies palpitations and Denies dyspnea Resp Denies dyspnea GI Denies abdominal pain, Denies hematochezia, Denies constipation (DID HAVE TROUBLE WHILE IN THE HOSPITAL), Denies heartburn, Reports fecal incontinence (SOMETIMES UNABLE TO MAKE IT IN TIME), Denies nausea and Denies vomiting Reports urinary incontinence (SOMETIMES NOT ABLE TO MAKE IT ON TI ME) Musc Reports back pain (WITH SITTING TOO LONG), Reports muscle weakness and Reports tingling (RT HAND/TOES - FROM PREVIOUS STROKE) Skin/Breast Reports dry skin (ITCHING NECK/BACK - USING CREAM FROM HOSPITAL) Neuro Denies confusion, Denies vertigo, Denies dizziness, Denies syncope, Denies headache(s), Denies loss of vision, Denies memory loss, Denies other visual disturbances, Denies convulsions, Denies seizure-like activity and Reports tingling (RT HAND/TOES - FROM PREVIOUS STROKE) Psych Denies anxiety, Denies confusion, Denies depression, Denies auditory hallucinations, Denies memory loss, Denies panic attacks, Denies visual hallucinations and Denies suicidal ideation Endo Reports fatigue (IMPROVING) and Denies palpitations Exam Const General: cooperative, healthy appearing, comfortable, no acute distress, well developed and well groomed [facility] Head: normocephalic and atraumatic Eyes Conjunctivae: conjunctivae normal EOM: EOM intact bilaterally Neck Neck: no lymphadenopat hy Carotids: no bruits Resp Effort Inspection: normal respiratory effort Auscultation: clear to auscultation bilaterally, diminished lung sounds (BILAT), no rhonchi and no wheezes Cardio Rhythm: regular rhythm Heart Sounds: S1 normal and S2 normal Pulses: posterior tibial pulses present bilaterally 3+ GI Palpation: soft, not firm, no guarding, not rigid and nontender Auscultation: normal bowel sounds Skin Other: SKIN VERY DRY Neuro General: CN's II-XI intact bilaterally Cognition: normal cognition Speech: speech normal Gait: gait assisted Method: wheelchair bound Other: DECREASED CUSTOMER ORDER CLERK STRENGTH UE BILAT, ONLY ABLE TO LIFT RT FOOT OFF THE FOOT OF THE WHEELCHAIR A SMALL AMOUNT, NOT ABLE TO RAISE LT FOOT UP AT ALL Extrem General: no edema Psych Appearance: grossly normal Mental Status: mental status grossly normal Speech and Movement: speech and movement normal Mood: congruent mood Affect: normal affect Attitude: cooperative Thought Process: normal Assessment Plan Assessment Plan (1) Hospital discharge follow-up: Code(s): Z09 - Encounter for follow-up examination after completed treatment for conditions other than malignant neoplasm Plan - Shanika Rod, RPA-C: 45yo male with PMH LT medullary CVA 2011, s/p PFO closure 2012, hyperlipidemia, asthma, GERD, allergies and depression here for hospital f/u d/t RT medullary CVA. Initially presented to [facility] ER 07/01/2020, transferred to [facility] - found to have RT medullary CVA, discharged from rehab 07/30/2020. F/u appt with Dr. Finch 08/13/2020. Appt with Bhanu morris 08/12/2020. Will be receiving PT 2x/wk. Will do script for OT. (2) Cerebrovascular accident (CVA): Code(s): I63.9 - Cerebral infarction, unspecified Plan - MATY Damon: RT medullary CVA - PT evaluated yesterday and recommended mechanical sit to stand lift, tub transferbench for bathing and motorized wheelchair. Scripts written and Mago to fax to [facility]. PT 2x/wk. Order for OT. Script sent for depends. Appt with Bhanu morris 08/12/2020 for brace adjustment replacement. Appt with Dr. Rivas 08/13/2020. BP low today - advised to decrease metoprolol 25mg 1/2tab bid. Monitor BP. Per Mom's request, referral to Dr. Mckeon. Orders: Orders: Occupational Therapy Eval Today Referrals: Cardiology Referral Medications: New: 2 diaper,brief,adult,disposable As directed 60 ea 5RF (3) Depression: Status: Chronic Code(s): F32.9 - Major depressive disorder, single episode, unspecified SNOMED Code(s): 64436935 Category: Medical Qualifiers: Depression Type: major depressive disorder Major depression recurrence: recurrent Active/Remission status: currently active Major depression episode severity: unspecified QualifiedCode(s): F33.9 - Major depressive disorder, recurrent, unspecified Plan - MATY Damon: Started on fluoxetine 20mg daily, Luiz feels that it is working well, denies feeling depressed. Additional Comments Additional Comments: F/u 4wks or sooner if needed. Advised to contact office if questions/concerns arise or s/s develop. Coding Level of Care Code 92055 Est Pt Extended Comp Exam Detailed Diagnoses Hospital discharge follow-up Z09 Cerebrovascular accident (CVA) I63.9 Depression F33.9 Depression Type: major depressive disorder Major depression recurrence: recurrent Active/Remission status: currently active Major depression episode severity: unspecified <Electronically signed by Shanika Juares> 08/04/20 1729 Name Value Range Interpretation Code Description Data Kassandra rce(s) Supporting Document(s) ID Date Data Source [id number] 07/15/2020 11:18:00 AM EST [facility] Name Value Range Interpretation Code Description Data Kassandra rce(s) Supporting Document(s) SARS-CoV-2 (COVID 19) NEGATIVE - SARS-CoV-2 (COVID19) [facility] This lab was ordered by [facility] a nd reported by [facility]. ID Date Data Source [id number] 07/06/2020 02:36:00 PM EST [address] [address] TELEPHONE RADIOLOGY DEPARTMENT Name: [facility] #: [id number] : 1975 Ordering Physician: KADI OROSCO Sex: M Date: 07/01/20 Admission Type: E/R X-ray Number: [id number] Unsigned Transcriptions are preliminary reports and do not represent a Medical or Legal Document CT CHEST-THORAX W/O CONTRAST [id number] COMPLETE:07/01/20 11:04 LEI (REASON FOR CHEST: DYSPNEA Patient weight: 101 [...] reconstructive techniques. CT dose in mGy*CM: 187.[address] [place] [address] TELEPHONE RADIOLOGY DEPARTMENT Name: [facility] #: [id number] : 1975 Ordering Physician: KADI OROSCO Sex: M Date: 07/01/20 Admission Type: E/R X-ray Number: [id number] Unsigned Transcriptions are preliminary reports and do not represent a Medical or Legal Document Electronically Reviewed and Signed By Shira WHITFIELD MD, MD 07/06/20 14:35 Dictating Initials: GMM Transcribed Date: 07/01/20 14:06 Transcribe Initials: ALESHIA Name Value Range Interpretation Code Description Data Kassandra rce(s) Supporting Document(s) ID Date Data Source [id number] 07/06/2020 02:35:53 [place] [address] TELEPHONE RADIOLOGY DEPARTMENT Name: [facility] #: [id number] : 1975 Ordering Physician: KADI Whitman: M Date: 07/01/20 Admission Type: E/R X-ray Number: [id number] Unsigned Transcriptions are preliminary reports and do not represent a Medical or Legal Document CT HEAD W/O CONTRAST [id number] COMPLETE:07/01/20 11:04 LEI 99541 (REASON FOR TEST: Stroke protocol Patient weight: [...] and/or the use of [place] [address] TELEPHONE RADIOLOGY DEPARTMENT Name: [facility] #: [id number] : 1975 Ordering Physician: KADI OROSCO Sex: M Date: 07/01/20 Admission Type: E/R X-ray Number: [id number] ___ Unsigned Transcriptions are preliminary reports and do not represent a Medical or Legal Document CT dose in mGy*CM: 841.9 Electronically Reviewed and Signed By Shira WHITFIELD MD, MD 07/06/20 14:35 Dictating Initials: GMM Transcribed Date: 07/01/20 14:16 Transcr kraig Initials: LI Name Value Range Interpretation Code Description Data Kassandra rce(s) Supporting Document(s) ID Date Data Source [id number] 07/01/2020 10:50:00 AM EST [facility] Name Value Range Interpretation Code Description Data Kassandra rce(s) Supporting Document(s) URINALYSIS ROUTINE wMICRO RFLX TO CX [facility] URINALYSIS W/REFLEX CULTURE REFERENCE RANGES SOURCE Random [facility] COLOR Yellow Colorless-Cris [facility] ospital CLARITY Clear Normal: Clear [facility] pital LEUK EST Negative Negative - Trace [facility] NITRITE Negative Normal: Negative [facility] UROBILINOGEN Negative Negative - Trace [facility] PROTEIN Negative Negative - Trace [facility] pH 7.0 5.0 - 8.0 [facility] l BLOOD Negative Negative - Trace [facility] SPEC GRAVITY 1.010 1.000 - 1.030 [facility] KETONE Negative Negative - Trace [facility] BILIRUBIN Negative Normal: Negative [facility] GLUCOSE Negative Normal: Negative [facility]OSCOPIC [facility] WBC NONE SEEN None Seen - 5/hpf [facility] RBC NONE SEEN None Seen - 5/hpf [facility] EPITHELIAL None Seen NORMAL: None Seen [facility] BACTERIA NONE SEEN NORMAL: None Seen [facility] MUCOUS 1+ NORMAL: None Seen [facility] CASTS Not Indicated [facility] pital CRYSTALS Not Indicated [facility] CULTURE INDICATED? NO Normal: No [facility] ID Date Data Source [id number] 07/01/2020 10:30:00 AM EST [facility] Name Value Range Interpretation Code Description Data Kassandra rce(s) Supporting Document(s) RESP PROFILE RP2.1 NASAL PCR [facility] \\BLDo\\RESPIRATORY PROFILE NASAL PHARYNGEAL BY PCR\\BLDx\\ \\BLDo\\DETECTED _NONE \\BLDx\\ 07/01/20.1243.KJV. \\BLDo\\EQUIVOCAL _NONE \\BLDx\\ 07/01/20.1243.KJV. VIRUSES ADENOVIRUS NOT DETECTED NORMAL: NOT DETECTED [facility] CORONAVIRUS 229E NOT DETECTED NORMAL: NOT DETECTED [facility] CORONAVIRUS HKU1 NOT DETECTED NORMAL: NOT DETECTED [facility] CORONAVIRUS NL63 NOT DETECTED NORMAL: NOT DETECTED [facility] CORONAVIRUS OC43 NOT DETECTED NORMAL: NOT DETECTED [facility] 16043-3 NOT DETECTED NORMAL: NOT DETECTED [facility] REPORT TO [facility] OF [facility] TH HUMAN METAPNEUMO NOT DETECTED NORMAL: NOT DETECTED [facility] HUMAN RHINO/ENTERO NOT DETECTED NORMAL: NOT DETECTED [facility] NOT DETECTEDNOT DETECTEDNOT DETECTEDNOT DETECTED PARAINFLUENZA V3 NOT DETECTED NORMAL: NOT DETECTED [facility] NOT DETECTED RSV NOT DETECTED NORMAL: NOT DETECTED [facility] BACTERIANOT DET ECTEDNOT DETECTEDNOT DETECTEDNOT DETECTED TESTING PERFORMED USING THE SCYNEXIS RP2.1 MULTIPLEXED NUCLEIC ACID TEST. THIS TEST [...] OR REVOKED SOONER. ID Date Data Source [id number] 07/01/2020 09:35:00 AM EST [facility] Name Value Range Interpretation Code Description Data Kassandra rce(s) Supporting Document(s) Acetaminophen [Mass/volume] in Serum or Plasma 0 ug/mL 0 - 30 [facility] ACETAMINOPHEN CONCENTRATIONS >150.0 MCG/ML AT FOUR HOURS AFTER INGESTION, AND >50.0 MCG/ML AT TWELVE HOURS AFTER INGESTION ARE OFTEN ASSOCIATED WITH TOXIC REACTIONS. Salicylates [Mass/volume] in Serum or Plasma <2.8 mg/dL 5.0 - 30.0 Below low normal [facility] MAY BE TOXIC IF SALICYLATE LEV EL IS GREATER THAN 30.0 mg/dL ID Date Data Source [id number] 07/01/2020 09:35:00 AM EST [facility] Name Value Range Interpretation Code Description Data Kassandra rce(s) Supporting Document(s) LIPID PROFILE [facility] pital LIPID PROFILE Cholesterol [Mass/volume] in Serum or Plasma 286 mg/dL [facility] Triglyceride [Mass/volume] in Serum or Plasma 143 mg/dL [facility] Cholesterol in HDL [Mass/volume] in Serum or Plasma 41 mg/dL [facility] Cholesterol in LDL [Mass/volume] in Serum or Plasma by calculati on 216 mg/dL [facility] CHOL/HDL 6.98 [facility] l \\BLDo\\INTERPRE TATION\\BLDx\\ REFERENCE RANGES (NATIONAL CHOLESTEROL [...] mg/dL VERY HIGH ID Date Data Source [id number] 07/01/2020 09:35:00 AM EST [facility] Name Value Range Interpretation Code Description Data Kassandra rce(s) Supporting Document(s) Creatine kinase.MB [Mass/volume] in Serum or Plasma <0.5 ng/mL 0.5 - 5.0 [facility] ID Date Data Source [id number] 07/01/2020 09:35:00 AM EST [facility] Name Value Range Interpretation Code Description Data Kassandra rce(s) Supporting Document(s) COMPREHENSIVE CHEM PROFILE i [facility] COMPREHENSIVE METABOLIC PANEL Sodium [Moles/volume] in Serum or Plasma 140 mEq/L 136 - 145 [facility] Potassium [Moles/volume] in Serum or Plasma 3.8 mEq/L 3.5 - 5.1 [facility] Chloride [Moles/volume] in Serum or Plasma 100 mEq/L 98 - 107 [facility] Carbon dioxide, total [Moles/volume] in Serum or Plasma 28.0 mEq /L 21.0 - 32.0 [facility] Glucose [Mass/volume] in Serum or Plasma 127 mg/dL 70 - 100 Above high normal [facility] Urea nitrogen [Mass/volume] in Serum or Plasma 16 mg/dL 7 - 18 [facility] CREATININE SERUM 0.97 mg/dL 0.70 - 1.30 [facility] AGE 45 yrs [facility] HEIGHT 63.00 INCHES [facility] ital eGFR NON-AFR AMR >60 [facility] eGFR AFR AMR >60 [facility] ital BUN/CREAT 16 6 - 25 [facility] Protein [Mass/volume] in Serum or Plasma 8.5 g/dL 6.0 - 8.3 Above high normal [facility] Albumin [Mass/volume] in Serum or Plasma 4.3 g/dL 3.8 - 5.4 [facility] GLOBULIN 4.2 g/dL 2.0 - 4.0 Above high normal [facility] A/G RATIO 1.0 0.8 - 2.0 [facility] Calcium [Mass/volume] in Serum or Plasma 9.8 mg/dL 8.8 - 10.2 [facility] Bilirubin.total [Mass/volume] in Serum or Plasma 0.6 mg/dL 0.2 - 1.0 [facility] Bilirubin.direct [Mass/volume] in Serum or Plasma 0.1 mg/dL 0.0 - 0. 2 [facility] INDIRECT BILI 0.5 mg/dL 0.0 - 1.1 [facility] pital ALK PHOSPHATASE 65 U/L 40 - 129 [facility] ospital Aspartate aminotransferase [Enzymatic ac tivity/volume] in Serum or Plasma by With P-5'-P 13 IU/L 7 - 37 [facility] Alanine aminotransferase [Enzymatic acti vity/volume] in Serum or Plasma by With P-5'-P 22 IU/L 12 - 78 [facility] ANION GAP 12 7 - 15 [facility] Estimated GFR referenc e range: >60ml/min/1.73m >18 years: Calculated using IDMS traceable Study Equation <18 years: Calculated using IDCA tracable Bedside Schartz Equation ID Date Data Source [id number] 07/01/2020 09:35:00 AM EST [facility] Name Value Range Interpretation Code Description Data Kassandra rce(s) Supporting Document(s) Troponin I.cardiac [Mass/volume] in Serum or Plasma <0.017 ng/mL 0.017 - 0.060 [facility] \\BLDo\\TROPONIN I I NTERPRETATION:\\BLDx\\ < 0.06 ng/mL NOT SUSPICIOUS FOR AN AMI 0.06 - 0.59 ng/mL IRENE ZONE FOR AN AMI, SERIAL MONITORING RECOMMENDED 0.6 - 1.5 ng/mL SUSPICIOUS FOR AN AMI Reference range updated for new chemiluminescent immunoassay method based on [place] [employer] technology. Effective 01/15/18. ID Date Data Source [id number] 07/01/2020 09:35:00 AM EST [facility] Name Value Range Interpretation Code Description Data Kassandra rce(s) Supporting Document(s) Fibrin D-dimer DDU [Mass/volume] in Platelet poor plas ma by Immunoassay 138 ng/mL 0 - 400 [facility] METHODOLOGY: FLUORESCENCE IMM UNOASSAY \\BLDo\\D- DIMER [...] erroneous D-dimer results. ID Date Data Source [id number] 07/01/2020 09:35:00 AM EST [facility] PROTHROMBIN TIME Name Value Range Interpretation Code Description Data Kassandra rce(s) Supporting Document(s) WARFARIN? NO [facility] 12.9 INR in Platelet poor plasma by Coagulation assay 1.0 1.0 - 4.5 [facility] Reference ranges Warf loco (Coumadin) Therapy: 21.6 - 40.7 secs Normal (Non-warfarin Therapy): 10.7 - 15.2 secs New Protime Reference Range as of April 24, 2020 ID Date Data Source [id number] 07/01/2020 09:35:00 AM EST [facility] Name Value Range Interpretation Code Description Data Kassandra rce(s) Supporting Document(s) CBC [facility] l COMPLETE BLOOD COUNT Leukocytes [#/volume] in Blood by Automated count 11.0 K/uL 4.0 - 10.0 Above high normal [facility] Erythrocytes [#/volume] in Blood by Automated count 5.12 M/uL 4.30 - 6.10 [facility] Hemoglobin [Mass/volume] in Blood 14.9 g/dL 13.5 - 17.5 [facility] Hematocrit [Volume Fraction] of Blood by Automated count 45.6 % 3 9.0 - 50.0 [facility] Erythrocyte mean corpuscular volume [Entitic volume] by Auto mated count 89.1 fL 80.0 - 96.0 [facility] Erythrocyte mean corpuscular hemoglobin [Entitic mass] by Automated count 29.1 pg 26.0 - 34.0 [facility] Erythrocyte mean corpuscular hemoglobin concentration [Mass/volume] by Automated count 32.7 g/dL 32.0 - 36.0 [facility] Erythrocyte distribution width [Ratio] by Automated count 12.5 % 11.6 - 14.8 [facility] Platelets [#/volume] in Blood by Automated count 318 K/uL 150 - 450 [facility] Platelet mean volume [Entitic volume] in Blood by Automated count 8.2 fL 7.1 - 10.4 [facility] Neutrophils [#/volume] in Blood by Automated count 9.22 K/uL 1.70 - 7.70 Above high normal [facility] Lymphocytes [#/volume] in Blood by Automated count 1.26 K/uL 1.50 - 6.00 Below low normal [facility] Monocytes [#/volume] in Blood by Automated count 0.39 K/uL 0.00 - 1. 00 [facility] Eosinophils [#/volume] in Blood by Automated count 0.01 K/uL 0.00 - 0.30 [facility] Basophils [#/volume] in Blood by Automated count 0.07 K/uL 0.00 - 0. 10 [facility] 0.02 Urinalysis macro (dipstick) panel - Urine 0.000 10^3/uL 0.000 - 0.012 [facility] Neutrophils/100 leukocytes in Blood by Automated count 84.0 % 42.2 - 75.2 Above high normal [facility] Lymphocytes/100 leukocytes in Blood by Automated count 11.5 % 15.0 - 41.0 Below low normal [facility] Monocytes/100 leukocytes in Blood by Automated count 3.6 % 0.0 - 12.0 [facility] Eosinophils/100 leukocytes in Blood by Automated count 0.1 % 0.0 - 7.0 [facility] 0.60.20 NRBC 0.0 % [facility] MANUAL DIFF NOT INDICATED [facility] RBC MORPH NOT INDICATED [facility] pital ID Date Data Source [id number] 07/01/2020 09:13:[address] [facility] Name Value Range Interpretation Code Description Data Kassandra rce(s) Supporting Document(s) Glucose [Moles/volume] in Capillary blood by Glucometer 112 mg/d L 70 - 100 Above high normal [facility] RESULTS < 40 mg/dL OR > 500 mg /dL WILL REQUIRE CONFIRMATION BY LAB ID Date Data Source [id number] 04/22/2020 01:05:00 PM [facility] Patient Name: LUIZ JEREZ : 0 1975 Sex: M Pt Unit #: [id number] Location:[facility] Provider: Visit Date/Time: 04/22/20 Primary Insurance: MEDICARE [employer] Secondary Insurance: [place]ICAID [place] Intake Vital Signs 04/22/20 13:05 Current Height [...] he would like his flu shot today. 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 Admits he still likes his sweets. 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 hga1c 5.7%, TSH 3.30, 25 oh vit d 40, WBC 7.5, hgb/hct 14.6/45.2, PLT 293, glu 100, bun/cr 15/1.09, HDL 38, LDL 155, TG 153 Was not able to have audiology evaluation done at [place] - not covered, believes he has to go to [place] to have it done. Has not had [...] Route Admin Location Lot Number Expiration Date [facility] Manufactu rer 0.5 mL IM Left arm [id number] 12/02/20 75189-322-82 [employer] VIS Given Date VIS Provided VIS Publication Date 04/22/20 Single Vaccine 19 Eligibility Eligibility Date Funding Source Not [facility] Eligible 04/22/20 Private Assessment Plan Assessment [...] (PE after 12/23/20) <Electronically signed by Shanika Rod RPA C> 04/22/20 1522 Name Value Range Interpretation Code Description Data Kassandra rce(s) Supporting Document(s) ID Date Data Source [id number] 04/21/2020 01:05:00 PM EST [facility] Name Value Range Interpretation Code Description Data Kassandra rce(s) Supporting Document(s) COMPREHENSIVE CHEM PROFILE [facility] COMPREHENSIVE METABOLIC PANEL Sodium [Moles/volume] in Serum or Plasma 139 mEq/L 136 - 145 [facility] Potassium [Moles/volume] in Serum or Plasma 3.8 mEq/L 3.5 - 5.1 [facility] Chloride [Moles/volume] in Serum or Plasma 99 mEq/L 98 - 107 [facility] Carbon dioxide, total [Moles/volume] in Serum or Plasma 30.0 mEq /L 21.0 - 32.0 [facility] Glucose [Mass/volume] in Serum or Plasma 100 mg/dL 70 - 100 [facility] Urea nitrogen [Mass/volume] in Serum or Plasma 15 mg/dL 7 - 18 [facility] CREATININE SERUM 1.09 mg/dL 0.70 - 1.30 [facility] AGE 45 yrs [facility] HEIGHT NA [facility] l eGFR NON-AFR AMR >60 [facility] eGFR AFR AMR >60 [facility] BUN/CREAT 14 6 - 25 [facility] Protein [Mass/volume] in Serum or Plasma 8.3 g/dL 6.0 - 8.3 [facility] Albumin [Mass/volume] in Serum or Plasma 4.0 g/dL 3.8 - 5.4 [facility] GLOBULIN 4.3 g/dL 2.0 - 4.0 Above high normal [facility] A/G RATIO 0.9 0.8 - 2.0 [facility] Calcium [Mass/volume] in Serum or Plasma 9.4 mg/dL 8.8 - 10.2 [facility] Bilirubin.total [Mass/volume] in Serum or Plasma 0.5 mg/dL 0.2 - 1.0 [facility] Bilirubin.direct [Mass/volume] in Serum or Plasma 0.1 mg/dL 0.0 - 0. 2 [facility] INDIRECT BILI 0.4 mg/dL 0.0 - 1.1 [facility] pital ALK PHOSPHATASE 71 U/L 40 - 129 [facility] ospital Aspartate aminotransferase [Enzymatic ac tivity/volume] in Serum or Plasma by With P-5'-P 14 IU/L 7 - 37 [facility] Alanine aminotransferase [Enzymatic acti vity/volume] in Serum or Plasma by With P-5'-P 25 IU/L 12 - 78 [facility] ANION GAP 10 7 - 15 [facility] l Estimated GFR referenc e range: >60ml/min/1.73m >18 years: Calculated using IDMS traceable Study Equation <18 years: Calculated using IDMS tracable Bedside Schartz Equation ID Date Data Source [id number] 04/21/2020 01:05:00 PM EST [facility] Name Value Range Interpretation Code Description Data Kassandra rce(s) Supporting Document(s) Cholesterol [Mass/volume] in Serum or Plasma 224 mg/dL [facility] Triglyceride [Mass/volume] in Serum or Plasma 153 mg/dL [facility] Cholesterol in HDL [Mass/volume] in Serum or Plasma 38 mg/dL [facility] Cholesterol in LDL [Mass/volume] in Serum or Plasma by calculati on 155 mg/dL [facility] CHOL/HDL 5.89 [facility] l \\BLDo\\INTERPRE TATION\\BLDx\\ REFERENCE RANGES (NATIONAL CHOLESTEROL [...] mg/dL VERY HIGH ID Date Data Source [id number] 04/21/2020 01:05:00 PM EST [facility] Name Value Range Interpretation Code Description Data Kassandra rce(s) Supporting Document(s) [facility] Leukocytes [#/volume] in Blood by Automated count 7.5 K/uL 4.0 - 10 .0 [facility] Erythrocytes [#/volume] in Blood by Automated count 4.98 M/uL 4.30 - 6.10 [facility] Hemoglobin [Mass/volume] in Blood 14.6 g/dL 13.5 - 17.5 [facility] Hematocrit [Volume Fraction] of Blood by Automated count 45.2 % 3 9.0 - 50.0 [facility] Erythrocyte mean corpuscular volume [Entitic volume] by Auto mated count 90.8 fL 80.0 - 96.0 [facility] Erythrocyte mean corpuscular hemoglobin [Entitic mass] by Automated count 29.3 pg 26.0 - 34.0 [facility] Erythrocyte mean corpuscular hemoglobin concentration [Mass/volume] by Automated count 32.3 g/dL 32.0 - 36.0 [facility] Erythrocyte distribution width [Ratio] by Automated count 12.4 % 11.6 - 14.8 [facility] Platelets [#/volume] in Blood by Automated count 293 K/uL 150 - 450 [facility] Platelet mean volume [Entitic volume] in Blood by Automated count 8.3 fL 7.1 - 10.4 [facility] Neutrophils [#/volume] in Blood by Automated count 3.95 K/uL 1.70 - 7.70 [facility] Lymphocytes [#/volume] in Blood by Automated count 2.63 K/uL 1.50 - 6.00 [facility] Monocytes [#/volume] in Blood by Automated count 0.50 K/uL 0.00 - 1. 00 [facility] Eosinophils [#/volume] in Blood by Automated count 0.27 K/uL 0.00 - 0.30 [facility] Basophils [#/volume] in Blood by Automated count 0.10 K/uL 0.00 - 0. 10 [facility] 0.01 Urinalysis macro (dipstick) panel - Urine 0.000 10^3/uL 0.000 - 0.012 [facility] Neutrophils/100 leukocytes in Blood by Automated count 53.0 % 42. 2 - 75.2 [facility] Lymphocytes/100 leukocytes in Blood by Automated count 35.3 % 15. 0 - 41.0 [facility] Monocytes/100 leukocytes in Blood by Automated count 6.7 % 0.0 - 12.0 [facility] Eosinophils/100 leukocytes in Blood by Automated count 3.6 % 0.0 - 7.0 [facility] 1.30.10 NRBC 0.0 % [facility] MANUAL DIFF NOT INDICATED [facility] RBC MORPH NOT INDICATED [facility] ID Date Data Source [id number] 04/21/2020 01:05:00 PM EST [facility] Name Value Range Interpretation Code Description Data Kassandra rce(s) Supporting Document(s) 25-OH VITAMIN D 40.0 ng/mL 30.0 - 100 [facility] Deficient < 20 ng/mL Insufficient 20 - < 30 ng/mL Sufficient 30 - 100 ng/mL 25-OH vitamin D reference values based on the Clinical Guidelines Subcommittee of the Endocrine Society Task Force. Biotin can interfere with 25-OH Vitamin D results if taken 48 hours prior to specimen collection. ID Date Data Source [id number] 04/21/2020 01:05:00 PM EST [facility] Name Value Range Interpretation Code Description Data Kassandra rce(s) Supporting Document(s) TSH 3.30 uIU/mL 0.36 - 3.74 [facility] pital Reference range updated for new LOCI technology based chemiluminescent immunoassay method, and age specific ranges. Effective 02/13/18. ID Date Data Source [id number] 04/21/2020 01:05:00 PM EST [facility] Name Value Range Interpretation Code Description Data Kassandra rce(s) Supporting Document(s) Hemoglobin A1c/Hemoglobin.total in Blood 5.7 % 4.0 - 5.6 Above high normal [facility] Glucose mean value [Mass/volume] in Blood Estimated fr om glycated hemoglobin 117 mg/dL [facility] \\BLDo\\HEMOGLO BIN A1C\\BLDx\\ 4.0 - 5.6%: Normal 5.7 - 6.4%: Suggests Impaired Glucose Metabolism > or = 6.5%: Abnormal Estimated average glucose calculated using ADAG Study formula as recommended by the [employer]. Procedure Social History Code Duration Value Status Description Data Source(s ) Smoking 04/09/2021 12:00:00 AM EDT Patient has never smoked co mpleted Patient has never smoked [facility] ([facility]) Alcohol intake 01/18/2021 12:00:00 AM EDT Ex-drinker (finding) comp leted Ex- drinker (finding) [facility] 12/28/2020 01:44:11 PM EDT Never smoker completed Never [facility] Smoking 12/28/2020 01:44:00 PM EDT Never smoker completed Never [facility] Tobacco use and exposure 10/12/2020 12:00:00 AM EDT Never used co mpleted Never used [facility] Smoking 10/12/2020 12:00:00 AM EDT Never smoker completed Never [facility] Alcohol intake 10/12/2020 12:00:00 AM EDT Ex-drinker (finding) comp leted Ex- drinker (finding) [facility] 07/30/2020 10:15:00 AM EST No completed No [facility] 07/30/2020 10:15:00 AM EST No completed No [facility] 07/30/2020 10:15:00 AM EST No completed No [facility] 07/30/2020 10:15:00 AM EST No completed No [facility] 07/30/2020 10:15:00 AM EST Never smoker completed Never s [facility] 07/30/2020 10:15:00 AM EST No completed No [facility] 07/30/2020 10:15:00 AM EST No completed No [facility] 07/30/2020 10:15:00 AM EST Never smoker completed Never [facility] Smoking 07/30/2020 09:15:00 AM EST Never smoker completed Never [facility] Vital Signs ID Date Data Source UNK Name Value Range Interpretation Code Description Data Source(s) Body height 62 [in_i] 62 [in_i] [facility] ([facility]) 5'2" Heart rate 92 /min 92 /min [facility] ([facility]) Systolic blood pressure--sitting 103 mm[Hg] 103 mm[Hg] [facility] ([facility]) Omron adult cuff, [place] Diastolic blood pressure--sitting 69 mm[Hg] 69 mm[Hg] [facility] ([facility]) Omron adult cuff, [place] Systolic blood pressure 98 mm[Hg] 98 mm[Hg] [facility] Diastolic blood pressure 70 mm[Hg] 70 mm[Hg] [facility] Heart rate 86 /min 86 /min [facility] Body height 160 cm 160 cm [facility] Body weight 49.896 kg 49.896 kg [facility] Body mass index (BMI) [Ratio] 19.49 kg/m2 19.49 kg/m2 [facility] Oxygen saturation in Arterial blood by Pulse oximetry 98 % 98 % [facility] Systolic blood pressure 98 mm[Hg] 98 mm[Hg] [facility] Diastolic blood pressure 62 mm[Hg] 62 mm[Hg] [facility] Heart rate 62 /min 62 /min [facility] Body height 160 cm 160 cm [facility] Body weight 45.813 kg 45.813 kg [facility] Body mass index (BMI) [Ratio] 17.89 kg/m2 17.89 kg/m2 [facility] Oxygen saturation in Arterial blood by Pulse oximetry 97 % 97 % [facility] Patient Treatment Plan of Care Planned Activity Planned Date Details Description Data Source (s) 60 ACTUAT Fluticasone propionate 0.25 MG /ACTUAT / salmeterol 0.05 MG/ACTUAT Dry Powder Inhaler [Advair] 12/28/2020 12:00:00 AM EDT [facility] Cholecalciferol 1000 UNT Oral Capsule [facility] Metoprolol Tartrate 25 MG Oral Tablet [facility]
--- OUTSIDE RECORDS SUMMARY | 2021-05-10 11:18 | CCD | Continuity of Care Document ---
Author Author Luiz TAYLOR MD Organization Unknown Address [address] [facility] [address] [facility] [place] [address] Phone [phone] Care Team Providers Care Shoe Packer Name Role Phone Pan Harmon MD AUTM [phone] Bhanu Harmon MD AUTM [phone] Meri Rosa MD AUTM [phone] Chauncey Mckeon MD AUTM [phone] Shanika Rod AUTM [phone] Katie Finch MD AUTM [phone] Problems Active Problems Provider Date Ostium secundum type atrial septal defect Pan Taylor MD Onset: 05/18/2012 Cerebral artery occlusion Pan Taylor MD Onset: 2011 Pure hypercholesterolemia Pan Taylor MD Onset: 2011 Social History Type Date Description Comments Sex Unknown ETOH Use Does not consume alcohol Tobacco Use Start: Unknown Patient has never smoked Smoking Status Reviewed: 04/09/21 Patient has never smoked Exercise Type/Frequency Physical therapy twice w eekly and at-home exercises 3- 4 days weekly Exercise Limitations CVA Allergies and adverse reactions Description No Known Drug Allergies Medications Active Medications SIG Qnty Indications Ordering Provide r Date Vitamin D 2000Unit Tablets 1 by mouth every day Shanika Rod PA 04/08/2021 Pantoprazole Sodium 40mg Tablets D R 1 by mouth every day Shanika Rod PA 04/08/2021 Albuterol Sulfate HFA 108(90Base) mcg/Act Aerosol inhale two puffs as needed every 4 hours Shanika Rod PA 04/08/2021 Clopidogrel Bisulfate 75mg Tablets 1 by mouth every day Chauncey Mckeon MD 04/08/2021 Advair Diskus 250-50mcg/Dose Aeros ol 1 puff twice a day Shanika Rod PA 04/08/2021 Lipitor 40mg Tablets 1 by mouth every day at bedtime Chauncey Mckeon MD 04/08/2021 Baclofen 10mg Tablets 1 by mouth three times a day as needed Shanika Rod PA 2020 Probiotic Acidophilus Capsules 1 by mouth daily Unknown 04/08/2021 Fluoxetine HCL 20mg Capsules 1 by mouth every day Shanika Rod PA 04/08/2021 Simethicone 180mg Capsules 1 by mouth as needed Unknown 04/08/2021 Aspirin 81mg Tablets 1 po qd Unknown 02/11/2013 Amoxicillin 500mg Capsules 4 capsules po 1 hour prior to dental procedures (sbe) Unknown Immunizations Description No Information Available Vital Signs Date Vital Result Comment 04/09/2021 1:28pm Height 62 inches 5'2" Heart Rate 92 /min BP Systolic Sitting 103 mmHg Omron adult cuff, [place] BP Diastolic Sitting 69 mmHg Omron adult cuff, L A 04/15/2013 8:49am Weight 110.00 lb Height 62 inches 5'2" BMI (Body Mass Index) 20.1 kg/m2 Heart Rate 72 /min Regular Respiratory Rate 16 /min BP Systolic Sitting 110 mmHg medium cuff, LA BP Diastolic Sitting 70 mmHg medium cuff, LA Results Test Acquired [...] HDL 36 mg/dL 35 - 70 Procedures Date Code Description Status 04/09/2021 67606 Office/Outpatient New Moderate M DM 45-59 Minutes Completed 04/09/2021 15813 ECG 12-Lead Completed Medical Devices Description No Information Available Encounters Type Date Location Provider Dx Diagnosis Office Visit 04/09/2021 11:00a Main Office Pan Taylor MD I63.9 Cerebral infarction, unspecified Q21.1 Atrial septal defect Assessments Date Code Description Provider 04/09/2021 I63.9 Cerebral infarction, unspecified Pan Taylor MD 04/09/2021 Q21.1 Atrial septal defect Pan payne MD Plan of Treatment 04/09/2021 - Pan Taylor MD* I63.9 Cerebral infarction, unspecified* Recommendations:* Subcutaneous cardiac rhythm monitor: SC cardiac rhythm monitor was discussed with the patient to further evaluate for cryptogenic stroke. Risks of SC cardiac rhythm monitor implantation were explained to the patient including, but not all inclusive: Very low risk for bleeding, infection, adverse drug reaction. Patient was agreeable to undergo implantation of a subcutaneous cardiac rhythm monitor and signed the consent form. Patient prefers and requests to have monitored anesthetic care to help with any anxiety or pain that may occur during the subcutaneous cardiac rhythm monitor implant procedure rather than having the procedure done in the office without IV sedation or IV pain medications. Arrangements in progress for elective outpatient implantation of a SC cardiac rhythm monitor with MAC. * Q21.1 Atrial septal defect * All * Follow up:* 1. Book MEDTRONIC implantable loop recorder implant by Dr. Taylor. 2. Book incision check 5-8 days after implantable loop recorder implant. Long-term cardiology care including monitoring of the subcutaneous cardiac rhythm monitor will remain with this patient's highway design engineer, Dr. Chauncey Mckeon. Functional Status Functional Condition Comment Date Status Requires assistance with bathing Active Requires assistance with dressing Active Independent with feeding Active Independent with grooming Active Dependent with standing Active Dependent with toileting Active Dependent with ambulating uses wheelchair for all mobility Active Mental Status Description No Information Available Referrals Description No Information Available
--- OUTSIDE RECORDS SUMMARY | 2021-05-10 11:18 | CCD | Continuity of Care Document ---
Author Author Luiz TAYLOR MD Organization Unknown Address [address] [place] [address], [place] [address] Phone [phone] Care Team Providers Care Audiology Technician Name Role Phone Pan Harmon MD AUTM [phone] Bhanu Harmon MD AUTM [phone] Meri Rosa MD AUTM [phone] Katie Finch MD AUTM [phone] Chauncey Mckeon MD AUTM [phone] Shanika Rod AUTM [phone] Katie Finhc MD AUTM [phone] Problems Active Problems Provider Date Ostium secundum [...] 2000Unit Tablets 1 by mouth every day Sahnika Rod PA 04/08/2021 Pantoprazole Sodium 40mg Tablets [...] 70 Procedures Date Code Description Status 04/09/2021 84205 Office/Outpatient New Moderate M DM 45-59 Minutes Completed 04/09/2021 38651 ECG 12-Lead Completed Medical Devices Description No [...] - Pan Taylor MD* I63.9 Cerebral infarction, unspecified * Q21.1 Atrial septal defect * All * Follow up:* 1. Book MEDTRONIC implantable loop recorder implant by Dr. Taylor. 2. Book incision check 5-8 days after implantable loop recorder implant. Functional Status Functional Condition Comment Date Status Requires assistance with bathing Active Requires assistance with dressing Active Independent with feeding Active Independent with grooming Active Dependent with standing Active Dependent with toileting Active Dependent with ambulating uses wheelchair for all mobility Active Mental Status Description No Information Available Referrals Description No Information Available
[2021-05-10] MEDS ORDERED: LIDOCAINE 1% SDV 30ML VIAL As Ordered ONE (11:52)
[2021-05-10] MEDS ORDERED: LR 1,000 ML IV SCH (12:20)
[2021-05-10] MEDS ORDERED: fentaNYL 100 MCG/2 ML INJECTION (J3010) As Ordered ONE (12:33)
[2021-05-10] MEDS ORDERED: propofoL 200 MG/20 ML VIAL As Ordered ONE (12:33)
[2021-05-10] MEDS ORDERED: MIDAZOLAM INJ 2MG/2ML VIAL (J2250 PER 1MG) As Ordered ONE (12:33)
[2021-05-10] MEDS ORDERED: LIDOCAINE 2% 100MG/5ML SDV (FOR ANES.) As Ordered ONE (12:33)
[2021-05-10] MEDS ORDERED: LR 1,000 ML IV ONE (12:40)
[2021-05-10] MEDS ORDERED: ePHEDrine SULFATE 25 MG/5 ML(5MG/ML) SYRINGE As Ordered ONE (13:17)
[2021-05-10 14:10] VITALS: BP 107/62
--- NOTE | 2021-05-10 15:23 | RO ---
OPERATIVE NOTE DATE OF OPERATION: 05/10/2021 PREOPERATIVE DIAGNOSIS: Cryptogenic stroke. POSTOPERATIVE DIAGNOSIS: Cryptogenic stroke. PROCEDURE PERFORMED: Implantation of Medtronic subcutaneous cardiac rhythm monitor. FINDINGS: Cryptogenic stroke. SURGEON: Pan Taylor MD PUBLIC HEALTH PROFESSOR: None. ANESTHESIA: Lidocaine 1% local/monitored anesthesia care. No specimen. ESTIMATED BLOOD LOSS: Less than 1 mL. No blood products. No drains. No complications. DESCRIPTION OF PROCEDURE: The patient was prepped and draped over the sternum and left anterior chest. Lidocaine 1% was used for local anesthesia. Incision 1 cm in length was made with #15 blade at the 3rd interspace 1 inch out lateral to the left parasternal border. The guiding insertion tool was then placed into the incision and advanced into the subcutaneous tissue in caudal direction. The insertion tool was rotated 180 degrees. The plunger was then placed into the insertion tool and used to advance the subcutaneous cardiac rhythm monitor into the subcutaneous tissue. The plunger was then removed and then the insertion tool was removed. The incision was approximated temporarily using 4-0 Biosyn suture applied subcuticular with the free ends of the suture protruding through the skin 1 cm from either end of the incision line. This was used to keep the incision well approximated by applying tension to both ends of the suture. Two layers of Dermabond glue were applied. The Biosyn suture was then pulled through the incision line and removed entirely. The patient tolerated the procedure well without any immediate complications. The R amplitude measured 0.91 millivolts. The subcutaneous cardiac rhythm monitor implanted was Medtronic LINQ II with serial #[id number].
== END 2021-05-10 14:15 | disposition home or self-care (01) ==
LOC: M SDC 11:10
PROVIDERS: ATTEND Internal Medicine Cardiovascular Disease
DX: I63.9 Cerebral infarction, unspecified (principal); F41.9 Anxiety disorder, unspecified; F32.9 Major depressive disorder, single episode, unspecified; Z79.82 Long term (current) use of aspirin; Z79.899 Other long term (current) drug therapy; Z92.21 Personal history of antineoplastic chemotherapy; Z85.6 Personal history of leukemia; Z88.8 Allergy status to other drugs, medicaments and biological substances
CPT/HCPCS: 33285; C1764; J0690; J2250; J3010